=== PATIENT | male | born 1945 | race Caucasian/White ===

== ENCOUNTER 2023-10-21 20:28 | Inpatient (IN) | payer MEDICARE, SELFPAY ==
[2023-10-21] VITALS (10 sets, daily range): BP systolic 93–105; BP diastolic 54–59; BMI 21.9
[2023-10-21 17:14] LABS: % Basophils 0.4 % (0-2); % Eosinophils 2.9 % (0-6); % Immature Granulocytes 0.3 % (0-0.5); % Lymphocytes 19.8 % (20.5-51.1); % Monocytes 6.9 % (1.7-9.3); % Neutrophils 69.7 % (42.2-75.2); Absolute Eosinophils 0.3 10^3/uL (0-0.7); Absolute Lymphocytes 1.9 10^3/uL (1.2-3.4); Absolute Monocytes 0.7 10^3/uL (0.1-0.6); Absolute Neutrophils 6.8 10^3/uL (1.4-6.5); Hematocrit 26.3 % (39.0-52.0); Hemoglobin 8.7 g/dL (13.0-18.0); Mean Corp Hgb Conc. 33.1 g/dL (33.0-37.0); Mean Corpuscular Hgb 27.9 pg (27.0-31.0); Mean Corpuscular Volume 84.3 fL (80.0-94.0); Mean Platelet Volume 8.8 fL (7.4-10.4); Nucleated Red Blood Cells % 0 % (-); Platelet Count 355 10^3/uL (130-400); Red Blood Cell Count 3.12 10^6/uL (4.70-6.10); Red Cell Dist. Width 17.2 % (11.5-14.5); White Blood Cell Count 9.7 10^3/uL (4.8-10.8)
--- NOTE | 2023-10-21 17:30 | ED.GENMED ---
History of Present Illness
General
Chief Complaint: Change Level of Consciousness
Source: patient
Exam Limitations: none
Time Seen by Provider: 10/21/23 17:10
History of Present Illness
History of Present Illness:
77-year-old male never been here before presents via EMS from home after visiting nurse noticed he was different than his baseline. He was tired. They thought he was dehydrated. They sent him here for evaluation. Patient was recently at a
different hospital which they discharged him on ertapenem and daptomycin. He has a chronic suprapubic catheter. The antibiotics were to be continued for 10 days after discharge. Patient a poor historian but denies pain. He is unsure why he was
brought to the hospital. He does not know where he is.
Phy Exam
Physical Exam
Physical Exam:
General: Elderly male no acute respiratory distress
HEENT: Normocephalic mucosa moist neck is supple
Heart: Regular rate and rhythm no murmurs
Lungs: Clear no wheeze or rales
Abdomen: Suprapubic catheter noted mild tenderness in this area no guarding or rebound
Extremities: No cyanosis or edema
Skin: Warm no rash
Course
Orders/Labs/Results
Orders:
Orders
10/21/23 17:09
Complete Blood Count/With Diff Urgent
10/21/23 17:23
CR Chest Portable - 1 View Urgent
Comment:
Reason For Exam: fatigue
Reason Study Needs to be Portable: Patient Unstable
10/21/23 17:31
Lactic Acid Q4H
Comment: CANCEL 2nd LACTIC ACID IF 1st LACTIC ACID IS LESS THAN 2
Blood Culture Q30M
KIEL Source: Blood/Venous
Specimen Description:
Blood Culture Q30M
KIEL Source: Blood/Venous
Specimen Description:
10/21/23 17:41
Comprehensive Metabolic Panel Urgent
Urinalysis Reflex To Culture Urgent
Date Specimen was Collected: 10/21/23
Time Specimen was Collected: 17:24
Urine Microscopic Reflex Cult Urgent
Urine Culture Urgent
KIEL Source: U
Specimen Description:
Date Specimen was Collected: 10/21/23
Time Specimen was Collected: 17:24
10/21/23 19:12
0.9% Sodium Chloride 1000 ml [Nss] 1,000 ml IV BOLUS
10/21/23 19:14
CefTRIAXone [Rocephin] 1,000 mg IV NOW STA
10/21/23 21:30
Lactic Acid Q4H
Comment: CANCEL 2nd LACTIC ACID IF 1st LACTIC ACID IS LESS THAN 2
Abnormal Lab Results
10/21/23 10/21/23 10/21/23
17:09 17:31 17:41
RBC 3.12 L 10^6/uL
(4.70-6.10)
Hgb 8.7 L g/dL
(13.0-18.0)
Hct 26.3 L %
(39.0-52.0)
RDW 17.2 H %
(11.5-14.5)
Absolute Neuts (auto) 6.8 H 10^3/uL
(1.4-6.5)
Absolute Monos (auto) 0.7 H 10^3/uL
(0.1-0.6)
Lymphocytes % 19.8 L %
(20.5-51.1)
Sodium 133 L mmol/L
(135-145)
Potassium 3.4 L mmol/L
(3.5-5.1)
BUN 30 H mg/dl
(9-20)
Creatinine 0.5 L mg/dL
(0.7-1.3)
Glucose 164 H mg/dl
(70-99)
Lactic Acid 0.6 L mmol/L
(0.7-2.0)
Alkaline Phosphatase 193 H U/L
(38-126)
Total Protein 6.2 L g/dl
(6.3-8.2)
Albumin 2.5 L g/dl
(3.5-5.0)
Urine Ketones 1+ A
(Negative)
Ur Occult Blood Reflex 2+ A
(Negative)
Urine Nitrite (Reflex) Positive A
(Negative)
Leukocyte Esterase Rfl 2+ A
(Negative)
Urine WBC (Reflex) >100 A /HPF
(0-5)
Urine Bacteria (Reflex) Many A
(Negative)
Urine Albumin (Reflex) 1+ A
(Neg - Trace)
10/21/23 17:09
10/21/23 17:41
Vital Signs
Initial and Last Documented VS:
Initial Vital Signs
Temp Pulse Resp BP Pulse Ox
98.8 F 68 24 98/54 94
10/21/23 16:58 10/21/23 16:58 10/21/23 16:58 10/21/23 16:58 10/21/23 16:58
Last Documented Vital Signs
Temp Pulse Resp BP Pulse Ox
99.3 F 64 18 103/58 97
10/21/23 17:36 10/21/23 19:00 10/21/23 19:00 10/21/23 19:00 10/21/23 19:00
MDM/Problems Addressed
Differential Diagnosis Includes:
General weakness increased confusion from baseline. Question infectious process versus electrolyte abnormality versus dehydration
Check labs including blood cultures. Urine in catheter bag has significant sediment and looks cloudy
Urinalysis pending. Labs pending. Chest x-ray pending
*Critical Care Note
Total Time (30-74mins, 75-104mins- exclusive of procedures): Not Applicable
Update Note
Update Note:
Chest x-ray shows no acute finding. Concern for possible urinary tract infection on urinalysis. Daughter now on room and spoke with her at length regarding patient's issues. He has been more weak for the past 3 to 4 days getting worse. He
presents like this when he gets urinary tract infection. He has chronic indwelling suprapubic catheter. Will start hydration with IV fluids and Rocephin for UTI but will admit to hospital. Of note, patient's pulse ox was 85% and improved with 2 L
of oxygen.
ED Attending Note
-
Portions of this chart may have been created with voice recognition software.� Occasional wrong word or��sound alike� substitutions may have occurred due to the inherent limitations of voice recognition software.
Discharge Plan
Departure
Patient Disposition: Admit
Date of Disposition: 10/21/23
Time of Disposition: 19:16
Admit to: Telemetry
Presentation/result/management discussed w/ accepting MD/DO: Hospitalist
Discharge Problem:
Acute UTI
Prescriptions:
No Action
atorvastatin 40 mg Tablet
40 mg PO DAILY
amlodipine 2.5 mg Tablet
2.5 mg PO DAILY
omeprazole 40 mg Capsule,Delayed Release(Dr/Ec)
40 mg PO DAILY
carvedilol 3.125 mg Tablet
3.125 mg PO BID
coenzyme Q10 [Co Q-10] 50 mg Capsule
50 mg PO DAILY
isosorbide mononitrate 60 mg Tablet Extended Release 24 Hr
60 mg PO DAILY
alprazolam 0.5 mg Tablet
0.5 mg PO HS
Patient Comments:
10/21/2023: last filled 08/31/23, 180 tabs for 90 days from [id number]
pantoprazole 40 mg Tablet,Delayed Release (Dr/Ec)
40 mg PO DAILY
ferrous sulfate 325 mg (65 mg iron) Tablet
325 mg PO DAILY
aspirin 81 mg Tablet,Chewable
81 mg PO DAILY
gabapentin 100 mg Capsule
100 mg PO HS
ergocalciferol (vitamin D2) 1,250 mcg (50,000 unit) Capsule
1,250 mcg PO WEEKLY
finasteride 5 mg Tablet
5 mg PO DAILY
escitalopram oxalate 20 mg Tablet
20 mg PO DAILY
cyclobenzaprine 5 mg Tablet
5 mg PO BID PRN (Reason: muscle spasms)
Desitin 40 % Paste
1 applic TOPICAL PRN PRN (Reason: wound care)
Patient Comments:
10/21/2023: apply topically
Vashe 0.033 % Irrigation Solution
1 irrig IRRIGATION PRN PRN (Reason: wound care)
sennosides [senna] 8.6 mg tablet
8.6 mg PO BID
oxycodone 5 mg tablet
5 mg PO BID
Patient Comments:
10/21/2023: last filled 09/24/23, 60 tabs for 30 days from [id number]
Referrals:
UNKNOWN - PT DOES,NOT KNOW [Family Provider] -
Interventions
Interventions:
*Risk Screen - Suicide Last Done: 10/21/23 17:01
*General Assessment Last Done: 10/21/23 19:08
*Neglect/Abuse Screening Last Done: 10/21/23 17:01
*ED COVID-19 Vaccine History Last Done: 10/21/23 17:01
ED- Cardiac Assessment Last Done: 10/21/23 17:15
ED- Neurological Assessment Last Done: 10/21/23 17:15
ED- Pulmonary Assessment Last Done: 10/21/23 17:15
Discharge Date and Time
Print Language: DOMINICAN
[2023-10-21 17:50] LABS: Urine Albumin 1+ (Neg - Trace); Urine Bilirubin Negative (Negative); Urine Character Slightly Cloudy (Clear); Urine Color Yellow; Urine Glucose Negative (Negative); Urine Ketone 1+ (Negative); Urine Leukocyte 2+ (Negative); Urine Nitrite Positive (Negative); Urine Occult Blood 2+ (Negative); Urine Specific Gravity 1.015 (<1.030); Urine Urobilinogen Negative (Neg - 1+)
[2023-10-21 17:51] LABS: Lactic Acid 0.6 mmol/L (0.7-2.0)
[2023-10-21 18:07] LABS: ALT (SGPT) 47 U/L (0-50); AST (SGOT) 34 U/L (17-59); Albumin 2.5 g/dl (3.5-5.0); Alkaline Phosphatase 193 U/L (38-126); Blood Urea Nitrogen 30 mg/dl (9-20); Calcium 8.4 mg/dl (8.4-10.2); Carbon Dioxide 24 mmol/L (22-30); Chloride 104 mmol/L (98-107); Estimated Creatinine Clearance 118 ml/min; Glucose 164 mg/dl (70-99); Potassium 3.4 mmol/L (3.5-5.1); Sodium 133 mmol/L (135-145); Total Bilirubin 0.5 mg/dl (0.2-1.3); Total Protein 6.2 g/dl (6.3-8.2); eGFR > 60.00
[2023-10-21 18:16] LABS: Urine Amorphous Seen; Urine Bacteria Many (Negative); Urine Mucus Many; Urine Squamous Cell >30 /LPF (Few); Urine Triple Phosphate Crystal Seen
[2023-10-21 18:17] LABS: Urine Urothelial Cell >30 /LPF (FEW)
[2023-10-21 18:30] LABS: Urine White Cell >100 /HPF (0-5)
--- NOTE | 2023-10-21 18:40 | PHANOTE ---
Med Rec Note:
Home med list is compiled from Discharge papers from Mihaela from 09/20/[address] Mooney. Pt came in alone with papers.
[2023-10-21] MEDS: NSS 1000 IV ×2 (19:42→23:19)
[2023-10-21] MEDS: ROCEPHIN 1000 MG IV (19:42)
[2023-10-21] MEDS: STERILE WATER FOR INJECTION 10 ML IV (19:45)
--- NOTE | 2023-10-21 19:57 | HPS.HSE ---
Family Physician
-
Family Physician: NOT KNOW UNKNOWN - PT DOES
Chief Complaint
-
change in mental status
History of Present Illness
77-year-old male past medical history of TBI, chronic suprapubic catheter, recent sepsis secondary to MRSA/Proteus pyelonephritis secondary to obstructed right ureteral calculus status post stent and removal complicated by perinephric hematoma, BPH,
prior diabetes, diabetic neuropathy, prior CVA, CAD status post stents, recent hematemesis secondary to undiagnosed GI bleeding, anxiety/depression, GERD, left foot wound, presenting from senior living for change in mental status over the past 3 to 4
days. No fevers or chills. Patient's chronic suprapubic catheter has not been changed since September 27 and there is cloudy material in the catheter. No nausea or vomiting.
History is obtained from patient's daughter. Patient just had a complicated hospitalization at [facility] for sepsis secondary to MRSA/Proteus pyelonephritis secondary to obstructing right ureteral calculus. Patient was treated with
ertapenem and daptomycin to be continued for 10 days which he finished on September 27. Patient required stent with eventual removal. Patient also had a perinephric hematoma. Hospital course was complicated by hematemesis suspected secondary to upper
GI bleeding. Patient required blood transfusions due to hemoglobin as low as 7. EGD was not pursued given patient's comorbidities and clinical status. Plavix was eventually restarted afterwards given patient's history of stroke
Patient receives all his care at [facility]..
Patient did have some slight cough over the past few days. No shortness of breath or chest pain. Patient did not have a bowel movement today or yesterday.
Patient does not smoke or drink alcohol.
Medical History
Past Medical History
Past Medical History: Reports Other (TBI, chronic suprapubic catheter, recent sepsis secondary to MRSA/Proteus pyelonephritis secondary to obstructed right ureteral calculus status post stent and removal complicated by perinephric hematoma, BPH,
prior diabetes, diabetic neuropathy, prior CVA, CAD status post stents, recent hematemesis )
Past Surgical History: Reports Other (ureteral stent )
Social History
Tobacco: Non-smoker
Alcohol: None
Drug: None
Family History
Family History: Not pertinent
Allergies / Home Medications
Allergies reflects when Allergies were last updated in [employer].
Home Medications with original date entered in [employer]
Allergy/Medication List:
Allergies
Allergy/AdvReac Type Severity Reaction Status Date / Time
No Known Allergies Allergy Verified 10/21/23 19:16
Home Medications
alprazolam 0.5 mg tablet 0.5 mg PO HS 10/21/23
amlodipine 2.5 mg tablet 2.5 mg PO DAILY 10/21/23
aspirin 81 mg chewable tablet 81 mg PO DAILY 10/21/23
atorvastatin 40 mg tablet 40 mg PO DAILY 10/21/23
carvedilol 3.125 mg tablet 3.125 mg PO BID 10/21/23
coenzyme Q10 50 mg capsule (Co Q-10) 50 mg PO DAILY 10/21/23
cyclobenzaprine 5 mg tablet 5 mg PO BID PRN muscle spasms 10/21/23
ergocalciferol (vitamin D2) 1,250 mcg (50,000 unit) capsule 1,250 mcg PO WEEKLY 10/21/23
escitalopram oxalate 20 mg tablet 20 mg PO DAILY 10/21/23
ferrous sulfate 325 mg (65 mg iron) tablet 325 mg PO DAILY 10/21/23
finasteride 5 mg tablet 5 mg PO DAILY 10/21/23
gabapentin 100 mg capsule 100 mg PO HS 10/21/23
isosorbide mononitrate 60 mg tablet,extended release 24 hr 60 mg PO DAILY 10/21/23
omeprazole 40 mg capsule,delayed release 40 mg PO DAILY 10/21/23
oxycodone 5 mg tablet 5 mg PO BID 10/21/23
pantoprazole 40 mg tablet,delayed release 40 mg PO DAILY 10/21/23
sennosides 8.6 mg tablet (senna) 8.6 mg PO BID 10/21/23
sodium chloride-hypochlorous acid 0.033 % irrigation solution (Vashe) 1 irrig irrigation PRN PRN wound care 10/21/23
zinc oxide-cod liver oil 40 % topical paste (Desitin) 1 applic topical PRN PRN wound care 10/21/23
Review of Systems
-
History Source: Patient
A 12 point ROS was completed and negative except as noted: Yes
Constitutional: Reports No Symptoms
EENT: Reports No Symptoms
Respiratory: Reports See HPI
Cardiac: Reports No Symptoms
Abdomen/GI: Reports See HPI
: Reports See HPI
Musculoskeletal: Reports No Symptoms
Skin: Reports No Symptoms
Neurological: Reports No Symptoms
Endocrine: Reports No Symptoms
Hematologic/Lymphatic: Reports No Symptoms
Psych: Reports No Symptoms
Physical Exam
Vital Signs
Vital Signs
Temp Pulse Resp BP Pulse Ox
99.3 F 64 18 103/58 97
10/21/23 17:36 10/21/23 19:00 10/21/23 19:00 10/21/23 19:00 10/21/23 19:00
Physical Exam
General: Well Developed, Well Nourished and No Apparent Distress
HEENT: NormoCephalic, Moist mucous membranes and Atraumatic
Respiratory: Clear
Cardiac: S1/S2 and Regular Rhythm; No Murmur or Rub
GI: Soft, Non Tender, Non Distended and Normal Bowel Sounds; No Organomegaly
Rectal: Deferred by Provider
Musculoskeletal: No Clubbing, No Cyanosis and No Edema
Skin: No Rash
Neuro: Nonfocal/grossly intact
Laboratory Results
-
10/21/23 17:09
10/21/23 17:41
Laboratory Results
Lactic Acid Cancelled 10/21/23 21:30
Total Bilirubin 0.5 mg/dl (0.2-1.3) 10/21/23 17:41
AST 34 U/L (17-59) 10/21/23 17:41
ALT 47 U/L (0-50) 10/21/23 17:41
Alkaline Phosphatase 193 U/L (38-126) H 10/21/23 17:41
Data Reviewed
-
Lab Data: Labs Reviewed by me
Old Records: Reviewed
Impression/Plan
-
IMPRESSION:
PLAN:
# Metabolic encephalopathy secondary to suprapubic catheter associated UTI
-Urine, blood cultures
-IV fluids
-Ceftriaxone
-Check CT abdomen pelvis to evaluate for stone given complex history
-Urology consulted to exchange suprapubic catheter
# History of recent sepsis secondary MRSA/Proteus pyelonephritis secondary infected right ureteral calculus status post stent and removal complicated by perinephric hematoma
-Completed daptomycin/ertapenem on September 27
# Constipation
-start miralax
BPH status post chronic suprapubic catheter
-Continue finasteride
Recent upper GI bleeding
-EGD not pursued
Normocytic anemia secondary to UGIB
-Hemoglobin 8.7 close to baseline
-Continue ferrous sulfate
# Hypokalemia
-Replete potassium
Essential hypertension
-Continue amlodipine
Anxiety/depression
-Hold Xanax
-Continue Lexapro
Coronary artery disease status post CABG/stents
-Continue aspirin, statin, Coreg, isosorbide mononitrate
GERD
-Continue omeprazole
Prior diabetes
Diabetic neuropathy
-Hold gabapentin until encephalopathy improves
History of traumatic brain injury
Prior CVA
-Continue aspirin, Plavix
Left foot wound
-Topical wound care
Full code
DVT prophylaxis�SCDs
regular diet
[2023-10-21] MEDS: KCL 40 MEQ PO (20:08)
[2023-10-22] MEDS: COREG PO (00:44)
--- NOTE | 2023-10-22 03:30 | PTCARENOTE ---
Pt admitted from ED, AAOx2. Daughter/caregiver at bedside. No c/o pain. Pt afebrile. BP 98/54 - BUSINESS SUPPORT LIAISON aware and Coreg dose held - parameters added. R forearm IV C/D/I, started on IVF - infusing without issues. Lungs clear, diminished. Pt arrived
to unit on 2L O2. No oxygen use at home reported. no N/V or stools thi shift. Suprapubic catheter in place, draining dennise, cloudy urine with sediments. Skin assessed. Sacrum and B/L heels with wounds on admission. Q2 turns overnight. Awaiting
further plan.
[2023-10-22 05:54] LABS: % Basophils 0.4 % (0-2); % Eosinophils 5.3 % (0-6); % Immature Granulocytes 0.5 % (0-0.5); % Lymphocytes 22.7 % (20.5-51.1); % Monocytes 6.9 % (1.7-9.3); % Neutrophils 64.2 % (42.2-75.2); Absolute Eosinophils 0.6 10^3/uL (0-0.7); Absolute Immature Granulocytes 0.1 10^3/uL (0-0.05); Absolute Lymphocytes 2.4 10^3/uL (1.2-3.4); Absolute Monocytes 0.7 10^3/uL (0.1-0.6); Absolute Neutrophils 6.9 10^3/uL (1.4-6.5); Hematocrit 31.8 % (39.0-52.0); Hemoglobin 9.8 g/dL (13.0-18.0); Mean Corp Hgb Conc. 30.8 g/dL (33.0-37.0); Mean Corpuscular Hgb 27.5 pg (27.0-31.0); Mean Corpuscular Volume 89.3 fL (80.0-94.0); Mean Platelet Volume 9.1 fL (7.4-10.4); Nucleated Red Blood Cells % 0 % (-); Platelet Count 370 10^3/uL (130-400); Red Blood Cell Count 3.56 10^6/uL (4.70-6.10); Red Cell Dist. Width 17.2 % (11.5-14.5); White Blood Cell Count 10.7 10^3/uL (4.8-10.8)
[2023-10-22 06:31] LABS: ALT (SGPT) 45 U/L (0-50); AST (SGOT) 32 U/L (17-59); Albumin 2.8 g/dl (3.5-5.0); Alkaline Phosphatase 213 U/L (38-126); Blood Urea Nitrogen 26 mg/dl (9-20); Calcium 8.8 mg/dl (8.4-10.2); Carbon Dioxide 26 mmol/L (22-30); Chloride 108 mmol/L (98-107); Estimated Creatinine Clearance 118 ml/min; Glucose 104 mg/dl (70-99); Potassium 4.3 mmol/L (3.5-5.1); Sodium 141 mmol/L (135-145); Total Bilirubin 0.5 mg/dl (0.2-1.3); eGFR > 60.00
[2023-10-22 07:30] VITALS: BP 131/58
--- NOTE | 2023-10-22 07:51 | W.PN.UPDATE ---
Update Note
Progress Note Update
pt seen and examined
hx from chart reviewed- he can not provide
sp tube changed at bedisde- await CT
full consult to follow
[2023-10-22] MEDS: PROTONIX 40 MG PO (09:02)
[2023-10-22] MEDS: IMDUR (EXTENDED RELEASE) 60 MG PO (09:02)
[2023-10-22] MEDS: LEXAPRO 20 MG PO (09:02)
[2023-10-22] MEDS: LOW STRENGTH ASPIRIN 81 MG PO (09:03)
[2023-10-22] MEDS: COREG 3.125 MG PO ×2 (09:03→21:29)
[2023-10-22] MEDS: LIPITOR 40 MG PO (09:03)
[2023-10-22] MEDS: FEOSOL 325 MG PO (09:03)
[2023-10-22] MEDS: PROSCAR 5 MG PO (09:03)
[2023-10-22] MEDS: NORVASC 2.5 MG PO (09:03)
[2023-10-22] MEDS: MIRALAX 17 GRAMS PO (09:04)
[2023-10-22] MEDS: NSS 1000 IV ×2 (09:59→21:30)
--- NOTE | 2023-10-22 10:58 | W.PN.HOSP.TC ---
Today's Communication/Plan
-
CT abdomen pelvis pending
Assessment / Plan
Assessment / Plan
IMPRESSION:
77-year-old male past medical history of TBI, chronic suprapubic catheter, recent sepsis secondary to MRSA/Proteus pyelonephritis secondary to obstructed right ureteral calculus status post stent and removal complicated by perinephric hematoma,
never been here before presents via EMS from home after visiting nurse noticed he was different than his baseline. He was tired. They thought he was dehydrated. They sent him here for evaluation
PLAN:
Acute Metabolic encephalopathy secondary to suprapubic catheter associated UTI
-Patient was started on IV antibiotic in form of Rocephin
-Still pending urine, blood cultures
-Continue IV fluids
-Had CT abdomen pelvis done today, result pending
-Urology consulted.
History of recent sepsis secondary MRSA/Proteus pyelonephritis secondary infected right ureteral calculus status post stent and removal complicated by perinephric hematoma
Patient had prolonged hospitalization at [facility] and discharged on IV daptomycin/ertapenem which has been completed on September 27
BPH status post chronic suprapubic catheter
-Continue finasteride
Recent upper GI bleeding
Hemoglobin stable
Normocytic anemia secondary to UGIB /iron deficiency anemia
-Hemoglobin stable
-Continue ferrous sulfate
Mild Hypokalemia
replaced
Essential hypertension
-Continue amlodipine
Anxiety/depression
-Hold Xanax
-Continue Lexapro
Coronary artery disease status post CABG/stents
-Continue aspirin, statin, Coreg, isosorbide mononitrate
GERD
-Continue omeprazole
Constipation
miralax
Diabetic neuropathy
-Hold gabapentin until encephalopathy improves
Prior CVA
-Continue aspirin, Plavix
Left foot wound
-Topical wound care
CODE STATUS: Full code
DVT prophylaxis:SCDs
Diet: Regular diet
Anticipated Discharge: > 48 hours
Subjective/Interval History
-
Date of Service: October 22, 2023
Patient seen and examined at bedside, patient is awake but not fully oriented, denies any chest pain or shortness of breath.
Objective Data
-
Labs:
Laboratory Results
10/22/23
05:41
WBC 10.7
Hgb 9.8 L
Hct 31.8 L
Plt Count 370
Sodium 141 D
Potassium 4.3 D
Chloride 108 H
Carbon Dioxide 26
BUN 26 H
Creatinine 0.5 L
Glucose 104 H
Calcium 8.8
Total Bilirubin 0.5
AST 32
ALT 45
Alkaline Phosphatase 213 H
Vital Signs:
Vital Signs
Temp Pulse Resp BP Pulse Ox
99.4 F 84 22 131/58 97
10/22/23 07:30 10/22/23 09:03 10/22/23 07:30 10/22/23 09:03 10/22/23 07:30
I&O
10/21/23 10/22/23 10/23/23
06:59 06:59 06:59
Intake Total 60 / 60
Output Total 750 / 750
Balance -690 / -690
Physical Exam
-
General: Comfortable and Appears Chronically Ill
HEENT: Normocephalic, Atraumatic and Moist Mucous Membranes
Respiratory: Rales
Cardiac: Regular Rhythm and S1/S2; Negative Murmur, Rub or Gallop
GI: Soft, Nontender, Nondistended and Normal Bowel Sounds; Negative Organomegaly
Rectal: Deferred by Provider
Musculoskeletal: No Clubbing, No Cyanosis and No Edema
Skin: Negative Rash
Neuro: Nonfocal/Grossly Intact
Psych: Confused
--- NOTE | 2023-10-22 12:00 | CM ---
Addendum entered by Lucila Contreras 10/22/23 12:32:
Pt lives with daughter Yamila and her family in a 2 story home - has FF set-up
Original Note:
Pt admitted for metabolic encephalopathy/UTI. H/O TBI. Confused at baseline
Spoke with pts daughter Yamila [phone], to complete initial assessment
Confused at baseline, ambulates with rolling walker. Assist with ADL's/transfers
DME - hospital bed, wheel chair and rolling walker
HH - current with [facility]
Snf - has been to [facility] in past
PCP - Dr Corral, comes to home
Pharm - [facility]
Current with [facility] - will send referral in [facility] for JERR[facility]
Plan - anticipate home with HH vs SNF at d/c
--- NOTE | 2023-10-22 12:43 | PTCARENOTE ---
CALLED DAUGHTER SERGEY TAYLOR with update,
--- NOTE | 2023-10-22 13:06 | CON.MD ---
Consultation - Medical
-
see dictated note
NOTE- ALL CARE HAS BEEN THRU [facility]
pt with traumatic brain injury- [place]- ? his functional status at baseline
became early dependent in 2019- then due to traumatic hypospadius and repeat UTI's and cath encrustation- had SP TUBE PLACEMENT in fall of 2022- contine to block cath- now upsized to 24 turkmen- even with irrigation/renacidin and freq changes- was
getting repeat UTI's and cath obstruction
in july presented with urosepsis to [facility]- had ureteroscopy and stent (apparently no stone- just encrusted mucous)- developed sig right renal bleed requiring 3units of blood
in and out fo the hospital- most recently in august- had repeat ureteroscopy and stent removal- per dr coreas- imaging at that time did show some evid of air in renal and per-renal space- cx's + for mrsa and proteus- sent out on iv atnibx- has completed
this regimen
brought in to last night for not feeling well
family does not want him to go back to [facility]- and his treating urologist stated today she does not want to continue his care
af-vss-nl wbc- ua+- sp tube changed at bedside
CT shows very abnormal right kidney- small pockets of air in parenchyma and jc-renal area (? within hematoma)- appears to have hydro with calcified debris in prox ureter- but very difficult exam
I have reviewed the films with my partners- dr joy did reach out to dr croeas- her care plan is noted above
also spoke with med team and 2 extensive conversations with daughter
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
also will need to remain off plavix given bleeding hx and need for surgery/possible drainage/etc (did take yesterday)- this also carries substantial risk
may need to consider tertiary care referral at some juncture
in short term- plan as pt is relatively stable- is for OR stent placement tomorrow and repeat iv contrasted ct 72hrs later
daughter has consented- high risks have been reviewed.
--- NOTE | 2023-10-22 14:32 | WOUNDNOTE ---
[facility] RN note: Patient admitted with UTI/metabolic encephalopathy
See H&P for complete history-
PMH: Recent sepsis secondary to MRSA, BPH, GI bleed, hypokalemia, CAD, depression
Wound Location and type/assessment: Patient assessed with PCT, Sandip. Patient easily arousable but appears lethargic and oriented only to self. Patient lives at home and VN called EMS today for MS changed. Upon assessment, sacrum is blanchable red
with scattered open areas extending to buttocks. Fungal appearing skin also noted. Subrapubic catheter intact and providing moisture management.Friction appearing skin noted on posterior thighs. Patient admitted with fiber filled boots. He has a
stage 3 PI of left medical heel that is covered in thick, draining slough. Directly on bottom of left heel is a DTI, and just lateral to that is an unstageable PI covered with thick eschar.
Appetite: Unable to report. Patient slowly feeding self after visit.
Pressure redistribution devices in place: Versa Care Air, fiber-filled boots.
Plan: All wound care completed as ordered. Dakins had been ordered prior to visit for left heel wound.
Will confirm orders with hospitalist and update nurse.
Updated care plan and will follow as needed.
Note to case management of equipment requested for discharge: Air mattress
Recommend follow up at wound care center upon discharge.
[2023-10-22 14:39] VITALS: BMI 21.9
--- NOTE | 2023-10-22 15:27 | WOUNDNOTE ---
LEFT HEEL (LATERAL ASPECT)
--- NOTE | 2023-10-22 15:38 | CON.ID ---
Consultation
-
Date/Time Consultation Requested: 10/22/23 11:55
Date/Time Consultation Performed: 10/22/23 15:38
Requesting Provider: Dr Choudhary
Performing Provider: Dr Nunes
Reason for Consultation: UTI with history of MRSA/Proteus pyelonephritis
Chief Complaint / Past History
Chief Complaint
change in mental status
History of Present Illness
Mr Mac is a 77 year old male with history of TBI with chronic suprapubic cath, recent pyelonephritis due to obstructed R ureteral calculus and cultures with MRSA/Proteus who presented here for change in mental status over 3-4 days. No fevers or
chills. Mild cough. No shortness of breath. No diarrhea. Patient was treated with daptomycin/ertapenem for a 10 day course through september 27. Of note had a perinephric hematuria, did require stent placement and it was removed. Of note obstruction
was encrusted mucous not a stone. 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 Patient typically gets his care at [facility].
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
involving the right kidney. Patient has been extensively evaluated by urology who have commented that eventual nephrectomy may be required but patient is at high risk and currently relatively stable. He is currently planned for OR for stent
placement tomorrow and repeat CT with IV contrast in 72 hours. Patient is currently on ceftriaxone. ID is consulted for assistance with management.
Past History
Additional Past Medical History:
TBI, chronic suprapubic catheter, recent sepsis secondary to MRSA/Proteus pyelonephritis secondary to obstructed right ureteral calculus status post stent and removal complicated by perinephric hematoma, BPH, prior diabetes, diabetic neuropathy,
prior CVA, CAD status post stents, recent hematemesis
Additional Past Surgical History:
ureteral stent
Allergy History:
No Known Allergies Allergy (Verified 10/21/23 19:16)
Medications Reviewed: Yes
Social History
Tobacco: Non-Smoker
Alcohol: None
Drug: None
Family History
Family History: Not Pertinent
Review of Systems
Review of Systems
General: Negative Fever or Chills
All systems: All other systems were reviewed and were negative
Vital Signs
Temp Pulse Resp BP Pulse Ox
99.4 F 84 22 131/58 95
10/22/23 07:30 10/22/23 09:03 10/22/23 07:30 10/22/23 09:03 10/22/23 13:57
Physical Exam
Physical Exam
Constitutional: No Acute Distress
Cardiovascular: Regular Rate and S1/S2; Negative Murmur or Rub
Pulmonary: Clear and Symmetric; Negative Wheezes, Rales or Rhonchi
Gastrointestinal: Soft, Non Tender, Non Distended and Normal Bowel Sounds
Genito-Urinary: Suprapubic Tenderness; Negative CVA Tenderness
Skin: Warm and Dry; Negative Rash or Jaundice
Neurological: Awake and Alert; Negative Oriented (to time; he is oriented to place)
Lab / Diagnostic Study Results
10/22/23 05:41
10/22/23 05:41
Abs Immat Gran (auto) 0.1 10^3/uL (0-0.05) H 10/22/23 05:41
Absolute Neuts (auto) 6.9 10^3/uL (1.4-6.5) H 10/22/23 05:41
Absolute Lymphs (auto) 2.4 10^3/uL (1.2-3.4) 10/22/23 05:41
Absolute Monos (auto) 0.7 10^3/uL (0.1-0.6) H 10/22/23 05:41
Absolute Basos (auto) 0.0 10^3/uL (0-0.2) 10/22/23 05:41
Immature Gran % 0.5 % (0-0.5) 10/22/23 05:41
Neutrophils % 64.2 % (42.2-75.2) 10/22/23 05:41
Lymphocytes % 22.7 % (20.5-51.1) 10/22/23 05:41
Monocytes % 6.9 % (1.7-9.3) 10/22/23 05:41
Eosinophils % 5.3 % (0-6) 10/22/23 05:41
Basophils % 0.4 % (0-2) 10/22/23 05:41
Lactic Acid Cancelled 10/21/23 21:30
Ur Squamous Epith Cells >30 /LPF (Few) 10/21/23 17:41
Microbiology Results
Micro:
10/21/23 17:41 Urine Culture - Final
Urine
10/22/23 07:59 Urine Culture - Pending
Urine
10/21/23 17:31 Blood Culture - Pending
Blood/Venous
10/21/23 17:31 Blood Culture - Pending
Blood/Venous
Assessment / Plan
Xanthogranulomatous Pyelonephritis
- recent h/o pyelonephritis due to MRSA and Proteus
S/p Suprapubic catheter
- obtain discharge summary and recent cultures from [facility]
- reviewed records that are available on the paper chart - confirmed 10 day course of ertapenem/daptomycin
- urine culture polymicrobial 10/20, a repeat done today
- asked lab to ID the isolates from 10/20 as XGP is occasionally polymicrobial
- restarted daptomycin, for now, 10 mg/kg while awaiting MICs
- hold statin
- ck in the AM
- meropenem 1 gm IV q 8hrs
- agree that eventual nephrectomy is likely needed, luckily patient is currently stable. I am concerned that he would be at risk of relapsing infection, progression if necrotic tissue and fluid collections remain within the kidney. Right kidney
likely not viable Transfer to tertiary care center may be indicated
[2023-10-22 16:00] VITALS: BP 123/60
[2023-10-22] MEDS: HEPARIN 5000 UNITS SC ×2 (16:30→23:40)
[2023-10-22] MEDS: MERREM 1000 MG IV ×2 (16:31→23:41)
[2023-10-22] MEDS: STERILE WATER FOR INJECTION 20 ML IV ×2 (16:32→23:42)
--- NOTE | 2023-10-22 16:37 | WOUNDNOTE ---
LEFT HEEL WOUND
[2023-10-22] MEDS: CUBICIN 16 MG IV (17:00)
[2023-10-22 23:00] VITALS: BP 128/66
[2023-10-23] VITALS (9 sets, daily range): BP systolic 91–128; BP diastolic 52–66; BMI 21.7
[2023-10-23] MEDS: NSS 1000 IV (06:21)
[2023-10-23 06:48] LABS: Hematocrit 28.4 % (39.0-52.0); Hemoglobin 9.2 g/dL (13.0-18.0); Mean Corp Hgb Conc. 32.4 g/dL (33.0-37.0); Mean Corpuscular Hgb 27.4 pg (27.0-31.0); Mean Corpuscular Volume 84.5 fL (80.0-94.0); Mean Platelet Volume 9.1 fL (7.4-10.4); Platelet Count 397 10^3/uL (130-400); Red Blood Cell Count 3.36 10^6/uL (4.70-6.10); Red Cell Dist. Width 17.2 % (11.5-14.5); White Blood Cell Count 13.3 10^3/uL (4.8-10.8)
[2023-10-23 07:02] LABS: Blood Urea Nitrogen 16 mg/dl (9-20); Calcium 8.3 mg/dl (8.4-10.2); Carbon Dioxide 24 mmol/L (22-30); Chloride 105 mmol/L (98-107); Creatine Phosphokinase 43 U/L (55-170); Estimated Creatinine Clearance 117 ml/min; Glucose 117 mg/dl (70-99); Potassium 3.5 mmol/L (3.5-5.1); Sodium 136 mmol/L (135-145); eGFR > 60.00
[2023-10-23] MEDS: MERREM IV (08:32)
--- NOTE | 2023-10-23 09:07 | W.IMMPOSTOP ---
Surgical Immed Post Op Note
-
Primary Surgeon: Peffer
Assisting Surgeon: -
Pre-op Diagnosis: R ureteral obstruction
Post-op Diagnosis: same
Procedure Performed: cystoscopy, R RGP, R ureteral stent
Anesthesia Type: gen
Specimen / Cultures: none
Estimated Blood Loss: none
Complications: none
Operative Findings: kinked R ureter with dense obstructive debris
Ureteral stent placed with purulent drainage
[2023-10-23] MEDS: MIRALAX 17 GRAMS PO (09:56)
[2023-10-23] MEDS: COREG 3.125 MG PO ×2 (09:56→20:28)
[2023-10-23] MEDS: NORVASC 2.5 MG PO (09:56)
[2023-10-23] MEDS: PROTONIX 40 MG PO (09:56)
[2023-10-23] MEDS: LOW STRENGTH ASPIRIN 81 MG PO (09:56)
[2023-10-23] MEDS: FEOSOL 325 MG PO (09:56)
[2023-10-23] MEDS: LEXAPRO 20 MG PO (09:56)
[2023-10-23] MEDS: PROSCAR 5 MG PO (09:56)
[2023-10-23] MEDS: IMDUR (EXTENDED RELEASE) 60 MG PO (09:57)
[2023-10-23] MEDS: HEPARIN 5000 UNITS SC ×2 (09:57→15:26)
[2023-10-23] MEDS: STERILE WATER FOR INJECTION 20 ML IV ×2 (09:58→15:27)
--- NOTE | 2023-10-23 12:19 | W.PN.HOSP.TC ---
Today's Communication/Plan
-
s/p stent
continue Abx per ID and follow cultures
repeat CT in 72 hours
Assessment / Plan
Assessment / Plan
IMPRESSION:
77-year-old male past medical history of TBI, chronic suprapubic catheter, recent sepsis secondary to MRSA/Proteus pyelonephritis secondary to obstructed right ureteral calculus status post stent and removal complicated by perinephric hematoma,
never been here before presents via EMS from home after visiting nurse noticed he was different than his baseline. He was tired. They thought he was dehydrated. They sent him here for evaluation
Assessment:
Xanthogranulomatous Pyelonephritis
recent h/o pyelonephritis due to MRSA and Proteus, infected R ureteral stone s/p stent/removal ([facility])
- obtain records from [facility]
- Urology following
- s/p cysto, RGP, stent placement 10/23/23
- continue Meropenem and Dapto per ID; follow cultures
- May need to be considered for Nephrectomy
- plan is for repeat in 72 hours per Urology
TME associated with above process of UTI/Pyelonephritis
BPH s/p suprapubic catheter
- continue Finasteride
Recent hx of upper GI bleed
Normocytic anemia
- stable Hb
Mild hypokalemia
- replaced
Essential HTN
- amlodipine
Anxiety/Depression
- hold BZD
- continue Lexapro
CAD S/p CABG/Stents
- continue ASA/Statin/Coreg/Imdur
GERD - PPI
Constipation
- bowel regimen
Hx of DM neuropathy
- hold Gabapentin
Hx of CVA
- continue ASA/Statin
Left food wound
- continue topical care
DVT ppx: SCDs
Code: Full
Anticipated Discharge: > 48 hours
Subjective/Interval History
-
Date of Service: October 23, 2023
s/p cysto+stent placement this AM with copious pus noted
Objective Data
-
Labs:
Laboratory Results
10/23/23
06:14
WBC 13.3 H
Hgb 9.2 L
Hct 28.4 L
Plt Count 397
Sodium 136
Potassium 3.5
Chloride 105
Carbon Dioxide 24
BUN 16
Creatinine 0.5 L
Glucose 117 H
Calcium 8.3 L
Vital Signs:
Vital Signs
Temp Pulse Resp BP Pulse Ox
97.4 F 70 18 116/63 94
10/23/23 11:50 10/23/23 11:50 10/23/23 11:50 10/23/23 11:50 10/23/23 11:50
I&O
10/22/23 10/23/23 10/24/23
06:59 06:59 06:59
Intake Total 1640 / 1640 100 / 100
Output Total 1800 / 1800 200 / 200
Balance -160 / -160 -100 / -100
Physical Exam
-
General: No Apparent Distress
HEENT: Normocephalic and Atraumatic
Respiratory: Negative Wheezes
Cardiac: Regular Rhythm and S1/S2
GI: Soft
Genito-urinary: No Costovertebral Tender
Musculoskeletal: No Edema
Neuro: AO x 3
Hematologic / Lymphatic: No Lymphadenopathy
Psych: Calm
Data Reviewed
-
Total Time Spent with Patient (in minutes): 42
Labs: Labs Reviewed by me
--- NOTE | 2023-10-23 15:16 | W.PN.ID1 ---
Date of Service
Date of Service: October 23, 2023
Today's Communication
continue dapto/dwain at this time
Assessment / Plan
Xanthogranulomatous Pyelonephritis
- recent h/o pyelonephritis due to MRSA and Proteus
S/p Suprapubic catheter
- obtain discharge summary and recent cultures from [facility]
- reviewed records that are available on the paper chart - confirmed 10 day course of ertapenem/daptomycin
- urine culture polymicrobial 10/20, a repeat done today
- asked lab to ID the isolates from 10/20 as XGP is occasionally polymicrobial
- restarted daptomycin, for now, 10 mg/kg while awaiting MICs
- hold statin
- ck in the AM
- meropenem 1 gm IV q 8hrs
- agree that eventual nephrectomy is likely needed, luckily patient is currently stable. I am concerned that he would be at risk of relapsing infection, progression if necrotic tissue and fluid collections remain within the kidney. Right kidney
likely not viable Transfer to tertiary care center may be indicated
Chief Complaint
-: UTI (XGP)
Subjective / Review of Systems
afebrile
bp stable
mild leukocytosis
cr stable
urine culture with proteus and e coli similar to previous
s/p stent placement
Vital Signs / Physical Exam
Vital Signs
Vital Signs
Temp Pulse Resp BP Pulse Ox
97.4 F 70 18 116/63 94
10/23/23 11:50 10/23/23 11:50 10/23/23 11:50 10/23/23 11:50 10/23/23 11:50
Physical Exam
Constitutional: No Acute Distress
Cardiovascular: Regular Rate and S1/S2; Negative Murmur or Rub
Pulmonary: Clear and Symmetric; Negative Wheezes or Rales
Gastrointestinal: Soft, Non Tender, Non Distended and Normal Bowel Sounds
Genito-Urinary: Negative Suprapubic Tenderness
Skin: Warm and Dry; Negative Rash or Jaundice
Objective Data
Lab Data
Lab Results
10/23/23 06:14
10/23/23 06:14
Estimated Creat Clear 117 ml/min 10/23/23 06:14
Lactic Acid Cancelled 10/21/23 21:30
Total Bilirubin 0.5 mg/dl (0.2-1.3) 10/22/23 05:41
AST 32 U/L (17-59) 10/22/23 05:41
ALT 45 U/L (0-50) 10/22/23 05:41
Alkaline Phosphatase 213 U/L (38-126) H 10/22/23 05:41
Most recent labs reviewed.
Micro Results:
10/21/23 17:31 Blood Culture - Preliminary
Blood/Venous Coagulase neg. staphylococcus
Additional testing on request
Gram Stain - Preliminary
10/21/23 17:41 Urine Culture - Preliminary
Urine Escherichia coli
Proteus species
10/22/23 07:59 Urine Culture - Preliminary
Urine Proteus species
10/21/23 17:31 Blood Culture - Preliminary
Blood/Venous No Growth in 24 hours- Final report to follow
[2023-10-23] MEDS: MERREM 1000 MG IV (15:26)
[2023-10-23] MEDS: CUBICIN 16 MG IV (15:26)
[2023-10-24] MEDS: HEPARIN 5000 UNITS SC (01:16)
[2023-10-24] MEDS: STERILE WATER FOR INJECTION 20 ML IV ×3 (01:16→17:00)
[2023-10-24] MEDS: MERREM 1000 MG IV ×3 (01:16→17:00)
[2023-10-24 03:26] VITALS: BP 123/63
--- NOTE | 2023-10-24 03:39 | PTCARENOTE ---
@7621;Instructed RICH Castelan,via TT, pt's suprapubic draining some bloody red urine. Earlier in shift ,urine was like a yellow red color. Received orders for NSS 500ml IV @ 100 ml/hour and to hold SQ heparin.
[2023-10-24] MEDS: NSS 500 IV (04:20)
--- NOTE | 2023-10-24 04:25 | PTCARENOTE ---
@2300; Pt's B/L fiber filled boots were removed and reapplied after 2 hours
--- NOTE | 2023-10-24 04:28 | W.PN.UPDATE ---
Update Note
Progress Note Update
RN noted pt with increased hematuria post cysto with stent 10/23/23
No clots, Good urinary output. Will hold heparin sq for now. Small ivf bolus to facilitate clearance
[2023-10-24 05:50] VITALS: BMI 22.0
[2023-10-24 06:00] VITALS: BMI 22.0
[2023-10-24 07:00] VITALS: BP 110/61
[2023-10-24 07:37] LABS: Hematocrit 29.4 % (39.0-52.0); Hemoglobin 9.3 g/dL (13.0-18.0); Mean Corp Hgb Conc. 31.6 g/dL (33.0-37.0); Mean Corpuscular Hgb 27.4 pg (27.0-31.0); Mean Corpuscular Volume 86.7 fL (80.0-94.0); Mean Platelet Volume 9.2 fL (7.4-10.4); Platelet Count 384 10^3/uL (130-400); Red Blood Cell Count 3.39 10^6/uL (4.70-6.10); Red Cell Dist. Width 17.2 % (11.5-14.5); White Blood Cell Count 13.4 10^3/uL (4.8-10.8)
[2023-10-24 08:18] LABS: Blood Urea Nitrogen 18 mg/dl (9-20); Calcium 8.9 mg/dl (8.4-10.2); Carbon Dioxide 23 mmol/L (22-30); Chloride 105 mmol/L (98-107); Estimated Creatinine Clearance 118 ml/min; Glucose 133 mg/dl (70-99); Potassium 3.7 mmol/L (3.5-5.1); Sodium 135 mmol/L (135-145); eGFR > 60.00
[2023-10-24] MEDS: PROSCAR 5 MG PO (09:10)
[2023-10-24] MEDS: IMDUR (EXTENDED RELEASE) 60 MG PO (09:10)
[2023-10-24] MEDS: LEXAPRO 20 MG PO (09:10)
[2023-10-24] MEDS: LOW STRENGTH ASPIRIN 81 MG PO (09:10)
[2023-10-24] MEDS: PROTONIX 40 MG PO (09:10)
[2023-10-24] MEDS: FEOSOL 325 MG PO (09:13)
[2023-10-24] MEDS: COREG 3.125 MG PO ×2 (09:13→20:59)
[2023-10-24] MEDS: NORVASC 2.5 MG PO (09:14)
[2023-10-24] MEDS: MIRALAX 17 GRAMS PO (09:15)
[2023-10-24 11:00] VITALS: BP 113/58
--- NOTE | 2023-10-24 11:40 | W.PN.URO.CBU ---
Today's Communication / Plan
-
Continue abx
Hold plavix
CT on Wednesday
Assessment / Plan
-
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
Recurrent UTI and catheter obstruction
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
s/p suprapubic tube replacement
s/p R ureteral stent placement 10/22 with purulent drainage. Calcified debris and ureteral kinking noted on retrograde study
- Continue broad spectrum abx per ID - cultures pending
- Trend mild hematuria, flush suprapubic tube as needed
- Continue to hold Plavix. Okay to give sub Q heparin DVT ppx
- Repeat CTAP AM 10/25 to reassess renal abscess/collection 72 hours post stent placement
Diagnosis
-
Date of Service: October 24, 2023
-
Patient Diagnosis:
Recurrent R ureteral obstruction
XGP kidney
Urinary retention with chronic SPT
Post Op s/po cystoscopy, R ureteral stent placement 10/22
Subjective
-
No complaints this AM
Mild hematuria since stent placement
Objective
-
Vital Signs
Temp Pulse Resp BP Pulse Ox
97.7 F 78 17 113/58 97
10/24/23 11:00 10/24/23 11:00 10/24/23 11:00 10/24/23 11:00 10/24/23 11:00
Intake and Output
10/23/23 10/24/23 10/25/23
06:59 06:59 06:59
Intake Total 1640 / 1640 1260 / 1260
Output Total 1800 / 1800 1550 / 1550
Balance -160 / -160 -290 / -290
Intake:
Oral fluids 440 / 440 1160 / 1160
IV fluids (Total) 1200 / 1200 100 / 100
normosol 100 / 100
Output:
Urine, Mane 1600 / 1600
Suprapubic output 200 / 200 1550 / 1550
Laboratory Results
10/24/23 07:13
10/24/23 07:13
Physical Exam
-
General - well developed, well nourished, no acute distress
Chest - clear bilaterally
Abdomen - soft, non-tender
- SPT in place with purulent urine draining, mild hematuria
--- NOTE | 2023-10-24 13:57 | W.PN.HOSP.TC ---
Today's Communication/Plan
-
resume SC Heparin with Urology clearance, monitor Hb clinically. Will reduce frequency to Q12h from Q8h
continue IV Abx
repeat CT Wednesday
Assessment / Plan
Assessment / Plan
Assessment:
Xanthogranulomatous Pyelonephritis
recent h/o pyelonephritis due to MRSA and Proteus, infected R ureteral stone s/p stent/removal ([place])
- obtain records from [place]
- Urology following
- s/p cysto, RGP, stent placement 10/23/23
- continue Meropenem and Dapto per ID; follow cultures
- May need to be considered for Nephrectomy
- plan is for repeat in 72 hours on Wednesday
TME associated with above process of UTI/Pyelonephritis
- improving as treatment continues
Post-cystoscopy hematuria
- this is an expected issue post-procedure
- Hb stable
- d/w Urology ok for resumption of SC Heparin
BPH s/p suprapubic catheter
- continue Finasteride
Recent hx of upper GI bleed
Normocytic anemia
- stable Hb
Mild hypokalemia
- replaced
Essential HTN
- amlodipine
Anxiety/Depression
- hold BZD
- continue Lexapro
CAD S/p CABG/Stents
- continue ASA/Statin/Coreg/Imdur
GERD - PPI
Constipation
- bowel regimen
Hx of DM neuropathy
- hold Gabapentin
Hx of CVA
- continue ASA/Statin
Left food wound
- continue topical care
DVT ppx: SCDs
Code: Full
Anticipated Discharge: > 48 hours
Subjective/Interval History
-
Date of Service: October 24, 2023
light hematuria post-stent placement noted last evening
SC DVT ppx was held
Hb stable
He feels well currently
Objective Data
-
Labs:
Laboratory Results
10/24/23
07:13
WBC 13.4 H
Hgb 9.3 L
Hct 29.4 L
Plt Count 384
Sodium 135
Potassium 3.7
Chloride 105
Carbon Dioxide 23
BUN 18
Creatinine 0.4 L
Glucose 133 H
Calcium 8.9
Vital Signs:
Vital Signs
Temp Pulse Resp BP Pulse Ox
97.7 F 78 17 113/58 97
10/24/23 11:00 10/24/23 11:00 10/24/23 11:00 10/24/23 11:00 10/24/23 11:00
I&O
10/23/23 10/24/23 10/25/23
06:59 06:59 06:59
Intake Total 1640 / 1640 1260 / 1260
Output Total 1800 / 1800 1550 / 1550
Balance -160 / -160 -290 / -290
Physical Exam
-
General: No Apparent Distress
HEENT: Normocephalic and Atraumatic
Respiratory: Negative Wheezes
Cardiac: Regular Rhythm and S1/S2
GI: Soft and Nontender
Genito-urinary: No Costovertebral Tender and Bloody Urine
Musculoskeletal: No Edema
Neuro: AO x 3
Psych: Calm
Data Reviewed
-
Total Time Spent with Patient (in minutes): 45
Labs: Labs Reviewed by me
[2023-10-24 15:00] VITALS: BP 106/54
--- NOTE | 2023-10-24 15:23 | W.PN.ID1 ---
Date of Service
Date of Service: October 24, 2023
Today's Communication
continue current antibiotics
Assessment / Plan
Xanthogranulomatous Pyelonephritis
- recent h/o pyelonephritis due to MRSA and Proteus
S/p Suprapubic catheter
- await discharge summary and recent cultures from [facility]
- urine culture polymicrobial Proteus ESBL, E coli
- asked lab to ID the isolates from 10/20 as XGP is occasionally polymicrobial
- restarted daptomycin, for now, 10 mg/kg while awaiting MICs
- hold statin
- ck in the AM
- meropenem 1 gm IV q 8hrs
- agree that eventual nephrectomy is likely needed, luckily patient is currently stable. I am concerned that he would be at risk of relapsing infection, progression if necrotic tissue and fluid collections remain within the kidney. Right kidney
likely not viable Transfer to tertiary care center may be indicated
Chief Complaint
-: UTI (XGP)
Subjective / Review of Systems
afebrile
bp stable
without leukocytosis
cr stable
esbl proteus noted from the urine
Vital Signs / Physical Exam
Vital Signs
Vital Signs
Temp Pulse Resp BP Pulse Ox
97.7 F 78 17 113/58 97
10/24/23 11:00 10/24/23 11:00 10/24/23 11:00 10/24/23 11:00 10/24/23 11:00
Physical Exam
Constitutional: No Acute Distress
Cardiovascular: Regular Rate and S1/S2; Negative Murmur or Rub
Pulmonary: Clear and Symmetric; Negative Wheezes or Rales
Gastrointestinal: Soft, Non Tender, Non Distended and Normal Bowel Sounds
Genito-Urinary: Negative Suprapubic Tenderness
Skin: Warm and Dry; Negative Rash or Jaundice
Objective Data
Lab Data
Lab Results
10/24/23 07:13
10/24/23 07:13
Estimated Creat Clear 118 ml/min 10/24/23 07:13
Lactic Acid Cancelled 10/21/23 21:30
Total Bilirubin 0.5 mg/dl (0.2-1.3) 10/22/23 05:41
AST 32 U/L (17-59) 10/22/23 05:41
ALT 45 U/L (0-50) 10/22/23 05:41
Alkaline Phosphatase 213 U/L (38-126) H 10/22/23 05:41
Most recent labs reviewed.
Micro Results:
10/21/23 17:31 Blood Culture - Preliminary
Blood/Venous Coagulase neg. staphylococcus
Additional testing on request
Gram Stain - Preliminary
10/21/23 17:41 Urine Culture - Preliminary
Urine Escherichia coli
Proteus Mirabilis-ESBL
10/22/23 07:59 Urine Culture - Final
Urine Proteus Mirabilis-ESBL
10/21/23 17:31 Blood Culture - Preliminary
Blood/Venous No Growth in 48 hours- Final report to follow
[2023-10-24] MEDS: CUBICIN 16 MG IV (16:56)
[2023-10-24 23:49] VITALS: BP 108/69
[2023-10-25] MEDS: MERREM 1000 MG IV ×3 (00:20→15:58)
[2023-10-25] MEDS: STERILE WATER FOR INJECTION 20 ML IV ×3 (00:21→15:58)
[2023-10-25 06:15] VITALS: BMI 22.5
[2023-10-25 07:00] VITALS: BP 116/54
[2023-10-25 07:29] LABS: Hemoglobin 9.5 g/dL (13.0-18.0); Mean Corp Hgb Conc. 31.7 g/dL (33.0-37.0); Mean Corpuscular Hgb 27.1 pg (27.0-31.0); Mean Corpuscular Volume 85.7 fL (80.0-94.0); Platelet Count 398 10^3/uL (130-400); Red Cell Dist. Width 17.2 % (11.5-14.5); White Blood Cell Count 11.2 10^3/uL (4.8-10.8)
[2023-10-25 08:02] LABS: Blood Urea Nitrogen 17 mg/dl (9-20); Calcium 8.7 mg/dl (8.4-10.2); Carbon Dioxide 27 mmol/L (22-30); Chloride 104 mmol/L (98-107); Estimated Creatinine Clearance 121 ml/min; Glucose 113 mg/dl (70-99); Potassium 4.2 mmol/L (3.5-5.1); Sodium 136 mmol/L (135-145); eGFR > 60.00
--- NOTE | 2023-10-25 08:40 | W.PN.URO.CBU ---
Today's Communication / Plan
-
Continue antibiotics
Repeat CT tomorrow
Assessment / Plan
-
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
Recurrent UTI and catheter obstruction
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
s/p suprapubic tube replacement
s/p R ureteral stent placement 10/22 with purulent drainage. Calcified debris and ureteral kinking noted on retrograde study
- Continue abx per ID - ESBL proteus on cultures
- Mild hematuria resolving, flush suprapubic tube as needed
- Continue to hold Plavix. Okay to give sub Q heparin DVT ppx
- Repeat CTAP AM 10/25 to reassess renal abscess/collection 72 hours post stent placement
Diagnosis
-
Date of Service: October 25, 2023
-
Patient Diagnosis:
Post Op Day:
Patient Diagnosis:
Recurrent R ureteral obstruction
XGP kidney
Urinary retention with chronic SPT
Post Op s/po cystoscopy, R ureteral stent placement 10/22
Subjective
-
Feeling well this AM
No new events
Objective
-
Vital Signs
Temp Pulse Resp BP Pulse Ox
98.2 F 68 16 116/54 97
10/25/23 07:00 10/25/23 07:00 10/25/23 07:00 10/25/23 07:00 10/25/23 07:00
Intake and Output
10/24/23 10/25/23 10/26/23
06:59 06:59 06:59
Intake Total 1260 / 1260 680 / 680
Output Total 1550 / 1550 1250 / 1250
Balance -290 / -290 -570 / -570
Intake:
Oral fluids 1160 / 1160 480 / 480
IV fluids (Total) 100 / 100
normosol 100 / 100
Suprapubic intermittent 200 / 200
irrigations
Output:
Suprapubic output 1550 / 1550 1250 / 1250
Laboratory Results
10/25/23 06:34
10/25/23 06:34
Physical Exam
-
General - no acute distress
Chest - clear
Abdomen - soft, non-tender
- SPT in place draining clear yellow/pink
[2023-10-25] MEDS: MIRALAX 17 GRAMS PO (08:46)
[2023-10-25] MEDS: COREG 3.125 MG PO ×2 (08:46→20:35)
[2023-10-25] MEDS: IMDUR (EXTENDED RELEASE) 60 MG PO (08:47)
[2023-10-25] MEDS: LEXAPRO 20 MG PO (08:47)
[2023-10-25] MEDS: LOW STRENGTH ASPIRIN 81 MG PO (08:47)
[2023-10-25] MEDS: NORVASC 2.5 MG PO (08:47)
[2023-10-25] MEDS: PROSCAR 5 MG PO (08:47)
[2023-10-25] MEDS: PROTONIX 40 MG PO (08:47)
[2023-10-25] MEDS: FEOSOL 325 MG PO (08:47)
--- NOTE | 2023-10-25 09:33 | PN.CDI ---
CDI
- -
CDI:
Physician Documentation Request
Admit Date: 10/21/23 20:28
Dear Doctor Jaquan,
Please review the following and provide your response in the progress notes.
Clinical Indicators:
Pt admitted with UTI/Pyelonephritis, and metabolic encephalopathy,
10/21 Wound RN note: 'He has a stage 3 PI of left medical heel that is covered in thick, draining slough. Directly on bottom of left heel is a DTI, and just lateral to that is an unstageable PI covered with thick eschar.'
Physician documentation of the type and location of wounds is required for compliant documentation. Based on the above clinical findings and your assessment, please provide the following in your progress note:
- Left heel Stage 3 pressure injury POA
- Other
Use of terms such as suspected, likely, concern for, or probable (associated with a specific diagnosis that is being evaluated, monitored, or treated as if it exists) are acceptable and can be coded in the inpatient setting, when documented at the
time of discharge.
Thank you,
Karol Ramirez RN, BSN
CDI Specialist
Available via [facility] [employer]
Please use your independent medical judgment in providing your response.
*Source: National Pressure Ulcer Advisory Panel (NPUAP)
[2023-10-25 10:10] VITALS: BP 97/56; PULSE 74; O2SAT 93
[2023-10-25 10:15] VITALS: BP 97/56; PULSE 74
--- NOTE | 2023-10-25 10:37 | W.PN.HOSP.TC ---
Today's Communication/Plan
-
continue IV Abx per ID
repeat CT tomorrow per Urology
Assessment / Plan
Assessment / Plan
Assessment:
Xanthogranulomatous Pyelonephritis
recent h/o pyelonephritis due to MRSA and Proteus, infected R ureteral stone s/p stent/removal ([place])
- obtain records from [place]
- Urology following
- s/p cysto, RGP, stent placement 10/23/23
- continue Meropenem and Dapto per ID; cultures growing E. Coli and ESBL/Proteus
- May need to be considered for Nephrectomy
- plan is for repeat on Wednesday
TME associated with above process of UTI/Pyelonephritis
- improving as treatment continues
Post-cystoscopy hematuria
- this is an expected issue post-procedure
- Hb stable
- d/w Urology ok for resumption of SC Heparin
BPH s/p suprapubic catheter
- continue Finasteride
Recent hx of upper GI bleed
Normocytic anemia
- stable Hb
Mild hypokalemia
- replaced
Essential HTN
- amlodipine
Anxiety/Depression
- hold BZD
- continue Lexapro
CAD S/p CABG/Stents
- continue ASA/Statin/Coreg/Imdur
GERD - PPI
Constipation
- bowel regimen
Hx of DM neuropathy
- hold Gabapentin
Hx of CVA
- continue ASA/Statin
Left food wound
- continue topical care
DVT ppx: SC Heparin
Code: Full
Anticipated Discharge: > 48 hours
Subjective/Interval History
-
Date of Service: October 25, 2023
resting comfortably, no complaints at present
Objective Data
-
Labs:
Laboratory Results
10/25/23
06:34
WBC 11.2 H
Hgb 9.5 L
Hct 30.0 L
Plt Count 398
Sodium 136
Potassium 4.2
Chloride 104
Carbon Dioxide 27
BUN 17
Creatinine 0.4 L
Glucose 113 H
Calcium 8.7
Vital Signs:
Vital Signs
Temp Pulse Resp BP Pulse Ox
98.2 F 68 16 116/64 97
10/25/23 07:00 10/25/23 08:46 10/25/23 07:00 10/25/23 08:47 10/25/23 07:00
I&O
10/24/23 10/25/23 10/26/23
06:59 06:59 06:59
Intake Total 1260 / 1260 680 / 680
Output Total 1550 / 1550 1250 / 1250
Balance -290 / -290 -570 / -570
Physical Exam
-
General: No Apparent Distress
HEENT: Normocephalic and Atraumatic
Respiratory: Negative Wheezes
Cardiac: Regular Rhythm and S1/S2
GI: Soft
Genito-urinary: No Costovertebral Tender
Neuro: AO x 3
Psych: Calm
Data Reviewed
-
Total Time Spent with Patient (in minutes): 42
Labs: Labs Reviewed by me
--- NOTE | 2023-10-25 11:31 | CM ---
Case management following for d/c planning
PT recommending SNF
Discussed with pts daughter Yamila - discussed options using [email or web address]
Daughter requesting referrals be made to [facility], [facility], [facility], [facility], and [facility]
Referrals sent in [facility]
Waiting on acceptance
Plan - anticipate SNF - TBD, when medically stable
[2023-10-25 15:00] VITALS: BP 127/65
--- NOTE | 2023-10-25 15:24 | W.PN.ID1 ---
Date of Service
Date of Service: October 25, 2023
Today's Communication
rerequested further records
continue daptomycin and meropenem
Assessment / Plan
Xanthogranulomatous Pyelonephritis
- recent h/o pyelonephritis due to MRSA and Proteus
S/p Suprapubic catheter
- chart reviewed and no new records available - rerequested
- one set of blood cultures here with CONS - contaminant
- urine culture polymicrobial Proteus ESBL, E coli
- asked lab to ID the isolates from 10/20 as XGP is occasionally polymicrobial
- restarted daptomycin, for now, 10 mg/kg while awaiting MICs
- hold statin
- ck in the AM
- meropenem 1 gm IV q 8hrs
- agree that eventual nephrectomy is likely needed, luckily patient is currently stable. I am concerned that he would be at risk of relapsing infection, progression if necrotic tissue and fluid collections remain within the kidney. Right kidney
likely not viable Transfer to tertiary care center may be indicated
Chief Complaint
-: UTI (XGP)
Subjective / Review of Systems
afebrile
bp stable
minimal leukocytosis
cr stable
chart reviewed and no new records available - rerequested
Vital Signs / Physical Exam
Vital Signs
Vital Signs
Temp Pulse Resp BP Pulse Ox
98.2 F 68 16 116/64 97
10/25/23 07:00 10/25/23 08:46 10/25/23 07:00 10/25/23 08:47 10/25/23 07:00
Physical Exam
Constitutional: No Acute Distress
Cardiovascular: Regular Rate and S1/S2; Negative Murmur or Rub
Pulmonary: Clear and Symmetric; Negative Wheezes or Rales
Gastrointestinal: Soft, Non Tender, Non Distended and Normal Bowel Sounds
Skin: Warm and Dry; Negative Rash or Jaundice
Neurological: Awake
Objective Data
Lab Data
Lab Results
10/25/23 06:34
10/25/23 06:34
Estimated Creat Clear 121 ml/min 10/25/23 06:34
Lactic Acid Cancelled 10/21/23 21:30
Total Bilirubin 0.5 mg/dl (0.2-1.3) 10/22/23 05:41
AST 32 U/L (17-59) 10/22/23 05:41
ALT 45 U/L (0-50) 10/22/23 05:41
Alkaline Phosphatase 213 U/L (38-126) H 10/22/23 05:41
Most recent labs reviewed.
Micro Results:
10/21/23 17:41 Urine Culture - Preliminary
Urine Escherichia coli
Proteus Mirabilis-ESBL
10/21/23 17:31 Blood Culture - Preliminary
Blood/Venous No Growth in 72 hours- Final report to follow
10/21/23 17:31 Blood Culture - Preliminary
Blood/Venous Coagulase neg. staphylococcus
Additional testing on request
Gram Stain - Preliminary
10/22/23 07:59 Urine Culture - Final
Urine Proteus Mirabilis-ESBL
[2023-10-25] MEDS: CUBICIN 16 MG IV (15:59)
[2023-10-25 23:20] VITALS: BP 112/60
[2023-10-26] MEDS: MERREM 1000 MG IV ×3 (00:59→16:46)
[2023-10-26] MEDS: STERILE WATER FOR INJECTION 20 ML IV ×3 (00:59→16:47)
[2023-10-26 06:00] VITALS: BMI 22.5
[2023-10-26 06:07] LABS: % Basophils 0.4 % (0-2); % Eosinophils 3.2 % (0-6); % Immature Granulocytes 0.4 % (0-0.5); % Lymphocytes 32.2 % (20.5-51.1); % Monocytes 8.5 % (1.7-9.3); % Neutrophils 55.3 % (42.2-75.2); Absolute Eosinophils 0.3 10^3/uL (0-0.7); Absolute Lymphocytes 3.2 10^3/uL (1.2-3.4); Absolute Monocytes 0.8 10^3/uL (0.1-0.6); Absolute Neutrophils 5.4 10^3/uL (1.4-6.5); Hematocrit 30.1 % (39.0-52.0); Hemoglobin 9.3 g/dL (13.0-18.0); Mean Corp Hgb Conc. 30.9 g/dL (33.0-37.0); Mean Corpuscular Hgb 26.9 pg (27.0-31.0); Mean Platelet Volume 9.2 fL (7.4-10.4); Nucleated Red Blood Cells % 0 % (-); Platelet Count 364 10^3/uL (130-400); Red Blood Cell Count 3.46 10^6/uL (4.70-6.10); Red Cell Dist. Width 17.1 % (11.5-14.5); White Blood Cell Count 9.8 10^3/uL (4.8-10.8)
[2023-10-26 06:28] LABS: Blood Urea Nitrogen 15 mg/dl (9-20); Calcium 8.7 mg/dl (8.4-10.2); Carbon Dioxide 28 mmol/L (22-30); Chloride 103 mmol/L (98-107); Estimated Creatinine Clearance 121 ml/min; Glucose 116 mg/dl (70-99); Potassium 4.2 mmol/L (3.5-5.1); Sodium 137 mmol/L (135-145); eGFR > 60.00
--- NOTE | 2023-10-26 07:22 | W.PN.HOSP.TC ---
Today's Communication/Plan
-
for repeat CT today; will follow results and Urology recs
Assessment / Plan
Assessment / Plan
Assessment:
Xanthogranulomatous Pyelonephritis
recent h/o pyelonephritis due to MRSA and Proteus, infected R ureteral stone s/p stent/removal ([place])
- obtain records from [place]
- Urology following
- s/p cysto, RGP, stent placement 10/23/23
- continue Meropenem and Dapto per ID; cultures growing E. Coli and ESBL/Proteus
- repeat CT Today
- May need to consider nephrostomy to assist with drainage of R kidney
- May need to be considered for Right Nephrectomy, possibly on elective basis
TME associated with above process of UTI/Pyelonephritis
- improving as treatment continues
Post-cystoscopy hematuria
- this is an expected issue post-procedure
- Hb stable
- d/w Urology ok for resumption of SC Heparin
BPH s/p suprapubic catheter
- continue Finasteride
Recent hx of upper GI bleed
Normocytic anemia
- stable Hb
Mild hypokalemia
- replaced
Essential HTN
- amlodipine
Anxiety/Depression
- hold BZD
- continue Lexapro
CAD S/p CABG/Stents
- continue ASA/Statin/Coreg/Imdur
GERD - PPI
Constipation
- bowel regimen
Hx of DM neuropathy
- hold Gabapentin
Hx of CVA
- continue ASA/Statin
Left heel Stage 3 pressure injury POA
- continue topical care
DVT ppx: SC Heparin
Code: Full
Anticipated Discharge: > 48 hours
Subjective/Interval History
-
Date of Service: October 26, 2023
no new complaints presently
Objective Data
-
Labs:
Laboratory Results
10/26/23
05:37
WBC 9.8
Hgb 9.3 L
Hct 30.1 L
Plt Count 364
Sodium 137
Potassium 4.2
Chloride 103
Carbon Dioxide 28
BUN 15
Creatinine 0.5 L
Glucose 116 H
Calcium 8.7
Vital Signs:
Vital Signs
Temp Pulse Resp BP Pulse Ox
97.3 F 62 18 112/60 100
10/25/23 23:20 10/25/23 23:20 10/25/23 23:20 10/25/23 23:20 10/25/23 23:20
I&O
10/25/23 10/26/23 10/27/23
06:59 06:59 06:59
Intake Total 680 / 680 360 / 360
Output Total 1250 / 1250 1200 / 1200
Balance -570 / -570 -840 / -840
Physical Exam
-
General: Well Developed and Well Nourished
HEENT: Normocephalic and Atraumatic
Respiratory: Negative Wheezes
Cardiac: Regular Rhythm and S1/S2
Genito-urinary: No Costovertebral Tender and Mane
Neuro: AO x 3
Psych: Calm
Data Reviewed
-
Total Time Spent with Patient (in minutes): 42
Labs: Labs Reviewed by me
[2023-10-26 07:54] VITALS: BP 134/70
[2023-10-26] MEDS: PROTONIX 40 MG PO (09:30)
[2023-10-26] MEDS: COREG 3.125 MG PO ×2 (09:30→20:16)
[2023-10-26] MEDS: LEXAPRO 20 MG PO (09:30)
[2023-10-26] MEDS: FEOSOL 325 MG PO (09:31)
[2023-10-26] MEDS: PROSCAR 5 MG PO (09:31)
[2023-10-26] MEDS: NORVASC 2.5 MG PO (09:31)
[2023-10-26] MEDS: LOW STRENGTH ASPIRIN 81 MG PO (09:31)
[2023-10-26] MEDS: IMDUR (EXTENDED RELEASE) 60 MG PO (09:32)
[2023-10-26] MEDS: MIRALAX 17 GRAMS PO (09:36)
[2023-10-26 15:00] VITALS: BP 111/66
--- NOTE | 2023-10-26 15:26 | W.PN.UPDATE ---
Update Note
Progress Note Update
reviewed today's ct
right kidney with very little uptake of contrast- mild persistent hydro- gas in persistent subcapsular hematoma
plan for IR drain tomorrow and have reviewed with daughter possibility of nx next wednesday after stopping asa/drainage/and antibx
very high risk- but other treatment unlikely to be successful
daughter amenable to drainage procedure and will consider surgical option
did review with [facility] regarding gall bladder findings- they would be available for OR if needed
[2023-10-26 15:29] LABS: INR 1.18; PT 14.9 Sec (11.4-14.6)
--- NOTE | 2023-10-26 15:57 | W.PN.ID1 ---
Date of Service
Date of Service: October 26, 2023
Today's Communication
- continue daptomycin
- hold statin
- meropenem 1 gm IV q 8hrs
- agree that eventual nephrectomy is likely needed or patient will be at risk of relapsing infection
Assessment / Plan
Xanthogranulomatous Pyelonephritis
- recent h/o pyelonephritis due to MRSA and Proteus
S/p Suprapubic catheter
- urine culture polymicrobial Proteus ESBL, E coli
- agree with IR guided aspiration of renal abscess
- appreciate order for aerobic culture, I added anaerobic
- continue daptomycin through resection
- hold statin
- meropenem 1 gm IV q 8hrs continue through resection
- agree that eventual nephrectomy is likely needed or patient will be at risk of relapsing infection
Chief Complaint
-: UTI (XGP)
Subjective / Review of Systems
afebrile
bp stable
without leukocytosis
cr stable
CT a/p today: suspicion for 8.5 cm renal abscess,
better appetite
Vital Signs / Physical Exam
Vital Signs
Vital Signs
Temp Pulse Resp BP Pulse Ox
97.9 F 63 17 111/66 98
10/26/23 15:00 10/26/23 15:00 10/26/23 15:00 10/26/23 15:00 10/26/23 15:00
Physical Exam
Constitutional: No Acute Distress and Chronically Ill
Cardiovascular: Regular Rate and S1/S2; Negative Murmur or Rub
Pulmonary: Clear and Symmetric; Negative Wheezes or Rales
Gastrointestinal: Soft, Non Tender, Non Distended and Normal Bowel Sounds
Skin: Warm and Dry; Negative Rash or Jaundice
Objective Data
Lab Data
Lab Results
10/26/23 05:37
10/26/23 05:37
PT 14.9 Sec (11.4-14.6) H 10/26/23 15:11
INR 1.18 10/26/23 15:11
Estimated Creat Clear 121 ml/min 10/26/23 05:37
Lactic Acid Cancelled 10/21/23 21:30
Total Bilirubin 0.5 mg/dl (0.2-1.3) 10/22/23 05:41
AST 32 U/L (17-59) 10/22/23 05:41
ALT 45 U/L (0-50) 10/22/23 05:41
Alkaline Phosphatase 213 U/L (38-126) H 10/22/23 05:41
Most recent labs reviewed.
Micro Results:
10/21/23 17:41 Urine Culture - Preliminary
Urine Escherichia coli
Proteus Mirabilis-ESBL
10/21/23 17:31 Blood Culture - Preliminary
Blood/Venous No Growth in 4 days- Final report to follow
10/21/23 17:31 Blood Culture - Preliminary
Blood/Venous Coagulase neg. staphylococcus
Additional testing on request
Gram Stain - Preliminary
10/22/23 07:59 Urine Culture - Final
Urine Proteus Mirabilis-ESBL
Care Review
Plan reviewed with: Physician (Dr Fish villalpando)
[2023-10-26] MEDS: CUBICIN 16 MG IV (16:46)
--- NOTE | 2023-10-26 16:49 | W.PN.UPDATE ---
Update Note
Progress Note Update
- Pt ate this afternoon. Please keep NPO tomorrow morning.
- Will plan for CT guided aspiration of R subcapsular renal fluid collection tomorrow.
[2023-10-26 23:35] VITALS: BP 122/67
[2023-10-27] VITALS (8 sets, daily range): BP systolic 64–128; BP diastolic 58–76; PULSE 68; O2SAT 99
[2023-10-27] MEDS: MERREM 1000 MG IV ×4 (00:23→23:48)
[2023-10-27] MEDS: STERILE WATER FOR INJECTION 20 ML IV ×4 (00:24→23:47)
[2023-10-27 06:17] LABS: % Basophils 0.4 % (0-2); % Eosinophils 2.6 % (0-6); % Immature Granulocytes 0.6 % (0-0.5); % Monocytes 7.5 % (1.7-9.3); % Neutrophils 62.9 % (42.2-75.2); Absolute Basophils 0.1 10^3/uL (0-0.2); Absolute Eosinophils 0.3 10^3/uL (0-0.7); Absolute Immature Granulocytes 0.1 10^3/uL (0-0.05); Absolute Lymphocytes 3.1 10^3/uL (1.2-3.4); Absolute Monocytes 0.9 10^3/uL (0.1-0.6); Absolute Neutrophils 7.5 10^3/uL (1.4-6.5); Hematocrit 29.2 % (39.0-52.0); Hemoglobin 9.3 g/dL (13.0-18.0); Mean Corp Hgb Conc. 31.8 g/dL (33.0-37.0); Mean Corpuscular Hgb 26.9 pg (27.0-31.0); Mean Corpuscular Volume 84.4 fL (80.0-94.0); Nucleated Red Blood Cells % 0 % (-); Platelet Count 383 10^3/uL (130-400); Red Blood Cell Count 3.46 10^6/uL (4.70-6.10); Red Cell Dist. Width 17.3 % (11.5-14.5); White Blood Cell Count 11.9 10^3/uL (4.8-10.8)
[2023-10-27 06:49] LABS: ALT (SGPT) 23 U/L (0-50); AST (SGOT) 23 U/L (17-59); Albumin 2.6 g/dl (3.5-5.0); Alkaline Phosphatase 138 U/L (38-126); Blood Urea Nitrogen 15 mg/dl (9-20); Calcium 8.8 mg/dl (8.4-10.2); Carbon Dioxide 29 mmol/L (22-30); Chloride 100 mmol/L (98-107); Direct Bilirubin 0.3 mg/dl (0.0-0.4); Estimated Creatinine Clearance 121 ml/min; Glucose 118 mg/dl (70-99); Potassium 4.3 mmol/L (3.5-5.1); Sodium 137 mmol/L (135-145); Total Bilirubin 0.4 mg/dl (0.2-1.3); Total Protein 6.3 g/dl (6.3-8.2); eGFR > 60.00
--- NOTE | 2023-10-27 07:56 | W.PN.URO.CBU ---
Today's Communication / Plan
-
IR drain today
continue antibx per ID
tentative plan for open nephrectomy next week
hold all blood thinners
Assessment / Plan
-
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
Recurrent UTI and catheter obstruction
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
s/p suprapubic tube replacement
s/p R ureteral stent placement 10/22 with purulent drainage. Calcified debris and ureteral kinking noted on retrograde study
have reviewed with med team and pt/daughter
appears to have chronically obstructed right kidney with little function/infx c/w with xgp- also persistent air in what appears to be his known subcapsular hematoma
really no change of infx clearing at this point
plan to have IR drain subcapsular collection/continue antibx
hold asa and plavix
tentative plan for open right nephrectomy- possible removal of gallbladder on wednesday- this carries a high morbidity and mortality in this patient- but no other options given the care he has already received at [facility]
all of this explained in detail to pt and daughter
Diagnosis
-
Date of Service: October 27, 2023
-
Recurrent R ureteral obstruction
XGP kidney
Urinary retention with chronic SPT
Post Op s/po cystoscopy, R ureteral stent placement 10/22
Subjective
-
pt more awake today
no fevers- mildly elevated wbc
cx's noted
Ct yesterday reviewed
urine yellow with some sediment
Objective
-
Vital Signs
Temp Pulse Resp BP Pulse Ox
98.1 F 68 16 128/58 95
10/27/23 07:40 10/27/23 07:40 10/27/23 07:40 10/27/23 07:40 10/27/23 07:40
Intake and Output
10/26/23 10/27/23 10/28/23
06:59 06:59 06:59
Intake Total 360 / 360 120 / 120
Output Total 1200 / 1200 2049
Balance -840 / -840 -1930 / -1929
Intake:
Oral fluids 360 / 360 120 / 120
Output:
Urine, Voided 550 / 550
Suprapubic output 1200 / 1200 1500 / 1500
Laboratory Results
10/27/23 05:42
10/27/23 05:42
Review of Systems
-
Constitutional: Fatigue
Respiratory: No Symptoms
Cardiac: No Symptoms
Abdomen/GI: No Symptoms
Physical Exam
-
General - no acute distress
Abdomen - soft, non-tender, sp tube in place
Genitalia - no mass or errythema
[2023-10-27] MEDS: PROSCAR 5 MG PO (10:35)
[2023-10-27] MEDS: NORVASC 2.5 MG PO (10:35)
[2023-10-27] MEDS: IMDUR (EXTENDED RELEASE) 60 MG PO (10:35)
[2023-10-27] MEDS: COREG 3.125 MG PO ×2 (10:35→21:17)
[2023-10-27] MEDS: PROTONIX 40 MG PO (10:35)
[2023-10-27] MEDS: FEOSOL 325 MG PO (10:35)
[2023-10-27] MEDS: LEXAPRO 20 MG PO (10:35)
[2023-10-27] MEDS: MIRALAX PO (10:45)
--- NOTE | 2023-10-27 11:19 | W.PN.HOSP.TC ---
Today's Communication/Plan
-
Monitor vital signs see plan
IR drain placed for renal abscess
Follow cultures
Continue antibiotics
Assessment / Plan
Assessment / Plan
Assessment:
Xanthogranulomatous Pyelonephritis
recent h/o pyelonephritis due to MRSA and Proteus, infected R ureteral stone s/p stent/removal ([place])
- obtain records from [place]
- Urology following
- s/p cysto, RGP, stent placement 10/23/23
- continue Meropenem and Dapto per ID; cultures growing E. Coli and ESBL/Proteus
- repeat CT 10/25 with 8.5 cm gas containing low-density subcapsular collection on the right concerning for renal abscess. Moderate persistent right-sided hydronephrosis despite presence of the stent
Status post IR drain subcapsular collection. Continue with antibiotics per infectious disease
Tentative plan for open right nephrectomy with possible removal of gallbladder
TME associated with above process of UTI/Pyelonephritis
- improving as treatment continues
Post-cystoscopy hematuria
- this is an expected issue post-procedure
- Hb stable
- d/w Urology ok for resumption of SC Heparin
BPH s/p suprapubic catheter
- continue Finasteride
Recent hx of upper GI bleed
Normocytic anemia
- stable Hb
Mild hypokalemia
- replaced
Essential HTN
- amlodipine
Anxiety/Depression
- hold BZD
- continue Lexapro
CAD S/p CABG/Stents
- continue Statin/Coreg/Imdur
hold ASA per urology
GERD - PPI
Constipation
- bowel regimen
Hx of DM neuropathy
- hold Gabapentin
Hx of CVA
- continue ASA/Statin
Left heel Stage 3 pressure injury POA
- continue topical care
DVT ppx: SC Heparin
Code: Full
PT/OT rec SNF
General: Well Developed and Well Nourished
HEENT: Normocephalic and Atraumatic
Respiratory: Negative Wheezes
Cardiac: Regular Rhythm and S1/S2
Genito-urinary: No Costovertebral Tender and Mane
Neuro: AO x 3
Psych: Calm
I spent a total of 52 minutes with the patient or on the floor. More than 50% of this time involved counseling and coordination of care.
Anticipated Discharge: > 48 hours
Subjective/Interval History
-
Date of Service: October 27, 2023
denies nausea
Objective Data
-
Labs:
Laboratory Results
10/27/23
05:42
WBC 11.9 H
Hgb 9.3 L
Hct 29.2 L
Plt Count 383
Sodium 137
Potassium 4.3
Chloride 100
Carbon Dioxide 29
BUN 15
Creatinine 0.5 L
Glucose 118 H
Calcium 8.8
Total Bilirubin 0.4
AST 23
ALT 23
Alkaline Phosphatase 138 H
Vital Signs:
Vital Signs
Temp Pulse Resp BP Pulse Ox
98.3 F 70 16 125/65 95
10/27/23 08:17 10/27/23 10:01 10/27/23 10:01 10/27/23 10:01 10/27/23 09:57
I&O
10/26/23 10/27/23 10/28/23
06:59 06:59 06:59
Intake Total 360 / 360 120 / 120
Output Total 1200 / 1200 2049
Balance -840 / -840 -1930 / -1930
[2023-10-27] MEDS: CUBICIN 16 MG IV (16:04)
--- NOTE | 2023-10-27 16:06 | CM ---
Case management following for d/c planning
Chart reviewed
IR drain placed for renal abscess
Follow cultures
Continue antibiotics
PT recommending SNF - choices obtained
CM will follow for d/c needs
Plan - anticipate SNF when medically ready
--- NOTE | 2023-10-27 16:13 | W.PN.ID1 ---
Date of Service
Date of Service: October 27, 2023
Today's Communication
- start fluconazole 400 mg qday
- lexapro dose decreased to 10 mg Qday (1/2 starting dose) given interaction with fluconazole
- recheck qtc in the am
Assessment / Plan
Xanthogranulomatous Pyelonephritis
- recent h/o pyelonephritis due to MRSA and Proteus
S/p Suprapubic catheter
- 10/26 renal fluid culture gram stain many yeast and many GPCS; had 50 ccs of grossly purulent fluid drained
- urine culture polymicrobial Proteus ESBL, E coli
- stat EKG to check QTc - acceptable at 470
- start fluconazole 400 mg qday
- lexapro dose decreased to 10 mg Qday (1/2 starting dose) given interaction with fluconazole
- recheck qtc in the am
- continue daptomycin through resection
- hold statin
- meropenem 1 gm IV q 8hrs continue through resection
- agree that eventual nephrectomy is likely needed or patient will be at risk of relapsing necrotizing infection
Chief Complaint
-: UTI (XGP)
Subjective / Review of Systems
afebrile
bp stable
mild leukocytosis today
gpcs and [facility]
on lexapro
Vital Signs / Physical Exam
Vital Signs
Vital Signs
Temp Pulse Resp BP Pulse Ox
98 F 63 16 119/65 98
10/27/23 15:42 10/27/23 15:42 10/27/23 15:42 10/27/23 15:42 10/27/23 15:42
Physical Exam
Constitutional: No Acute Distress
Cardiovascular: Regular Rate and S1/S2; Negative Murmur or Rub
Pulmonary: Clear and Symmetric; Negative Wheezes or Rales
Gastrointestinal: Soft, Non Tender, Non Distended and Normal Bowel Sounds
Skin: Warm and Dry; Negative Rash or Jaundice
Objective Data
Lab Data
Lab Results
10/27/23 05:42
10/27/23 05:42
PT 14.9 Sec (11.4-14.6) H 10/26/23 15:11
INR 1.18 10/26/23 15:11
Estimated Creat Clear 121 ml/min 10/27/23 05:42
Lactic Acid Cancelled 10/21/23 21:30
Total Bilirubin 0.4 mg/dl (0.2-1.3) 10/27/23 05:42
AST 23 U/L (17-59) 10/27/23 05:42
ALT 23 U/L (0-50) 10/27/23 05:42
Alkaline Phosphatase 138 U/L (38-126) H 10/27/23 05:42
Most recent labs reviewed.
Micro Results:
10/26/23 09:23 Anaerobic Culture - Preliminary
Kidney Fluid
10/26/23 09:23 Body Fluid Culture - Pending
Kidney Fluid Gram Stain - Preliminary
10/21/23 17:41 Urine Culture - Final
Urine Escherichia coli
Proteus Mirabilis-ESBL
10/21/23 17:31 Blood Culture - Final
Blood/Venous No Growth - Final Report
10/21/23 17:31 Blood Culture - Preliminary
Blood/Venous Coagulase neg. staphylococcus
Additional testing on request
Gram Stain - Preliminary
10/22/23 07:59 Urine Culture - Final
Urine Proteus Mirabilis-ESBL
[2023-10-27] MEDS: DIFLUCAN 400 MG PO (17:18)
[2023-10-28 06:00] VITALS: BMI 22.4
[2023-10-28 06:52] LABS: % Basophils 0.4 % (0-2); % Eosinophils 3.3 % (0-6); % Immature Granulocytes 0.6 % (0-0.5); % Lymphocytes 30.8 % (20.5-51.1); % Monocytes 8.1 % (1.7-9.3); % Neutrophils 56.8 % (42.2-75.2); Absolute Eosinophils 0.3 10^3/uL (0-0.7); Absolute Immature Granulocytes 0.1 10^3/uL (0-0.05); Absolute Lymphocytes 3.1 10^3/uL (1.2-3.4); Absolute Monocytes 0.8 10^3/uL (0.1-0.6); Absolute Neutrophils 5.7 10^3/uL (1.4-6.5); Hematocrit 28.2 % (39.0-52.0); Hemoglobin 9.1 g/dL (13.0-18.0); Mean Corp Hgb Conc. 32.3 g/dL (33.0-37.0); Mean Corpuscular Hgb 27.2 pg (27.0-31.0); Mean Corpuscular Volume 84.4 fL (80.0-94.0); Mean Platelet Volume 9.1 fL (7.4-10.4); Nucleated Red Blood Cells % 0 % (-); Platelet Count 338 10^3/uL (130-400); Red Blood Cell Count 3.34 10^6/uL (4.70-6.10); Red Cell Dist. Width 17.7 % (11.5-14.5)
[2023-10-28 07:00] VITALS: BP 124/68
--- NOTE | 2023-10-28 07:10 | W.PN.URO.CBU ---
Today's Communication / Plan
-
continue sp tube/IR drain and antibx
hold blood thinners- ok for subq heparin
tentative plan for nephrectomy on wednesday
Assessment / Plan
-
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
Recurrent UTI and catheter obstruction
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
s/p suprapubic tube replacement
s/p R ureteral stent placement 10/22 with purulent drainage. Calcified debris and ureteral kinking noted on retrograde study
s/p IR drain placement 10/26
pt stable
ok to resume subq heparin at this point but hold plavix and asa in anticipation of surgery
continuing antibx per ID
will confirm plan with daughter/family regarding right nephrectomy on wednesday
Diagnosis
-
Date of Service: October 28, 2023
-
Recurrent R ureteral obstruction
XGP kidney
Urinary retention with chronic SPT
Post Op s/po cystoscopy, R ureteral stent placement 10/22
IR drain placement 10/26
Subjective
-
pt without complaint
IR drain placement yesterday with moderate amount of pus- now minimal output
pt afebrile/wbc wnl
urine clear via sp tube
Objective
-
Vital Signs
Temp Pulse Resp BP Pulse Ox
98.5 F 62 16 122/63 99
10/27/23 22:58 10/27/23 22:58 10/27/23 22:58 10/27/23 22:58 10/27/23 22:58
Intake and Output
10/27/23 10/28/23 10/29/23
06:59 06:59 06:59
Intake Total 120 / 120 970 / 970
Output Total 2050 / 2050 1025 / 1025
Balance -1930 / -1930 -55 / -55
Intake:
Oral fluids 120 / 120 960 / 960
Amount instilled into Drain (
Total)
Right Back Placed in IR
Output:
Drain Output (Total)
Right Back Placed in IR
Urine, Mane 400 / 400
Urine, Voided 550 / 550 600 / 600
Suprapubic output 1500 / 1500
Laboratory Results
10/28/23 06:18
Physical Exam
-
General - no acute distress
Abdomen - soft, non-tender, sp tube and flank drain in place
[2023-10-28 07:18] LABS: Blood Urea Nitrogen 16 mg/dl (9-20); Calcium 8.5 mg/dl (8.4-10.2); Carbon Dioxide 29 mmol/L (22-30); Chloride 102 mmol/L (98-107); Estimated Creatinine Clearance 120 ml/min; Glucose 127 mg/dl (70-99); Potassium 3.8 mmol/L (3.5-5.1); Sodium 134 mmol/L (135-145); eGFR > 60.00
[2023-10-28] MEDS: PROTONIX 40 MG PO (08:26)
[2023-10-28] MEDS: FEOSOL 325 MG PO (08:26)
[2023-10-28] MEDS: PROSCAR 5 MG PO (08:26)
[2023-10-28] MEDS: STERILE WATER FOR INJECTION 20 ML IV ×3 (08:26→23:52)
[2023-10-28] MEDS: MERREM 1000 MG IV ×3 (08:26→23:51)
[2023-10-28] MEDS: DIFLUCAN 400 MG PO (08:26)
[2023-10-28] MEDS: LEXAPRO 10 MG PO (08:26)
[2023-10-28] MEDS: NORVASC 2.5 MG PO (08:26)
[2023-10-28] MEDS: IMDUR (EXTENDED RELEASE) 60 MG PO (08:26)
[2023-10-28] MEDS: MIRALAX PO (08:27)
[2023-10-28] MEDS: COREG 3.125 MG PO ×2 (08:50→20:03)
[2023-10-28] MEDS: DRISDOL (VITAMIN D2) 50000 UNITS PO (09:13)
--- NOTE | 2023-10-28 10:27 | PN.CDI ---
CDI
- -
CDI:
Physician Documentation Request
Admit Date: 10/21/23 20:28
Dear Doctor Brennan,
Please review the following and provide your response in the progress notes.
The purpose of this query is not to question medical judgement, but to ensure the accuracy of the conditions reported for your patient.
Diagnosis:
The atelectasis is documented in the record on 10/25 CT abd/pelvis
There is either a lack of clinical support for this condition in the current medical record, or there is a lack of recognized standard criteria to support the condition.
Clinical indicators:
Pt admitted with encephalopathy and UTI
10/25 CT Abd/Pelvis: There is moderate right pleural effusion with underlying compressive atelectasis
10/26 Incentive spirometry q1hr while awake ordered
The request is for one of the following
Atelectasis remains a known or suspected condition for this patient
Atelectasis has been ruled out.
Other (please specify)
Use of terms such as suspected, likely, concern for, or probable (associated with a specific diagnosis that is being evaluated, monitored, or treated as if it exists) are acceptable and can be coded in the inpatient setting, when documented at the
time of discharge.
Thank you,
Karol Ramirez RN, BSN
CDI Specialist
Available via [place] text
Please use your independent medical judgment in providing your response.
--- NOTE | 2023-10-28 11:00 | W.PN.HOSP.TC ---
Today's Communication/Plan
-
Monitor vital signs see plan
Continue to follow cultures
Continue with antibiotics, antifungal
Plan for nephrectomy next week per urology
Assessment / Plan
Assessment / Plan
Assessment:
Xanthogranulomatous Pyelonephritis
recent h/o pyelonephritis due to MRSA and Proteus, infected R ureteral stone s/p stent/removal ([place])
- obtain records from [place]
- Urology following
- s/p cysto, RGP, stent placement 10/23/23
- continue Meropenem and Dapto per ID; cultures growing E. Coli and ESBL/Proteus
- repeat CT 10/25 with 8.5 cm gas containing low-density subcapsular collection on the right concerning for renal abscess. Moderate persistent right-sided hydronephrosis despite presence of the stent
Status post IR drain subcapsular collection. follow cx from drain; started fluconazole; continue with antibiotics per infectious disease
Tentative plan for open right nephrectomy with possible removal of gallbladder
TME associated with above process of UTI/Pyelonephritis
- improving as treatment continues
Post-cystoscopy hematuria
- this is an expected issue post-procedure
- Hb stable
- d/w Urology ok for resumption of SC Heparin
BPH s/p suprapubic catheter
- continue Finasteride
Recent hx of upper GI bleed
Normocytic anemia
- stable Hb
Anemia, suspect anemia chronic disease
Monitor
Atelectasis
cw IS
monitor
Mild hypokalemia
- replaced
Essential HTN
- amlodipine
Anxiety/Depression
- hold BZD
- continue Lexapro
CAD S/p CABG/Stents
- continue Statin/Coreg/Imdur
hold ASA per urology
GERD - PPI
Constipation
- bowel regimen
Hx of DM neuropathy
- hold Gabapentin
Hx of CVA
- continue ASA/Statin
Left heel Stage 3 pressure injury POA
- continue topical care
DVT ppx: SC Heparin
Code: Full
PT/OT rec SNF
General: Well Developed and Well Nourished
HEENT: Normocephalic and Atraumatic
Respiratory: Negative Wheezes
Cardiac: Regular Rhythm and S1/S2
Genito-urinary: No Costovertebral Tender and Mane
Neuro: AO x 3
Psych: Calm
I spent a total of 51 minutes with the patient or on the floor. More than 50% of this time involved counseling and coordination of care.
Anticipated Discharge: > 48 hours
Subjective/Interval History
-
Date of Service: October 28, 2023
denies pain
Objective Data
-
Labs:
Laboratory Results
10/28/23
06:18
WBC 10.0
Hgb 9.1 L
Hct 28.2 L
Plt Count 338
Sodium 134 L
Potassium 3.8
Chloride 102
Carbon Dioxide 29
BUN 16
Creatinine 0.5 L
Glucose 127 H
Calcium 8.5
Vital Signs:
Vital Signs
Temp Pulse Resp BP Pulse Ox
98.0 F 61 16 124/68 96
10/28/23 07:00 10/28/23 07:00 10/28/23 07:00 10/28/23 07:00 10/28/23 07:00
I&O
10/27/23 10/28/23 10/29/23
06:59 06:59 06:59
Intake Total 120 / 120 970 / 970
Output Total 2049 1025 / 1025
Balance -1930 / -1930 -55 / -55
--- NOTE | 2023-10-28 14:00 | W.PN.ID1 ---
Date of Service
Date of Service: October 28, 2023
Today's Communication
continue fluconazole, dapto, meropenem through surgical resection and for 24 hours post operatively
Assessment / Plan
Xanthogranulomatous Pyelonephritis
- recent h/o pyelonephritis due to MRSA and Proteus
S/p Suprapubic catheter
- 10/26 renal fluid culture gram stain many yeast and many GPCS; had 50 ccs of grossly purulent fluid drained
- urine culture polymicrobial Proteus ESBL, E coli
- drain output continues
- continue fluconazole 400 mg qday - continue through resection
- lexapro dose decreased to 10 mg Qday (1/2 starting dose) given interaction with fluconazole - continue on this dose while on fluconazole
- qtc remains acceptable
- continue daptomycin through resection
- hold statin
- meropenem 1 gm IV q 8hrs continue through resection
- agree that eventual nephrectomy is likely needed or patient will be at risk of relapsing necrotizing infection
Chief Complaint
-: UTI (Xanthogranulomatous pyelonephritis (XGP))
Subjective / Review of Systems
afebrile
bp stable
without leukocytosis
cr stable
qtc actually improved
drain output 25 ccs so far today
Vital Signs / Physical Exam
Vital Signs
Vital Signs
Temp Pulse Resp BP Pulse Ox
98.0 F 61 16 124/68 96
10/28/23 07:00 10/28/23 07:00 10/28/23 07:00 10/28/23 07:00 10/28/23 07:00
Physical Exam
Constitutional: No Acute Distress
Cardiovascular: Regular Rate and S1/S2; Negative Murmur or Rub
Pulmonary: Clear and Symmetric; Negative Wheezes or Rales
Gastrointestinal: Soft, Non Tender, Non Distended and Normal Bowel Sounds
Genito-Urinary: Negative Suprapubic Tenderness
Skin: Warm and Dry; Negative Rash or Jaundice
Lines: Other (drain with purulent output)
Objective Data
Lab Data
Lab Results
10/28/23 06:18
10/28/23 06:18
PT 14.9 Sec (11.4-14.6) H 10/26/23 15:11
INR 1.18 10/26/23 15:11
Estimated Creat Clear 120 ml/min 10/28/23 06:18
Lactic Acid Cancelled 10/21/23 21:30
Total Bilirubin 0.4 mg/dl (0.2-1.3) 10/27/23 05:42
AST 23 U/L (17-59) 10/27/23 05:42
ALT 23 U/L (0-50) 10/27/23 05:42
Alkaline Phosphatase 138 U/L (38-126) H 10/27/23 05:42
Most recent labs reviewed.
Micro Results:
10/21/23 17:31 Blood Culture - Final
Blood/Venous Coagulase neg. staphylococcus
Additional testing on request
Gram Stain - Final
10/26/23 09:23 Body Fluid Culture - Preliminary
Kidney Fluid Gram Stain - Preliminary
10/26/23 09:23 Anaerobic Culture - Preliminary
Kidney Fluid
10/21/23 17:41 Urine Culture - Final
Urine Escherichia coli
Proteus Mirabilis-ESBL
10/21/23 17:31 Blood Culture - Final
Blood/Venous No Growth - Final Report
10/22/23 07:59 Urine Culture - Final
Urine Proteus Mirabilis-ESBL
[2023-10-28 15:00] VITALS: BP 123/63
[2023-10-28] MEDS: CUBICIN 16 MG IV (16:19)
[2023-10-28 23:11] VITALS: BP 116/59
[2023-10-29 05:53] LABS: % Basophils 0.6 % (0-2); % Eosinophils 5.3 % (0-6); % Immature Granulocytes 0.4 % (0-0.5); % Lymphocytes 35.4 % (20.5-51.1); % Monocytes 8.3 % (1.7-9.3); Absolute Basophils 0.1 10^3/uL (0-0.2); Absolute Eosinophils 0.5 10^3/uL (0-0.7); Absolute Lymphocytes 3.3 10^3/uL (1.2-3.4); Absolute Monocytes 0.8 10^3/uL (0.1-0.6); Absolute Neutrophils 4.7 10^3/uL (1.4-6.5); Hemoglobin 9.5 g/dL (13.0-18.0); Mean Corp Hgb Conc. 31.7 g/dL (33.0-37.0); Mean Corpuscular Hgb 27.2 pg (27.0-31.0); Mean Platelet Volume 9.3 fL (7.4-10.4); Nucleated Red Blood Cells % 0 % (-); Platelet Count 335 10^3/uL (130-400); Red Blood Cell Count 3.49 10^6/uL (4.70-6.10); Red Cell Dist. Width 17.8 % (11.5-14.5); White Blood Cell Count 9.4 10^3/uL (4.8-10.8)
[2023-10-29 06:12] VITALS: BMI 22.4
[2023-10-29 06:12] LABS: Blood Urea Nitrogen 15 mg/dl (9-20); Calcium 8.8 mg/dl (8.4-10.2); Carbon Dioxide 29 mmol/L (22-30); Chloride 102 mmol/L (98-107); Estimated Creatinine Clearance 120 ml/min; Glucose 135 mg/dl (70-99); Potassium 3.9 mmol/L (3.5-5.1); Sodium 136 mmol/L (135-145); eGFR > 60.00
--- NOTE | 2023-10-29 06:14 | W.PN.URO.CBU ---
Today's Communication / Plan
-
nephrectomy on wednesday
Assessment / Plan
-
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
Recurrent UTI and catheter obstruction
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
s/p suprapubic tube replacement
s/p R ureteral stent placement 10/22 with purulent drainage. Calcified debris and ureteral kinking noted on retrograde study
s/p IR drain placement 10/26
pt stable
ok to resume subq heparin at this point but hold plavix and asa in anticipation of surgery
continuing antibx per ID
will confirm plan with daughter/family regarding right nephrectomy on wednesday
Diagnosis
-
Date of Service: October 29, 2023
-
Recurrent R ureteral obstruction
XGP kidney
Urinary retention with chronic SPT
Post Op s/po cystoscopy, R ureteral stent placement 10/22
IR drain placement 10/26
Subjective
-
pt stable
minimal drain output
urine clear
final drain cx's pending
afebrile/wbc normal
Objective
-
Vital Signs
Temp Pulse Resp BP Pulse Ox
98.0 F 63 16 116/59 97
10/28/23 23:11 10/28/23 23:11 10/28/23 23:11 10/28/23 23:11 10/28/23 23:11
Intake and Output
10/27/23 10/28/23 10/29/23
06:59 06:59 06:59
Intake Total 120 / 120 970 / 970 1150 / 1150
Output Total 2049 1025 / 1025 2485 / 2485
Balance -1930 / -1930 -55 / -55 -1335 / -1335
Intake:
Oral fluids 120 / 120 960 / 960 1140 / 1140
Amount instilled into Drain (
Total)
Right Back Placed in IR
Output:
Drain Output (Total)
Right Back Placed in IR
Urine, Mane 400 / 400 475 / 475
Urine, Voided 550 / 550 600 / 600
Suprapubic output 1500 / 1500 2000 / 1999
Laboratory Results
10/29/23 05:35
10/29/23 05:35
Review of Systems
-
Constitutional: Fatigue
Respiratory: No Symptoms
Cardiac: No Symptoms
Abdomen/GI: No Symptoms
Physical Exam
-
General - no acute distress
Abdomen - soft, non-tender, sp tube and drain in place
[2023-10-29 08:26] VITALS: BP 134/70
[2023-10-29] MEDS: MERREM 1000 MG IV ×3 (08:28→23:56)
[2023-10-29] MEDS: STERILE WATER FOR INJECTION 20 ML IV ×3 (08:28→23:56)
[2023-10-29] MEDS: IMDUR (EXTENDED RELEASE) 60 MG PO (08:29)
[2023-10-29] MEDS: LEXAPRO 10 MG PO (08:29)
[2023-10-29] MEDS: COREG 3.125 MG PO ×2 (08:29→20:54)
[2023-10-29] MEDS: FEOSOL 325 MG PO (08:29)
[2023-10-29] MEDS: NORVASC 2.5 MG PO (08:29)
[2023-10-29] MEDS: DIFLUCAN 400 MG PO (08:29)
[2023-10-29] MEDS: PROTONIX 40 MG PO (08:30)
[2023-10-29] MEDS: PROSCAR 5 MG PO (08:30)
[2023-10-29] MEDS: MIRALAX PO (08:30)
--- NOTE | 2023-10-29 10:38 | W.PN.HOSP.TC ---
Today's Communication/Plan
-
Monitor vital signs see plan
Follow cultures
Continue with antibiotics, antifungal
Plan for possible nephrectomy next week per urology
Assessment / Plan
Assessment / Plan
Assessment:
Xanthogranulomatous Pyelonephritis
recent h/o pyelonephritis due to MRSA and Proteus, infected R ureteral stone s/p stent/removal ([place])
- obtain records from [place]
- Urology following
- s/p cysto, RGP, stent placement 10/23/23
- continue Meropenem and Dapto per ID; cultures growing E. Coli and ESBL/Proteus
- repeat CT 10/25 with 8.5 cm gas containing low-density subcapsular collection on the right concerning for renal abscess. Moderate persistent right-sided hydronephrosis despite presence of the stent
Status post IR drain subcapsular collection. follow cx from drain; started fluconazole; continue with antibiotics per infectious disease
Tentative plan for open right nephrectomy with possible removal of gallbladder
TME associated with above process of UTI/Pyelonephritis
- improving as treatment continues
Post-cystoscopy hematuria
- this is an expected issue post-procedure
- Hb stable
- d/w Urology ok for resumption of SC Heparin
BPH s/p suprapubic catheter
- continue Finasteride
Recent hx of upper GI bleed
Normocytic anemia
- stable Hb
Anemia, suspect anemia chronic disease
Monitor
Atelectasis
cw IS
monitor
Mild hypokalemia
- replaced
Essential HTN
- amlodipine
Anxiety/Depression
- hold BZD
- continue Lexapro
CAD S/p CABG/Stents
- continue Statin/Coreg/Imdur
hold ASA per urology
GERD - PPI
Constipation
- bowel regimen
Hx of DM neuropathy
- hold Gabapentin
Hx of CVA
- continue ASA/Statin
Left heel Stage 3 pressure injury POA
- continue topical care
DVT ppx: SC Heparin
Code: Full
PT/OT rec SNF
General: Well Developed and Well Nourished
HEENT: Normocephalic and Atraumatic
Respiratory: Negative Wheezes
Cardiac: Regular Rhythm and S1/S2
Genito-urinary: No Costovertebral Tender and Mane,IR drain
Neuro: AO x 3
Psych: Calm
Anticipated Discharge: > 48 hours
Subjective/Interval History
-
Date of Service: October 29, 2023
Denies nausea
Objective Data
-
Labs:
Laboratory Results
10/29/23
05:35
WBC 9.4
Hgb 9.5 L
Hct 30.0 L
Plt Count 335
Sodium 136
Potassium 3.9
Chloride 102
Carbon Dioxide 29
BUN 15
Creatinine 0.5 L
Glucose 135 H
Calcium 8.8
Vital Signs:
Vital Signs
Temp Pulse Resp BP Pulse Ox
98.1 F 67 16 134/70 100
10/29/23 08:26 10/29/23 08:26 10/29/23 08:26 10/29/23 08:26 10/29/23 08:26
I&O
10/28/23 10/29/23 10/30/23
06:59 06:59 06:59
Intake Total 970 / 970 1150 / 1150
Output Total 1025 / 1025 2485 / 2485
Balance -55 / -55 -1335 / -1335
[2023-10-29 11:55] VITALS: BP 115/63; PULSE 60; O2SAT 97
[2023-10-29 12:34] VITALS: BP 115/63; PULSE 60; O2SAT 97
[2023-10-29 15:00] VITALS: BP 123/66
[2023-10-29] MEDS: CUBICIN 16 MG IV (15:05)
--- NOTE | 2023-10-29 15:55 | W.PN.ID1 ---
Date of Service
Date of Service: October 29, 2023
Today's Communication
continue fluconazole, meropenem, daptomycin
Assessment / Plan
Xanthogranulomatous Pyelonephritis
- recent h/o pyelonephritis due to MRSA and Proteus
S/p Suprapubic catheter
- 10/26 renal fluid culture gram stain many yeast and many GPCS; had 50 ccs of grossly purulent fluid drained
- urine culture polymicrobial Proteus ESBL, E coli
- drain output continues
- continue fluconazole 400 mg qday - continue through resection
- lexapro dose decreased to 10 mg Qday (1/2 starting dose) given interaction with fluconazole - continue on this dose while on fluconazole
- qtc remains acceptable
- continue daptomycin through resection
- hold statin
- meropenem 1 gm IV q 8hrs continue through resection
- agree that eventual nephrectomy is likely needed or patient will be at risk of relapsing necrotizing infection
Chief Complaint
-: UTI (Xanthogranulomatous pyelonephritis (XGP))
Subjective / Review of Systems
afebrile
bp stable
without leukocytosis
cr stable
body fluid no growth to date
Vital Signs / Physical Exam
Vital Signs
Vital Signs
Temp Pulse Resp BP Pulse Ox
98.1 F 67 16 134/70 100
10/29/23 08:26 10/29/23 08:26 10/29/23 08:26 10/29/23 08:26 10/29/23 08:26
Physical Exam
Constitutional: No Acute Distress
Cardiovascular: Regular Rate and S1/S2; Negative Murmur or Rub
Pulmonary: Clear and Symmetric; Negative Wheezes or Rales
Gastrointestinal: Soft, Non Tender, Non Distended and Normal Bowel Sounds
Skin: Warm and Dry; Negative Rash or Jaundice
Objective Data
Lab Data
Lab Results
10/29/23 05:35
10/29/23 05:35
PT 14.9 Sec (11.4-14.6) H 10/26/23 15:11
INR 1.18 10/26/23 15:11
Estimated Creat Clear 120 ml/min 10/29/23 05:35
Lactic Acid Cancelled 10/21/23 21:30
Total Bilirubin 0.4 mg/dl (0.2-1.3) 10/27/23 05:42
AST 23 U/L (17-59) 10/27/23 05:42
ALT 23 U/L (0-50) 10/27/23 05:42
Alkaline Phosphatase 138 U/L (38-126) H 10/27/23 05:42
Most recent labs reviewed.
Micro Results:
10/26/23 09:23 Body Fluid Culture - Preliminary
Kidney Fluid Gram Stain - Preliminary
10/21/23 17:31 Blood Culture - Final
Blood/Venous Coagulase neg. staphylococcus
Additional testing on request
Gram Stain - Final
10/26/23 09:23 Anaerobic Culture - Preliminary
Kidney Fluid
10/21/23 17:41 Urine Culture - Final
Urine Escherichia coli
Proteus Mirabilis-ESBL
10/21/23 17:31 Blood Culture - Final
Blood/Venous No Growth - Final Report
10/22/23 07:59 Urine Culture - Final
Urine Proteus Mirabilis-ESBL
[2023-10-29] MEDS: MELATONIN 5 MG PO (21:39)
[2023-10-29 22:58] VITALS: BP 102/52
[2023-10-30 06:59] LABS: % Basophils 0.8 % (0-2); % Eosinophils 6.4 % (0-6); % Immature Granulocytes 0.6 % (0-0.5); % Lymphocytes 37.9 % (20.5-51.1); % Monocytes 8.1 % (1.7-9.3); % Neutrophils 46.2 % (42.2-75.2); Absolute Basophils 0.1 10^3/uL (0-0.2); Absolute Eosinophils 0.5 10^3/uL (0-0.7); Absolute Immature Granulocytes 0.1 10^3/uL (0-0.05); Absolute Monocytes 0.7 10^3/uL (0.1-0.6); Absolute Neutrophils 3.7 10^3/uL (1.4-6.5); Hematocrit 30.1 % (39.0-52.0); Hemoglobin 9.6 g/dL (13.0-18.0); Mean Corp Hgb Conc. 31.9 g/dL (33.0-37.0); Mean Corpuscular Volume 84.8 fL (80.0-94.0); Mean Platelet Volume 9.2 fL (7.4-10.4); Nucleated Red Blood Cells % 0 % (-); Platelet Count 350 10^3/uL (130-400); Red Blood Cell Count 3.55 10^6/uL (4.70-6.10)
[2023-10-30 07:00] VITALS: BP 127/67
[2023-10-30 07:19] LABS: Blood Urea Nitrogen 19 mg/dl (9-20); Calcium 8.5 mg/dl (8.4-10.2); Carbon Dioxide 33 mmol/L (22-30); Chloride 99 mmol/L (98-107); Estimated Creatinine Clearance 120 ml/min; Glucose 127 mg/dl (70-99); Potassium 4.1 mmol/L (3.5-5.1); Sodium 136 mmol/L (135-145); eGFR > 60.00
[2023-10-30] MEDS: STERILE WATER FOR INJECTION 20 ML IV ×3 (08:01→23:36)
[2023-10-30] MEDS: LEXAPRO 10 MG PO (08:01)
[2023-10-30] MEDS: PROTONIX 40 MG PO (08:01)
[2023-10-30] MEDS: IMDUR (EXTENDED RELEASE) 60 MG PO (08:01)
[2023-10-30] MEDS: NORVASC 2.5 MG PO (08:01)
[2023-10-30] MEDS: DIFLUCAN 400 MG PO (08:02)
[2023-10-30] MEDS: FEOSOL 325 MG PO (08:02)
[2023-10-30] MEDS: MERREM 1000 MG IV ×3 (08:03→23:35)
[2023-10-30] MEDS: PROSCAR 5 MG PO (08:03)
[2023-10-30] MEDS: MIRALAX PO (08:03)
[2023-10-30] MEDS: COREG 3.125 MG PO ×2 (08:03→21:28)
--- NOTE | 2023-10-30 10:13 | W.PN.HOSP.TC ---
Today's Communication/Plan
-
.
Assessment / Plan
Assessment / Plan
Physical exam:
General: ill looking ( no acute distress)
HEENT: Normocephalic and Atraumatic
Respiratory: Negative Wheezes. Limited.
Cardiac: Regular Rhythm and S1/S2
GI: soft,abdomen
Genito-urinary: No Costovertebral Tender and Mane,IR drain
Neuro: awake, confused, forgetful?
Psych: Calm
Assessment:
#Xanthogranulomatous Pyelonephritis
recent h/o pyelonephritis due to MRSA and Proteus, infected R ureteral stone s/p stent/removal ([place])
- obtain records from [place]
- Urology following
- s/p cysto, RGP, stent placement 10/23/23
- continue Meropenem and Dapto per ID; cultures growing E. Coli and ESBL/Proteus
- repeat CT 10/25 with 8.5 cm gas containing low-density subcapsular collection on the right concerning for renal abscess. Moderate persistent right-sided hydronephrosis despite presence of the stent
Status post IR drain subcapsular collection. follow cx from drain; started fluconazole; continue with antibiotics per infectious disease
Tentative plan for open right nephrectomy with possible removal of gallbladder
TME associated with above process of UTI/Pyelonephritis
- improving as treatment continues
Post-cystoscopy hematuria
- this is an expected issue post-procedure
- Hb stable
- d/w Urology ok for resumption of SC Heparin
BPH s/p suprapubic catheter
- continue Finasteride
Recent hx of upper GI bleed
Normocytic anemia
- stable Hb
Anemia, suspect anemia chronic disease
Monitor
Atelectasis
cw IS
monitor
Mild hypokalemia
- replaced
Essential HTN
- amlodipine
Anxiety/Depression
- hold BZD
- continue Lexapro
CAD S/p CABG/Stents
- continue Statin/Coreg/Imdur
hold ASA per urology
GERD - PPI
Constipation
- bowel regimen
Hx of DM neuropathy
- hold Gabapentin
Hx of CVA
Awake but couldn't answer questions in details.
Suspect possible senile or vascular cognitive impairment
- continue ASA/Statin
Left heel Stage 3 pressure injury POA
- continue topical care
DVT ppx: SC Heparin
Code: Full
PT/OT rec SNF
Total time spent to see the patient on the floor, examine the patient, review data and lab results, discuss treatment plan with patient, nursing staff around 55 minutes
Anticipated Discharge: > 48 hours
Subjective/Interval History
-
Date of Service: October 30, 2023
No complaints
No fevers
No hypotension
Objective Data
-
Labs:
Laboratory Results
10/30/23
06:18
WBC 8.0
Hgb 9.6 L
Hct 30.1 L
Plt Count 350
Sodium 136
Potassium 4.1
Chloride 99
Carbon Dioxide 33 H
BUN 19
Creatinine 0.5 L
Glucose 127 H
Calcium 8.5
Vital Signs:
Vital Signs
Temp Pulse Resp BP Pulse Ox
98.9 F 60 16 127/67 99
10/30/23 07:00 10/30/23 07:00 10/30/23 07:00 10/30/23 07:00 10/30/23 07:00
I&O
10/29/23 10/30/23 10/31/23
06:59 06:59 06:59
Intake Total 1150 / 1150 390 / 390
Output Total 2485 / 2485 1630 / 1630
Balance -1335 / -1335 -1240 / -1240
--- NOTE | 2023-10-30 11:06 | W.PN.URO.CBU ---
Today's Communication / Plan
-
op room wednesday
Assessment / Plan
-
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
Recurrent UTI and catheter obstruction
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
s/p suprapubic tube replacement
s/p R ureteral stent placement 10/22 with purulent drainage. Calcified debris and ureteral kinking noted on retrograde study
s/p IR drain placement 10/26
pt stable
ok to resume subq heparin at this point but hold plavix and asa in anticipation of surgery
continuing antibx per ID
will confirm plan with daughter/family regarding right nephrectomy on wednesday
Diagnosis
-
Date of Service: October 30, 2023
-
Patient Diagnosis:
Post Op Day:
Recurrent R ureteral obstruction
XGP kidney
Urinary retention with chronic SPT
Post Op s/po cystoscopy, R ureteral stent placement 10/22
IR drain placement 10/26
Subjective
-
no pain
Objective
-
Vital Signs
Temp Pulse Resp BP Pulse Ox
98.9 F 60 16 127/67 99
10/30/23 07:00 10/30/23 07:00 10/30/23 07:00 10/30/23 07:00 10/30/23 07:00
Intake and Output
10/29/23 10/30/23 10/31/23
06:59 06:59 06:59
Intake Total 1150 / 1150 390 / 390
Output Total 2485 / 2485 1630 / 1630
Balance -1335 / -1335 -1240 / -1240
Intake:
Oral fluids 1140 / 1140 380 / 380
Amount instilled into Drain (
Total)
Right Back Placed in IR
Output:
Drain Output (Total)
Right Back Placed in IR
Urine, Mane 475 / 475 1000 / 1000
Suprapubic output 2000 / 2000 600 / 600
Laboratory Results
10/30/23 06:18
10/30/23 06:18
Review of Systems
-
: No Symptoms
Physical Exam
-
General - well developed, well nourished, no acute distress
Chest - clear bilaterally
Abdomen - soft, non-tender, positive bowel sounds, no CVAT, no incisional pain or distention
Genitalia - normal
Rectal - normal
Skin - warm & dry with no rash
Neuro - AOx3, no motor deficits
Extremities - no clubbing, no cyanosis, no edema
Incision - clean, dry
Dressing - clean, dry, intact
Care Review
Data Reviewed
Discussed with: Hospitalist and Nursing
--- NOTE | 2023-10-30 11:17 | W.PN.ID1 ---
Date of Service
Date of Service: October 30, 2023
Today's Communication
Continue fluconazole, daptomycin, and meropenem.
Assessment / Plan
Xanthogranulomatous Pyelonephritis
- recent h/o pyelonephritis due to MRSA and Proteus (at [place])
S/p Suprapubic catheter
- 10/26 renal fluid culture gram stain many yeast and many GPCS; had 50 ccs of grossly purulent fluid drained; cx: Klebsiella, E. coli, Proteus, enterococcus
- urine culture polymicrobial Proteus ESBL, E coli
- drain output continues
- continue fluconazole 400 mg qday - continue through nephrectomy
- lexapro dose decreased to 10 mg Qday (1/2 starting dose) given interaction with fluconazole - continue on this dose while on fluconazole
- qtc remains acceptable
- continue daptomycin through resection
- hold statin
- meropenem 1 gm IV q 8hrs continue through resection
- agree that eventual nephrectomy is likely needed or patient will be at risk of relapsing necrotizing infection
Chief Complaint
-: UTI (Xanthogranulomatous pyelonephritis (XGP))
Subjective / Review of Systems
Tolerating abx.
Vital Signs / Physical Exam
Vital Signs
Vital Signs
Temp Pulse Resp BP Pulse Ox
98.9 F 60 16 127/67 99
10/30/23 07:00 10/30/23 07:00 10/30/23 07:00 10/30/23 07:00 10/30/23 07:00
Physical Exam
Constitutional: No Acute Distress
Cardiovascular: Regular Rate and S1/S2
Gastrointestinal: Soft, Non Tender and Non Distended
Genito-Urinary: Other (Right flank SANTA drain: pus)
Extremities: Negative Edema
Objective Data
Lab Data
Lab Results
10/30/23 06:18
10/30/23 06:18
PT 14.9 Sec (11.4-14.6) H 10/26/23 15:11
INR 1.18 10/26/23 15:11
Estimated Creat Clear 120 ml/min 10/30/23 06:18
Lactic Acid Cancelled 10/21/23 21:30
Total Bilirubin 0.4 mg/dl (0.2-1.3) 10/27/23 05:42
AST 23 U/L (17-59) 10/27/23 05:42
ALT 23 U/L (0-50) 10/27/23 05:42
Alkaline Phosphatase 138 U/L (38-126) H 10/27/23 05:42
Most recent labs reviewed.
Micro Results:
10/26/23 09:23 Anaerobic Culture - Preliminary
Kidney Fluid
10/26/23 09:23 Body Fluid Culture - Preliminary
Kidney Fluid Klebsiella pneumoniae
Escherichia coli
Proteus mirabilis
Enterococcus species
Gram Stain - Preliminary
10/21/23 17:31 Blood Culture - Final
Blood/Venous Coagulase neg. staphylococcus
Additional testing on request
Gram Stain - Final
10/21/23 17:41 Urine Culture - Final
Urine Escherichia coli
Proteus Mirabilis-ESBL
10/21/23 17:31 Blood Culture - Final
Blood/Venous No Growth - Final Report
10/22/23 07:59 Urine Culture - Final
Urine Proteus Mirabilis-ESBL
[2023-10-30 15:00] VITALS: BP 134/83
[2023-10-30] MEDS: CUBICIN 16 MG IV (15:58)
[2023-10-30 16:50] VITALS: BP 115/63; PULSE 60; O2SAT 97
[2023-10-30] MEDS: MELATONIN 5 MG PO (21:28)
[2023-10-30 23:00] VITALS: BP 115/60
[2023-10-31 07:00] VITALS: BP 126/66
--- NOTE | 2023-10-31 08:09 | W.PN.URO.CBU ---
Today's Communication / Plan
-
for op room [facility] r/out c diff
Assessment / Plan
-
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
Recurrent UTI and catheter obstruction
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
s/p suprapubic tube replacement
s/p R ureteral stent placement 10/22 with purulent drainage. Calcified debris and ureteral kinking noted on retrograde study
s/p IR drain placement 10/26
pt stable
ok to resume subq heparin at this point but hold plavix and asa in anticipation of surgery
continuing antibx per ID
will confirm plan with daughter/family regarding right nephrectomy on wednesday
Diagnosis
-
Date of Service: October 31, 2023
-
Patient Diagnosis:
Post Op Day:
Patient Diagnosis:
Post Op Day:
Recurrent R ureteral obstruction
XGP kidney
Urinary retention with chronic SPT
Post Op s/po cystoscopy, R ureteral stent placement 10/22
IR drain placement 10/26
Subjective
-
some diarrhea
Objective
-
Vital Signs
Temp Pulse Resp BP Pulse Ox
97.8 F 62 12 115/60 100
10/30/23 23:00 10/30/23 23:00 10/30/23 23:00 10/30/23 23:00 10/30/23 23:00
Intake and Output
10/30/23 10/31/23 11/01/23
06:59 06:59 06:59
Intake Total 390 / 390 1600 / 1600
Output Total 1630 / 1630 615 / 615
Balance -1240 / -1240 985 / 985
Intake:
Oral fluids 380 / 380 1590 / 1590
Amount instilled into Drain (
Total)
Right Back Placed in IR
Output:
Drain Output (Total)
Right Back Placed in IR
Urine, Mane 1000 / 1000
Suprapubic output 600 / 600 575 / 575
Other:
Number of unmeasured liquid
stools
Rectum 2
Laboratory Results
10/30/23 06:18
10/30/23 06:18
Review of Systems
-
Abdomen/GI: Diarrhea
Physical Exam
-
General - well developed, well nourished, no acute distress
Chest - clear bilaterally
Abdomen - soft, non-tender, positive bowel sounds, no CVAT, no incisional pain or distention
Genitalia - normal
Rectal - normal
Skin - warm & dry with no rash
Neuro - AOx3, no motor deficits
Extremities - no clubbing, no cyanosis, no edema
Incision - clean, dry
Dressing - clean, dry, intact
Care Review
Data Reviewed
Discussed with: Hospitalist
[2023-10-31] MEDS: MERREM 1000 MG IV ×3 (08:13→23:46)
[2023-10-31] MEDS: STERILE WATER FOR INJECTION 20 ML IV ×3 (08:13→23:46)
[2023-10-31] MEDS: DIFLUCAN 400 MG PO (08:16)
[2023-10-31] MEDS: LEXAPRO 10 MG PO (08:16)
[2023-10-31] MEDS: FEOSOL 325 MG PO (08:16)
[2023-10-31] MEDS: MIRALAX PO (08:16)
[2023-10-31] MEDS: NORVASC 2.5 MG PO (08:16)
[2023-10-31] MEDS: PROTONIX 40 MG PO (08:16)
[2023-10-31] MEDS: COREG 3.125 MG PO ×2 (08:16→20:51)
[2023-10-31] MEDS: IMDUR (EXTENDED RELEASE) 60 MG PO (08:16)
[2023-10-31] MEDS: PROSCAR 5 MG PO (08:17)
--- NOTE | 2023-10-31 10:26 | W.PN.ID1 ---
Date of Service
Date of Service: October 31, 2023
Today's Communication
Continue daptomycin, meropenem, and fluconazole.
Assessment / Plan
Xanthogranulomatous Pyelonephritis
- recent h/o pyelonephritis due to MRSA and Proteus (at [place])
S/p Suprapubic catheter replacement
- 10/26 renal fluid culture gram stain many yeast and many GPCS; had 50 ccs of grossly purulent fluid drained; cx: Klebsiella, E. coli, ESBL-Proteus, VRE
- urine culture polymicrobial Proteus ESBL, E coli
- drain output continues
- continue fluconazole 400 mg qday - continue through nephrectomy
- lexapro dose decreased to 10 mg Qday (1/2 starting dose) given interaction with fluconazole - continue on this dose while on fluconazole
- qtc remains acceptable
- continue daptomycin through nephrectomy
- hold statin
-check ck in am
- meropenem 1 gm IV q 8hrs continue through nephrectomy
Chief Complaint
-: UTI (Xanthogranulomatous pyelonephritis (XGP))
Subjective / Review of Systems
Feels OK.
Vital Signs / Physical Exam
Vital Signs
Vital Signs
Temp Pulse Resp BP Pulse Ox
98.6 F 63 15 126/66 99
10/31/23 07:00 10/31/23 07:00 10/31/23 07:00 10/31/23 07:00 10/31/23 07:00
Physical Exam
Constitutional: No Acute Distress
Genito-Urinary: Other (right flank SANTA drain with purulent output)
Objective Data
Lab Data
Lab Results
10/30/23 06:18
10/30/23 06:18
PT 14.9 Sec (11.4-14.6) H 10/26/23 15:11
INR 1.18 10/26/23 15:11
Estimated Creat Clear 120 ml/min 10/30/23 06:18
Lactic Acid Cancelled 10/21/23 21:30
Total Bilirubin 0.4 mg/dl (0.2-1.3) 10/27/23 05:42
AST 23 U/L (17-59) 10/27/23 05:42
ALT 23 U/L (0-50) 10/27/23 05:42
Alkaline Phosphatase 138 U/L (38-126) H 10/27/23 05:42
Most recent labs reviewed.
Micro Results:
10/26/23 09:23 Body Fluid Culture - Preliminary
Kidney Fluid Proteus Mirabilis-ESBL
Klebsiella pneumoniae
Escherichia coli
Enterococcus faecium - VRE
Gram Stain - Preliminary
10/26/23 09:23 Anaerobic Culture - Preliminary
Kidney Fluid
10/21/23 17:31 Blood Culture - Final
Blood/Venous Coagulase neg. staphylococcus
Additional testing on request
Gram Stain - Final
10/21/23 17:41 Urine Culture - Final
Urine Escherichia coli
Proteus Mirabilis-ESBL
10/21/23 17:31 Blood Culture - Final
Blood/Venous No Growth - Final Report
10/22/23 07:59 Urine Culture - Final
Urine Proteus Mirabilis-ESBL
--- NOTE | 2023-10-31 11:10 | W.PN.HOSP.TC ---
Today's Communication/Plan
-
.
Assessment / Plan
Assessment / Plan
Physical exam:
General: ill looking ( no acute distress)
HEENT: Normocephalic and Atraumatic
Respiratory: Negative Wheezes. Limited.
Cardiac: Regular Rhythm and S1/S2
GI: soft,abdomen
Genito-urinary: No Costovertebral Tender and Mane,IR drain
Neuro: awake, confused, forgetful?
Psych: Calm
Assessment:
# Loose stools
He was treated for constipation in last few days.
Hold MiraLAX
Send for C diff because of antibiotic use.
No abdominal pain or tenderness.
#Xanthogranulomatous Pyelonephritis
recent h/o pyelonephritis due to MRSA and Proteus, infected R ureteral stone s/p stent/removal ([place])
- s/p cysto, RGP, stent placement 10/23/23
- continue Meropenem and Dapto per ID; cultures growing E. Coli and ESBL/Proteus
- repeat CT 10/25 with 8.5 cm gas containing low-density subcapsular collection on the right concerning for renal abscess. Moderate persistent right-sided hydronephrosis despite presence of the stent
Status post IR drain subcapsular collection. follow cx from drain; started fluconazole; continue with antibiotics per infectious disease
Tentative plan for open right nephrectomy with possible removal of gallbladder
TME associated with above process of UTI/Pyelonephritis
- improved. Seems back to baseline. No agitation, pleasant and cooperative.
Post-cystoscopy hematuria
- this is an expected issue post-procedure
- Hb stable
- d/w Urology ok for resumption of SC Heparin
BPH s/p suprapubic catheter
- continue Finasteride
History of Acute blood loss anemia with recent hx of upper GI bleed
Normocytic anemia
- stable Hb
Anemia, Also suspect anemia chronic disease
Monitored
Atelectasis
cw IS
monitored
Mild hypokalemia
- replaced
Essential HTN
- amlodipine, Coreg, Imdur.
Anxiety/Depression
- hold BZD
- continue Lexapro
CAD S/p CABG/Stents
- continue Statin/Coreg/Imdur
holding ASA per urology
GERD - PPI
Hx of DM neuropathy
- hold Gabapentin
Hx of CVA
Awake but couldn't answer questions in details.
Suspect possible senile or vascular cognitive impairment
- continue ASA/Statin
Left heel Stage 3 pressure injury POA
- continue topical care
DVT ppx: SC Heparin
Code: Full
PT/OT rec SNF
Total time spent to see the patient on the floor, examine the patient, review data and lab results, discuss treatment plan with patient, nursing staff around 57 minutes
Anticipated Discharge: > 48 hours
Subjective/Interval History
-
Date of Service: October 31, 2023
Nurse: loose stools over night
Patient: no abd pain, no nausea
Objective Data
-
Vital Signs:
Vital Signs
Temp Pulse Resp BP Pulse Ox
98.6 F 63 15 126/66 99
10/31/23 07:00 10/31/23 07:00 10/31/23 07:00 10/31/23 07:00 10/31/23 07:00
I&O
10/30/23 10/31/23 11/01/23
06:59 06:59 06:59
Intake Total 390 / 390 1600 / 1600
Output Total 1630 / 1630 615 / 615
Balance -1240 / -1240 985 / 985
[2023-10-31 15:00] VITALS: BP 123/66
[2023-10-31] MEDS: CUBICIN 16 MG IV (16:21)
[2023-10-31] MEDS: MELATONIN 5 MG PO (20:51)
[2023-10-31 23:30] VITALS: BP 122/67
[2023-10-31] MEDS: FLUSH (NSS) 2 FLUSH IV (23:47)
[2023-11-01 06:15] LABS: Hematocrit 31.1 % (39.0-52.0); Hemoglobin 9.9 g/dL (13.0-18.0); Mean Corp Hgb Conc. 31.8 g/dL (33.0-37.0); Mean Corpuscular Hgb 27.7 pg (27.0-31.0); Mean Corpuscular Volume 87.1 fL (80.0-94.0); Mean Platelet Volume 9.5 fL (7.4-10.4); Platelet Count 284 10^3/uL (130-400); Red Blood Cell Count 3.57 10^6/uL (4.70-6.10); Red Cell Dist. Width 18.2 % (11.5-14.5)
[2023-11-01 06:38] LABS: Blood Urea Nitrogen 21 mg/dl (9-20); Calcium 8.8 mg/dl (8.4-10.2); Carbon Dioxide 32 mmol/L (22-30); Chloride 96 mmol/L (98-107); Creatine Phosphokinase 25 U/L (55-170); Estimated Creatinine Clearance 120 ml/min; Glucose 153 mg/dl (70-99); Potassium 3.9 mmol/L (3.5-5.1); Sodium 133 mmol/L (135-145); eGFR > 60.00
[2023-11-01] MEDS: DIFLUCAN 400 MG PO (07:30)
[2023-11-01] MEDS: FEOSOL 325 MG PO (07:30)
[2023-11-01] MEDS: PROTONIX 40 MG PO (07:30)
[2023-11-01] MEDS: IMDUR (EXTENDED RELEASE) 60 MG PO (07:30)
[2023-11-01] MEDS: LEXAPRO 10 MG PO (07:30)
[2023-11-01] MEDS: NORVASC 2.5 MG PO (07:30)
[2023-11-01] MEDS: PROSCAR 5 MG PO (07:30)
[2023-11-01] MEDS: STERILE WATER FOR INJECTION 20 ML IV ×3 (07:31→23:54)
[2023-11-01] MEDS: COREG 3.125 MG PO ×2 (07:31→22:51)
[2023-11-01] MEDS: MERREM 1000 MG IV ×3 (07:31→23:55)
[2023-11-01 07:59] VITALS: BP 146/71
--- NOTE | 2023-11-01 11:53 | W.PN.URO.CBU ---
Today's Communication / Plan
-
nephrectomy tomorrow
Assessment / Plan
-
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
Recurrent UTI and catheter obstruction
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
s/p suprapubic tube replacement
s/p R ureteral stent placement 10/22 with purulent drainage. Calcified debris and ureteral kinking noted on retrograde study
s/p IR drain placement 10/26
pt stable
have spoken to pt and daughter at length including today
given clinical course/CT appearance and drain cx's- really only option is to proceed with nx
have reviewed HIGH risk nature of procedure including mortality, the need for post op ICU care and likely blood transfusion and possible gsu eval/gall bladder removal
npo after midnight/all blood thinners including sub q heparin on hold
for OR tomorrow tomorrow
Diagnosis
-
Date of Service: November 01, 2023
-
Recurrent R ureteral obstruction
XGP kidney
Urinary retention with chronic SPT
Post Op s/po cystoscopy, R ureteral stent placement 10/22
IR drain placement 10/26
Subjective
-
pt stable
alert and awake
urine clear from sp tube
drain cx- multiple organisms
Objective
-
Vital Signs
Temp Pulse Resp BP Pulse Ox
96.0 F L 68 15 146/71 98
11/01/23 07:59 11/01/23 07:59 11/01/23 07:59 11/01/23 07:59 11/01/23 07:59
Intake and Output
10/31/23 11/01/23 11/02/23
06:59 06:59 06:59
Intake Total 1600 / 1600 1030 / 1030
Output Total 615 / 615 930 / 930
Balance 985 / 985 100 / 100
Intake:
Oral fluids 1590 / 1590 1020 / 1020
Amount instilled into Drain (
Total)
Right Back Placed in IR
Output:
Drain Output (Total)
Right Back Placed in IR
Urine, Voided 400 / 400
Suprapubic output 575 / 575 500 / 500
Other:
Number of unmeasured liquid
stools
Rectum 2
Laboratory Results
11/01/23 05:47
11/01/23 05:47
Physical Exam
-
General - no acute distress
Abdomen - soft, non-tender
Genitalia - normal
[2023-11-01] MEDS: VISBIOME 2 CAP PO (12:02)
--- NOTE | 2023-11-01 12:42 | W.PN.HOSP.TC ---
Today's Communication/Plan
-
continue Abx per ID
Nephrectomy tomorrow
Assessment / Plan
Assessment / Plan
Assessment:
Diarrhea
- C. Diff Ag+, toxin -
- defer to ID for any treatment
- hold bowel regimen; add probiotics
Xanthogranulomatous Pyelonephritis
recent h/o pyelonephritis due to MRSA and Proteus, infected R ureteral stone s/p stent/removal ([place])
- s/p cysto, RGP, stent placement 10/23/23
- continue Meropenem and Dapto per ID; cultures growing E. Coli and ESBL/Proteus
- repeat CT 10/25 with 8.5 cm gas containing low-density subcapsular collection on the right concerning for renal abscess. Moderate persistent right-sided hydronephrosis despite presence of the stent
- Status post IR drain subcapsular collection. follow cx from drain; started fluconazole; continue with antibiotics per infectious disease
- Tentative plan for open right nephrectomy with possible removal of gallbladder 11/02/23
TME associated with above process of UTI/Pyelonephritis
- improved. Seems back to baseline. No agitation, pleasant and cooperative.
Post-cystoscopy hematuria
- this is an expected issue post-procedure
- Hb stable
- d/w Urology ok for resumption of SC Heparin
BPH s/p suprapubic catheter
- continue Finasteride
History of Acute blood loss anemia with recent hx of upper GI bleed
Normocytic anemia (anemia chronic disease)
- stable Hb
Atelectasis
- continue IS
Mild hypokalemia
- replaced
Essential HTN
- amlodipine, Coreg, Imdur.
Anxiety/Depression
- hold BZD
- continue Lexapro
CAD S/p CABG/Stents
- continue Statin/Coreg/Imdur
- holding ASA per urology
GERD - PPI
Hx of DM neuropathy
- hold Gabapentin
Hx of CVA
Awake but couldn't answer questions in details.
Suspect possible senile or vascular cognitive impairment
- continue ASA/Statin
Left heel Stage 3 pressure injury POA
- continue topical care
DVT ppx: SC Heparin
Code: Full
Anticipated Discharge: > 48 hours
Subjective/Interval History
-
Date of Service: November 01, 2023
no new complaints
Objective Data
-
Labs:
Laboratory Results
11/01/23
05:47
WBC 10.0
Hgb 9.9 L
Hct 31.1 L
Plt Count 284
Sodium 133 L
Potassium 3.9
Chloride 96 L
Carbon Dioxide 32 H
BUN 21 H
Creatinine 0.5 L
Glucose 153 H
Calcium 8.8
Vital Signs:
Vital Signs
Temp Pulse Resp BP Pulse Ox
96.0 F L 68 15 146/71 98
11/01/23 07:59 11/01/23 07:59 11/01/23 07:59 11/01/23 07:59 11/01/23 07:59
I&O
10/31/23 11/01/23 11/02/23
06:59 06:59 06:59
Intake Total 1600 / 1600 1030 / 1030
Output Total 615 / 615 930 / 930
Balance 985 / 985 100 / 100
Physical Exam
-
General: No Apparent Distress
HEENT: Normocephalic and Atraumatic
Respiratory: Negative Wheezes
Cardiac: Regular Rhythm and S1/S2
GI: Soft and Nontender
Musculoskeletal: No Edema
Neuro: AO x 3
Hematologic / Lymphatic: No Lymphadenopathy
Psych: Calm
Data Reviewed
-
Total Time Spent with Patient (in minutes): 44
Labs: Labs Reviewed by me
--- NOTE | 2023-11-01 13:32 | W.PN.ID1 ---
Date of Service
Date of Service: November 01, 2023
Today's Communication
Continue fluconazole/dapto/meropenem.
Assessment / Plan
Xanthogranulomatous Pyelonephritis
- recent h/o pyelonephritis due to MRSA and Proteus (at [place])
S/p Suprapubic catheter replacement
- 10/26 renal fluid perc drain cx: Klebsiella, E. coli, ESBL-Proteus, VRE, Sandra krusei
- urine culture polymicrobial Proteus ESBL, E coli
- drain output continues
- continue fluconazole 400 mg qday through nephrectomy
- lexapro dose decreased to 10 mg Qday (1/2 starting dose) given interaction with fluconazole - continue on this dose while on fluconazole
- qtc remains acceptable
- continue daptomycin through nephrectomy
- hold statin
-ck normal
- meropenem 1 gm IV q 8hrs continue through nephrectomy
C. diff colonization
-Stool C. diff Ag+, toxin-
- Last BM 8 hrs ago, loose
- Start probiotic- lactobacillus
Chief Complaint
-: UTI (Xanthogranulomatous pyelonephritis (XGP))
Subjective / Review of Systems
Doesn't think he has diarrhea.
Vital Signs / Physical Exam
Vital Signs
Vital Signs
Temp Pulse Resp BP Pulse Ox
96.0 F L 68 15 146/71 98
11/01/23 07:59 11/01/23 07:59 11/01/23 07:59 11/01/23 07:59 11/01/23 07:59
Physical Exam
Constitutional: No Acute Distress
Gastrointestinal: Soft, Non Tender and Non Distended
Genito-Urinary: Other (right SANTA drain + pus)
Objective Data
Lab Data
Lab Results
11/01/23 05:47
11/01/23 05:47
PT 14.9 Sec (11.4-14.6) H 10/26/23 15:11
INR 1.18 10/26/23 15:11
Estimated Creat Clear 120 ml/min 11/01/23 05:47
Lactic Acid Cancelled 10/21/23 21:30
Total Bilirubin 0.4 mg/dl (0.2-1.3) 10/27/23 05:42
AST 23 U/L (17-59) 10/27/23 05:42
ALT 23 U/L (0-50) 10/27/23 05:42
Alkaline Phosphatase 138 U/L (38-126) H 10/27/23 05:42
Most recent labs reviewed.
Micro Results:
10/26/23 09:23 Anaerobic Culture - Final
Kidney Fluid NO ANAEROBES ISOLATED
10/26/23 09:23 Body Fluid Culture - Final
Kidney Fluid Proteus Mirabilis-ESBL
Klebsiella pneumoniae
Escherichia coli
Enterococcus faecium - VRE
Sandra krusei
Gram Stain - Final
10/31/23 18:04 C. difficile GDH Antigen & Toxins - Final
Feces/Stool C. difficile antigen positive, toxin negative.
Clostridium difficile present, but toxin not detected.
Patient may be a carrier, colonized with nontoxinogenic
strain or the level of toxin in sample is below detection
limits. This information should be used in conjunction with
the patient's clinical history.
10/21/23 17:31 Blood Culture - Final
Blood/Venous Coagulase neg. staphylococcus
Additional testing on request
Gram Stain - Final
10/21/23 17:41 Urine Culture - Final
Urine Escherichia coli
Proteus Mirabilis-ESBL
10/21/23 17:31 Blood Culture - Final
Blood/Venous No Growth - Final Report
10/22/23 07:59 Urine Culture - Final
Urine Proteus Mirabilis-ESBL
--- NOTE | 2023-11-01 14:14 | CM ---
Case management following for d/c planning
Chart reviewed
Pt for Nephrectomy tomorrow
Cont on antibiotics
For snf at d/c - options obtained and referral sent via [facility]
CM will follow for d/c needs
Plan - snf when medically ready for d/c
[2023-11-01 14:55] VITALS: BP 113/61; PULSE 58; O2SAT 98
[2023-11-01 15:58] VITALS: BP 113/61
[2023-11-01] MEDS: CUBICIN 16 MG IV (16:49)
[2023-11-01] MEDS: NSS 1000 IV (22:38)
[2023-11-01] MEDS: MELATONIN 5 MG PO (22:51)
--- NOTE | 2023-11-01 23:00 | PTCARENOTE ---
In anticipation of OR tomorrow, pt washed, CHG wipes provided, gown and linens changed.
[2023-11-01 23:48] VITALS: BP 130/66
[2023-11-02] VITALS (28 sets, daily range): BP systolic 110–158; BP diastolic 57–77
[2023-11-02 07:16] LABS: % Basophils 0.5 % (0-2); % Eosinophils 3.4 % (0-6); % Immature Granulocytes 0.5 % (0-0.5); % Lymphocytes 34.3 % (20.5-51.1); % Monocytes 7.6 % (1.7-9.3); % Neutrophils 53.7 % (42.2-75.2); Absolute Eosinophils 0.3 10^3/uL (0-0.7); Absolute Lymphocytes 2.8 10^3/uL (1.2-3.4); Absolute Monocytes 0.6 10^3/uL (0.1-0.6); Absolute Neutrophils 4.4 10^3/uL (1.4-6.5); Hematocrit 30.9 % (39.0-52.0); Hemoglobin 9.5 g/dL (13.0-18.0); Mean Corp Hgb Conc. 30.7 g/dL (33.0-37.0); Mean Corpuscular Hgb 26.9 pg (27.0-31.0); Mean Corpuscular Volume 87.5 fL (80.0-94.0); Mean Platelet Volume 9.7 fL (7.4-10.4); Nucleated Red Blood Cells % 0 % (-); Platelet Count 280 10^3/uL (130-400); Red Blood Cell Count 3.53 10^6/uL (4.70-6.10); Red Cell Dist. Width 18.6 % (11.5-14.5); White Blood Cell Count 8.3 10^3/uL (4.8-10.8)
[2023-11-02] MEDS: COREG PO (07:48)
[2023-11-02] MEDS: FEOSOL PO (07:48)
[2023-11-02] MEDS: LEXAPRO PO (07:49)
[2023-11-02] MEDS: MERREM 1000 MG IV ×3 (07:49→23:53)
[2023-11-02] MEDS: IMDUR (EXTENDED RELEASE) PO (07:49)
[2023-11-02] MEDS: STERILE WATER FOR INJECTION 20 ML IV ×3 (07:49→23:53)
[2023-11-02] MEDS: NORVASC PO (07:49)
[2023-11-02] MEDS: PROSCAR PO (07:50)
[2023-11-02] MEDS: DIFLUCAN PO (07:50)
[2023-11-02] MEDS: VISBIOME PO (07:50)
[2023-11-02] MEDS: PROTONIX PO (07:50)
[2023-11-02 08:10] LABS: Blood Urea Nitrogen 21 mg/dl (9-20); Calcium 8.5 mg/dl (8.4-10.2); Carbon Dioxide 30 mmol/L (22-30); Chloride 98 mmol/L (98-107); Estimated Creatinine Clearance 119 ml/min; Glucose 135 mg/dl (70-99); Potassium 3.4 mmol/L (3.5-5.1); Sodium 133 mmol/L (135-145); eGFR > 60.00
--- NOTE | 2023-11-02 08:24 | W.PN.HOSP.TC ---
Today's Communication/Plan
-
continue antimicrobials
Nephrectomy today
Assessment / Plan
Assessment / Plan
Assessment:
Diarrhea
- C. Diff Ag+, toxin -
- hold bowel regimen; add probiotics
- ID aware, no treatment of C. Diff indicated currently
Xanthogranulomatous Pyelonephritis
recent h/o pyelonephritis due to MRSA and Proteus, infected R ureteral stone s/p stent/removal ([place])
- s/p cysto, RGP, stent placement 10/23/23
- continue Meropenem and Dapto per ID; cultures growing E. Coli and ESBL/Proteus
- repeat CT 10/25 with 8.5 cm gas containing low-density subcapsular collection on the right concerning for renal abscess. Moderate persistent right-sided hydronephrosis despite presence of the stent
- Status post IR drain subcapsular collection. follow cx from drain; continue fluconazole; continue with antibiotics per infectious disease
- OR today for open right nephrectomy with possible removal of gallbladder 11/02/23
TME associated with above process of UTI/Pyelonephritis
- improved. Seems back to baseline. No agitation, pleasant and cooperative.
Post-cystoscopy hematuria
- this is an expected issue post-procedure
- Hb stable
- d/w Urology when ok to resume blood thinners
BPH s/p suprapubic catheter
- continue Finasteride
History of Acute blood loss anemia with recent hx of upper GI bleed
Normocytic anemia (anemia chronic disease)
- stable Hb
Atelectasis
- continue IS
Mild hypokalemia
- replaced
Essential HTN
- amlodipine, Coreg, Imdur.
Anxiety/Depression
- hold BZD
- continue Lexapro
CAD S/p CABG/Stents
- continue Statin/Coreg/Imdur
- holding ASA per urology
GERD - PPI
Hx of DM neuropathy
- hold Gabapentin
Hx of CVA
Awake but couldn't answer questions in details.
Suspect possible senile or vascular cognitive impairment
- continue ASA/Statin
Left heel Stage 3 pressure injury POA
- continue topical care
DVT ppx: SCDs until cleared by Urology for resumption of thinners
Code: Full
Anticipated Discharge: > 48 hours
Subjective/Interval History
-
Date of Service: November 02, 2023
no overnight events
for OR this AM
Objective Data
-
Labs:
Laboratory Results
11/02/23
06:27
WBC 8.3
Hgb 9.5 L
Hct 30.9 L
Plt Count 280
Sodium 133 L
Potassium 3.4 L
Chloride 98
Carbon Dioxide 30
BUN 21 H
Creatinine 0.5 L
Glucose 135 H
Calcium 8.5
Vital Signs:
Vital Signs
Temp Pulse Resp BP Pulse Ox
97.9 F 62 16 128/63 100
11/02/23 07:54 11/02/23 07:54 11/02/23 07:54 11/02/23 07:54 11/02/23 07:54
I&O
11/01/23 11/02/23 11/03/23
06:59 06:59 06:59
Intake Total 1030 / 1030 640 / 640
Output Total 930 / 930 1300 / 1300
Balance 100 / 100 -660 / -660
Physical Exam
-
General: No Apparent Distress
HEENT: Normocephalic and Atraumatic
Respiratory: Negative Wheezes
Cardiac: Regular Rhythm and S1/S2
GI: Soft
Neuro: AO x 3
Psych: Calm
Data Reviewed
-
Total Time Spent with Patient (in minutes): 45
Labs: Labs Reviewed by me
--- NOTE | 2023-11-02 10:41 | W.PN.ID1 ---
Date of Service
Date of Service: November 02, 2023
Today's Communication
Continue abx's.
Nephrectomy today.
Assessment / Plan
Xanthogranulomatous Pyelonephritis
- recent h/o pyelonephritis due to MRSA and Proteus (at [place])
S/p Suprapubic catheter replacement
- 10/26 renal fluid perc drain cx: Klebsiella, E. coli, ESBL-Proteus, VRE, Sandra krusei
- urine culture polymicrobial Proteus ESBL, E coli
- drain output continues
- continue fluconazole 400 mg qday through nephrectomy
- lexapro dose decreased to 10 mg Qday (1/2 starting dose) given interaction with fluconazole - continue on this dose while on fluconazole
- qtc remains acceptable
- continue daptomycin through nephrectomy
- hold statin
-ck normal
- meropenem 1 gm IV q 8hrs continue through nephrectomy
C. diff colonization
-Stool C. diff Ag+, toxin-
- No diarrhea
- Continue probiotic- lactobacillus
Chief Complaint
-: UTI (Xanthogranulomatous pyelonephritis (XGP))
Subjective / Review of Systems
No diarrhea
Vital Signs / Physical Exam
Vital Signs
Vital Signs
Temp Pulse Resp BP Pulse Ox
97.9 F 62 16 128/63 100
11/02/23 07:54 11/02/23 07:54 11/02/23 07:54 11/02/23 07:54 11/02/23 07:54
Physical Exam
Constitutional: No Acute Distress
Gastrointestinal: Soft, Non Tender and Non Distended
Genito-Urinary: Other (right SANTA drain + pus)
Objective Data
Lab Data
Lab Results
11/02/23 06:27
11/02/23 06:27
PT 14.9 Sec (11.4-14.6) H 10/26/23 15:11
INR 1.18 10/26/23 15:11
Estimated Creat Clear 119 ml/min 11/02/23 06:27
Lactic Acid Cancelled 10/21/23 21:30
Total Bilirubin 0.4 mg/dl (0.2-1.3) 10/27/23 05:42
AST 23 U/L (17-59) 10/27/23 05:42
ALT 23 U/L (0-50) 10/27/23 05:42
Alkaline Phosphatase 138 U/L (38-126) H 10/27/23 05:42
Most recent labs reviewed.
Micro Results:
10/26/23 09:23 Anaerobic Culture - Final
Kidney Fluid NO ANAEROBES ISOLATED
10/26/23 09:23 Body Fluid Culture - Final
Kidney Fluid Proteus Mirabilis-ESBL
Klebsiella pneumoniae
Escherichia coli
Enterococcus faecium - VRE
Sandra krusei
Gram Stain - Final
10/31/23 18:04 C. difficile GDH Antigen & Toxins - Final
Feces/Stool C. difficile antigen positive, toxin negative.
Clostridium difficile present, but toxin not detected.
Patient may be a carrier, colonized with nontoxinogenic
strain or the level of toxin in sample is below detection
limits. This information should be used in conjunction with
the patient's clinical history.
10/21/23 17:31 Blood Culture - Final
Blood/Venous Coagulase neg. staphylococcus
Additional testing on request
Gram Stain - Final
10/21/23 17:41 Urine Culture - Final
Urine Escherichia coli
Proteus Mirabilis-ESBL
10/21/23 17:31 Blood Culture - Final
Blood/Venous No Growth - Final Report
10/22/23 07:59 Urine Culture - Final
Urine Proteus Mirabilis-ESBL
--- NOTE | 2023-11-02 12:19 | CM ---
Case management following for d/c planning
Pt for OR today for R nephrectomy
For snf - choices obtained
CM will follow for d/c needs post-op
Plan - SNF when medically ready
[2023-11-02 12:29] LABS: B.E. - POC 3.7 mmol/L; Glucose - POC 230 mg/dl (65-99); HCO3 - POC 29 mmol/L (21-29); Hematocrit - POC 36 % PCV (42-52); Hemodilution- POC Yes; Hemoglobin Calculated - POC 12.1; Ionized Calcium - POC 1.02 mmol/L (1.12-1.27); Lactate - POC 0.63 mmol/L (0.36-0.75); O2 Saturation %Calculated-POC 99.8 5 (92-96); PCO2 - POC 48 mmHg (35-45); PO2 - POC 239 mmHg (80-100); Potassium - POC 3.6 mmol/L (3.6-5.0); Sodium - POC 136 mmol/L (135-145)
--- NOTE | 2023-11-02 13:01 | W.IMMPOSTOP ---
Surgical Immed Post Op Note
-
Primary Surgeon:
cary
Assisting Surgeon:
ruenes/peffer
Pre-op Diagnosis:
right xgp kidney
Post-op Diagnosis:
same
Procedure Performed:
right nephrectomy
Anesthesia Type:
gen
Specimen / Cultures:
right kidney
Estimated Blood Loss:
700cc- received 3 units of prbc's and 2 units of FFP
Complications:
none
Operative Findings:
pt stable throughout procedure
to pacu- then ICU
[2023-11-02 13:36] LABS: Glucose - Point of Care 209 mg/dl (70-99)
[2023-11-02 13:48] LABS: Hemoglobin 10.1 g/dL (13.0-18.0); Mean Corp Hgb Conc. 33.7 g/dL (33.0-37.0); Mean Corpuscular Hgb 27.8 pg (27.0-31.0); Mean Corpuscular Volume 82.6 fL (80.0-94.0); Mean Platelet Volume 9.6 fL (7.4-10.4); Platelet Count 231 10^3/uL (130-400); Red Blood Cell Count 3.63 10^6/uL (4.70-6.10); Red Cell Dist. Width 18.1 % (11.5-14.5); White Blood Cell Count 15.1 10^3/uL (4.8-10.8)
[2023-11-02 13:58] LABS: APTT 34.3 Sec (23.4-35.0); INR 1.26; PT 15.6 Sec (11.4-14.6)
[2023-11-02 14:00] LABS: Blood Urea Nitrogen 19 mg/dl (9-20); Calcium 7.9 mg/dl (8.4-10.2); Carbon Dioxide 30 mmol/L (22-30); Chloride 98 mmol/L (98-107); Estimated Creatinine Clearance 119 ml/min; Glucose 186 mg/dl (70-99); Potassium 3.2 mmol/L (3.5-5.1); Sodium 134 mmol/L (135-145); eGFR > 60.00
--- NOTE | 2023-11-02 14:07 | CON.INTV ---
Consultation
Consultation Request
Date/Time Consultation Requested: 11/01
Date/Time Consultation Performed: 11/01
Reason for Consultation: Critical care
Medical History
-
History of Present Illness:
History obtained from hospital records. Patient is a 78-year-old male with complex medical history, presenting 10/21/2023 with worsening mental status. Patient was apparently recently hospitalized for chronic infection, discharged on ertapenem and
daptomycin. Patient has a chronic suprapubic catheter. Upon arrival to [facility], patient was confused. Afebrile, pulse 68, breathing at 24, blood pressure 98/54, 94%. Patient had workup which suggested bladder infection. Hospital stay
was reviewed. Patient had suprapubic catheter change at bedside. 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 Patient underwent right ureteral obstruction treatment including right ureteral stent with cystoscopy 10/23/2023.
Patient was also seen by infectious disease, initially maintained on daptomycin/meropenem. Repeat CT imaging showed persistent pyelonephritis. Patient underwent IR guided drainage catheter placement of right perinephric abscess with 50 cc of
grossly purulent fluid removed on 10/27/2023. Antiplatelet agents were held, patient underwent right nephrectomy 11/01 without complications. Patient had 700 cc of blood loss, received 3 units packed red cells, 2 units of FFP. Patient now
transferred to ICU for further management 11/02/2023
Patient evaluated in the PACU. He is comfortable. He denies chest pain, shortness of breath, nausea
.
PMH: Hypertension, history of upper GI bleed/hematemesis, normocytic anemia, coronary disease with bypass surgery/stents, GERD, history of diabetes complicated by neuropathy, history of stroke, left foot wound, BPH status post suprapubic catheter,
history of hematuria, recurrent UTIs with sepsis, Proteus/MRSA/ESBL/VRE
Past Medical History
Past Medical History: None (See above)
Past Surgical History: None (See above)
Social History
Tobacco: Non-smoker
Alcohol: None
Drug: None
Family History
Family History: Reviewed & Not Pertinent
Allergies / Home Medications
Allergies
Allergy/AdvReac Type Severity Reaction Status Date / Time
No Known Allergies Allergy Verified 10/21/23 19:16
Home Medications
�Medication �Instructions �Recorded �Confirmed �Last Taken �Type
alprazolam 0.5 mg tablet 0.5 mg PO HS Mental Health/Anxiety 10/21/23 10/21/23 Unknown History
amlodipine 2.5 mg tablet 2.5 mg PO DAILY Blood Pressure 10/21/23 10/21/23 Unknown History
aspirin 81 mg chewable tablet 81 mg PO DAILY Blood Clot 10/21/23 10/21/23 Unknown History
Prevention/Tx
atorvastatin 40 mg tablet 40 mg PO DAILY High Cholesterol 10/21/23 10/21/23 Unknown History
carvedilol 3.125 mg tablet 3.125 mg PO BID Heart 10/21/23 10/21/23 Unknown History
Disease/Condition
coenzyme Q10 50 mg capsule (Co 50 mg PO DAILY Supplement 10/21/23 10/21/23 Unknown History
Q-10)
cyclobenzaprine 5 mg tablet 5 mg PO BID PRN muscle spasms 10/21/23 10/21/23 Unknown History
ergocalciferol (vitamin D2) 1,250 1,250 mcg PO WEEKLY Supplement 10/21/23 10/21/23 Unknown History
mcg (50,000 unit) capsule
escitalopram oxalate 20 mg tablet 20 mg PO DAILY Depression 10/21/23 10/21/23 Unknown History
ferrous sulfate 325 mg (65 mg 325 mg PO DAILY Supplement 10/21/23 10/21/23 Unknown History
iron) tablet
finasteride 5 mg tablet 5 mg PO DAILY Urinary Issue 10/21/23 10/21/23 Unknown History
gabapentin 100 mg capsule 100 mg PO HS Neurological Condition 10/21/23 10/21/23 Unknown History
isosorbide mononitrate 60 mg 60 mg PO DAILY Heart 10/21/23 10/21/23 Unknown History
tablet,extended release 24 hr Disease/Condition
pantoprazole 40 mg tablet,delayed 40 mg PO BID Gastrointestinal Issue 10/21/23 10/26/23 Unknown History
release
sodium chloride-hypochlorous acid 1 irrig irrigation PRN PRN wound 10/21/23 10/21/23 Unknown History
0.033 % irrigation solution (Vashe) care
zinc oxide-cod liver oil 40 % 1 applic topical PRN PRN wound care 10/21/23 10/21/23 Unknown History
topical paste (Desitin)
Review of Systems
Vitals / Labs / Diagnostic Testing
Vital Signs
Temp Pulse Resp BP Pulse Ox
97.8 F 53 22 141/62 98
11/02/23 13:20 11/02/23 13:45 11/02/23 13:45 11/02/23 13:45 11/02/23 13:50
Lab Data
11/02/23 13:36
11/02/23 13:36
Laboratory Results
11/02/23
13:36
PT 15.6 H
INR 1.26
APTT 34.3
Microbiology
10/26/23 09:23 Kidney Fluid Anaerobic Culture - Final
NO ANAEROBES ISOLATED
10/26/23 09:23 Kidney Fluid Body Fluid Culture - Final
Proteus Mirabilis-ESBL
Klebsiella pneumoniae
Escherichia coli
Enterococcus faecium - VRE
Sandra krusei
10/26/23 09:23 Kidney Fluid Gram Stain - Final
10/31/23 18:04 Feces/Stool C. difficile GDH Antigen & Toxins - Final
C. difficile antigen positive, toxin negative.
Clostridium difficile present, but toxin not detected.
Patient may be a carrier, colonized with nontoxinogenic
strain or the level of toxin in sample is below detection
limits. This information should be used in conjunction with
the patient's clinical history.
Diagnostic Testing:
Physical Exam
-
HEENT: Normocephalic, Anicteric and Other (Dry mucosa)
Cardiovascular: S1/S2, Regular Rhythm, Murmur (n), Rub (n) and Peripheral Edema (n)
Respiratory: Wheeze (n), Rales (n), Rhonchi (n), Non-Labored Respirations and Other (Decreased)
GI: Soft, Non Distended, Other (Right flank SANTA drain/dressing in place) and Other (Suprapubic catheter)
Neurology: Awake, Alert and No Motor Deficits (Moves all extremities)
Skin: Good Color (Mild pallor) and Other (Upper extremity A-line)
General: Comfortable
Assessment
-
78-year-old male with complex medical history admitted 10/21/2023 for UTI. 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 Patient is presently
status post right nephrectomy 11/01. Received 3 units of blood, 2 units of FFP. Patient extubated in the PACU. Transferred to ICU for further management 11/02/2023
S/p Right nephrectomy 11/02/2023
700 cc blood loss, 3 units of blood, 2 units FFP
Extubated postoperatively
Hyponatremia/hypokalemia
Hyperglycemia
Diarrhea, C. difficile antigen positive, toxin negative
Treatment
Xanthogranulomatous pyelonephritis
Recurrent pyelonephritis
Right ureteral stone/stent removal [place]
Right ureteral stent placement 10/23/2023
E. coli, ESBL/Proteus
s/p IR drain 10/27/2023
Chronic suprapubic catheter
BPH
Conditions present prior to admission
Coronary disease, CABG/stent
History of normocytic anemia
Upper GI bleed, Hemoccult to emesis in the past
Hypertension
GERD
History of stroke
Plan/recommendations
At this time, patient remains critically ill but stable. Extubated in the PACU. Patient without pain.
Blood loss noted intraoperatively, status post blood products
Hemodynamically stable at this time
SANTA drain in place, minimal bloody drainage
Abdominal exam benign
Moving forward
Continue with management, supportive care
IV fluids
Remains on daptomycin/meropenem/fluconazole
ID following
Extensive hospital course reviewed
Await postoperative chest x-ray and EKG, once arrives to ICU
Pain control, incentive spirometry
DVT prophylaxis: Sequential teds. When cleared, resume pharmacological DVT prophylaxis if able from neurological standpoint
GI prophylaxis: Pantoprazole. History of upper GI bleed noted/hematemesis
Head of bed elevated, aspiration precautions
Reviewed with PACU nursing, primary service
Will follow
TCCT 33 min
[2023-11-02] MEDS: NSS 1000 IV ×2 (14:17→23:53)
[2023-11-02] MEDS: KCL 270 MEQ IV (14:57)
[2023-11-02] MEDS: DILAUDID 0.5 MG IV (15:33)
[2023-11-02 16:21] LABS: Magnesium 1.9 mg/dl (1.6-2.3)
--- NOTE | 2023-11-02 17:06 | PTCARENOTE ---
received pt from PACU 14:30 pt drowsy but answers questions to yes and no questions , pt SB to NSR on monitor L radial navneet , BP 144/55 , on room air with sat of 97% , R abdomen dressing D&I with SANTA drain bloody drainage, post op potassium 3.2 , pt
receiving 40 meq of IV potassium as ordered, pt daughter at bedside and updated on plan of care and condition , pt seen by Dr Partida and Dr Whitten
[2023-11-02] MEDS: CUBICIN 16 MG IV (17:17)
[2023-11-02] MEDS: COREG 3.125 MG PO (19:53)
--- NOTE | 2023-11-02 20:00 | PTCARENOTE ---
on assessment pt drowsy but AAOx3, no complaints of pain at this time, NSR on the monitor, RA lungs diminished, SCDs on, hypoactive BS, suprapubic catheter draining clear yellow urine, R ABD dressing C/D/I, R SANTA with bloody drainage, wounds noted
see flow sheet. call sanchez in reach.
[2023-11-03] VITALS (9 sets, daily range): BP systolic 93–134; BP diastolic 57–79
--- NOTE | 2023-11-03 00:08 | PTCARENOTE ---
no changes from prior assessment, scott drained 260ml from [id number]. denies pain and SOB, call sanchez in reach.
--- NOTE | 2023-11-03 04:00 | PTCARENOTE ---
no changes from prior assessment, repositioned q2h, 115ml output of SANTA from [id number], call sanchez in reach.
[2023-11-03 04:56] LABS: Blood Urea Nitrogen 18 mg/dl (9-20); Calcium 8.4 mg/dl (8.4-10.2); Carbon Dioxide 26 mmol/L (22-30); Chloride 100 mmol/L (98-107); Estimated Creatinine Clearance 119 ml/min; Glucose 140 mg/dl (70-99); Potassium 3.9 mmol/L (3.5-5.1); Sodium 134 mmol/L (135-145); eGFR > 60.00
[2023-11-03 05:31] LABS: % Basophils 0.2 % (0-2); % Immature Granulocytes 0.7 % (0-0.5); % Lymphocytes 9.3 % (20.5-51.1); % Monocytes 3.9 % (1.7-9.3); % Neutrophils 85.9 % (42.2-75.2); Absolute Immature Granulocytes 0.2 10^3/uL (0-0.05); Absolute Lymphocytes 2.2 10^3/uL (1.2-3.4); Absolute Monocytes 0.9 10^3/uL (0.1-0.6); Absolute Neutrophils 20.2 10^3/uL (1.4-6.5); Hematocrit 31.8 % (39.0-52.0); Hemoglobin 10.7 g/dL (13.0-18.0); Mean Corp Hgb Conc. 33.6 g/dL (33.0-37.0); Mean Corpuscular Hgb 27.9 pg (27.0-31.0); Mean Corpuscular Volume 82.8 fL (80.0-94.0); Mean Platelet Volume 9.7 fL (7.4-10.4); Nucleated Red Blood Cells % 0 % (-); Platelet Count 269 10^3/uL (130-400); Red Blood Cell Count 3.84 10^6/uL (4.70-6.10); Red Cell Dist. Width 18.6 % (11.5-14.5); White Blood Cell Count 23.5 10^3/uL (4.8-10.8)
--- NOTE | 2023-11-03 07:13 | W.PN.INTV ---
Today's Communication / Plan
Recommendations
Discontinue A-line
maintain n.p.o.
Continue antibiotics
Follow hemoglobin
For transfer out of ICU. We will sign off. Please call with questions
Assessment
-
78-year-old male with complex medical history admitted 10/21/2023 for UTI. 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 Patient is presently
status post right nephrectomy 11/01. Received 3 units of blood, 2 units of FFP. Patient extubated in the PACU. Transferred to ICU for further management 11/02/2023
S/p Right nephrectomy 11/02/2023
700 cc blood loss, 3 units of blood, 2 units FFP
Extubated postoperatively
Hyponatremia/hypokalemia
Hyperglycemia
Diarrhea, C. difficile antigen positive, toxin negative
Treatment
Xanthogranulomatous pyelonephritis
Recurrent pyelonephritis
Right ureteral stone/stent removal [place]
Right ureteral stent placement 10/23/2023
E. coli, ESBL/Proteus
s/p IR drain 10/27/2023
Chronic suprapubic catheter
BPH
Conditions present prior to admission
Coronary disease, CABG/stent
History of normocytic anemia
Upper GI bleed, Hemoccult to emesis in the past
Hypertension
GERD
History of stroke
Plan/recommendations
At this time, patient appears to be stable, without complaints
Hemodynamically stable
SANTA drainage 525, urine output greater than 900 cc
Chest x-ray left lower lobe atelectasis
Hemoglobin stable at 10.7
Blood loss noted intraoperatively, status post blood products
Exam is benign
Moving forward
Continue with management, supportive care
IV fluids
Maintain n.p.o. per neurology
Remains on daptomycin/meropenem/fluconazole
ID following
Extensive hospital course reviewed
Chest x-ray with left lower lobe atelectasis. Incentive spirometry. EKG within normal limits, no acute findings
Pain control
Discontinue A-line
DVT prophylaxis: Sequential teds. When cleared, resume pharmacological DVT prophylaxis if able from neurological standpoint
GI prophylaxis: Pantoprazole. History of upper GI bleed noted/hematemesis
Head of bed elevated, aspiration precautions
Reviewed with critical care, primary service, urology
Okay for transfer out of ICU. We will sign off. Please call with questions
Subjective Dataa
Subjective Data
Date of Service:
Date of Service: November 03, 2023
Subjective:
Patient is feeling well, denies significant shortness of breath, nausea, abdominal pain.
Objective Data
Data Reviewed
Vital Signs / I&O / Oxygen:
Vital Signs
Temp Pulse Resp BP Pulse Ox
97.9 F 61 21 134/65 97
11/03/23 06:04 11/03/23 06:00 11/03/23 06:00 11/03/23 04:00 11/03/23 06:00
Intake and Output
11/02/23 11/03/23 11/04/23
06:59 06:59 06:59
Intake Total 640 / 640 1355.0 / 1355.0
Output Total 1300 / 1300 1935 / 1935
Balance -660 / -660 -580.0 / -580.0
SaO2 97
Nasal Cannula flow liters per 97
minute
Physical Exam
General: Comfortable and Other (Upper extremity A-line)
HEENT: Normocephalic and Anicteric
Cardiovascular: S1-S2, Regular Rhythm, Murmur (n) and Rub (n)
Respiratory: Wheeze (n), Crackles (n), Rhonchi (n) and Non-Labored Respirations
GI: Soft, Non Distended, Non Tender, Other (Suprapubic catheter) and Other (Right abdominal dressing in place. SANTA drain)
Neurology: Awake, Alert and No Motor Deficits (Ambulating without difficulty)
Skin: Good Color and Cyanosis (n)
Labs/Micro/Reports
Lab Data
11/03/23 03:55
11/03/23 03:55
Laboratory Results
11/02/23
13:36
PT 15.6 H
INR 1.26
APTT 34.3
Microbiology
10/26/23 09:23 Kidney Fluid Anaerobic Culture - Final
NO ANAEROBES ISOLATED
10/26/23 09:23 Kidney Fluid Body Fluid Culture - Final
Proteus Mirabilis-ESBL
Klebsiella pneumoniae
Escherichia coli
Enterococcus faecium - VRE
Sandra krusei
10/26/23 09:23 Kidney Fluid Gram Stain - Final
10/31/23 18:04 Feces/Stool C. difficile GDH Antigen & Toxins - Final
C. difficile antigen positive, toxin negative.
Clostridium difficile present, but toxin not detected.
Patient may be a carrier, colonized with nontoxinogenic
strain or the level of toxin in sample is below detection
limits. This information should be used in conjunction with
the patient's clinical history.
--- NOTE | 2023-11-03 07:25 | W.PN.URO.CBU ---
Today's Communication / Plan
-
post op care
Assessment / Plan
-
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
Recurrent UTI and catheter obstruction
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
s/p suprapubic tube replacement
s/p R ureteral stent placement 10/22 with purulent drainage. Calcified debris and ureteral kinking noted on retrograde study
s/p IR drain placement 10/26
s/p RIGHT NEPHRECTOMY 11/01
pt stable
hgb stable
scott output moderate- expected at this time- will observe
continue antibx per ID
continue npo today given sig distension of colon noted intra-op
track hgb/wbc and cr level
Diagnosis
-
Date of Service: November 03, 2023
-
Recurrent R ureteral obstruction
XGP kidney
Urinary retention with chronic SPT
Post Op s/p cystoscopy, R ureteral stent placement 10/22
IR drain placement 10/26
s/p right nephrectomy 11/01
Subjective
-
pt looks good
complains of minimal gas pain
urine clear
moderate scott output- serosang
hgb stable-wbc up- as expected post op- but no sig fevers
cr stable
Objective
-
Vital Signs
Temp Pulse Resp BP Pulse Ox
97.8 F 61 21 134/65 97
11/03/23 07:00 11/03/23 06:00 11/03/23 06:00 11/03/23 04:00 11/03/23 06:00
Intake and Output
11/02/23 11/03/23 11/04/23
06:59 06:59 06:59
Intake Total 640 / 640 1355.0 / 1355.0
Output Total 1300 / 1300 1935 / 193
Balance -660 / -660 -580.0 / -580.0
Intake:
IV fluids (Total) 640 / 640 1355.0 / 1355.0
40 Kcl in 250 NSS 135.0 / 135.0
Nss 1,000 ml @ 80 mls/hr IV . 1120 / 1120
[id number] [facility] Rx#:[id number]
normosol 100 / 100
Output:
Drain Output (Total) 585 / 585
Right Back Placed in IR 110 / 110
Right Lower Abdomen Blas- 475 / 475
Bass
Urine, Mane 700 / 700 200 / 200
Suprapubic output 600 / 600 1150 / 1150
Laboratory Results
11/03/23 03:55
11/03/23 03:55
Review of Systems
-
Constitutional: Fatigue
Respiratory: No Symptoms
Cardiac: No Symptoms
Abdomen/GI: Abdominal Pain
Physical Exam
-
General - no acute distress
Abdomen - soft, mildly tender to palpation- sp tube in place- scott drain in place
Genitalia - normal
Dressing - clean, dry, intact
[2023-11-03] MEDS: LEXAPRO 10 MG PO (08:38)
[2023-11-03] MEDS: PROSCAR 5 MG PO (08:39)
[2023-11-03] MEDS: NORVASC 2.5 MG PO (08:39)
[2023-11-03] MEDS: COREG 3.125 MG PO ×2 (08:39→20:35)
[2023-11-03] MEDS: IMDUR (EXTENDED RELEASE) 60 MG PO (08:39)
[2023-11-03] MEDS: FEOSOL 325 MG PO (08:39)
[2023-11-03] MEDS: VISBIOME 2 CAP PO (08:39)
[2023-11-03] MEDS: PROTONIX 40 MG PO (08:39)
[2023-11-03] MEDS: DIFLUCAN 400 MG PO (08:39)
[2023-11-03] MEDS: STERILE WATER FOR INJECTION 20 ML IV ×2 (08:40→15:29)
[2023-11-03] MEDS: MERREM 1000 MG IV ×2 (08:40→15:23)
--- NOTE | 2023-11-03 09:40 | W.PN.HOSP.TC ---
Today's Communication/Plan
-
post-op ICU care with downgrade to 2 [address] planned
Continue NPO but ok for sip/chips
palmira David; d/w ICU team
PT/OT
anti-microbials per ID
Assessment / Plan
Assessment / Plan
Assessment:
Diarrhea
- C. Diff Ag+, toxin -
- hold bowel regimen; add probiotics
- ID aware, no treatment of C. Diff indicated currently
Xanthogranulomatous Pyelonephritis
recent h/o pyelonephritis due to MRSA and Proteus, infected R ureteral stone s/p stent/removal ([place])
- s/p cysto, RGP, stent placement 10/23/23
- repeat CT 10/25 with 8.5 cm gas containing low-density subcapsular collection on the right concerning for renal abscess. Moderate persistent right-sided hydronephrosis despite presence of the stent
- s/p IR guide drain placement 10/26 into subcapsular collection
- s/p Right nephrectomy 11/01
- continue Meropenem/daptomycin/Fluconazole per ID; cultures growing E. Coli, ESBL/Proteus, Klebsiella, VRE and arlene Krusei.
Colonic distention and small bowel manipulation during surgery
- NPO for now per Urology
- ok for sips/chips
TME associated with above process of UTI/Pyelonephritis
- improved. Seems back to baseline. No agitation, pleasant and cooperative.
Post-cystoscopy hematuria
- resolved; monitor per Urology
BPH s/p suprapubic catheter
- continue Finasteride
History of Acute blood loss anemia with recent hx of upper GI bleed
Normocytic anemia (anemia chronic disease)
- stable Hb
Atelectasis
- continue IS
Mild hypokalemia
- replacement as needed
Essential HTN
- amlodipine, Coreg, Imdur.
Anxiety/Depression
- hold BZD
- continue Lexapro
CAD S/p CABG/Stents
- continue Statin/Coreg/Imdur
- holding ASA per urology
GERD - PPI
Hx of DM neuropathy
- hold Gabapentin
Hx of CVA
Awake but couldn't answer questions in details.
Suspect possible senile or vascular cognitive impairment
- continue ASA/Statin
Left heel Stage 3 pressure injury POA
- continue topical care
DVT ppx: SCDs until cleared by Urology for resumption of thinners
Code: Full
Total Critical Care Time 43 minutes. I was immediately available to the patient and staff. I personally examined, reviewed labs, diagnostic images/reports, interpretations, treatment plans, discussed patient care with other providers and family
or caregivers (if patient is unable to make decisions), entered orders as appropriate and documented the medical record.
Anticipated Discharge: > 48 hours
Subjective/Interval History
-
Date of Service: November 03, 2023
no new complaints presently
Objective Data
-
Labs:
Laboratory Results
11/03/23
03:55
WBC 23.5 H
Hgb 10.7 L
Hct 31.8 L
Plt Count 269
Sodium 134 L
Potassium 3.9
Chloride 100
Carbon Dioxide 26
BUN 18
Creatinine 0.4 L
Glucose 140 H
Calcium 8.4
Vital Signs:
Vital Signs
Temp Pulse Resp BP Pulse Ox
97.8 F 80 21 133/62 97
11/03/23 07:00 11/03/23 08:39 11/03/23 06:00 11/03/23 08:39 11/03/23 06:00
I&O
11/02/23 11/03/23 11/04/23
06:59 06:59 06:59
Intake Total 640 / 640 1355.0 / 1355.0
Output Total 1300 / 1300 1934 / 1934
Balance -660 / -660 -580.0 / -580.0
Physical Exam
-
General: No Apparent Distress
HEENT: Normocephalic and Atraumatic
Respiratory: Negative Wheezes
Cardiac: Regular Rhythm and S1/S2
GI: Soft
Genito-urinary: No Costovertebral Tender and Other (R SANTA drain)
Neuro: AO x 3
Psych: Calm
Data Reviewed
-
Critical Care Time (in minutes): 43
Labs: Labs Reviewed by me
--- NOTE | 2023-11-03 10:02 | PTCARENOTE ---
0700 patient received in bed. AAO x3 Forgetful ; Left A Line Zero per current hospital's protocol; VSS; RT Flank J-P draining dark red output large amount; RT Flank incision covered with post up dressing no drainage observed. Suprapubic catheter
care adm per hospital's policies, draining clear yellow urine. Suprapubic catheter insertion site no redness noted. NSS 80/hr via left AC. ABD adm per current order pt denies pain. reposition Q2 hrs prep with pillow, B/L legs elevated on pillows
SCD for DVT prevention.
[2023-11-03] MEDS: DILAUDID 0.5 MG IV (10:53)
[2023-11-03] MEDS: NSS 1000 IV (11:00)
--- NOTE | 2023-11-03 11:13 | PTCARENOTE ---
left radial A/line removed . pressure applied until bleeding was stopped, pressure dressing applied
--- NOTE | 2023-11-03 12:37 | W.PN.ID1 ---
Date of Service
Date of Service: November 03, 2023
Today's Communication
continue current antibiotics
antibiotics/antifungals will be continued for at least another 5 days given inflammation noted within the abdomen in the OR
Assessment / Plan
Xanthogranulomatous Pyelonephritis
- recent h/o pyelonephritis due to MRSA and Proteus (at [place])
S/p Suprapubic catheter replacement
- 10/26 renal fluid perc drain cx: Klebsiella, E. coli, ESBL-Proteus, VRE, Sandra krusei
- urine culture polymicrobial Proteus ESBL, E coli
- reviewed 11/01 OR note - inflammed tissue adherent to the kidney
- continue fluconazole 400 mg qday
- lexapro dose decreased to 10 mg Qday (05/04 starting dose) given interaction with fluconazole - continue on this dose while on fluconazole
- qtc remains acceptable
- continue daptomycin
- hold statin
-ck normal
- meropenem 1 gm IV q 8hrs continue
- antibiotics/antifungals will be continued for at least another 5 days given inflammation noted within the abdomen in the OR
C. diff colonization
-Stool C. diff Ag+, toxin-
- No diarrhea
- Continue probiotic- lactobacillus
Chief Complaint
-: UTI (Xanthogranulomatous pyelonephritis (XGP))
Subjective / Review of Systems
afebrile
bp stable
Progression of post op leukocytosis noted
L shift noted
cr 0.4
s/p RIGHT NEPHRECTOMY 11/01 - adherent, inflammatory tissue resected from the kidney
patient currently NPO for colonic distension noted intra-op
stools described as loose
liver and gallbladder inspected in the OR and without evidence of infection
Vital Signs / Physical Exam
Vital Signs
Vital Signs
Temp Pulse Resp BP Pulse Ox
97.8 F 68 18 133/62 97
11/03/23 07:00 11/03/23 10:15 11/03/23 10:15 11/03/23 08:39 11/03/23 10:15
Physical Exam
Constitutional: No Acute Distress and Chronically Ill
Cardiovascular: Regular Rate and S1/S2; Negative Murmur or Rub
Pulmonary: Clear and Symmetric; Negative Wheezes or Rales
Gastrointestinal: Soft, Non Tender, Non Distended and Normal Bowel Sounds
Skin: Warm and Dry; Negative Rash or Jaundice
Wound: Other (surgical site no erythema, warmth, tenderness or drainage)
Lines: Other (drain bloody, opaque secretions)
Objective Data
Lab Data
Lab Results
11/03/23 03:55
11/03/23 03:55
PT 15.6 Sec (11.4-14.6) H 11/02/23 13:36
INR 1.26 11/02/23 13:36
APTT 34.3 Sec (23.4-35.0) 11/02/23 13:36
Estimated Creat Clear 119 ml/min 11/03/23 03:55
Lactic Acid Cancelled 10/21/23 21:30
Total Bilirubin 0.4 mg/dl (0.2-1.3) 10/27/23 05:42
AST 23 U/L (17-59) 10/27/23 05:42
ALT 23 U/L (0-50) 10/27/23 05:42
Alkaline Phosphatase 138 U/L (38-126) H 10/27/23 05:42
Most recent labs reviewed.
Micro Results:
10/26/23 09:23 Anaerobic Culture - Final
Kidney Fluid NO ANAEROBES ISOLATED
10/26/23 09:23 Body Fluid Culture - Final
Kidney Fluid Proteus Mirabilis-ESBL
Klebsiella pneumoniae
Escherichia coli
Enterococcus faecium - VRE
Sandra krusei
Gram Stain - Final
10/31/23 18:04 C. difficile GDH Antigen & Toxins - Final
Feces/Stool C. difficile antigen positive, toxin negative.
Clostridium difficile present, but toxin not detected.
Patient may be a carrier, colonized with nontoxinogenic
strain or the level of toxin in sample is below detection
limits. This information should be used in conjunction with
the patient's clinical history.
10/21/23 17:31 Blood Culture - Final
Blood/Venous Coagulase neg. staphylococcus
Additional testing on request
Gram Stain - Final
10/21/23 17:41 Urine Culture - Final
Urine Escherichia coli
Proteus Mirabilis-ESBL
10/21/23 17:31 Blood Culture - Final
Blood/Venous No Growth - Final Report
10/22/23 07:59 Urine Culture - Final
Urine Proteus Mirabilis-ESBL
--- NOTE | 2023-11-03 14:37 | CM ---
CM following re: discharge planning.
Discussed in Rounds, reviewed pt's chart, met with pt.
Pt's is aware that [facility], [facility] and [facility] offered a bed for a short term rehab when medically stable . CM left a message to pt's daughter Yamila to discuss options.
D/C plan: preferred SNF for a short term rehab.
CM will follow with discharge plan updates as hospitalization progresses
--- NOTE | 2023-11-03 14:51 | PTCARENOTE ---
Transfer:
Transfer to room 2134 via bed . Report given. At time of transfer pt AAO x3 Forgetful; Denies pain. J-P RT flank draining dark red large amount. Suprapubic catheter draining clear yellow urine. NSS infusing via left AC . Daughter Yamila made aware
regarding transfer
[2023-11-03] MEDS: CUBICIN 16 MG IV (17:00)
[2023-11-04] VITALS (42 sets, daily range): BP systolic 72–144; BP diastolic 41–71; BMI 22.7
[2023-11-04] MEDS: STERILE WATER FOR INJECTION 20 ML IV ×4 (00:27→23:43)
[2023-11-04] MEDS: MERREM 1000 MG IV ×4 (00:27→23:42)
[2023-11-04 07:45] LABS: % Basophils 0.2 % (0-2); % Immature Granulocytes 0.6 % (0-0.5); % Lymphocytes 14.9 % (20.5-51.1); % Monocytes 8.2 % (1.7-9.3); % Neutrophils 76.1 % (42.2-75.2); Absolute Immature Granulocytes 0.1 10^3/uL (0-0.05); Absolute Lymphocytes 1.7 10^3/uL (1.2-3.4); Absolute Neutrophils 8.8 10^3/uL (1.4-6.5); Hematocrit 29.7 % (39.0-52.0); Hemoglobin 9.6 g/dL (13.0-18.0); Mean Corp Hgb Conc. 32.3 g/dL (33.0-37.0); Mean Corpuscular Hgb 27.3 pg (27.0-31.0); Mean Corpuscular Volume 84.4 fL (80.0-94.0); Mean Platelet Volume 9.8 fL (7.4-10.4); Nucleated Red Blood Cells % 0 % (-); Platelet Count 229 10^3/uL (130-400); Red Blood Cell Count 3.52 10^6/uL (4.70-6.10); White Blood Cell Count 11.6 10^3/uL (4.8-10.8)
[2023-11-04 08:07] LABS: Blood Urea Nitrogen 19 mg/dl (9-20); Calcium 8.2 mg/dl (8.4-10.2); Carbon Dioxide 29 mmol/L (22-30); Chloride 99 mmol/L (98-107); Estimated Creatinine Clearance 119 ml/min; Glucose 116 mg/dl (70-99); Potassium 3.4 mmol/L (3.5-5.1); Sodium 135 mmol/L (135-145); eGFR > 60.00
--- NOTE | 2023-11-04 08:52 | W.PN.URO.CBU ---
Today's Communication / Plan
-
CT to r/o bowel injury
Assessment / Plan
-
77M with neurogenic bladder and suprapubic tube / TBI
Recurrent UTI and catheter obstruction
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
s/p suprapubic tube replacement
s/p R ureteral stent placement 10/22 with purulent drainage. Calcified debris and ureteral kinking noted on retrograde study
s/p IR drain placement 10/26
s/p RIGHT NEPHRECTOMY 11/01
pt stable
hgb stable
scott output- now increasing output and appears bilious
reviewed with [facility]su
suspect small bowel/duodenal injury
for stat ct with oral contrast- then review findings and options
called daughter to update- left message
reviewed plan with med team
Diagnosis
-
Date of Service: November 04, 2023
-
Patient Diagnosis:
Post Op Day:
Recurrent R ureteral obstruction
XGP kidney
Urinary retention with chronic SPT
Post Op s/p cystoscopy, R ureteral stent placement 10/22
IR drain placement 10/26
s/p right nephrectomy 11/01
Subjective
-
pt has been stable
urine clear
no fevers
says he is passing gas
UNFORTUNATELY SCOTT DRAIN IS NOW PUTTING OUT A LARGE AMOUNT OF BILIOUS FLUID SUSP FOR LEAK
Objective
-
Vital Signs
Temp Pulse Resp BP Pulse Ox
97.7 F 79 16 123/61 95
11/04/23 07:55 11/04/23 07:55 11/04/23 07:55 11/04/23 07:55 11/04/23 07:55
Intake and Output
11/03/23 11/04/23 11/05/23
06:59 06:59 06:59
Intake Total 1355.0 / 1435.0 1360 / 1360
Output Total 1935 / 1935 1315 / 1315
Balance -580.0 / -500.0 45 / 45
Intake:
IV fluids (Total) 1355.0 / 1435.0 1360 / 1360
40 Kcl in 250 NSS 135.0 / 135.0
Nss 1,000 ml @ 80 mls/hr IV . 1120 / 1200 400 / 400
[id number] [facility] Rx#:[id number]
normosol 100 / 100
Output:
Liquid stool amount 30 / 30
Rectum 30 / 30
Drain Output (Total) 585 / 585 685 / 685
Right Back Placed in IR 110 / 110
Right Lower Abdomen Blas- 475 / 475 685 / 685
Bass
Urine, Mane 200 / 200
Urine, Voided 300 / 300
Suprapubic output 1150 / 1150 300 / 300
Laboratory Results
11/04/23 07:05
11/04/23 07:05
Review of Systems
-
Constitutional: Fatigue
Respiratory: No Symptoms
Cardiac: No Symptoms
Abdomen/GI: Abdominal Pain (minimal)
Physical Exam
-
General - no acute distress
Abdomen - soft, some tenderness n RUQ, dressing taken down- wound is c/d/i-- scott in position with output of greenish brown fluid
Genitalia - normal
[2023-11-04] MEDS: NSS 1000 IV ×3 (08:57→23:42)
[2023-11-04] MEDS: DIFLUCAN 400 MG PO (09:00)
[2023-11-04] MEDS: PROSCAR 5 MG PO (09:00)
[2023-11-04] MEDS: IMDUR (EXTENDED RELEASE) 60 MG PO (09:01)
[2023-11-04] MEDS: LEXAPRO 10 MG PO (09:01)
[2023-11-04] MEDS: PROTONIX 40 MG PO (09:01)
[2023-11-04] MEDS: COREG 3.125 MG PO (09:01)
[2023-11-04] MEDS: FEOSOL 325 MG PO (09:01)
[2023-11-04] MEDS: NORVASC 2.5 MG PO (09:01)
[2023-11-04] MEDS: VISBIOME 2 CAP PO (09:01)
[2023-11-04] MEDS: DRISDOL (VITAMIN D2) 50000 UNITS PO (09:02)
[2023-11-04] MEDS: OMNIPAQUE 50 ML PO (09:35)
--- NOTE | 2023-11-04 10:00 | PTCARENOTE ---
Addendum entered by Nayeli Love RN 11/04/23 12:39:
CT results finding show small leak. Urology and General surgery to take pt to OR. pt to be transferred to ICU post procedure. IV merrem and abx to be tubed to OR.
Original Note:
stool coming out of SANTA drain, and specialties made aware. PO contrast started and CT made aware. this nurse spoke with daughter about the plan. pt receiving IVF through L forearm site at 80ml/hr and Wound care completed
[2023-11-04] MEDS: DILAUDID 0.5 MG IV ×2 (10:19→17:50)
--- NOTE | 2023-11-04 11:58 | W.PN.UPDATE ---
Update Note
Progress Note Update
pt had CT- shows bowel leak- suspect duodenal injury
reviewed with [facility]/anesthesia and med team
spoke with pt and daughter
reviewed findings- risks, benefits, alternatives and disabilities
to OR for abd exploration- repiar- possible feeding tube
to ICU post op
--- NOTE | 2023-11-04 12:17 | CON.GS ---
Consultation
-
Requesting Provider: Fish
Performing Provider: Blake
Reason for Consultation: Postop bilious SANTA drainage
Medical History
-
Chief Complaint: Abdominal pain
History of Present Illness:
Patient is a 78-year-old male who is currently postoperative day 2 status post right nephrectomy for a chronically infected right kidney with resultant recurrent ureteral obstruction.
General surgery consultation requested after urology noted change in character of SANTA drainage on rounds this a.m. Patient seen and evaluated with Dr. Whitten. Patient states he has right-sided postoperative abdominal pain. No nausea. No vomiting.
No generalized abdominal pain. He does feel tired and weak. Passing flatus no bowel movement yet.
Past Medical History
Past Medical History: Other (Hypertension, history of upper GI bleed, CAD, GERD, diabetes with neuropathy, history of CVA, chronic left foot wound, BPH, hematuria, recurrent UTIs)
Past Surgical History: Other (Suprapubic catheter, CABG/coronary stents, recently status post right nephrectomy)
Social History
Tobacco: Non-Smoker
Alcohol: None
Family History
Family History: Reviewed & Not Pertinent
Allergies / Home Medications
Allergy/AdvReac Type Severity Reaction Status Date / Time
No Known Allergies Allergy Verified 10/21/23 19:16
�Medication �Instructions �Recorded �Confirmed �Type
alprazolam 0.5 mg tablet 0.5 mg PO HS Mental Health/Anxiety 10/21/23 10/21/23 History
amlodipine 2.5 mg tablet 2.5 mg PO DAILY Blood Pressure 10/21/23 10/21/23 History
aspirin 81 mg chewable tablet 81 mg PO DAILY Blood Clot 10/21/23 10/21/23 History
Prevention/Tx
atorvastatin 40 mg tablet 40 mg PO DAILY High Cholesterol 10/21/23 10/21/23 History
carvedilol 3.125 mg tablet 3.125 mg PO BID Heart 10/21/23 10/21/23 History
Disease/Condition
coenzyme Q10 50 mg capsule (Co 50 mg PO DAILY Supplement 10/21/23 10/21/23 History
Q-10)
cyclobenzaprine 5 mg tablet 5 mg PO BID PRN muscle spasms 10/21/23 10/21/23 History
ergocalciferol (vitamin D2) 1,250 1,250 mcg PO WEEKLY Supplement 10/21/23 10/21/23 History
mcg (50,000 unit) capsule
escitalopram oxalate 20 mg tablet 20 mg PO DAILY Depression 10/21/23 10/21/23 History
ferrous sulfate 325 mg (65 mg 325 mg PO DAILY Supplement 10/21/23 10/21/23 History
iron) tablet
finasteride 5 mg tablet 5 mg PO DAILY Urinary Issue 10/21/23 10/21/23 History
gabapentin 100 mg capsule 100 mg PO HS Neurological Condition 10/21/23 10/21/23 History
isosorbide mononitrate 60 mg 60 mg PO DAILY Heart 10/21/23 10/21/23 History
tablet,extended release 24 hr Disease/Condition
pantoprazole 40 mg tablet,delayed 40 mg PO BID Gastrointestinal Issue 10/21/23 10/26/23 History
release
sodium chloride-hypochlorous acid 1 irrig irrigation PRN PRN wound 10/21/23 10/21/23 History
0.033 % irrigation solution (Vashe) care
zinc oxide-cod liver oil 40 % 1 applic topical PRN PRN wound care 10/21/23 10/21/23 History
topical paste (Desitin)
Review of Systems
-
Unable to obtain full review of systems at this time due to: Acuity
History Source: Patient
All other systems: Negative unless noted
A 10 point review of systems was completed, and was negative except as per HPI.
Physical Exam
Vital Signs
Temp Pulse Resp BP Pulse Ox
97.7 F 79 16 123/61 95
11/04/23 07:55 11/04/23 07:55 11/04/23 07:55 11/04/23 09:01 11/04/23 08:51
Body Mass Index (BMI) 22.4
Lab Results
11/04/23 07:05
11/04/23 07:05
WBC 11.6 10^3/uL (4.8-10.8) H 11/04/23 07:05
Hgb 9.6 g/dL (13.0-18.0) L 11/04/23 07:05
Hct 29.7 % (39.0-52.0) L 11/04/23 07:05
Plt Count 229 10^3/uL (130-400) 11/04/23 07:05
Abs Immat Gran (auto) 0.1 10^3/uL (0-0.05) H 11/04/23 07:05
Neutrophils % 76.1 % (42.2-75.2) H 11/04/23 07:05
Physical Exam
General: Other (Elderly male, no acute distress, lying in hospital bed and conversive for history taking)
HEENT: Normocephalic, Anicteric and Moist Mucous Membranes
Respiratory: Non Labored Respirations
Cardiac: Regular Rhythm
GI: Soft, Tender (Tenderness palpation localized to the right hemiabdomen with some involuntary guarding and rigidity on palpation. Left hemiabdomen without rebound rigidity or guarding and only mild tenderness.), Distended (Mild) and Other (SANTA
drain with bilious contents)
Skin: Warm
Neuro: AO x 3
Psych: Calm
Data Reviewed
-
CT Scan: Image Personally Visualized and interpreted, Discussed with Physician and Discussed with Patient
Assessment / Plan
-
Assessment/Plan: 78-year-old male postoperative day 2 status post right nephrectomy with suspected duodenal injury based on location of recent surgical procedure and SANTA outputs as well as CT imaging confirming extravasation of oral contrast into the
right renal fossa/perinephric space.
Discussed with Dr. Whitten. We reviewed CT imaging results together with patient. Reviewed indications for urgent operative intervention for management of perforated viscus. Patient in agreement to proceed with surgery.
Nonoperative management would be highly unlikely to be able to control this suspected/presumed duodenal injury.
Exploratory laparotomy, repair of perforated viscus, possible feeding tubes was reviewed in detail the patient by both myself and Dr. Whitten including potential operative findings and their management, risk of surgery and anticipated need of
postoperative intensive care unit monitoring/care.
Any of the patient's concerns or questions were fully addressed and written informed consent was obtained.
Dr. Whitten has spoken to the patient's daughter via phone call and updated her on her father's current medical condition and plan for surgery.
--- NOTE | 2023-11-04 12:30 | W.PN.HOSP.TC ---
Today's Communication/Plan
-
continue Abx
urgent OR trip for repair of suspected bowel leak
transfer to ICU post-op
Assessment / Plan
Assessment / Plan
Assessment:
Diarrhea
- C. Diff Ag+, toxin -
- hold bowel regimen; add probiotics
- ID aware, no treatment of C. Diff indicated currently
Xanthogranulomatous Pyelonephritis
recent h/o pyelonephritis due to MRSA and Proteus, infected R ureteral stone s/p stent/removal ([place])
- s/p cysto, RGP, stent placement 10/23/23
- repeat CT 10/25 with 8.5 cm gas containing low-density subcapsular collection on the right concerning for renal abscess. Moderate persistent right-sided hydronephrosis despite presence of the stent
- s/p IR guide drain placement 10/26 into subcapsular collection
- s/p Right nephrectomy 11/01
- continue Meropenem/daptomycin/Fluconazole per ID; cultures growing E. Coli, ESBL/Proteus, Klebsiella, VRE and arlene Krusei.
Colonic distention and small bowel manipulation during surgery
- CT 11/03: showed Findings consistent with small bowel injury, likely a leak involving the third segment of the duodenum
- NPO for urgent bowel repair. discussed with GS/Urology and family
- continue IV Abx as above
TME associated with above process of UTI/Pyelonephritis
- improved. Seems back to baseline. No agitation, pleasant and cooperative.
Post-cystoscopy hematuria
- resolved; monitor per Urology
BPH s/p suprapubic catheter
- continue Finasteride
History of Acute blood loss anemia with recent hx of upper GI bleed
Normocytic anemia (anemia chronic disease)
- stable Hb
Atelectasis
- continue IS
Mild hypokalemia
- replacement as needed
Essential HTN
- amlodipine, Coreg, Imdur.
Anxiety/Depression
- hold BZD
- continue Lexapro
CAD S/p CABG/Stents
- continue Statin/Coreg/Imdur
- holding ASA per urology
GERD - PPI
Hx of DM neuropathy
- hold Gabapentin
Hx of CVA
Awake but couldn't answer questions in details.
Suspect possible senile or vascular cognitive impairment
- continue ASA/Statin
Left heel Stage 3 pressure injury POA
- continue topical care
DVT ppx: SCDs until cleared by Urology for resumption of thinners
Code: Full
Total Critical Care Time 35 minutes. I was immediately available to the patient and staff. I personally examined, reviewed labs, diagnostic images/reports, interpretations, treatment plans, discussed patient care with other providers and family
or caregivers (if patient is unable to make decisions), entered orders as appropriate and documented the medical record.
Anticipated Discharge: > 48 hours
Subjective/Interval History
-
Date of Service: November 04, 2023
seen post-CT which confirmed likely duodenal leak
patient reports abdominal pain
SANTA with high volume brown/bilious type fluid
Objective Data
-
Labs:
Laboratory Results
11/04/23
07:05
WBC 11.6 H
Hgb 9.6 L
Hct 29.7 L
Plt Count 229
Sodium 135
Potassium 3.4 L
Chloride 99
Carbon Dioxide 29
BUN 19
Creatinine 0.5 L
Glucose 116 H
Calcium 8.2 L
Vital Signs:
Vital Signs
Temp Pulse Resp BP Pulse Ox
97.7 F 79 16 123/61 95
11/04/23 07:55 11/04/23 07:55 11/04/23 07:55 11/04/23 09:01 11/04/23 08:51
I&O
07/07/2411/04/23 11/05/23
06:59 06:59 06:59
Intake Total 1355.0 / 1435.0 1360 / 1360
Output Total 1934 / 1934 1315 / 1315 440 / 440
Balance -580.0 / -500.0 45 / 45 -440 / -440
Physical Exam
-
General: Appears in Distress and Pain
HEENT: Normocephalic and Atraumatic
Respiratory: Negative Wheezes
Cardiac: Regular Rhythm and S1/S2
GI: Tender
Neuro: AO x 3
Psych: Calm
Data Reviewed
-
Critical Care Time (in minutes): 35
Labs: Labs Reviewed by me
--- NOTE | 2023-11-04 14:13 | PTOTSP ---
Reviewed chart and noted pt went back to OR today 11/03 for repair of small bowel injury from recent right nephrectomy. Will need new orders for PT and OT post-op when stable to resume activity.
--- NOTE | 2023-11-04 14:31 | W.IMMPOSTOP ---
Addendum entered and electronically signed by Sudhir Lozano MD 11/04/23 14:55:
#[id number]
Original Note:
Surgical Immed Post Op Note
-
Primary Surgeon: Blake
Assisting Surgeon: Fish
Pre-op Diagnosis: Suspected duodenal perforation
Post-op Diagnosis: Duodenal perforation
Procedure Performed: Exploratory laparotomy, primary repair of duodenal perforation
Anesthesia Type: GETA +0.25% Marcaine
Specimen / Cultures: None/none
Estimated Blood Loss: 20 mL
Complications: None immediate
Operative Findings: Anterior lateral perforation at junction of duodenal bulb with first segment of duodenum. About 2 to 3 mm size of perforation. No additional abnormalities noted. Duodenum kocherized. 2 layered sutured repair of perforation
site with interrupted full-thickness 3-0 silk primary closure followed by oversewing of closure with Lembert 3-0 silk. Duodenum widely patent. Drain left in place. Small bowel run in the entirety and otherwise unremarkable. Colon with heavy
stool burden and significantly distended but otherwise normal.
Plan: Patient to be transferred to ICU for postoperative care and monitoring, anesthesia keeping patient intubated for now
N.p.o., NG tube decompression -okay to gently flush to maintain patency. NG tube to low intermittent wall suction
Follow SANTA outputs
Pending clinical course would anticipate upper GI contrast study approximately 72 hours postop.
Continue antibiotics
--- NOTE | 2023-11-04 14:37 | W.IMMPOSTOP ---
Surgical Immed Post Op Note
-
Primary Surgeon:
suzy
Assisting Surgeon:
cary
Pre-op Diagnosis:
small bowel perforation
Post-op Diagnosis:
small bowel perforation
Procedure Performed:
ex lap/repair of small laceration
Anesthesia Type:
gen
Specimen / Cultures:
none
Estimated Blood Loss:
20cc
Complications:
none
Operative Findings:
duodenal laceration- repaired
to ICU intubated with ng and scott drain
--- NOTE | 2023-11-04 14:41 | W.PN.INTV ---
Today's Communication / Plan
Recommendations
Check chest x-ray, EKG
Wean to CPAP, possibly extubate later today
Currently on Precedex
Verify whether antifungal therapy needed. ID following
Mechanical DVT prophylaxis for now
Follow-up blood work
Assessment
-
78-year-old male with complex medical history admitted 10/21/2023 for UTI. 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 Patient is presently
status post right nephrectomy 11/01. Received 3 units of blood, 2 units of FFP. Patient extubated in the PACU. Transferred to ICU for further management 11/02/2023
S/p Right nephrectomy 11/02/2023
700 cc blood loss, 3 units of blood, 2 units FFP
Extubated postoperatively
Duodenal leak noted 11/03, return to OR
Small bowel perforation, exploratory lap./Repair small laceration
NG tube, SANTA drain in place
Hyponatremia/hypokalemia
Hyperglycemia
Diarrhea, C. difficile antigen positive, toxin negative
Treatment
Xanthogranulomatous pyelonephritis
Recurrent pyelonephritis
Right ureteral stone/stent removal [place]
Right ureteral stent placement 10/23/2023
E. coli, ESBL/Proteus
s/p IR drain 10/27/2023
Chronic suprapubic catheter
BPH
Conditions present prior to admission
Coronary disease, CABG/stent
History of normocytic anemia
Upper GI bleed, Hemoccult to emesis in the past
Hypertension
GERD
History of stroke
Plan/recommendations
At this time, patient is critically ill but appears to be stable
Systolic blood pressure 150s
Remains on volume-cycled ventilation, adequate airway pressures
Patient is still waking up from anesthesia
SANTA drain in place, suprapubic catheter, abdominal dressing, prior right upper quadrant nathaly intact
Postoperative blood work pending
Moving forward
Continue with volume-cycled ventilation
Wean to CPAP when awake. Currently on Precedex
Hopefully can extubate later today
Continue with management, supportive care
IV fluids
Maintain n.p.o. per surgery
NG tube in place
Remains on daptomycin/meropenem. Fluconazole fallen off MAR? ID following
Extensive hospital course reviewed
Obtain chest x-ray
Obtain EKG
Once extubated Incentive spirometry
Pain control once extubated
DVT prophylaxis: Sequential teds. When cleared, resume pharmacological DVT prophylaxis if able from surgical standpoint. Per urology, okay to start DVT prophylaxis after 24 hours
GI prophylaxis: Pantoprazole. History of upper GI bleed noted/hematemesis
Head of bed elevated, aspiration precautions
Reviewed with critical care, primary service, urology
Reviewed with respiratory care
TCCT 31 min
Subjective Dataa
Subjective Data
Date of Service:
Date of Service: November 04, 2023
Subjective:
Patient is presently intubated and sedated. Events noted over the last few days. Increased SANTA output noted, CT imaging suggested duodenal leak. Patient is status post repair
Objective Data
Data Reviewed
Vital Signs / I&O / Oxygen:
Vital Signs
Temp Pulse Resp BP Pulse Ox
97.7 F 79 16 123/61 95
11/04/23 07:55 11/04/23 07:55 11/04/23 07:55 11/04/23 09:01 11/04/23 08:51
Intake and Output
11/03/23 11/04/23 11/05/23
06:59 06:59 06:59
Intake Total 1355.0 / 1435.0 1360 / 1360
Output Total 1935 / 1935 1315 / 1315 440 / 440
Balance -580.0 / -500.0 45 / 45 -440 / -440
SaO2 95
Nasal Cannula flow liters per 97
minute
Physical Exam
General: Comfortable (Intubated)
HEENT: Normocephalic and Anicteric
Cardiovascular: S1-S2, Regular Rhythm, Murmur (n) and Rub (n)
Respiratory: Wheeze (n), Crackles (n), Rhonchi (n), Non-Labored Respirations and ET Tube
GI: Soft, Non Distended, Non Tender, Other (Suprapubic catheter) and Other (Right abdominal SANTA drain, mid abdominal dressing in place, nathaly right flank/abdomen intact)
Neurology: Unresponsive (Still waking up from anesthesia)
Skin: Cyanosis (n), Jaundice (n) and Rash (n)
Labs/Micro/Reports
Lab Data
11/04/23 07:05
11/04/23 07:05
Microbiology
10/26/23 09:23 Kidney Fluid Anaerobic Culture - Final
NO ANAEROBES ISOLATED
--- NOTE | 2023-11-04 15:10 | PTCARENOTE ---
vital signs filed on arrival to ICU direct back, unable to verify.
[2023-11-04 15:13] LABS: Hematocrit 37.5 % (39.0-52.0); Mean Corp Hgb Conc. 31.7 g/dL (33.0-37.0); Mean Corpuscular Hgb 27.7 pg (27.0-31.0); Mean Corpuscular Volume 87.2 fL (80.0-94.0); Mean Platelet Volume 9.8 fL (7.4-10.4); Platelet Count 225 10^3/uL (130-400); Red Cell Dist. Width 18.9 % (11.5-14.5)
[2023-11-04 15:14] LABS: Hemoglobin 11.9 g/dL (13.0-18.0)
[2023-11-04 15:24] LABS: ALT (SGPT) 45 U/L (0-50); AST (SGOT) 37 U/L (17-59); Albumin 2.5 g/dl (3.5-5.0); Alkaline Phosphatase 150 U/L (38-126); Blood Urea Nitrogen 18 mg/dl (9-20); Calcium 7.9 mg/dl (8.4-10.2); Carbon Dioxide 25 mmol/L (22-30); Chloride 98 mmol/L (98-107); Estimated Creatinine Clearance 120 ml/min; Glucose 143 mg/dl (70-99); Magnesium 1.9 mg/dl (1.6-2.3); Potassium 3.4 mmol/L (3.5-5.1); Sodium 134 mmol/L (135-145); Total Protein 5.8 g/dl (6.3-8.2); eGFR > 60.00
[2023-11-04] MEDS: CUBICIN 16 MG IV (15:27)
[2023-11-04 15:30] LABS: INR 1.31; PT 16.3 Sec (11.4-14.6)
[2023-11-04 15:31] LABS: APTT 39.7 Sec (23.4-35.0)
[2023-11-04] MEDS: PROTONIX IV 40 MG IV ×2 (15:47→21:18)
--- NOTE | 2023-11-04 16:13 | PTCARENOTE ---
awake following commands denies pain, seen by Dr. Ohara.
[2023-11-04] MEDS: KCL 270 MEQ IV (16:19)
[2023-11-04] MEDS: LR 1000 IV ×2 (16:41→20:45)
--- NOTE | 2023-11-04 16:48 | PTCARENOTE ---
BP readings now lower, see filed VS, Dr Ohara notified, orders for LR bolus obtained, pt very comfortable on wean, volumes 380-400 and rate mid teens. continues to deny pain.
[2023-11-04 17:17] LABS: B.E. 3.7 mmol/L; HCO3 28.5 mmol/L (21-28); O2 Saturation % 99.7 % (94-98); PCO2 43 mmHg (35-48); PO2 128 mmHg (83-108); pH 7.43 (7.35-7.45)
--- NOTE | 2023-11-04 17:44 | PTCARENOTE ---
on cp/ps wean last hour, ABG by resp, Dr. Ohara notified/updated. extubated smoothly 1729 tolerated well, on 4l nc. occas staring but when spoken to will focus and answer questions. unable to quantify pain at present, CPOT scale low, 1-2. call
sanchez in reach. oriented. explained situation and outcome of the day, resting when observed.
--- NOTE | 2023-11-04 18:14 | PTCARENOTE ---
see CPOT, c/o pain, requested pain med, see MAR. Fluids continue along wtih K rider, and LR bolus. following commands, hypotensive, repositioned, message to [employer] coverage. Precedex titrated to off, disconnected. I/O collected, skin warm, dry,
pink.
--- NOTE | 2023-11-04 20:00 | PTCARENOTE ---
Received pt resting in bed, oriented to self and place. Drowsy. Pale. Gen. weakness. Pain improved after recent dilaudid dose. SB/SR on tele, HR 50s-60s. +murmur. Hypotensive- titrating levophed up for goal MAP>65. See worklist. SCDs intact. Weak
DPs. Afebrile. On 4L NC- spo2 100% will wean as tolerated. Lungs diminished. Shallow breaths, weak dry cough. Hypoactive bowel sounds. Midline incision dsg CDI. R upperabd incision w/ nathaly and TODDLER GUIDE. R abd SANTA drain with sanguinous drainage- see
I&O. NG tube to LIWS with brown/yellow output. Flushed w/ 30ml tap. Suprapubic draining dennise urine. Foot wounds dsg c/d/i. L AC and L W PIVs patent. NSS @ 120ml/hr. Mouth care provided. Turning q2. Monitoring
--- NOTE | 2023-11-04 21:00 | PTCARENOTE ---
Remains hypotensive, titrating up levophed now at 8mcg. Urine output 15-25ml/hr. [employer] aware. 1L LR bolus ordered and infusing.
[2023-11-04] MEDS: NSS (PRESERVATIVE FREE) 10 ML IV (21:18)
[2023-11-04 22:01] LABS: Hematocrit 29.8 % (39.0-52.0); Hemoglobin 9.8 g/dL (13.0-18.0)
[2023-11-04 22:19] LABS: Blood Urea Nitrogen 17 mg/dl (9-20); Calcium 7.6 mg/dl (8.4-10.2); Carbon Dioxide 29 mmol/L (22-30); Chloride 100 mmol/L (98-107); Estimated Creatinine Clearance 120 ml/min; Glucose 142 mg/dl (70-99); Potassium 4.1 mmol/L (3.5-5.1); Sodium 133 mmol/L (135-145); eGFR > 60.00
[2023-11-04] MEDS: DILAUDID 0.25 MG IV (22:50)
--- NOTE | 2023-11-04 23:05 | PTCARENOTE ---
L W PIV leaking sm amount- removed. VAT team placed R midline. BP improved with LR bolus. Weaning levophed as tolerated. Medicated to abdominal pain.
[2023-11-05] VITALS (42 sets, daily range): BP systolic 104–134; BP diastolic 41–68; PULSE 72–91; O2SAT 94–96; BMI 23.0
[2023-11-05 04:24] LABS: % Basophils 0.1 % (0-2); % Immature Granulocytes 0.8 % (0-0.5); % Lymphocytes 7.9 % (20.5-51.1); % Monocytes 3.5 % (1.7-9.3); % Neutrophils 87.7 % (42.2-75.2); Absolute Immature Granulocytes 0.1 10^3/uL (0-0.05); Absolute Lymphocytes 1.2 10^3/uL (1.2-3.4); Absolute Monocytes 0.5 10^3/uL (0.1-0.6); Absolute Neutrophils 12.8 10^3/uL (1.4-6.5); Hematocrit 25.3 % (39.0-52.0); Hemoglobin 8.3 g/dL (13.0-18.0); Mean Corp Hgb Conc. 32.8 g/dL (33.0-37.0); Mean Corpuscular Hgb 27.8 pg (27.0-31.0); Mean Corpuscular Volume 84.6 fL (80.0-94.0); Nucleated Red Blood Cells % 0 % (-); Platelet Count 191 10^3/uL (130-400); Red Blood Cell Count 2.99 10^6/uL (4.70-6.10); Red Cell Dist. Width 18.7 % (11.5-14.5); White Blood Cell Count 14.6 10^3/uL (4.8-10.8)
[2023-11-05 04:35] LABS: APTT 45.2 Sec (23.4-35.0); INR 1.44; PT 17.6 Sec (11.4-14.6)
[2023-11-05 04:45] LABS: Blood Urea Nitrogen 16 mg/dl (9-20); Calcium 7.5 mg/dl (8.4-10.2); Carbon Dioxide 27 mmol/L (22-30); Chloride 102 mmol/L (98-107); Estimated Creatinine Clearance 120 ml/min; Glucose 143 mg/dl (70-99); Magnesium 1.8 mg/dl (1.6-2.3); Phosphorus 2.7 mg/dl (2.5-4.5); Potassium 3.5 mmol/L (3.5-5.1); Sodium 134 mmol/L (135-145); eGFR > 60.00
[2023-11-05] MEDS: KCL 160 MEQ IV (05:44)
--- NOTE | 2023-11-05 05:51 | PTCARENOTE ---
Sacral wound and R SANTA drain dressings changed. Pt. had small, brown, soft BM. Bowel sounds remain hypoactive. See I&O for drain output overnight. SNATA with serosang output and NG with brown/green output. AM labs sent. Bathed with CHG, mouth care
provided.
--- NOTE | 2023-11-05 06:21 | W.PN.URO.CBU ---
Today's Communication / Plan
-
continue icu monitoring
continue scott and ng
Assessment / Plan
-
77M with neurogenic bladder and suprapubic tube / TBI
Recurrent UTI and catheter obstruction
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
s/p suprapubic tube replacement
s/p R ureteral stent placement 10/22 with purulent drainage. Calcified debris and ureteral kinking noted on retrograde study
s/p IR drain placement 10/26
s/p RIGHT NEPHRECTOMY 11/01
s/p repair of small bowel injury 11/03
pt stable continue to monitor drain output and hgb/wbc
antibx per ID
gsu following- plan for continued npo and ng with small bowel study on wednesday
in hgb remains stable over next 24hrs- can discuss resumption of subq heparin and asa- would continue to hold plavix until all surgical issues clarified
Diagnosis
-
Date of Service: November 05, 2023
-
Recurrent R ureteral obstruction
XGP kidney
Urinary retention with chronic SPT
Post Op s/p cystoscopy, R ureteral stent placement 10/22
IR drain placement 10/26
s/p right nephrectomy 11/01
small bowel laceration- repair 11/03
Subjective
-
pt extubated- awake and alert
minimal drain output
vss
urine clear
wbc up slightly- not unexpected
hct down- but no evid of bleeding
Objective
-
Vital Signs
Temp Pulse Resp BP Pulse Ox
97.4 F 65 14 113/57 94
11/05/23 04:08 11/05/23 05:45 11/05/23 05:45 11/05/23 05:30 11/05/23 05:45
Intake and Output
11/03/23 11/04/23 11/05/23
06:59 06:59 06:59
Intake Total 1355.0 / 1435.0 1360 / 1360 4301.0 / 4301.0
Output Total 1935 / 1935 1315 / 1315 1495 / 1495
Balance -580.0 / -500.0 45 / 45 2806.0 / 2806.0
Intake:
IV fluids (Total) 1355.0 / 1435.0 1360 / 1360 2107.0 / 2107.0
40 Kcl in 250 NSS 135.0 / 135.0
Levophed 127.0 / 127.0
Nss 1,000 ml @ 120 mls/hr IV . 1680 / 1680
[id number] [facility]ERMAN Rx#:[id number]
Nss 1,000 ml @ 80 mls/hr IV . 1120 / 1200 400 / 400
[id number] JERMAN Rx#:[id number]
normosol 100 / 100 300 / 300
IV piggybacks 2133 / 2133
Amount instilled into GI Tube ( 60 / 60
Total)
[place] Sump 60 / 60
Output:
Liquid stool amount 30 / 30
Rectum 30 / 30
Drain Output (Total) 585 / 585 685 / 685 945 / 945
Right Back Placed in IR 110 / 110
Right Lower Abdomen Blas- 475 / 475 685 / 685 945 / 945
Bass
Gastrointestinal tube output ( 50 / 50
Total)
[place] Sump 50 / 50
Urine, Mane 200 / 200
Urine, Voided 300 / 300
Suprapubic output 1150 / 1150 300 / 300 500 / 500
Laboratory Results
11/05/23 03:59
11/05/23 03:59
Review of Systems
-
Constitutional: Fatigue
Respiratory: No Symptoms
Cardiac: No Symptoms
Abdomen/GI: Abdominal Pain
Physical Exam
-
General - no acute distress- ng and scott in place
Abdomen - soft- midline tender- right flank incision c/d/i- midline dressing c/d/i
Genitalia - normal
[2023-11-05] MEDS: MAGNESIUM SULFATE 102 GRAMS IV (06:37)
--- NOTE | 2023-11-05 06:59 | W.PN.ANS.POP ---
Anesthesia Post Operative
- Anesthesia Post Op Note
Vital Signs Stable-See Nursing Note: Yes
Airway Patent: Yes
Adequate Pain Control: Yes
Change in Mental Status: No
Current Postoperative Nausea & Vomiting: No
Anesthesia Complications: No
General Anesthetic Recall: No
Unplanned Admission: No
Post Op Hydration Adequate: Yes
--- NOTE | 2023-11-05 07:18 | W.PN.INTV ---
Today's Communication / Plan
Recommendations
Follow hemoglobin, transfuse at discretion of surgery
Follow SANTA output
Mechanical DVT prophylaxis
Consider initiation of aspirin and/or Lovenox in the next 24 hours if hemoglobin remains stable
IV fluids
Replete electrolytes
Pain control
Assessment
-
78-year-old male with complex medical history admitted 10/21/2023 for UTI. 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 Patient is presently
status post right nephrectomy 11/01. Received 3 units of blood, 2 units of FFP. Patient extubated in the PACU. Transferred to ICU for further management 11/02/2023
S/p Right nephrectomy 11/02/2023
700 cc blood loss, 3 units of blood, 2 units FFP
Extubated postoperatively
Duodenal leak noted 11/03, return to OR
Small bowel perforation, exploratory lap./Repair small laceration
NG tube, SANTA drain in place
Extubated 11/04/2023
Hyponatremia/hypokalemia
Hyperglycemia
Diarrhea, C. difficile antigen positive, toxin negative
Treatment
Xanthogranulomatous pyelonephritis
Recurrent pyelonephritis
Right ureteral stone/stent removal [place]
Right ureteral stent placement 10/23/2023
E. coli, ESBL/Proteus
s/p IR drain 10/27/2023
Chronic suprapubic catheter
BPH
Anemia, postoperative
Conditions present prior to admission
Coronary disease, CABG/stent
History of normocytic anemia
Upper GI bleed, Hemoccult to emesis in the past
Hypertension
GERD
History of stroke
Plan/recommendations
At this time, patient is critically ill but appears to be stable
weaned off norepinephrine
Suspect hypotension was secondary to Dilaudid
Presently on room air
SANTA drain in place, suprapubic catheter, abdominal dressing, prior right upper quadrant nathaly intact
Hemoglobin 8.3 noted. Patient did respond to fluid boluses. Suspect dilutional component
SANTA drainage noted, 1100 cc
Moving forward
Continue with supportive care
NG tube remains in place
IV fluids
Maintain n.p.o. per surgery
Follow SANTA output
Follow hemoglobin
Maintain active type and screen
Remains on daptomycin/meropenem. Fluconazole fallen off MAR? ID following
Extensive hospital course reviewed
Chest x-ray unremarkable, EKG unremarkable
Incentive spirometry as able
Pain control
Will consider Lasix down the road, significant fluid resuscitation over the last 24 hours
No echocardiogram available for review in the recent year
DVT prophylaxis: Sequential teds. When cleared, resume pharmacological DVT prophylaxis if able from surgical standpoint. Per urology, okay to start DVT prophylaxis after 24 hours. Will confirm Lovenox and aspirin reinitiation, especially given
drop in hemoglobin
GI prophylaxis: Pantoprazole. History of upper GI bleed noted/hematemesis
Head of bed elevated, aspiration precautions
Reviewed with critical care, pharmacy, respiratory care
Keep in ICU
TCCT 31 min
Subjective Dataa
Subjective Data
Date of Service:
Date of Service: November 05, 2023
Subjective:
Patient remains critically ill, was extubated yesterday p.m. but developed hypotension. Extubation. Responded to fluid boluses. Appeared to correlate with Dilaudid administration. Remains on room air. Patient denies chest pain, shortness of
breath. Does complain of abdominal pain. Urine output noted, suprapubic catheter
Objective Data
Data Reviewed
Vital Signs / I&O / Oxygen:
Vital Signs
Temp Pulse Resp BP Pulse Ox
97.5 F 65 14 113/57 94
11/05/23 07:11 11/05/23 05:45 11/05/23 05:45 11/05/23 05:30 11/05/23 05:45
Intake and Output
11/04/23 11/05/23 11/06/23
06:59 06:59 06:59
Intake Total 1360 / 1360 4301.0 / 4301.0
Output Total 1315 / 1315 1495 / 1495
Balance 45 / 45 2806.0 / 2806.0
SaO2 [A/C] 100
SaO2 94
Nasal Cannula flow liters per 2
minute
Physical Exam
General: Comfortable (Intubated)
HEENT: Normocephalic and Anicteric
Cardiovascular: S1-S2, Regular Rhythm, Murmur (n) and Rub (n)
Respiratory: Wheeze (n), Crackles (n) and Rhonchi (n)
GI: Soft, Non Distended, Tender (Positive tenderness), Other (Suprapubic catheter) and Other (Right abdominal SANTA drain, mid abdominal dressing in place, nathaly right flank/abdomen intact)
Neurology: Awake, Alert, Oriented and No Motor Deficits (Generally weak)
Skin: Cyanosis (n), Jaundice (n) and Rash (n)
Labs/Micro/Reports
Lab Data
11/05/23 03:59
11/05/23 03:59
Laboratory Results
11/04/23 11/04/23 11/05/23
15:00 17:10 03:59
PT 16.3 H 17.6 H
INR 1.31 1.44
APTT 39.7 H 45.2 H
pH 7.43
pCO2 43
pO2 128 H
HCO3 28.5 H
O2 Delivery Level
--- NOTE | 2023-11-05 08:00 | PTCARENOTE ---
handoff at bedside pt comfortable. NG tube draining, maintained NPO with oral care provided. No distress.
[2023-11-05] MEDS: PROTONIX IV 40 MG IV ×2 (08:12→19:58)
[2023-11-05] MEDS: NSS (PRESERVATIVE FREE) 10 ML IV ×2 (08:13→19:58)
[2023-11-05] MEDS: STERILE WATER FOR INJECTION 20 ML IV ×2 (08:13→17:08)
[2023-11-05] MEDS: MERREM 1000 MG IV ×2 (08:13→17:08)
[2023-11-05] MEDS: DILAUDID 0.25 MG IV ×3 (08:14→18:21)
[2023-11-05] MEDS: NSS 1000 IV ×2 (08:15→16:42)
--- NOTE | 2023-11-05 08:54 | W.PN.ID1 ---
Date of Service
Date of Service: November 05, 2023
Today's Communication
fluconazole is indicated - restarted via IV
continue meropenem and daptomycin
Assessment / Plan
Xanthogranulomatous Pyelonephritis
- recent h/o pyelonephritis due to MRSA and Proteus (at [place])
s/p IR drain placement 10/26
s/p RIGHT NEPHRECTOMY 11/01
s/p repair of small bowel injury 11/03
- 10/26 renal fluid perc drain cx: Klebsiella, E. coli, ESBL-Proteus, VRE, Sandra krusei
- urine culture polymicrobial Proteus ESBL, E coli
- [facility] urine culture ESBL Proteus, MRSA
- restart fluconazole 400 mg qday via IV can transition to oral when patient able to consistently take oral meds
- lexapro dose previously decreased to 10 mg Qday (1/ starting dose) given interaction with fluconazole - continue on this dose while on fluconazole
- qtc remains acceptable
- continue daptomycin
- hold statin
- ck normal 10/31, repeat on wednesday
- meropenem 1 gm IV q 8hrs continue
- antibiotics/antifungals will be continued for at least another 5 days given inflammation noted within the abdomen in the OR
C. diff colonization
- probiotic held while NPO
Chief Complaint
-: Other (Xanthogranulomatous pyelonephritis (XGP))
Subjective / Review of Systems
afebrile
bp stable - pressors weaned off overnight
leukocytosis relapsed today, increasing L shift
slowly declining hgb
cr 0.5
CXR: no cody infiltrates small bilateral pleural effusions
11/03 CT a/p with iv and oral contrast:
Status post right nephrectomy. Findings consistent with small bowel injury, likely a leak involving the third segment of the duodenum.
Returned to the OR 11/03 for ex lap/repair of small laceration, no complications, no specimens, scott drain in place
Vital Signs / Physical Exam
Vital Signs
Vital Signs
Temp Pulse Resp BP Pulse Ox
97.5 F 65 14 113/57 94
11/05/23 07:11 11/05/23 05:45 11/05/23 05:45 11/05/23 05:30 11/05/23 05:45
Physical Exam
Constitutional: No Acute Distress and Chronically Ill
Cardiovascular: Regular Rate and S1/S2; Negative Murmur or Rub
Pulmonary: Clear and Symmetric; Negative Wheezes or Rales
Gastrointestinal: Soft, Non Tender, Non Distended and Normal Bowel Sounds
Skin: Warm and Dry; Negative Rash or Jaundice
Wound: Other (surgical sites clean, dry, no dehiscence or drainage)
Objective Data
Lab Data
Lab Results
11/05/23 03:59
11/05/23 03:59
PT 17.6 Sec (11.4-14.6) H 11/05/23 03:59
INR 1.44 11/05/23 03:59
APTT 45.2 Sec (23.4-35.0) H 11/05/23 03:59
Estimated Creat Clear 120 ml/min 11/05/23 03:59
Lactic Acid Cancelled 10/21/23 21:30
Total Bilirubin 1.0 mg/dl (0.2-1.3) 11/04/23 15:00
AST 37 U/L (17-59) 11/04/23 15:00
ALT 45 U/L (0-50) 11/04/23 15:00
Alkaline Phosphatase 150 U/L (38-126) H 11/04/23 15:00
Most recent labs reviewed.
Micro Results:
10/26/23 09:23 Anaerobic Culture - Final
Kidney Fluid NO ANAEROBES ISOLATED
10/26/23 09:23 Body Fluid Culture - Final
Kidney Fluid Proteus Mirabilis-ESBL
Klebsiella pneumoniae
Escherichia coli
Enterococcus faecium - VRE
Sandra krusei
Gram Stain - Final
10/31/23 18:04 C. difficile GDH Antigen & Toxins - Final
Feces/Stool C. difficile antigen positive, toxin negative.
Clostridium difficile present, but toxin not detected.
Patient may be a carrier, colonized with nontoxinogenic
strain or the level of toxin in sample is below detection
limits. This information should be used in conjunction with
the patient's clinical history.
10/21/23 17:31 Blood Culture - Final
Blood/Venous Coagulase neg. staphylococcus
Additional testing on request
Gram Stain - Final
10/21/23 17:41 Urine Culture - Final
Urine Escherichia coli
Proteus Mirabilis-ESBL
10/21/23 17:31 Blood Culture - Final
Blood/Venous No Growth - Final Report
10/22/23 07:59 Urine Culture - Final
Urine Proteus Mirabilis-ESBL
--- NOTE | 2023-11-05 10:50 | W.PN.GS2 ---
Addendum entered and electronically signed by Perry Bland MD 11/05/23 11:31:
I saw and examined the patient.
The Veneer Patcher's note was reviewed and I agree with the note.
Comment: Clinically improving, off pressors overnight. Dilauded caused hypotension, dose reduced, ofirmev added. Flat affect. Denies pain. Exam approp, incisions cdi with nathaly, drain ss. Plan to cont NGT, tentatively for UGI Tuesday 11/07.
Original Note:
Today's Communication / Plan
-
NPO/NGT
Assessment / Plan
-
78 yo male with h/o CAD, TBI and chronic SPT who is POD #3 open right nephrectomy for recurrent emphysematous pyelonephritis with subsequent return to OR for repair of duodenal injury now POD #1 ex lap and primary repair of duodenal perforation
AFVSS, weaned off pressors early this am
+leukocytosis
acute blood loss anemia secondary to hemodilution and some expected operative losses, no signs of active bleeding
SANTA outputs slowing, light SSF noted
Await bowel function
--Continue NGT for decompression to LIWS with gentle flushes to maintain patency
--Tentative UGI contrast study on Wednesday pending patient progress
--Continue NPO/IVF
--Continue to follow SANTA outputs
--Continue IV PPI BID
--Analgesics prn with Ofirmev, Dilaudid. Hold on NSAIDs given duodenal injury
--IV abx as per ID
--Will follow labs
--Local incisional care
--VTE ppx as per primary team, SCDs while in Bed. Ok for chemical ppx from surgical standpoint
Subjective Data
-
Date of Service: November 05, 2023
Patient seen and examined at bedside with Dr. Bland. Reports pain is well managed with current regimen, but with some breakthrough. Denies n/v.
Objective Data
-
Intake and Output
11/04/23 11/05/23 11/06/23
06:59 06:59 06:59
Intake Total 1360 / 1360 4301.0 / 4421.0 622 / 622
Output Total 1315 / 1315 1495 / 1530 125 / 125
Balance 45 / 45 2806.0 / 2891.0 497 / 497
Intake:
IV fluids (Total) 1360 / 1360 2107.0 / 2227.0 360 / 360
Levophed 127.0 / 127.0
Nss 1,000 ml @ 120 mls/hr IV . 1680 / 1800 360 / 360
[id number] JERMAN Rx#:[id number]
Nss 1,000 ml @ 80 mls/hr IV . 400 / 400
[id number] [facility] Rx#:[id number]
normosol 300 / 300
IV piggybacks 4 / 2134 262 / 262
Amount instilled into GI Tube ( 60 / 60
Total)
Bosque Sump 60 / 60
Output:
Liquid stool amount 30 / 30
Rectum 30 / 30
Drain Output (Total) 685 / 685 945 / 945
Right Lower Abdomen Blas- 685 / 685 945 / 945
Bass
Gastrointestinal tube output ( 50 / 50
Total)
Bosque Sump 50 / 50
Urine, Voided 300 / 300
Suprapubic output 300 / 300 500 / 535 125 / 125
Vital Signs
Temp Pulse Resp BP Pulse Ox
97.5 F 65 14 113/57 94
11/05/23 07:11 11/05/23 05:45 11/05/23 05:45 11/05/23 05:30 11/05/23 05:45
Lab Results
11/05/23 03:59
Calcium 7.5 mg/dl (8.4-10.2) L 11/05/23 03:59
Phosphorus 2.7 mg/dl (2.5-4.5) 11/05/23 03:59
Magnesium 1.8 mg/dl (1.6-2.3) 11/05/23 03:59
Total Bilirubin 1.0 mg/dl (0.2-1.3) 11/04/23 15:00
Direct Bilirubin 0.3 mg/dl (0.0-0.4) 10/27/23 05:42
AST 37 U/L (17-59) 11/04/23 15:00
ALT 45 U/L (0-50) 11/04/23 15:00
Alkaline Phosphatase 150 U/L (38-126) H 11/04/23 15:00
Total Protein 5.8 g/dl (6.3-8.2) L 11/04/23 15:00
Albumin 2.5 g/dl (3.5-5.0) L 11/04/23 15:00
Physical Exam
-
NAD, flat affect
ABD soft, expected tenderness, ND, GARMENT FITTER. NGT with minimal bilious ouptuts
Transverse and midline incisions with intact staple lines without erythema, SANTA with light SSF
SPT with clear, yellow urine
[2023-11-05] MEDS: DIFLUCAN 400 MG 200 IV (11:12)
--- NOTE | 2023-11-05 12:00 | PTCARENOTE ---
turned and repositioned. multiple BM clear mucousy. IV tylenol added per order. no other change.
[2023-11-05] MEDS: OFIRMEV 100 IV (12:26)
--- NOTE | 2023-11-05 15:06 | WOUNDNOTE ---
LEFT LATERAL HEEL
--- NOTE | 2023-11-05 15:06 | WOUNDNOTE ---
LEFT LATERAL HEEL
--- NOTE | 2023-11-05 15:07 | WOUNDNOTE ---
LEFT MEDIAL HEEL
--- NOTE | 2023-11-05 15:11 | CM ---
CM reviewed medical records. Patient remains acutely ill.
--- NOTE | 2023-11-05 15:19 | WOUNDNOTE ---
[facility] RN NOTE: Patient visited to follow up on left heel and sacral wounds. Since last assessment patient s/p R nephrectomy for recurrent pyelonephritis, repair of duodenal perforation, and use of pressors. He continues to be NPO. Patient easily
arousable and states comfort. Assessment completed with assistance of RN, Ruddy. Left heel stage 3 PI wound now appears dry with eschar. Areas of eschar of unstageable PI of left ankle and heel remain intact. Right heel stable with stage 1 PI.
Use of fiber filled boots maintained. Sacrum stable with fungal appearing skin, stage 2 PI and areas of MASD due to mucus stools. Area was cleaned and zinc ointment applied. Staff can continue to use zinc ointment if patient is frequently
incontinent. Patient was positioned on left side lying position. Patient has several comorbidities including NPO status, use of pressors and poor mobility. Wounds may worsen and new wounds may develop even with optimal care.
--- NOTE | 2023-11-05 15:43 | WOUNDNOTE ---
SACRUM [id number]
[2023-11-05] MEDS: CUBICIN 16 MG IV (17:04)
--- NOTE | 2023-11-05 18:00 | PTCARENOTE ---
family in room and updated. no changes. Lab drawn by midline, belly remained soft.
[2023-11-05 18:20] LABS: Hemoglobin 8.9 g/dL (13.0-18.0)
--- NOTE | 2023-11-05 18:44 | W.PN.HOSP.TC ---
Today's Communication/Plan
-
follow BP, currently normotensive
Assessment / Plan
Assessment / Plan
Assessment:
Diarrhea
- C. Diff Ag+, toxin -
- hold bowel regimen; add probiotics
- ID aware, no treatment of C. Diff indicated currently
Xanthogranulomatous Pyelonephritis
recent h/o pyelonephritis due to MRSA and Proteus, infected R ureteral stone s/p stent/removal ([place])
- s/p cysto, RGP, stent placement 10/23/23
- repeat CT 10/25 with 8.5 cm gas containing low-density subcapsular collection on the right concerning for renal abscess. Moderate persistent right-sided hydronephrosis despite presence of the stent
- s/p IR guide drain placement 10/26 into subcapsular collection
- s/p Right nephrectomy 11/01
- continue Meropenem/daptomycin/Fluconazole per ID; cultures growing E. Coli, ESBL/Proteus, Klebsiella, VRE and arlene Krusei.
Colonic distention and small bowel manipulation during surgery
- CT 11/03: showed Findings consistent with small bowel injury, likely a leak involving the third segment of the duodenum
- Underwent urgent bowel repair. 11/03 duodenal perforation
- continue IV Abx as above
TME associated with above process of UTI/Pyelonephritis
- improved. Seems back to baseline. No agitation, pleasant and cooperative.
Post-cystoscopy hematuria
- resolved; monitor per Urology
BPH s/p suprapubic catheter
- continue Finasteride
History of Acute blood loss anemia with recent hx of upper GI bleed
Normocytic anemia (anemia chronic disease)
- stable Hb
Atelectasis
- continue IS
Mild hypokalemia
- replacement as needed
Essential HTN BP 127/52
- oral medication on hold: amlodipine, Coreg, Imdur.
Anxiety/Depression
- hold BZD
- continue Lexapro
CAD S/p CABG/Stents
- continue Statin/Coreg/Imdur
- holding ASA per urology
GERD - PPI
Hx of DM neuropathy
- hold Gabapentin
Hx of CVA
Awake but couldn't answer questions in details.
Suspect possible senile or vascular cognitive impairment
- continue ASA/Statin
Left heel Stage 3 pressure injury POA
- continue topical care
DVT ppx: SCDs until cleared by Urology for resumption of thinners
Code: Full
Total Critical Care Time 45 minutes. I was immediately available to the patient and staff. I personally examined, reviewed labs, diagnostic images/reports, interpretations, treatment plans, discussed patient care with other providers and family
or caregivers (if patient is unable to make decisions), entered orders as appropriate and documented the medical record.
Anticipated Discharge: > 48 hours
Subjective/Interval History
-
Date of Service: November 05, 2023
Awake, alert
Objective Data
-
Labs:
Laboratory Results
11/05/23
18:12
Hgb 8.9 L
Vital Signs:
Vital Signs
Temp Pulse Resp BP Pulse Ox
97.7 F 63 18 127/52 96
11/05/23 15:18 11/05/23 17:15 11/05/23 17:15 11/05/23 17:00 11/05/23 17:20
I&O
11/04/23 11/05/23 11/06/23
06:59 06:59 06:59
Intake Total 1360 / 1360 4301.0 / 4421.0 2001
Output Total 1315 / 1315 1495 / 1530 505 / 505
Balance 45 / 45 2806.0 / 2891.0 1497 / 1497
Review of Systems
-
History Source: Patient and Coordinated Provider
Constitutional: Denies Fever
EENT: Reports No Symptoms Reported
Respiratory: Reports No Symptoms
Cardiac: Reports No Symptoms
Abdomen/GI: Reports Abdominal Pain (post op)
Physical Exam
-
General: Well Developed, Well Nourished and Appears Chronically Ill
HEENT: Normocephalic, Atraumatic and Moist Mucous Membranes
Respiratory: Clear to Auscultation (with splinting); Negative Wheezes
Cardiac: Regular Rhythm and S1/S2
GI: Soft and Tender; Negative Normal Bowel Sounds (absent)
Musculoskeletal: No Clubbing, No Cyanosis and No Edema
--- NOTE | 2023-11-05 20:29 | PTCARENOTE ---
Assumed care of pt at 1900. Pt is A/O x2-3, periods of forgetfulness. SR 60s on monitor with PVCs, SpO2 94-96% on RA. NGT to right nare to LIS. SANTA drain to RLQ with serosanguinous drainage noted. Physical assessment completed, see nursing shift
assessment flowsheet for full details. Pt incontinent of small amount of soft, seedy stool at start of shift, incontinence care done, barrier cream applied. Repositioned for comfort. Pt watching TV at this time, call sanchez within reach.
[2023-11-06] VITALS (24 sets, daily range): BP systolic 126–155; BP diastolic 51–67; BMI 23.3
--- NOTE | 2023-11-06 00:08 | PTCARENOTE ---
Physical assessment unchanged. SR 60s-70s on monitor. SpO2 94% on RA.
[2023-11-06] MEDS: STERILE WATER FOR INJECTION 20 ML IV ×3 (00:51→15:23)
[2023-11-06] MEDS: DILAUDID 0.25 MG IV ×3 (00:51→21:48)
[2023-11-06] MEDS: MERREM 1000 MG IV ×3 (00:51→15:23)
[2023-11-06] MEDS: NSS 1000 IV ×2 (00:51→11:45)
[2023-11-06 04:53] LABS: Hemoglobin 8.5 g/dL (13.0-18.0); Mean Corp Hgb Conc. 31.5 g/dL (33.0-37.0); Mean Corpuscular Hgb 27.8 pg (27.0-31.0); Mean Corpuscular Volume 88.2 fL (80.0-94.0); Platelet Count 197 10^3/uL (130-400); Red Blood Cell Count 3.06 10^6/uL (4.70-6.10); Red Cell Dist. Width 18.7 % (11.5-14.5); White Blood Cell Count 11.2 10^3/uL (4.8-10.8)
[2023-11-06] MEDS: NSS IV (05:08)
--- NOTE | 2023-11-06 05:10 | PTCARENOTE ---
Assessment unchanged. SR 60s with PVCs on monitor, SpO2 95% on RA. SANTA drain and NGT patent/draining. CHG cloth bath done, full bed changed done as well. Pt has not slept much this shift, has mostly been watching TV and will occasionally close his
eyes but is easily awakened. Medicated for pain x1 this shift with IV Dilaudid (0.25mg) with positive results.
[2023-11-06 05:16] LABS: Blood Urea Nitrogen 14 mg/dl (9-20); Calcium 7.7 mg/dl (8.4-10.2); Carbon Dioxide 26 mmol/L (22-30); Chloride 105 mmol/L (98-107); Estimated Creatinine Clearance 123 ml/min; Glucose 100 mg/dl (70-99); Magnesium 1.9 mg/dl (1.6-2.3); Potassium 3.3 mmol/L (3.5-5.1); Sodium 135 mmol/L (135-145); eGFR > 60.00
[2023-11-06] MEDS: KCL 270 MEQ IV (05:40)
--- NOTE | 2023-11-06 05:40 | W.PN.INTV ---
Today's Communication / Plan
Recommendations
Restart Lovenox DVT prophylaxis when cleared by surgery
Continue mechanical prophylaxis
Follow hemoglobin
Replete potassium
Pain control
SANTA output improved
Assessment
-
78-year-old male with complex medical history admitted 10/21/2023 for UTI. 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 Patient is presently
status post right nephrectomy 11/01. Received 3 units of blood, 2 units of FFP. Patient extubated in the PACU. Transferred to ICU for further management 11/02/2023
S/p Right nephrectomy 11/02/2023
700 cc blood loss, 3 units of blood, 2 units FFP
Extubated postoperatively
Duodenal leak noted 11/03, return to OR
Small bowel perforation, exploratory lap./Repair small laceration
NG tube, SANTA drain in place
Extubated 11/04/2023
Hyponatremia/hypokalemia
Hyperglycemia
Diarrhea, C. difficile antigen positive, toxin negative
Treatment
Xanthogranulomatous pyelonephritis
Recurrent pyelonephritis
Right ureteral stone/stent removal [place]
Right ureteral stent placement 10/23/2023
E. coli, ESBL/Proteus
s/p IR drain 10/27/2023
Chronic suprapubic catheter
BPH
Anemia, postoperative
Conditions present prior to admission
Coronary disease, CABG/stent
History of normocytic anemia
Upper GI bleed, Hemoccult to emesis in the past
Hypertension
GERD
History of stroke
Plan/recommendations
At this time, patient appears comfortable
weaned off norepinephrine
Suspect hypotension was secondary to Dilaudid
Presently on room air
SANTA drain in place, suprapubic catheter, abdominal dressing, prior right upper quadrant nathaly intact
Hemoglobin 8.5 noted. Stable
SNATA drainage noted, has decreased to 195 cc
NG output 100 cc
Suprapubic output adequate
Moving forward
Continue with supportive care
NG tube remains in place
IV fluids
Maintain n.p.o. per surgery
Follow SANTA output
Follow hemoglobin
Maintain active type and screen
Hemoglobin stable at this time
Remains on daptomycin/meropenem/fluconazole.
Extensive hospital course reviewed
ID following
Chest x-ray unremarkable, EKG unremarkable
Incentive spirometry as able
Pain control
Will consider Lasix down the road, significant fluid resuscitation over the last 24 hours
No echocardiogram available for review in the recent year
DVT prophylaxis: Sequential teds. When cleared, resume pharmacological DVT prophylaxis if able from surgical standpoint. Per urology, okay to start DVT prophylaxis after 24 hours. Will confirm Lovenox and aspirin reinitiation, especially given
drop in hemoglobin
GI prophylaxis: Pantoprazole. History of upper GI bleed noted/hematemesis
Head of bed elevated, aspiration precautions
Reviewed with critical care, pharmacy, respiratory care
Subjective Dataa
Subjective Data
Date of Service:
Date of Service: November 06, 2023
Subjective:
Patient is without complaints. Continues with abdominal pain, currently rates it 8/10 but appears comfortable. Denies shortness of breath, chest pain, nausea
Objective Data
Data Reviewed
Vital Signs / I&O / Oxygen:
Vital Signs
Temp Pulse Resp BP Pulse Ox
97.0 F 63 13 131/57 93
11/06/23 03:20 11/06/23 04:00 11/06/23 04:00 11/06/23 04:00 11/06/23 04:00
Intake and Output
11/04/23 11/05/23 11/06/23
06:59 06:59 06:59
Intake Total 1360 / 1360 4301.0 / 4421.0 3382 / 3382
Output Total 1315 / 1315 1495 / 1530 1045 / 1045
Balance 45 / 45 2806.0 / 2891.0 2337 / 2337
SaO2 [A/C] 100
SaO2 93
Nasal Cannula flow liters per 2
minute
Physical Exam
General: Comfortable (Intubated)
HEENT: Normocephalic and Anicteric
Cardiovascular: S1-S2, Regular Rhythm, Murmur (n) and Rub (n)
Respiratory: Wheeze (n), Crackles (n) and Rhonchi (n)
GI: Soft, Non Distended, Tender (Positive tenderness), Other (Suprapubic catheter) and Other (Right abdominal SANTA drain, mid abdominal dressing in place, nathaly right flank/abdomen intact)
Neurology: Awake, Alert, Oriented and No Motor Deficits (Generally weak)
Skin: Cyanosis (n), Jaundice (n) and Rash (n)
Labs/Micro/Reports
Lab Data
11/06/23 04:40
11/06/23 04:40
[2023-11-06] MEDS: NSS (PRESERVATIVE FREE) 10 ML IV ×2 (07:35→20:05)
[2023-11-06] MEDS: PROTONIX IV 40 MG IV ×2 (07:36→20:05)
--- NOTE | 2023-11-06 07:56 | W.PN.URO.CBU ---
Today's Communication / Plan
-
continue scott/npo and ng
small bowel study on wednesday
restart subheparin tomorrow if hgb remains stable today
continue sp tube
Assessment / Plan
-
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
Recurrent UTI and catheter obstruction
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
s/p suprapubic tube replacement
s/p R ureteral stent placement 10/22 with purulent drainage. Calcified debris and ureteral kinking noted on retrograde study
s/p IR drain placement 10/26
s/p RIGHT NEPHRECTOMY 11/01
s/p repair of small bowel injury 11/03
pt stable continue to monitor drain output and hgb/wbc
antibx per ID
gsu following- plan for continued npo and ng with small bowel study on wednesday
would restart subhep tomorrow- then when taking po's prob ok to resume asa and plavix
Diagnosis
-
Date of Service: November 06, 2023
-
Recurrent R ureteral obstruction
XGP kidney
Urinary retention with chronic SPT
Post Op s/p cystoscopy, R ureteral stent placement 10/22
IR drain placement 10/26
s/p right nephrectomy 11/01
small bowel laceration- repair 11/03
Subjective
-
pt stable
hgb stable
no fevers/wbc downtrending
drain minimal- serous-
Objective
-
Vital Signs
Temp Pulse Resp BP Pulse Ox
97.0 F 64 16 130/54 93
11/06/23 03:20 11/06/23 06:00 11/06/23 06:00 11/06/23 06:00 11/06/23 06:00
Intake and Output
11/05/23 11/06/23 11/07/23
06:59 06:59 06:59
Intake Total 4301.0 / 4421.0 3772 / 3772
Output Total 1495 / 1530 1265 / 1265
Balance 2806.0 / 2891.0 2507 / 2507
Intake:
IV fluids (Total) 2107.0 / 2227.0 2880 / 2880
Levophed 127.0 / 127.0
Nss 1,000 ml @ 120 mls/hr IV . 1680 / 1800 2880 / 2880
Q8H20M [facility] Rx#:[id number]
normosol 300 / 300
IV piggybacks 2134 / 2134 832 / 832
Amount instilled into GI Tube ( 60 / 60 60 / 60
Total)
[place] Sump 60 / 60 60 / 60
Output:
Drain Output (Total) 945 / 945 240 / 240
Right Lower Abdomen Blas- 945 / 945 240 / 240
Bass
Gastrointestinal tube output ( 50 / 50 100 / 100
Total)
[place] Sump 50 / 50 100 / 100
Suprapubic output 500 / 535 925 / 925
Laboratory Results
11/06/23 04:40
11/06/23 04:40
Review of Systems
-
Constitutional: Fatigue
Respiratory: No Symptoms
Cardiac: No Symptoms
Abdomen/GI: Abdominal Pain (incisional pain)
Physical Exam
-
General - no acute distress
Abdomen - soft, incisional tenderness, sp tube and scott in place
Genitalia - normal
Incision - clean, dry- both flank and abd
--- NOTE | 2023-11-06 08:01 | W.PN.ID1 ---
Date of Service
Date of Service: November 06, 2023
Today's Communication
- antibiotics/antifungals to continue
Assessment / Plan
Xanthogranulomatous Pyelonephritis
- recent h/o pyelonephritis due to MRSA and Proteus (at [place])
s/p IR drain placement 10/26
s/p RIGHT NEPHRECTOMY 11/01
s/p repair of small bowel injury 11/03
- 10/26 renal fluid perc drain cx: Klebsiella, E. coli, ESBL-Proteus, VRE, Sandra krusei
- urine culture polymicrobial Proteus ESBL, E coli
- [facility] urine culture ESBL Proteus, MRSA
- continue fluconazole 400 mg qday via IV can transition to oral when patient able to consistently take oral meds
- lexapro dose previously decreased to 10 mg Qday (1/2 starting dose) given interaction with fluconazole - continue on this dose while on fluconazole
- continue daptomycin
- hold statin
- ck normal 10/31, repeat on wednesday
- meropenem 1 gm IV q 8hrs continue
- antibiotics/antifungals to continue
C. diff colonization
- probiotic held while NPO
Chief Complaint
-: Other (Xanthogranulomatous pyelonephritis (XGP))
Subjective / Review of Systems
afebrile
bp stable off of pressors
improving leukocytosis
cr stable
No complaints
Vital Signs / Physical Exam
Vital Signs
Vital Signs
Temp Pulse Resp BP Pulse Ox
97.0 F 64 16 130/54 93
11/06/23 03:20 11/06/23 06:00 11/06/23 06:00 11/06/23 06:00 11/06/23 06:00
Physical Exam
Constitutional: No Acute Distress
Cardiovascular: Regular Rate and S1/S2; Negative Murmur or Rub
Pulmonary: Clear and Symmetric; Negative Wheezes or Rales
Gastrointestinal: Soft, Non Tender, Non Distended and Normal Bowel Sounds
Skin: Warm and Dry; Negative Rash or Jaundice
Objective Data
Lab Data
Lab Results
11/06/23 04:40
11/06/23 04:40
PT 17.6 Sec (11.4-14.6) H 11/05/23 03:59
INR 1.44 11/05/23 03:59
APTT 45.2 Sec (23.4-35.0) H 11/05/23 03:59
Estimated Creat Clear 123 ml/min 11/06/23 04:40
Lactic Acid Cancelled 10/21/23 21:30
Total Bilirubin 1.0 mg/dl (0.2-1.3) 11/04/23 15:00
AST 37 U/L (17-59) 11/04/23 15:00
ALT 45 U/L (0-50) 11/04/23 15:00
Alkaline Phosphatase 150 U/L (38-126) H 11/04/23 15:00
Most recent labs reviewed.
Micro Results:
10/26/23 09:23 Anaerobic Culture - Final
Kidney Fluid NO ANAEROBES ISOLATED
10/26/23 09:23 Body Fluid Culture - Final
Kidney Fluid Proteus Mirabilis-ESBL
Klebsiella pneumoniae
Escherichia coli
Enterococcus faecium - VRE
Sandra krusei
Gram Stain - Final
10/31/23 18:04 C. difficile GDH Antigen & Toxins - Final
Feces/Stool C. difficile antigen positive, toxin negative.
Clostridium difficile present, but toxin not detected.
Patient may be a carrier, colonized with nontoxinogenic
strain or the level of toxin in sample is below detection
limits. This information should be used in conjunction with
the patient's clinical history.
10/21/23 17:31 Blood Culture - Final
Blood/Venous Coagulase neg. staphylococcus
Additional testing on request
Gram Stain - Final
10/21/23 17:41 Urine Culture - Final
Urine Escherichia coli
Proteus Mirabilis-ESBL
10/21/23 17:31 Blood Culture - Final
Blood/Venous No Growth - Final Report
10/22/23 07:59 Urine Culture - Final
Urine Proteus Mirabilis-ESBL
[2023-11-06] MEDS: DIFLUCAN 400 MG 200 IV (09:34)
--- NOTE | 2023-11-06 10:12 | PTCARENOTE ---
Rec'd pt at 0700. Pt AAOx2, forgetful. Pt agitated/argumentative at times with care. Follows commands, CARBONE with gen weakness. Monitor SR/1st degree. Lungs dim, pox 97% RA. +hypo BS, incont for small amt pasty brown BM. NGT to sx. Right flank and
midline incisions [employer] with nathaly intact. Right SANTA site with moderate amt drainage, dressing changed. Serosang drainage in bulb. Suprapubic draining yellow urine. Wound care to left heel/ankle done as per orders. Heels boots in place.
--- NOTE | 2023-11-06 13:05 | W.PN.GS2 ---
Addendum entered and electronically signed by Sudhir Lozano MD 11/06/23 18:53:
Patient seen and examined earlier today with nurse practitioner. This is a delayed entry.
Offers no complaints. Smiling watching television. States postoperative incisional pain controlled. No nausea.
AFVSS
ABD: Soft, nondistended, midline laparotomy incision without erythema or drainage. Right flank incision without erythema or drainage
SANTA with light serosanguineous fluid, nonbilious nonpurulent
NG tube with light gastric/bilious contents
Assessment/plan: Continue NG tube decompression and following SANTA outputs
PPI twice daily given duodenal perforation
Plan for upper GI contrast imaging study on Wednesday and if okay then remove NG tube and start p.o. liquids
Addendum entered and electronically signed by RICH De Jesus 11/06/23 16:53:
correction to below: POD #4 open right nephrectomy and POD #2 ex lap for duodenal repair
Original Note:
Today's Communication / Plan
-
C/W NGT
Tentative UGI study on Wednesday if progressing well
Assessment / Plan
-
78 yo male with h/o CAD, TBI and chronic SPT who is POD #3 open right nephrectomy for recurrent emphysematous pyelonephritis with subsequent return to OR for repair of duodenal injury now POD #1 ex lap and primary repair of duodenal perforation
AFVSS
WBC trending back down. h/h stable
SANTA outputs continue to slow, light SSF noted
--Continue NGT for decompression to LIWS with gentle flushes to maintain patency
--Tentative UGI contrast study on Wednesday pending patient progress. If no extravasation with contrast, plan to remove NGT and start liquids PO
--Continue NPO/IVF
--Continue to follow SANTA outputs
--Continue IV PPI BID
--Analgesics prn with Ofirmev, Dilaudid. Hold on NSAIDs given duodenal injury
--IV abx as per ID
--Will follow labs
--Local incisional care
--VTE ppx as per primary team, SCDs while in Bed. Ok for chemical ppx from surgical standpoint
Subjective Data
-
Date of Service: November 06, 2023
Patient seen and examined at bedside with Dr. Lozano. Asking when he can eat. Denies n/v. Denies pain. Question's addressed
Objective Data
-
Intake and Output
11/05/23 11/06/23 11/07/23
06:59 06:59 06:59
Intake Total 4301.0 / 4421.0 3772 / 3959.5 975.0 / 975.0
Output Total 1495 / 1530 1265 / 1265 785 / 785
Balance 2806.0 / 2891.0 2507 / 2694.5 190.0 / 190.0
Intake:
IV fluids (Total) 2107.0 / 2227.0 2880 / 3000 840 / 840
Levophed 127.0 / 127.0
Nss 1,000 ml @ 120 mls/hr IV . 1680 / 1800 2880 / 3000 840 / 840
Q8H20M [facility] Rx#:[id number]
normosol 300 / 300
IV piggybacks 2134 / 2134 832 / 899.5 135.0 / 135.0
Amount instilled into GI Tube ( 60 / 60 60 / 60
Total)
[place] Sump 60 / 60 60 / 60
Output:
Drain Output (Total) 945 / 945 240 / 240 60 / 60
Right Lower Abdomen Blas- 945 / 945 240 / 240 60 / 60
Bass
Gastrointestinal tube output ( 50 / 50 100 / 100
Total)
[place] Sump 50 / 50 100 / 100
Suprapubic output 500 / 535 925 / 925 725 / 725
Vital Signs
Temp Pulse Resp BP Pulse Ox
97.7 F 68 13 136/62 97
11/06/23 12:15 11/06/23 10:00 11/06/23 10:00 11/06/23 10:00 11/06/23 10:00
Lab Results
11/06/23 04:40
11/06/23 04:40
Calcium 7.7 mg/dl (8.4-10.2) L 11/06/23 04:40
Phosphorus 2.7 mg/dl (2.5-4.5) 11/05/23 03:59
Magnesium 1.9 mg/dl (1.6-2.3) 11/06/23 04:40
Total Bilirubin 1.0 mg/dl (0.2-1.3) 11/04/23 15:00
Direct Bilirubin 0.3 mg/dl (0.0-0.4) 10/27/23 05:42
AST 37 U/L (17-59) 11/04/23 15:00
ALT 45 U/L (0-50) 11/04/23 15:00
Alkaline Phosphatase 150 U/L (38-126) H 11/04/23 15:00
Total Protein 5.8 g/dl (6.3-8.2) L 11/04/23 15:00
Albumin 2.5 g/dl (3.5-5.0) L 11/04/23 15:00
Physical Exam
-
NAD
ABD soft, expected tenderness, ND, [employer] REFINISH[employer]. NGT with minimal gastric/bilious ouptuts
Transverse and midline incisions with intact staple lines without erythema, SANTA with light SSF
SPT with clear, yellow urine
[2023-11-06] MEDS: CUBICIN 16 MG IV (15:23)
--- NOTE | 2023-11-06 17:09 | PTCARENOTE ---
No changes in assessment. Son at bedside, updated.
--- NOTE | 2023-11-06 17:19 | W.PN.HOSP.TC ---
Today's Communication/Plan
-
start Heparin 5k q12h
Assessment / Plan
Assessment / Plan
Assessment:
Diarrhea
- C. Diff Ag+, toxin -
- hold bowel regimen; add probiotics
- ID aware, no treatment of C. Diff indicated currently
Xanthogranulomatous Pyelonephritis
recent h/o pyelonephritis due to MRSA and Proteus, infected R ureteral stone s/p stent/removal ([place])
- s/p cysto, RGP, stent placement 10/23/23
- repeat CT 10/25 with 8.5 cm gas containing low-density subcapsular collection on the right concerning for renal abscess. Moderate persistent right-sided hydronephrosis despite presence of the stent
- s/p IR guide drain placement 10/26 into subcapsular collection
- s/p Right nephrectomy 11/01
- continue Meropenem/daptomycin/Fluconazole per ID; cultures growing E. Coli, ESBL/Proteus, Klebsiella, VRE and arlene Krusei.
Colonic distention and small bowel manipulation during surgery
- CT 11/03: showed Findings consistent with small bowel injury, likely a leak involving the third segment of the duodenum
- Underwent urgent bowel repair. 11/03 duodenal perforation
- continue IV Abx as above
TME associated with above process of UTI/Pyelonephritis
- improved. Seems back to baseline. No agitation, pleasant and cooperative.
Post-cystoscopy hematuria
- resolved; monitor per Urology
BPH s/p suprapubic catheter
- continue Finasteride
History of Acute blood loss anemia with recent hx of upper GI bleed
Normocytic anemia (anemia chronic disease)
- stable Hb
Atelectasis
- continue IS
Mild hypokalemia
- replacement as needed
Essential HTN BP 127/52
- oral medication on hold: amlodipine, Coreg, Imdur.
Anxiety/Depression
- hold BZD
- continue Lexapro
CAD S/p CABG/Stents
- continue Statin/Coreg/Imdur
- holding ASA per urology
GERD - PPI
Hx of DM neuropathy
- hold Gabapentin
Hx of CVA
Awake but couldn't answer questions in details.
Suspect possible senile or vascular cognitive impairment
- continue ASA/Statin
Left heel Stage 3 pressure injury POA
- continue topical care
DVT ppx: SCDs until cleared by Urology for resumption of thinners
Code: Full
Surgery has cleared pt to start VTE ppx, will order
Total Critical Care Time 45 minutes. I was immediately available to the patient and staff. I personally examined, reviewed labs, diagnostic images/reports, interpretations, treatment plans, discussed patient care with other providers and family
or caregivers (if patient is unable to make decisions), entered orders as appropriate and documented the medical record.
Anticipated Discharge: > 48 hours
Subjective/Interval History
-
Date of Service: November 06, 2023
Answering basic questions
Objective Data
-
Vital Signs:
Vital Signs
Temp Pulse Resp BP Pulse Ox
97.7 F 65 13 145/58 98
11/06/23 15:37 11/06/23 17:00 11/06/23 17:00 11/06/23 17:00 11/06/23 17:00
I&O
11/05/23 11/06/23 11/07/23
06:59 06:59 06:59
Intake Total 4301.0 / 4421.0 3772 / 3959.5 1515.0 / 1515.0
Output Total 1495 / 1530 1265 / 1265 1585 / 1585
Balance 2806.0 / 2891.0 2507 / 2694.5 -70.0 / -70.0
Review of Systems
-
History Source: Patient and Coordinated Provider
Constitutional: Denies Fever
EENT: Reports No Symptoms Reported
Respiratory: Reports No Symptoms
Cardiac: Reports No Symptoms
Abdomen/GI: Reports Abdominal Pain (post op)
Physical Exam
-
General: Well Developed, Well Nourished and Appears Chronically Ill
HEENT: Normocephalic, Atraumatic and Moist Mucous Membranes
Respiratory: Clear to Auscultation (with splinting); Negative Wheezes
Cardiac: Regular Rhythm and S1/S2
GI: Soft and Tender; Negative Normal Bowel Sounds (absent)
Musculoskeletal: No Clubbing, No Cyanosis and No Edema
[2023-11-06] MEDS: NSS with KCL 20 MEQ 1000 IV (17:48)
--- NOTE | 2023-11-06 20:00 | PTCARENOTE ---
Pt requesting pain medicine for midline/right sided abdominal pain. Dilaudid given as ordered with relief. Conversive, smiling, cooperative, confused at times to hospital events. Afebrile. VSS. Room air, clear. NGT LIWS, flushed as ordered. Minimal
output. Abdomen soft, tender. SANTA draining minimal serosang fluid. NPO status maintained. Suprapubic catheter draining clear yellow urine. Skin as documented. Will monitor.
[2023-11-06] MEDS: DILAUDID 0.5 MG IV (20:05)
[2023-11-06] MEDS: HEPARIN 5000 UNITS SC (20:07)
[2023-11-07] VITALS (19 sets, daily range): BP systolic 126–161; BP diastolic 55–97
--- NOTE | 2023-11-07 01:00 | PTCARENOTE ---
No change in previous assessment. Pt resting comfortable. Will cont to monitor.
[2023-11-07] MEDS: NSS with KCL 20 MEQ 1000 IV ×2 (03:12→10:36)
[2023-11-07 05:57] LABS: % Basophils 0.2 % (0-2); % Eosinophils 4.8 % (0-6); % Immature Granulocytes 0.6 % (0-0.5); % Lymphocytes 20.9 % (20.5-51.1); % Monocytes 6.3 % (1.7-9.3); % Neutrophils 67.2 % (42.2-75.2); Absolute Eosinophils 0.4 10^3/uL (0-0.7); Absolute Immature Granulocytes 0.1 10^3/uL (0-0.05); Absolute Lymphocytes 1.8 10^3/uL (1.2-3.4); Absolute Monocytes 0.6 10^3/uL (0.1-0.6); Absolute Neutrophils 5.9 10^3/uL (1.4-6.5); Hematocrit 29.1 % (39.0-52.0); Hemoglobin 9.4 g/dL (13.0-18.0); Mean Corp Hgb Conc. 32.3 g/dL (33.0-37.0); Mean Corpuscular Hgb 27.8 pg (27.0-31.0); Mean Corpuscular Volume 86.1 fL (80.0-94.0); Mean Platelet Volume 9.8 fL (7.4-10.4); Nucleated Red Blood Cells % 0 % (-); Platelet Count 215 10^3/uL (130-400); Red Blood Cell Count 3.38 10^6/uL (4.70-6.10); Red Cell Dist. Width 18.7 % (11.5-14.5); White Blood Cell Count 8.7 10^3/uL (4.8-10.8)
[2023-11-07 06:27] LABS: Blood Urea Nitrogen 9 mg/dl (9-20); Calcium 7.5 mg/dl (8.4-10.2); Carbon Dioxide 27 mmol/L (22-30); Chloride 103 mmol/L (98-107); Estimated Creatinine Clearance 123 ml/min; Glucose 75 mg/dl (70-99); Potassium 3.4 mmol/L (3.5-5.1); Sodium 136 mmol/L (135-145); eGFR > 60.00
[2023-11-07 06:50] LABS: Glucose - Point of Care 67 mg/dl (70-99)
--- NOTE | 2023-11-07 07:06 | PTCARENOTE ---
Blood glucose 67. Dr Ohara made aware. 50ml IV dextrose given as ordered. Will monitor.
--- NOTE | 2023-11-07 07:07 | W.PN.INTV ---
Addendum entered and electronically signed by Jesika Ohara MD 11/07/23 17:33:
Patient transferred out of ICU. We will sign off. Please call with questions
Original Note:
Today's Communication / Plan
Recommendations
Change fluids to D5 normal
Follow blood sugars
Pain control
Add DVT prophylaxis. Okay with surgery
Small bowel study in the morning
Assessment
-
78-year-old male with complex medical history admitted 10/21/2023 for UTI. 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 Patient is presently
status post right nephrectomy 11/01. Received 3 units of blood, 2 units of FFP. Patient extubated in the PACU. Transferred to ICU for further management 11/02/2023
S/p Right nephrectomy 11/02/2023
700 cc blood loss, 3 units of blood, 2 units FFP
Extubated postoperatively
Duodenal leak noted 11/03, return to OR
Small bowel perforation, exploratory lap./Repair small laceration
NG tube, SANTA drain in place
Extubated 11/04/2023
Hyponatremia/hypokalemia
Hyperglycemia
Diarrhea, C. difficile antigen positive, toxin negative
Treatment
Xanthogranulomatous pyelonephritis
Recurrent pyelonephritis
Right ureteral stone/stent removal [place]
Right ureteral stent placement 10/23/2023
E. coli, ESBL/Proteus
s/p IR drain 10/27/2023
Chronic suprapubic catheter
BPH
Anemia, postoperative
Conditions present prior to admission
Coronary disease, CABG/stent
History of normocytic anemia
Upper GI bleed, Hemoccult to emesis in the past
Hypertension
GERD
History of stroke
Plan/recommendations
At this time, patient appears comfortable
weaned off norepinephrine
Suspect hypotension was secondary to Dilaudid
Presently on room air
SANTA drain in place, suprapubic catheter, abdominal dressing, prior right upper quadrant nathaly intact
Hemoglobin 9.4 noted. Stable
SANTA drainage noted, has decreased
NG output minimal
Suprapubic output adequate
Blood sugar this morning noted in the 60s, responded to D50
Moving forward
Continue with supportive care
NG tube remains in place
IV fluids. Will add D5 to IV fluids. Follow blood sugars
Maintain n.p.o. per surgery
Follow SANTA output
Plan for small bowel study on 11/07
Follow hemoglobin
Maintain active type and screen
Hemoglobin stable at this time
Remains on daptomycin/meropenem/fluconazole.
Extensive hospital course reviewed
ID following
Chest x-ray unremarkable, EKG unremarkable
Incentive spirometry as able
Pain control
Will consider Lasix down the road, significant fluid resuscitation over the last 24 hours
No echocardiogram available for review in the recent year
DVT prophylaxis: Sequential teds. Lovenox to be resumed today, okayed by surgery. Eventual resumption of Plavix/aspirin when p.o. intake improves
GI prophylaxis: Pantoprazole. History of upper GI bleed noted/hematemesis
Head of bed elevated, aspiration precautions
Reviewed with critical care, pharmacy, respiratory care
Subjective Dataa
Subjective Data
Date of Service:
Date of Service: November 07, 2023
Subjective:
Overall, patient appears to be comfortable. Denies shortness of breath, chest pain, nausea. Abdominal pain is improved. Patient had lethargy this morning, hypoglycemia noted, responded to D50
Objective Data
Data Reviewed
Vital Signs / I&O / Oxygen:
Vital Signs
Temp Pulse Resp BP Pulse Ox
97.6 F 57 14 144/64 96
11/07/23 03:22 11/07/23 06:00 11/07/23 06:00 11/07/23 06:00 11/07/23 04:00
Intake and Output
11/06/23 11/07/23 11/08/23
06:59 06:59 06:59
Intake Total 3772 / 3959.5 3095.0 / 3095.0
Output Total 1265 / 1265 3845 / 3845
Balance 2507 / 2694.5 -750.0 / -750.0
SaO2 [A/C] 100
SaO2 96
Nasal Cannula flow liters per 2
minute
Physical Exam
General: Comfortable (Intubated)
HEENT: Normocephalic and Anicteric
Cardiovascular: S1-S2, Regular Rhythm, Murmur (n) and Rub (n)
Respiratory: Wheeze (n), Crackles (n) and Rhonchi (n)
GI: Soft, Non Distended, Tender (Positive tenderness, mild, no rebound), Other (Suprapubic catheter) and Other (Right abdominal SANTA drain, mid abdominal dressing in place, nathaly right flank/abdomen intact)
Neurology: Awake, Alert, Oriented and No Motor Deficits (Generally weak)
Skin: Cyanosis (n), Jaundice (n) and Rash (n)
Labs/Micro/Reports
Lab Data
11/07/23 05:38
11/07/23 05:38
[2023-11-07] MEDS: DEXTROSE 50% SYRINGE 25 GRAMS IV (07:20)
[2023-11-07] MEDS: NSS (PRESERVATIVE FREE) 10 ML IV ×2 (07:35→21:20)
[2023-11-07] MEDS: STERILE WATER FOR INJECTION 20 ML IV ×4 (07:35→23:52)
[2023-11-07] MEDS: MERREM 1000 MG IV ×4 (07:35→23:52)
[2023-11-07] MEDS: PROTONIX IV 40 MG IV ×2 (07:35→21:20)
[2023-11-07] MEDS: HEPARIN 5000 UNITS SC (07:35)
[2023-11-07 07:45] LABS: Glucose - Point of Care 88 mg/dl (70-99)
--- NOTE | 2023-11-07 08:30 | W.PN.URO.CBU ---
Today's Communication / Plan
-
sb study tomorrow
Assessment / Plan
-
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
Recurrent UTI and catheter obstruction
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
s/p suprapubic tube replacement
s/p R ureteral stent placement 10/22 with purulent drainage. Calcified debris and ureteral kinking noted on retrograde study
s/p IR drain placement 10/26
s/p RIGHT NEPHRECTOMY 11/01
s/p repair of small bowel injury 11/03
pt stable continue to monitor drain output and hgb/wbc
antibx per ID
gsu following- plan for continued npo and ng with small bowel study on wednesday
can restart subhep today- then when taking po's prob ok to resume asa and plavix
Diagnosis
-
Date of Service: November 07, 2023
-
Recurrent R ureteral obstruction
XGP kidney
Urinary retention with chronic SPT
Post Op s/p cystoscopy, R ureteral stent placement 10/22
IR drain placement 10/26
s/p right nephrectomy 11/01
small bowel laceration- repair 11/03
Subjective
-
pt looks good
expected pain
joking about wanting a pizza
wbc normal/hgb stable- up
scott serosang- slowing
Objective
-
Vital Signs
Temp Pulse Resp BP Pulse Ox
97.5 F 57 14 144/64 96
11/07/23 08:04 11/07/23 06:00 11/07/23 06:00 11/07/23 06:00 11/07/23 04:00
Intake and Output
11/06/23 11/07/23 11/08/23
06:59 06:59 06:59
Intake Total 3772 / 3959.5 3095.0 / 3095.0
Output Total 1265 / 1265 3845 / 3845
Balance 2507 / 2694.5 -750.0 / -750.0
Intake:
IV fluids (Total) 2880 / 3000 2880 / 2880
NSS with KCL 20 MEQ 20 meq In 1 1560 / 1560
,000 ml @ 120 mls/hr IV .Q8H20M
[facility] Rx#:[id number]
Nss 1,000 ml @ 120 mls/hr IV . 2880 / 3000 1320 / 1320
Q8H20M [facility] Rx#:[id number]
IV piggybacks 832 / 899.5 135.0 / 135.0
Amount instilled into GI Tube ( 60 / 60 80 / 80
Total)
[place] Sump 60 / 60 80 / 80
Output:
Drain Output (Total) 240 / 240 120 / 120
Right Lower Abdomen Blas- 240 / 240 120 / 120
Bass
Gastrointestinal tube output ( 100 / 100 100 / 100
Total)
[place] Sump 100 / 100 100 / 100
Suprapubic output 925 / 925 3175 / 3175
Urostomy output 450 / 450
Laboratory Results
11/07/23 05:38
11/07/23 05:38
Physical Exam
-
General - no acute distress
Abdomen - soft, non-tender, sp tube and scott in place
Genitalia - normal
Incision - clean, dry- both abd and flank
--- NOTE | 2023-11-07 08:58 | PTCARENOTE ---
Rec'd pt at 0700. Pt AAOx2, forgetful to time and situation. Pt stated he had a better night, denies having any pain this am. Monitor SBR/SR, 1st degree AVB. Lungs dim, pox 95% RA. +hypo BS. NGT to LIWS, brown/green drainage. Midline and right flank
incisions MAVERICK/nathaly intact. Right SANTA drain site with drainage, dressing changed. Bulb with serosang drainage. Suprapubic draining cloudy yellow urine. Wound care done to left heel/ankle as per orders. Foam boots in place. Pt repositioned, incont
for small soft brown BM.
--- NOTE | 2023-11-07 09:03 | W.PN.ID1 ---
Date of Service
Date of Service: November 07, 2023
Today's Communication
follow up SB study wednesday
Assessment / Plan
Xanthogranulomatous Pyelonephritis
- recent h/o pyelonephritis due to MRSA and Proteus (at [place])
s/p IR drain placement 10/26
s/p RIGHT NEPHRECTOMY 11/01
s/p repair of small bowel injury 11/03
- 10/26 renal fluid perc drain cx: Klebsiella, E. coli, ESBL-Proteus, VRE, Sandra krusei
- urine culture polymicrobial Proteus ESBL, E coli
- [facility] urine culture ESBL Proteus, MRSA
- will follow up SB study tomorrow
- continue fluconazole 400 mg qday via IV can transition to oral when patient able to consistently take oral meds
- lexapro dose previously decreased to 10 mg Qday (1/2 starting dose) given interaction with fluconazole - continue on this dose while on fluconazole
- continue daptomycin
- hold statin
- ck normal 10/31, repeat on wednesday
- meropenem 1 gm IV q 8hrs continue
- antibiotics/antifungals to continue
C. diff colonization
- probiotic held while NPO
Chief Complaint
-: Other (Xanthogranulomatous pyelonephritis (XGP))
Subjective / Review of Systems
afebrile
bp stable
leukocytosis resolved today
hgb improved
cr 0.5
for sb study tomorrow
ongoing output in the NGT
Vital Signs / Physical Exam
Vital Signs
Vital Signs
Temp Pulse Resp BP Pulse Ox
97.5 F 57 14 144/64 96
11/07/23 08:04 11/07/23 06:00 11/07/23 06:00 11/07/23 06:00 11/07/23 04:00
Physical Exam
Constitutional: No Acute Distress
Cardiovascular: Regular Rate and S1/S2; Negative Murmur or Rub
Pulmonary: Clear and Symmetric; Negative Wheezes or Rales
Gastrointestinal: Soft, Non Tender, Non Distended and Normal Bowel Sounds
Skin: Warm and Dry; Negative Rash or Jaundice
Lines: Other (yellow fluid in the NGT)
Objective Data
Lab Data
Lab Results
11/07/23 05:38
11/07/23 05:38
PT 17.6 Sec (11.4-14.6) H 11/05/23 03:59
INR 1.44 11/05/23 03:59
APTT 45.2 Sec (23.4-35.0) H 11/05/23 03:59
Estimated Creat Clear 123 ml/min 11/07/23 05:38
Lactic Acid Cancelled 10/21/23 21:30
Total Bilirubin 1.0 mg/dl (0.2-1.3) 11/04/23 15:00
AST 37 U/L (17-59) 11/04/23 15:00
ALT 45 U/L (0-50) 11/04/23 15:00
Alkaline Phosphatase 150 U/L (38-126) H 11/04/23 15:00
Most recent labs reviewed.
Micro Results:
10/26/23 09:23 Anaerobic Culture - Final
Kidney Fluid NO ANAEROBES ISOLATED
10/26/23 09:23 Body Fluid Culture - Final
Kidney Fluid Proteus Mirabilis-ESBL
Klebsiella pneumoniae
Escherichia coli
Enterococcus faecium - VRE
Sandra krusei
Gram Stain - Final
10/31/23 18:04 C. difficile GDH Antigen & Toxins - Final
Feces/Stool C. difficile antigen positive, toxin negative.
Clostridium difficile present, but toxin not detected.
Patient may be a carrier, colonized with nontoxinogenic
strain or the level of toxin in sample is below detection
limits. This information should be used in conjunction with
the patient's clinical history.
10/21/23 17:31 Blood Culture - Final
Blood/Venous Coagulase neg. staphylococcus
Additional testing on request
Gram Stain - Final
10/21/23 17:41 Urine Culture - Final
Urine Escherichia coli
Proteus Mirabilis-ESBL
10/21/23 17:31 Blood Culture - Final
Blood/Venous No Growth - Final Report
10/22/23 07:59 Urine Culture - Final
Urine Proteus Mirabilis-ESBL
[2023-11-07 09:43] LABS: Glucose - Point of Care 105 mg/dl (70-99)
[2023-11-07] MEDS: DIFLUCAN 400 MG 200 IV (10:47)
--- NOTE | 2023-11-07 11:26 | W.PN.GS2 ---
Today's Communication / Plan
-
`
Assessment / Plan
-
Assessment: 78 yo male with h/o CAD, TBI and chronic SPT who is POD #5 open right nephrectomy for recurrent emphysematous pyelonephritis with subsequent return to OR for repair of duodenal injury now POD #2 ex lap and primary repair of duodenal
perforation
AFVSS
WBC normalized
SANTA nonbilious
Plan: NG tube removed; okay for clear liquid diet -but would hold on p.o. meds with initial p.o. challenge
--Continue to follow SANTA outputs
--Continue IV PPI BID
--Analgesics prn with Ofirmev, Dilaudid. No NSAIDs given duodenal injury
--IV abx as per ID
--VTE ppx as per primary team, SCDs while in Bed. Ok for chemical ppx from surgical standpoint
Subjective Data
-
Date of Service: November 07, 2023
Patient seen and examined.
Postoperative incisional/abdominal pain well-controlled
No nausea
Passing flatus regularly
Objective Data
-
Intake and Output
11/05/24 07//24 07/24
06:59 06:59 06:59
Intake Total 3772 / 3959.5 3095.0 / 3215.0 630 / 630
Output Total 1265 / 1265 3845 / 3845 860 / 860
Balance 2507 / 2694.5 -750.0 / -630.0 -230 / -230
Intake:
IV fluids (Total) 2880 / 3000 2880 / 3000 600 / 600
NSS with KCL 20 MEQ 20 meq In 1 1560 / 1680 600 / 600
,000 ml @ 120 mls/hr IV .Q8H20M
JERMAN Rx#:[id number]
Nss 1,000 ml @ 120 mls/hr IV . 2880 / 3000 1320 / 1320
Q8H20M JERMAN Rx#:[id number]
IV piggybacks 832 / 899.5 135.0 / 135.0
Amount instilled into GI Tube ( 60 / 60 80 / 80 30 / 30
Total)
[place] Sump 60 / 60 80 / 80 30 / 30
Output:
Drain Output (Total) 240 / 240 120 / 120 60 / 60
Right Lower Abdomen Blas- 240 / 240 120 / 120 60 / 60
Bass
Gastrointestinal tube output ( 100 / 100 100 / 100
Total)
[place] Sump 100 / 100 100 / 100
Suprapubic output 925 / 925 3175 / 3175
Urostomy output 450 / 450 800 / 800
Vital Signs
Temp Pulse Resp BP Pulse Ox
97.5 F 58 14 154/78 93
11/07/23 08:04 11/07/23 11:00 11/07/23 11:00 11/07/23 11:00 11/07/23 11:00
Lab Results
11/07/23 05:38
11/07/23 05:38
Calcium 7.5 mg/dl (8.4-10.2) L 11/07/23 05:38
Phosphorus 2.7 mg/dl (2.5-4.5) 11/05/23 03:59
Magnesium 1.9 mg/dl (1.6-2.3) 11/06/23 04:40
Total Bilirubin 1.0 mg/dl (0.2-1.3) 11/04/23 15:00
Direct Bilirubin 0.3 mg/dl (0.0-0.4) 10/27/23 05:42
AST 37 U/L (17-59) 11/04/23 15:00
ALT 45 U/L (0-50) 11/04/23 15:00
Alkaline Phosphatase 150 U/L (38-126) H 11/04/23 15:00
Total Protein 5.8 g/dl (6.3-8.2) L 11/04/23 15:00
Albumin 2.5 g/dl (3.5-5.0) L 11/04/23 15:00
Physical Exam
-
NAD, AAOx3
ABD: Nondistended, mild incisional tenderness, no rebound rigidity or guarding.
SANTA light serosanguineous fluid, nonbilious
NG tube like gastric contents in tubing, canister essentially empty
[2023-11-07 11:45] LABS: Glucose - Point of Care 91 mg/dl (70-99)
[2023-11-07] MEDS: D5/0.9% with KCL 40 MEQ 1000 IV (11:54)
--- NOTE | 2023-11-07 12:10 | PTCARENOTE ---
NGT dc'd by Dr. Lozano. Pt started on clear liquid diet. No changes in assessment.
[2023-11-07] MEDS: CUBICIN 16 MG IV (15:18)
--- NOTE | 2023-11-07 16:01 | W.PN.HOSP.TC ---
Today's Communication/Plan
-
transfer to tele
Assessment / Plan
Assessment / Plan
Xanthogranulomatous Pyelonephritis
recent h/o pyelonephritis due to MRSA and Proteus, infected R ureteral stone s/p stent/removal ([place])
- s/p cysto, RGP, stent placement 10/23/23
- repeat CT 10/25 with 8.5 cm gas containing low-density subcapsular collection on the right concerning for renal abscess. Moderate persistent right-sided hydronephrosis despite presence of the stent
- s/p IR guide drain placement 10/26 into subcapsular collection
- s/p Right nephrectomy 11/01
- continue Meropenem/daptomycin/Fluconazole per ID; cultures growing E. Coli, ESBL/Proteus, Klebsiella, VRE and arlene Krusei.
Colonic distention and small bowel manipulation during surgery
- CT 11/03: showed Findings consistent with small bowel injury, likely a leak involving the third segment of the duodenum
- Underwent urgent bowel repair. 11/03 duodenal perforation
- continue IV Abx as above
TME associated with above process of UTI/Pyelonephritis
- improved. Seems back to baseline. No agitation, pleasant and cooperative.
Post-cystoscopy hematuria
- resolved; monitor per Urology
BPH s/p suprapubic catheter
- continue Finasteride once taking oral
Pt has resumed Clear Liquids as per Gen Surg
Diarrhea
- C. Diff Ag+, toxin -
- hold bowel regimen; add probiotics
- ID aware, no treatment of C. Diff indicated currently
History of Acute blood loss anemia with recent hx of upper GI bleed
Normocytic anemia (anemia chronic disease)
- stable Hb
Atelectasis
- continue IS
Mild hypokalemia
- replacement as needed
Essential HTN BP 127/52
- oral medication on hold: amlodipine, Coreg, Imdur.
Anxiety/Depression
- hold BZD
- continue Lexapro
CAD S/p CABG/Stents
- continue Statin/Coreg/Imdur once taking po
- holding ASA per urology
GERD - PPI
Hx of DM neuropathy
- hold Gabapentin
Hx of CVA
Awake but couldn't answer questions in details.
Suspect possible senile or vascular cognitive impairment
- resume ASA/Statin once taking po
Left heel Stage 3 pressure injury POA
- continue topical care
DVT ppx: SCDs until cleared by Urology for resumption of thinners
Code: Full
Surgery has cleared pt to start VTE ppx, will order
will transfer to tele OOICU
Anticipated Discharge: > 48 hours
Subjective/Interval History
-
Date of Service: November 07, 2023
Passing some flatus, no stool
Objective Data
-
Labs:
Laboratory Results
11/07/23
05:38
WBC 8.7
Hgb 9.4 L
Hct 29.1 L
Plt Count 215
Sodium 136
Potassium 3.4 L
Chloride 103
Carbon Dioxide 27
BUN 9
Creatinine 0.5 L
Glucose 75
Calcium 7.5 L
Vital Signs:
Vital Signs
Temp Pulse Resp BP Pulse Ox
97.0 F 64 20 161/80 96
11/07/23 11:49 11/07/23 15:00 11/07/23 15:00 11/07/23 15:00 11/07/23 12:00
I&O
11/06/23 11/07/23 11/08/23
06:59 06:59 06:59
Intake Total 3772 / 3959.5 3095.0 / 3215.0 1350 / 1350
Output Total 1265 / 1265 3845 / 3845 2560 / 2560
Balance 2507 / 2694.5 -750.0 / -630.0 -1210 / -1210
Review of Systems
-
History Source: Patient and Coordinated Provider
Constitutional: Denies Fever
EENT: Reports No Symptoms Reported
Respiratory: Reports No Symptoms
Cardiac: Reports No Symptoms
Abdomen/GI: Reports Abdominal Pain (post op)
Physical Exam
-
General: Well Developed, Well Nourished and Appears Chronically Ill
HEENT: Normocephalic, Atraumatic and Moist Mucous Membranes
Respiratory: Clear to Auscultation (with splinting); Negative Wheezes
Cardiac: Regular Rhythm and S1/S2
GI: Soft and Tender; Negative Normal Bowel Sounds (decreased, but noted to be present)
Musculoskeletal: No Clubbing, No Cyanosis and No Edema
[2023-11-07] MEDS: LOVENOX 40 MG SC (17:13)
--- NOTE | 2023-11-07 18:49 | TRANSFER ---
Pt transferred to [address] [place] [address] room 2130 via bed, belongings with pt.
[2023-11-07 21:42] LABS: Glucose - Point of Care 217 mg/dl (70-99)
[2023-11-08 02:55] LABS: Glucose - Point of Care 198 mg/dl (70-99)
[2023-11-08 02:59] VITALS: BP 135/76
[2023-11-08] MEDS: D5/0.9% with KCL 40 MEQ 1000 IV (04:40)
[2023-11-08 05:25] VITALS: BMI 22.3
[2023-11-08 05:29] LABS: % Basophils 0.2 % (0-2); % Eosinophils 3.3 % (0-6); % Immature Granulocytes 0.8 % (0-0.5); % Lymphocytes 21.7 % (20.5-51.1); % Monocytes 7.1 % (1.7-9.3); % Neutrophils 66.9 % (42.2-75.2); Absolute Eosinophils 0.3 10^3/uL (0-0.7); Absolute Immature Granulocytes 0.1 10^3/uL (0-0.05); Absolute Lymphocytes 1.8 10^3/uL (1.2-3.4); Absolute Monocytes 0.6 10^3/uL (0.1-0.6); Absolute Neutrophils 5.6 10^3/uL (1.4-6.5); Hematocrit 30.1 % (39.0-52.0); Mean Corp Hgb Conc. 33.2 g/dL (33.0-37.0); Mean Corpuscular Hgb 27.7 pg (27.0-31.0); Mean Corpuscular Volume 83.4 fL (80.0-94.0); Mean Platelet Volume 9.5 fL (7.4-10.4); Nucleated Red Blood Cells % 0 % (-); Platelet Count 219 10^3/uL (130-400); Red Blood Cell Count 3.61 10^6/uL (4.70-6.10); Red Cell Dist. Width 18.3 % (11.5-14.5); White Blood Cell Count 8.4 10^3/uL (4.8-10.8)
[2023-11-08 05:54] LABS: ALT (SGPT) 19 U/L (0-50); AST (SGOT) 17 U/L (17-59); Albumin 2.3 g/dl (3.5-5.0); Alkaline Phosphatase 104 U/L (38-126); Blood Urea Nitrogen 7 mg/dl (9-20); Calcium 7.3 mg/dl (8.4-10.2); Carbon Dioxide 30 mmol/L (22-30); Chloride 97 mmol/L (98-107); Creatine Phosphokinase 32 U/L (55-170); Estimated Creatinine Clearance 118 ml/min; Glucose 188 mg/dl (70-99); Potassium 3.2 mmol/L (3.5-5.1); Sodium 131 mmol/L (135-145); Total Bilirubin 0.8 mg/dl (0.2-1.3); Total Protein 5.4 g/dl (6.3-8.2); eGFR > 60.00
--- NOTE | 2023-11-08 06:39 | W.PN.URO.CBU ---
Today's Communication / Plan
-
continue scott
sb study per [facility]
Assessment / Plan
-
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
Recurrent UTI and catheter obstruction
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
s/p suprapubic tube replacement
s/p R ureteral stent placement 10/22 with purulent drainage. Calcified debris and ureteral kinking noted on retrograde study
s/p IR drain placement 10/26
s/p RIGHT NEPHRECTOMY 11/01
s/p repair of small bowel injury 11/03
pt stable continue to monitor drain output and hgb/wbc
antibx per ID
[facility] following- plan for sb study today
if sb study ok- and [facility] in agreement- ok to restart oral anticoag from urology standpoint
Diagnosis
-
Date of Service: November 08, 2023
-
Recurrent R ureteral obstruction
XGP kidney
Urinary retention with chronic SPT
Post Op s/p cystoscopy, R ureteral stent placement 10/22
IR drain placement 10/26
s/p right nephrectomy 11/01
small bowel laceration- repair 11/03
Subjective
-
pt looks ok
ng was removed yesterday- has had clear liquids- + flatus and one stool
scott output still about 40-60cc per shift/ not bilious
hgb and wbc stable- lovenox started yesteray
Objective
-
Vital Signs
Temp Pulse Resp BP Pulse Ox
98.3 F 95 18 135/76 95
11/08/23 02:59 11/08/23 02:59 11/08/23 02:59 11/08/23 02:59 11/08/23 02:59
Intake and Output
07/10/2411/07/23 11/08/23
06:59 06:59 06:59
Intake Total 3772 / 3959.5 3095.0 / 3215.0 3810 / 3810
Output Total 1265 / 1265 3845 / 3845 5480 / 5480
Balance 2507 / 2694.5 -750.0 / -630.0 -1670 / -1670
Intake:
Oral fluids 2039 / 2039
IV fluids (Total) 2880 / 3000 2880 / 3000 1740 / 1740
D5/0.9% with KCL 40 MEQ 40 meq 420 / 420
In 1,000 ml @ 60 mls/hr IV .
[id number] [facility]ERMAN Rx#:[id number]
NSS with KCL 20 MEQ 20 meq In 1 1560 / 1680 600 / 600
,000 ml @ 120 mls/hr IV .Q8H20M
[facility]ERMAN Rx#:[id number]
Nss 1,000 ml @ 120 mls/hr IV . 2880 / 3000 1320 / 1320
Q8H20M [facility]ERMAN Rx#:[id number]
IV piggybacks 832 / 899.5 135.0 / 135.0
Amount instilled into GI Tube ( 60 / 60 80 / 80 30 / 30
Total)
[place] Sump 60 / 60 80 / 80 30 / 30
Output:
Drain Output (Total) 240 / 240 120 / 120 180 / 180
Right Lower Abdomen Blas- 240 / 240 120 / 120 180 / 180
Bass
Gastrointestinal tube output ( 100 / 100 100 / 100
Total)
[place] Sump 100 / 100 100 / 100
Suprapubic output 925 / 925 3175 / 3175 5300 / 5300
Urostomy output 450 / 450
Laboratory Results
11/08/23 05:08
11/08/23 05:08
Review of Systems
-
Constitutional: Fatigue
Respiratory: No Symptoms
Cardiac: No Symptoms
Abdomen/GI: Abdominal Pain (stable)
Physical Exam
-
General - no acute distress
Abdomen - soft, some incisional tenderness- sp tube and scott in place
Genitalia - normal
Incision - clean, dry- bot flank and abd
[2023-11-08 07:30] LABS: Glucose - Point of Care 180 mg/dl (70-99)
[2023-11-08 07:53] VITALS: BP 141/73
--- NOTE | 2023-11-08 09:08 | W.PN.GS2 ---
Addendum entered and electronically signed by Prosper Jackman MD 11/08/23 13:15:
I saw and examined the patient independently.
The Internet Programmer's note was reviewed and I agree with the note, assessment and plan except where noted below.
Comment: Postoperative day 4 ex lap, repair of duodenal perforation.
Full liquid diet with supplements. Anticipate staying on this diet for roughly 1 week, can advance to a regular diet thereafter.
Continue SANTA to bulb suction
Original Note:
Today's Communication / Plan
-
Full liquid diet
Assessment / Plan
-
Assessment: 78 yo male with h/o CAD, TBI and chronic SPT who is POD #6 open right nephrectomy for recurrent emphysematous pyelonephritis with subsequent return to OR for repair of duodenal injury now POD #4 ex lap and primary repair of duodenal
perforation
AFVSS
H/H stable, no leukocytosis
electrolyte abnormalities noted
SANTA nonbilious, expected SS outputs
Plan: --Advance to FLD with supplements. Will remain on this diet for minimum of 1 week
--OK for PO meds
--Continue to follow SANTA outputs
--Continue IV PPI BID
--Analgesics prn with Tylenol, oxycodone, Dilaudid. No NSAIDs given duodenal injury
--IV abx as per ID
--IVF/electrolyte correction as per primary team
--VTE ppx as per primary team, SCDs while in Bed. Ok for chemical ppx from surgical standpoint
Subjective Data
-
Date of Service: November 08, 2023
Patient seen and examined at bedside with Dr. Jackman. Denies pain. Tolerating diet. No n/v. Would like to have more to eat. Passing flatus, reports no BM as of yet. Asking when he can go home.
Objective Data
-
Intake and Output
07/07/24 07/08/24 07/09/24
06:59 06:59 06:59
Intake Total 3095.0 / 3215.0 3810 / 3810
Output Total 3845 / 3845 5480 / 5480
Balance -750.0 / -630.0 -1670 / -1670
Intake:
Oral fluids 2039 / 2039
IV fluids (Total) 2880 / 3000 1740 / 1740
D5/0.9% with KCL 40 MEQ 40 meq 420 / 420
In 1,000 ml @ 60 mls/hr IV .
[id number] [facility] Rx#:[id number]
NSS with KCL 20 MEQ 20 meq In 1 1560 / 1680 600 / 600
,000 ml @ 120 mls/hr IV .Q8H20M
[facility] Rx#:[id number]
Nss 1,000 ml @ 120 mls/hr IV . 1320 / 1320
Q8H20M [facility] Rx#:[id number]
IV piggybacks 135.0 / 135.0
Amount instilled into GI Tube ( 80 / 80 30 / 30
Total)
[place] Sump 80 / 80 30 / 30
Output:
Drain Output (Total) 120 / 120 180 / 180
Right Lower Abdomen Blas- 120 / 120 180 / 180
Bass
Gastrointestinal tube output ( 100 / 100
Total)
[place] Sump 100 / 100
Suprapubic output 3175 / 3175 5300 / 5300
Urostomy output 450 / 450
Vital Signs
Temp Pulse Resp BP Pulse Ox
97.6 F 69 18 141/73 98
11/08/23 07:53 11/08/23 07:53 11/08/23 07:53 11/08/23 07:53 11/08/23 07:53
Lab Results
11/08/23 05:08
11/08/23 05:08
Calcium 7.3 mg/dl (8.4-10.2) L 11/08/23 05:08
Phosphorus 2.7 mg/dl (2.5-4.5) 11/05/23 03:59
Magnesium 1.9 mg/dl (1.6-2.3) 11/06/23 04:40
Total Bilirubin 0.8 mg/dl (0.2-1.3) 11/08/23 05:08
Direct Bilirubin 0.3 mg/dl (0.0-0.4) 10/27/23 05:42
AST 17 U/L (17-59) 11/08/23 05:08
ALT 19 U/L (0-50) 11/08/23 05:08
Alkaline Phosphatase 104 U/L (38-126) 11/08/23 05:08
Total Protein 5.4 g/dl (6.3-8.2) L 11/08/23 05:08
Albumin 2.3 g/dl (3.5-5.0) L 11/08/23 05:08
Physical Exam
-
NAD, AAOx3
ABD: Nondistended, mild incisional tenderness, no rebound rigidity or guarding.
SANTA light serosanguineous fluid, nonbilious
right chevron and midline incisions with intact nathaly, well approximated, no erythema
[2023-11-08] MEDS: STERILE WATER FOR INJECTION 20 ML IV ×3 (09:45→23:20)
[2023-11-08] MEDS: MERREM 1000 MG IV ×3 (09:45→23:20)
[2023-11-08] MEDS: PROTONIX IV 40 MG IV ×2 (09:46→21:00)
[2023-11-08] MEDS: NSS (PRESERVATIVE FREE) 10 ML IV ×2 (09:46→21:00)
[2023-11-08] MEDS: DIFLUCAN 400 MG 200 IV (10:23)
[2023-11-08 10:37] LABS: Glucose - Point of Care 158 mg/dl (70-99)
--- NOTE | 2023-11-08 10:48 | W.PN.HOSP.TC ---
Today's Communication/Plan
-
.
Assessment / Plan
Assessment / Plan
Xanthogranulomatous Pyelonephritis
recent h/o pyelonephritis due to MRSA and Proteus, infected R ureteral stone s/p stent/removal ([place])
- s/p cysto, RGP, stent placement 10/23/23
- repeat CT 10/25 with 8.5 cm gas containing low-density subcapsular collection on the right concerning for renal abscess. Moderate persistent right-sided hydronephrosis despite presence of the stent
- s/p IR guide drain placement 10/26 into subcapsular collection
- s/p Right nephrectomy 11/01
- continue Meropenem/daptomycin/Fluconazole per ID; cultures growing E. Coli, ESBL/Proteus, Klebsiella, VRE and arlene Krusei.
# Acute duodenal perforation due to colonic distention and small bowel manipulation during surgery
- CT 11/03: showed Findings consistent with small bowel injury, likely a leak involving the third segment of the duodenum
- Underwent urgent bowel repair. 11/03 duodenal perforation
- continue IV Abx as above
- No significant abdominal pain, passing flatulence
- Tolerating full liquids
# Hypokalemia, replaced.
# TME associated with above process of UTI/Pyelonephritis
- improved. Seems back to baseline. No agitation, pleasant and cooperative.
#Post-cystoscopy hematuria
- resolved; monitor per Urology
#BPH s/p suprapubic catheter
- continue Finasteride once taking oral
Diarrhea
- C. Diff Ag+, toxin -
- hold bowel regimen; add probiotics
- ID aware, no treatment of C. Diff indicated currently
#History of Acute blood loss anemia with recent hx of upper GI bleed
Normocytic anemia (anemia chronic disease)
- stable Hb
# Pulmonary Atelectasis
- continue IS. Pt does not use it
Essential HTN
Slightly uncontrolled now
- oral medication were on hold:
Resume Coreg, Imdur.
Anxiety/Depression
- held BZD
- continue Lexapro
CAD S/p CABG/Stents
- continue Statin/Coreg/Imdur once taking po
- holding ASA , will reach out to surgery about timing to start. Possibly extended time after perforation? c/w PPI
GERD - PPI
Hx of DM neuropathy
- hold Gabapentin
Hx of CVA
More alert and pleasant.
Suspect underlying senile or vascular cognitive impairment
- resume ASA/Statin once ok by surgery
Left heel Stage 3 pressure injury POA
- continue topical care
DVT ppx: SCDs until cleared by Urology for resumption of thinners
Code: Full
Total time spent to see the patient, examine the patient, review data and lab results, and discuss the treatment plan with patient, sap business intelligence consultant, nurse around 55 minutes
Anticipated Discharge: > 48 hours
Subjective/Interval History
-
Date of Service: November 08, 2023
No complaints
Mild abd pain, passing flatulence
He feels hungry
Objective Data
-
Labs:
Laboratory Results
11/08/23
05:08
WBC 8.4
Hgb 10.0 L
Hct 30.1 L
Plt Count 219
Sodium 131 L
Potassium 3.2 L
Chloride 97 L
Carbon Dioxide 30
BUN 7 L
Creatinine 0.3 L
Glucose 188 H
Calcium 7.3 L
Total Bilirubin 0.8
AST 17
ALT 19
Alkaline Phosphatase 104
Vital Signs:
Vital Signs
Temp Pulse Resp BP Pulse Ox
97.6 F 69 18 141/73 98
11/08/23 07:53 11/08/23 07:53 11/08/23 07:53 11/08/23 07:53 11/08/23 07:53
I&O
11/07/23 11/08/23 11/09/23
06:59 06:59 06:59
Intake Total 3095.0 / 3215.0 3810 / 3810
Output Total 3845 / 3845 5480 / 5480
Balance -750.0 / -630.0 -1670 / -1670
--- NOTE | 2023-11-08 11:01 | W.PN.ID1 ---
Date of Service
Date of Service: November 08, 2023
Today's Communication
will follow up SB study
- antibiotics/antifungals to continue
Assessment / Plan
Xanthogranulomatous Pyelonephritis
- recent h/o pyelonephritis due to MRSA and Proteus (at [place])
s/p IR drain placement 10/26
s/p RIGHT NEPHRECTOMY 11/01
s/p repair of small bowel injury 11/03
- 10/26 renal fluid perc drain cx: Klebsiella, E. coli, ESBL-Proteus, VRE, Sandra krusei
- urine culture polymicrobial Proteus ESBL, E coli
- [facility] urine culture ESBL Proteus, MRSA
- will follow up SB study
- continue fluconazole 400 mg qday via IV can transition to oral when patient able to consistently take oral meds
- lexapro dose previously decreased to 10 mg Qday (1/2 starting dose) given interaction with fluconazole - continue on this dose while on fluconazole
- continue daptomycin
- hold statin
- ck remains normal 11/07
- meropenem 1 gm IV q 8hrs continue
- antibiotics/antifungals to continue
C. diff colonization
- probiotic held while NPO
Chief Complaint
-: Other (Xanthogranulomatous pyelonephritis (XGP))
Subjective / Review of Systems
afebrile
bp stable
leukocytosis resolved, no L shift
cr stable
no abdominal pain
has a good appetite
Vital Signs / Physical Exam
Vital Signs
Vital Signs
Temp Pulse Resp BP Pulse Ox
97.6 F 69 18 141/73 98
11/08/23 07:53 11/08/23 07:53 11/08/23 07:53 11/08/23 07:53 11/08/23 07:53
Physical Exam
Constitutional: No Acute Distress
Cardiovascular: Regular Rate and S1/S2; Negative Murmur or Rub
Pulmonary: Clear and Symmetric; Negative Wheezes or Rales
Gastrointestinal: Soft, Non Tender, Non Distended and Normal Bowel Sounds
Skin: Warm and Dry; Negative Rash or Jaundice
Wound: Other (surgical site no erythema, warmth, tenderness or drainage)
Objective Data
Lab Data
Lab Results
11/08/23 05:08
11/08/23 05:08
PT 17.6 Sec (11.4-14.6) H 11/05/23 03:59
INR 1.44 11/05/23 03:59
APTT 45.2 Sec (23.4-35.0) H 11/05/23 03:59
Estimated Creat Clear 118 ml/min 11/08/23 05:08
Lactic Acid Cancelled 10/21/23 21:30
Total Bilirubin 0.8 mg/dl (0.2-1.3) 11/08/23 05:08
AST 17 U/L (17-59) 11/08/23 05:08
ALT 19 U/L (0-50) 11/08/23 05:08
Alkaline Phosphatase 104 U/L (38-126) 11/08/23 05:08
Most recent labs reviewed.
Micro Results:
10/26/23 09:23 Anaerobic Culture - Final
Kidney Fluid NO ANAEROBES ISOLATED
10/26/23 09:23 Body Fluid Culture - Final
Kidney Fluid Proteus Mirabilis-ESBL
Klebsiella pneumoniae
Escherichia coli
Enterococcus faecium - VRE
Sandra krusei
Gram Stain - Final
10/31/23 18:04 C. difficile GDH Antigen & Toxins - Final
Feces/Stool C. difficile antigen positive, toxin negative.
Clostridium difficile present, but toxin not detected.
Patient may be a carrier, colonized with nontoxinogenic
strain or the level of toxin in sample is below detection
limits. This information should be used in conjunction with
the patient's clinical history.
10/21/23 17:31 Blood Culture - Final
Blood/Venous Coagulase neg. staphylococcus
Additional testing on request
Gram Stain - Final
10/21/23 17:41 Urine Culture - Final
Urine Escherichia coli
Proteus Mirabilis-ESBL
10/21/23 17:31 Blood Culture - Final
Blood/Venous No Growth - Final Report
10/22/23 07:59 Urine Culture - Final
Urine Proteus Mirabilis-ESBL
[2023-11-08 11:11] VITALS: BP 139/76
--- NOTE | 2023-11-08 11:31 | PTCARENOTE ---
Patient currently receiving D5/0/9% NaCl with 40 meq KCL through R midline, blood sugar checked this AM for 180 and at lunch for 158. Accucheck order from earlier in admission previously cancelled, patient not ordered insulin, has hx diabetes per
H&P. This RN communicated the above with , stated okay to DC IVF, no order for accuchecks or insulin at this time, K rider ordered per for K of 3.2 this AM.
[2023-11-08] MEDS: KCL 270 MEQ IV (12:37)
[2023-11-08] MEDS: NORVASC 2.5 MG PO (12:37)
[2023-11-08 15:06] VITALS: BP 147/69
[2023-11-08] MEDS: CUBICIN 16 MG IV (15:27)
--- NOTE | 2023-11-08 16:30 | CM ---
Full liquid diet w supplements,anticipate for additional 1 week then advance. SANTA to bulb suction. Discharge Plan of Care: SNF for STR. Referrals previously forwarded.
[2023-11-08] MEDS: LOVENOX 40 MG SC (17:10)
[2023-11-08 19:21] VITALS: BP 133/74
[2023-11-08] MEDS: COREG 3.125 MG PO (21:00)
[2023-11-08 23:46] VITALS: BP 132/63
[2023-11-09 03:40] VITALS: BP 131/69
--- NOTE | 2023-11-09 05:40 | PTCARENOTE ---
During walking rounds, this RN noticed brown emesis on patient's chin and neck. Patient's HOB elevated. Patient states he did not choke on vomit. Mouth assessed and there was no vomit to suction. Patient states he was nauseous, but felt relief after
incident. Patient abdomen soft, nontender. A sample was collected. [facility] notified along with General Surgery. Patient ordered NPO.
[2023-11-09 06:00] VITALS: BMI 22.2
--- NOTE | 2023-11-09 07:48 | W.PN.GS2 ---
Today's Communication / Plan
-
`
Assessment / Plan
-
Assessment: 78 yo male with h/o CAD, TBI and chronic SPT who is POD #7 open right nephrectomy for recurrent emphysematous pyelonephritis with subsequent return to OR for repair of duodenal injury now POD #5 ex lap and primary repair of duodenal
perforation
AFVSS
SANTA nonbilious, expected SS outputs
Plan: -- check UGI contrast study d/t vomiting this AM to ensure adequate gastric emptying
--NPO pending study - started on d/5 1/2NSS with 20kcl while NPO
--Continue to follow SANTA outputs
--Continue IV PPI BID
--Analgesics prn with Tylenol, oxycodone, Dilaudid. No NSAIDs given duodenal injury but ASA okay
--IV abx as per ID
--VTE ppx as per primary team, SCDs while in Bed. Ok for chemical ppx from surgical standpoint
Subjective Data
-
Date of Service: November 09, 2023
pt seen and examined
episode of vomiting earlier this AM - pt states small volume but has some nausea
+flatus, no BMs
no new abdominal pain
Objective Data
-
Intake and Output
11/08/23 11/09/23 11/10/23
06:59 06:59 06:59
Intake Total 3810 / 3810 540 / 540
Output Total 5480 / 5480 4605 / 4605
Balance -1670 / -1670 -4065 / -4065
Intake:
Oral fluids 2039 / 0 540 / 540
IV fluids (Total) 1740 / 1740
D5/0.9% with KCL 40 MEQ 40 meq 420 / 420
In 1,000 ml @ 60 mls/hr IV .
[id number] [facility] Rx#:[id number]
NSS with KCL 20 MEQ 20 meq In 1 600 / 600
,000 ml @ 120 mls/hr IV .Q8H20M
[facility] Rx#:[id number]
Amount instilled into GI Tube (
Total)
[place] Sump
Output:
Emesis 200 / 200
Drain Output (Total) 180 / 180
Right Lower Abdomen Blas- 180 / 180
Bass
Urine, Mane 1600 / 1600
Suprapubic output 5300 / 5300 2600 / 2600
Other:
Number of immeasurable emeses? 2
Vital Signs
Temp Pulse Resp BP Pulse Ox
98.1 F 79 18 131/69 95
11/09/23 03:40 11/09/23 03:40 11/09/23 03:40 11/09/23 03:40 11/09/23 03:40
Lab Results
11/08/23 05:08
11/08/23 05:08
Calcium 7.3 mg/dl (8.4-10.2) L 11/08/23 05:08
Phosphorus 2.7 mg/dl (2.5-4.5) 11/05/23 03:59
Magnesium 1.9 mg/dl (1.6-2.3) 11/06/23 04:40
Total Bilirubin 0.8 mg/dl (0.2-1.3) 11/08/23 05:08
Direct Bilirubin 0.3 mg/dl (0.0-0.4) 10/27/23 05:42
AST 17 U/L (17-59) 11/08/23 05:08
ALT 19 U/L (0-50) 11/08/23 05:08
Alkaline Phosphatase 104 U/L (38-126) 11/08/23 05:08
Total Protein 5.4 g/dl (6.3-8.2) L 11/08/23 05:08
Albumin 2.3 g/dl (3.5-5.0) L 11/08/23 05:08
Physical Exam
-
NAD AAOx3
ABD: soft, ND, NTTP
incisions clean, no erythema, no open wounds
SANTA with light nonbilious SSF
[2023-11-09 07:58] VITALS: BP 121/68
[2023-11-09] MEDS: COREG PO (09:35)
[2023-11-09] MEDS: NORVASC PO (09:36)
[2023-11-09] MEDS: MERREM 1000 MG IV ×2 (10:24→15:44)
[2023-11-09] MEDS: NSS (PRESERVATIVE FREE) 10 ML IV ×2 (10:24→20:21)
[2023-11-09] MEDS: 0.45% NACL with KCL 20 MEQ 1000 IV (10:24)
[2023-11-09] MEDS: STERILE WATER FOR INJECTION 20 ML IV ×2 (10:24→15:44)
[2023-11-09] MEDS: PROTONIX IV 40 MG IV ×2 (10:24→20:21)
[2023-11-09] MEDS: DIFLUCAN 400 MG 200 IV (10:25)
[2023-11-09 11:36] VITALS: BP 128/73
--- NOTE | 2023-11-09 11:51 | W.PN.ID1 ---
Date of Service
Date of Service: November 09, 2023
Today's Communication
- today is day 5 of antibiotic therapy since last return to the OR - antibiotics/antifungals to continue today, reassess CBC with diff tomorrow. Follow up SB study.
Assessment / Plan
Xanthogranulomatous Pyelonephritis
- recent h/o pyelonephritis due to MRSA and Proteus (at [place])
s/p IR drain placement 10/26
s/p RIGHT NEPHRECTOMY 11/01
s/p repair of small bowel injury 11/03
- 10/26 renal fluid perc drain cx: Klebsiella, E. coli, ESBL-Proteus, VRE, Sandra krusei
- urine culture polymicrobial Proteus ESBL, E coli
- [facility] urine culture ESBL Proteus, MRSA
- will follow up SB study
- continue fluconazole 400 mg qday via IV can transition to oral when patient able to consistently take oral meds
- lexapro dose previously decreased to 10 mg Qday (1/2 starting dose) given interaction with fluconazole - continue on this dose while on fluconazole
- continue daptomycin
- hold statin
- ck remains normal 11/07
- meropenem 1 gm IV q 8hrs continue
- today is day 5 of antibiotic therapy since last return to the OR - antibiotics/antifungals to continue today, reassess CBC with diff tomorrow. Follow up SB study.
- antibiotics/antifungals to continue
C. diff colonization
- probiotic held while NPO
Chief Complaint
-: Other (Xanthogranulomatous pyelonephritis (XGP))
Subjective / Review of Systems
afebrile
bp stable
not labs today and not needed from my perspective
upper gi series read pending
Vital Signs / Physical Exam
Vital Signs
Vital Signs
Temp Pulse Resp BP Pulse Ox
97.7 F 69 18 128/73 98
11/09/23 11:36 11/09/23 11:36 11/09/23 11:36 11/09/23 11:36 11/09/23 11:36
Physical Exam
Constitutional: No Acute Distress
Cardiovascular: Regular Rate and S1/S2; Negative Murmur or Rub
Pulmonary: Clear and Symmetric; Negative Wheezes or Rales
Gastrointestinal: Soft, Non Tender, Non Distended and Normal Bowel Sounds
Skin: Warm and Dry; Negative Rash or Jaundice
Objective Data
Lab Data
Lab Results
11/08/23 05:08
11/08/23 05:08
PT 17.6 Sec (11.4-14.6) H 11/05/23 03:59
INR 1.44 11/05/23 03:59
APTT 45.2 Sec (23.4-35.0) H 11/05/23 03:59
Estimated Creat Clear 118 ml/min 11/08/23 05:08
Lactic Acid Cancelled 10/21/23 21:30
Total Bilirubin 0.8 mg/dl (0.2-1.3) 11/08/23 05:08
AST 17 U/L (17-59) 11/08/23 05:08
ALT 19 U/L (0-50) 11/08/23 05:08
Alkaline Phosphatase 104 U/L (38-126) 11/08/23 05:08
Most recent labs reviewed.
Micro Results:
10/26/23 09:23 Anaerobic Culture - Final
Kidney Fluid NO ANAEROBES ISOLATED
10/26/23 09:23 Body Fluid Culture - Final
Kidney Fluid Proteus Mirabilis-ESBL
Klebsiella pneumoniae
Escherichia coli
Enterococcus faecium - VRE
Sandra krusei
Gram Stain - Final
10/31/23 18:04 C. difficile GDH Antigen & Toxins - Final
Feces/Stool C. difficile antigen positive, toxin negative.
Clostridium difficile present, but toxin not detected.
Patient may be a carrier, colonized with nontoxinogenic
strain or the level of toxin in sample is below detection
limits. This information should be used in conjunction with
the patient's clinical history.
10/21/23 17:31 Blood Culture - Final
Blood/Venous Coagulase neg. staphylococcus
Additional testing on request
Gram Stain - Final
10/21/23 17:41 Urine Culture - Final
Urine Escherichia coli
Proteus Mirabilis-ESBL
10/21/23 17:31 Blood Culture - Final
Blood/Venous No Growth - Final Report
10/22/23 07:59 Urine Culture - Final
Urine Proteus Mirabilis-ESBL
--- NOTE | 2023-11-09 12:10 | W.PN.HOSP.TC ---
Addendum entered and electronically signed by Amie Vides MD 11/10/23 15:08:
Physical exam:
General: ill looking ( no acute distress)
HEENT: Normocephalic and Atraumatic
Respiratory: Negative Wheezes. Limited.
Cardiac: Regular Rhythm and S1/S2
GI: soft,abdomen
Genito-urinary: No Costovertebral Tender and Mane,IR drain
Neuro: awake, confused, forgetful?
Psych: Calm
Addendum entered and electronically signed by Amie Vides MD 11/09/23 13:40:
Addendum
d/w surgery, ok with aspirin
End
Original Note:
Today's Communication/Plan
-
f/w clear liquid after upper GI study
c/w IVF with potassium replacement
repeat blood work in AM
Assessment / Plan
Assessment / Plan
Xanthogranulomatous Pyelonephritis
recent h/o pyelonephritis due to MRSA and Proteus, infected R ureteral stone s/p stent/removal ([place])
- s/p cysto, RGP, stent placement 10/23/23
- repeat CT 10/25 with 8.5 cm gas containing low-density subcapsular collection on the right concerning for renal abscess. Moderate persistent right-sided hydronephrosis despite presence of the stent
- s/p IR guide drain placement 10/26 into subcapsular collection
- s/p Right nephrectomy 11/01
- continue Meropenem/daptomycin/Fluconazole per ID; cultures growing E. Coli, ESBL/Proteus, Klebsiella, VRE and arlene Krusei.
# Vomiting early this morning
Upper GI study no leak, contrast passed through but slow
ok for clear liquid diet
c/w IVF
# Acute duodenal perforation due to colonic distention and small bowel manipulation during surgery
- CT 11/03: showed Findings consistent with small bowel injury, likely a leak involving the third segment of the duodenum
- Underwent urgent bowel repair. 11/03 duodenal perforation
- continue IV Abx as above
- No significant abdominal pain, passing flatulence
# Hypokalemia, replaced.
# TME associated with above process of UTI/Pyelonephritis
- improved. Seems back to baseline. No agitation, pleasant and cooperative.
#Post-cystoscopy hematuria
- resolved; monitor per Urology
#BPH s/p suprapubic catheter
- continue Finasteride once taking oral
Diarrhea
- C. Diff Ag+, toxin -
- hold bowel regimen; add probiotics
- ID aware, no treatment of C. Diff indicated currently
#History of Acute blood loss anemia with recent hx of upper GI bleed
Normocytic anemia (anemia chronic disease)
- stable Hb
# Pulmonary Atelectasis
- continue IS. Pt does not use it
Essential HTN
Slightly uncontrolled now
- oral medication were on hold:
Resume Coreg, Imdur.
Anxiety/Depression
- held BZD
- continue Lexapro
CAD S/p CABG/Stents
- continue Statin/Coreg/Imdur once taking po
- holding ASA , will reach out to surgery about timing to start. Possibly extended time after perforation? c/w PPI
GERD - PPI
Hx of DM neuropathy
- hold Gabapentin
Hx of CVA
More alert and pleasant.
Suspect underlying senile or vascular cognitive impairment
- resume ASA/Statin once ok by surgery
Left heel Stage 3 pressure injury POA
- continue topical care
DVT ppx: SCDs until cleared by Urology for resumption of thinners
Code: Full
Total time spent to see the patient, examine the patient, review data and lab results, and discuss the treatment plan with patient, [employer] consultant, nurse around 55 minutes
Anticipated Discharge: > 48 hours
Subjective/Interval History
-
Date of Service: November 09, 2023
No chest pain
No sob
Had vomiting episode early this morning
Objective Data
-
Vital Signs:
Vital Signs
Temp Pulse Resp BP Pulse Ox
97.7 F 69 18 128/73 98
11/09/23 11:36 11/09/23 11:36 11/09/23 11:36 11/09/23 11:36 11/09/23 11:36
I&O
11/08/23 11/09/23 11/10/23
06:59 06:59 06:59
Intake Total 3810 / 3810 540 / 540
Output Total 5480 / 5480 4605 / 4605
Balance -1670 / -1670 -4065 / -4065
--- NOTE | 2023-11-09 13:13 | W.PN.SURGUPD ---
Surgical Update
Surgical Update
UGI study overall looks well. no extravasation, no narrowing of lumen site which was the 1st portion of duo. some delayed emptying from duo distal to repair which may just be reflective of a bit of ileus and not mechanical process.
okay to resume clear liquid diet - small portions, supplements
follow up abd xray in PM to confirm continued progression of oral contrast given for UGI swallow
[2023-11-09] MEDS: LOW STRENGTH ASPIRIN 81 MG PO (13:53)
[2023-11-09] MEDS: CUBICIN 16 MG IV (15:43)
[2023-11-09 15:54] VITALS: BP 141/77
--- NOTE | 2023-11-09 16:23 | CM ---
Discharge Plan of Care: SNF. Referrals previously forwarded.
[2023-11-09] MEDS: DILAUDID 0.5 MG IV (17:46)
[2023-11-09] MEDS: LOVENOX 40 MG SC (17:46)
[2023-11-09 19:21] VITALS: BP 127/69
[2023-11-09] MEDS: COREG 3.125 MG PO (20:20)
[2023-11-09] MEDS: ROXICODONE 5 MG PO (20:38)
[2023-11-09 23:14] VITALS: BP 106/57
[2023-11-10] VITALS (7 sets, daily range): BP systolic 104–121; BP diastolic 58–65; PULSE 66; O2SAT 100; BMI 21.6
[2023-11-10] MEDS: MERREM 1000 MG IV ×2 (00:07→08:17)
[2023-11-10] MEDS: STERILE WATER FOR INJECTION 20 ML IV ×2 (00:07→08:17)
[2023-11-10] MEDS: 0.45% NACL with KCL 20 MEQ 1000 IV (03:41)
[2023-11-10 05:22] LABS: % Basophils 0.6 % (0-2); % Eosinophils 8.8 % (0-6); % Immature Granulocytes 0.9 % (0-0.5); % Lymphocytes 33.9 % (20.5-51.1); % Monocytes 7.1 % (1.7-9.3); % Neutrophils 48.7 % (42.2-75.2); Absolute Eosinophils 0.6 10^3/uL (0-0.7); Absolute Immature Granulocytes 0.1 10^3/uL (0-0.05); Absolute Lymphocytes 2.2 10^3/uL (1.2-3.4); Absolute Monocytes 0.5 10^3/uL (0.1-0.6); Absolute Neutrophils 3.1 10^3/uL (1.4-6.5); Hematocrit 29.4 % (39.0-52.0); Hemoglobin 9.6 g/dL (13.0-18.0); Mean Corp Hgb Conc. 32.7 g/dL (33.0-37.0); Mean Corpuscular Hgb 27.9 pg (27.0-31.0); Mean Corpuscular Volume 85.5 fL (80.0-94.0); Mean Platelet Volume 9.9 fL (7.4-10.4); Nucleated Red Blood Cells % 0 % (-); Platelet Count 191 10^3/uL (130-400); Red Blood Cell Count 3.44 10^6/uL (4.70-6.10); Red Cell Dist. Width 18.5 % (11.5-14.5); White Blood Cell Count 6.3 10^3/uL (4.8-10.8)
[2023-11-10 05:46] LABS: Blood Urea Nitrogen 9 mg/dl (9-20); Calcium 8.2 mg/dl (8.4-10.2); Carbon Dioxide 30 mmol/L (22-30); Chloride 98 mmol/L (98-107); Estimated Creatinine Clearance 118 ml/min; Glucose 107 mg/dl (70-99); Magnesium 1.6 mg/dl (1.6-2.3); Potassium 4.7 mmol/L (3.5-5.1); Sodium 131 mmol/L (135-145); eGFR > 60.00
--- NOTE | 2023-11-10 07:02 | W.PN.GS2 ---
Today's Communication / Plan
-
`
Assessment / Plan
-
Assessment: 78 yo male with h/o CAD, TBI and chronic SPT who is POD #8 open right nephrectomy for recurrent emphysematous pyelonephritis with subsequent return to OR for repair of duodenal injury now POD #6 ex lap and primary repair of duodenal
perforation
AFVSS
SANTA nonbilious, mostly serous output
UGI: no leak, mild delay/slow emptying distal to repair not at site/may be more reflective of slow gastric motility
followup abd xray - contrast throughout large and small bowel, no distention, some residual gastric contrast
Plan: --resume full liquid diet with supplements; small portions 4-6 x daily, keep HOB after/for meals
--anticipate need for full liquid/soft food/low residue/low fat diet for now to assist with gastric emptying post op
-- dulcolax suppository
-- follow up abdominal xray to eval for continued progression of contrast and overall motility
-- from general surgery perspective okay to remove SANTA - but defer to urology as is also within post nephrectomy bed
-- Continue IV PPI BID - convert to PO if tolerates resumption of full liquid diet
--Analgesics prn with Tylenol, oxycodone, Dilaudid. No NSAIDs given duodenal injury but ASA okay
--abx as per ID
--VTE ppx
Subjective Data
-
Date of Service: November 10, 2023
pt seen and examined
no further nausea/vomiting
denies pain
+fl/no BMs
Objective Data
-
Intake and Output
11/09/23 11/10/23 07
06:59 06:59 06:59
Intake Total 540 / 540 1640 / 1640
Output Total 4605 / 4605 2245 / 2245
Balance -4065 / -4065 -605 / -605
Intake:
Oral fluids 540 / 540 480 / 480
IV fluids (Total) 960 / 960
IV piggybacks 200 / 200
Output:
Emesis 200 / 200
Drain Output (Total)
Right Lower Abdomen Blas-
Bass
Urine, Mane 1600 / 1600 1150 / 1150
Suprapubic output 2600 / 2600 1000 / 1000
Other:
Number of immeasurable emeses? 2
Vital Signs
Temp Pulse Resp BP Pulse Ox
97.2 F 64 18 104/62 97
11/10/23 03:26 11/10/23 03:26 11/10/23 03:26 11/10/23 03:26 11/10/23 03:26
Lab Results
11/10/23 04:34
11/10/23 04:33
Calcium 8.2 mg/dl (8.4-10.2) L 11/10/23 04:33
Phosphorus 2.7 mg/dl (2.5-4.5) 11/05/23 03:59
Magnesium 1.6 mg/dl (1.6-2.3) 11/10/23 04:33
Total Bilirubin 0.8 mg/dl (0.2-1.3) 11/08/23 05:08
Direct Bilirubin 0.3 mg/dl (0.0-0.4) 10/27/23 05:42
AST 17 U/L (17-59) 11/08/23 05:08
ALT 19 U/L (0-50) 11/08/23 05:08
Alkaline Phosphatase 104 U/L (38-126) 11/08/23 05:08
Total Protein 5.4 g/dl (6.3-8.2) L 11/08/23 05:08
Albumin 2.3 g/dl (3.5-5.0) L 11/08/23 05:08
Physical Exam
-
NAD AAOx3
ABD: soft, nondistended, NTTP
incisions with nathaly, no erythema, no open wounds, no drainage
SANTA with light SSF
--- NOTE | 2023-11-10 07:43 | W.PN.URO.CBU ---
Today's Communication / Plan
-
PT and advance diet
Assessment / Plan
-
77M with neurogenic bladder and suprapubic tube 2/ TBI
Recurrent UTI and catheter obstruction
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
s/p suprapubic tube replacement
s/p R ureteral stent placement 10/22 with purulent drainage. Calcified debris and ureteral kinking noted on retrograde study
s/p IR drain placement 10/26
s/p RIGHT NEPHRECTOMY 11/01
s/p repair of small bowel injury 11/03
pt stable continue to monitor drain output and hgb/wbc
antibx per ID
spoke with [facility]- happy with sb study- diet advancing
plan to remove scott and exchange sp tube tomorrow
path pending
PT and discharge planning beginning
pt now on asa and lovenox- plavix restart ok from gu standpoint
Diagnosis
-
Date of Service: November 10, 2023
-
Recurrent R ureteral obstruction
XGP kidney
Urinary retention with chronic SPT
Post Op s/p cystoscopy, R ureteral stent placement 10/22
IR drain placement 10/26
s/p right nephrectomy 11/01
small bowel laceration- repair 11/03
Subjective
-
pt stable
no fevers/no wbc
hgb stable
minimal scott output
gi series- no leak- contrast moving through
Objective
-
Vital Signs
Temp Pulse Resp BP Pulse Ox
97.2 F 64 18 104/62 97
11/10/23 03:26 11/10/23 03:26 11/10/23 03:26 11/10/23 03:26 11/10/23 03:26
Intake and Output
11/09/23 11/10/2324
06:59 06:59 06:59
Intake Total 540 / 540 1640 / 1640
Output Total 4605 / 4605 2245 / 2245
Balance -4065 / -4065 -605 / -605
Intake:
Oral fluids 540 / 540 480 / 480
IV fluids (Total) 960 / 960
IV piggybacks 200 / 200
Output:
Emesis 200 / 200
Drain Output (Total) 95 / 95
Right Lower Abdomen Blas- / 95
Bass
Urine, Mane 1600 / 1600 1150 / 1150
Suprapubic output 2600 / 2600 1000 / 1000
Other:
Number of immeasurable emeses? 2
Laboratory Results
11/10/23 04:34
11/10/23 04:33
Review of Systems
-
Constitutional: Fatigue
Respiratory: No Symptoms
Cardiac: No Symptoms
Abdomen/GI: Abdominal Pain
Physical Exam
-
General - no acute distress
Abdomen - soft, non-tender, sp tube in place
Genitalia - normal
Incision - clean, dry- both
[2023-11-10] MEDS: NSS (PRESERVATIVE FREE) 10 ML IV ×2 (08:16→19:55)
[2023-11-10] MEDS: LOW STRENGTH ASPIRIN 81 MG PO (08:16)
[2023-11-10] MEDS: COREG 3.125 MG PO ×2 (08:17→19:56)
[2023-11-10] MEDS: PROTONIX IV 40 MG IV ×2 (08:17→19:57)
[2023-11-10] MEDS: NORVASC 2.5 MG PO (08:17)
--- NOTE | 2023-11-10 09:16 | PTCARENOTE ---
pt refusing to go for Abd CT this am. pt received IV merrem and IV protonix through R midline this AM after taking morning medications. pt advanced to full liquid diet per MD. pt pleasant for this nurse but states he is just tired of being here. +
[2023-11-10] MEDS: DIFLUCAN 400 MG 200 IV (11:04)
--- NOTE | 2023-11-10 12:04 | W.PN.ID1 ---
Date of Service
Date of Service: November 10, 2023
Today's Communication
- no evidence of leak on AXR this AM
- stop antibiotics and antifungals has completed adequate course
- no longer on lexapro, could be restarted if needed now that fluconazole has been stopped, defer to IM service
- follow clinically
Assessment / Plan
Xanthogranulomatous Pyelonephritis
- recent h/o pyelonephritis due to MRSA and Proteus (at [place])
s/p IR drain placement 10/26
s/p RIGHT NEPHRECTOMY 11/01
s/p repair of small bowel injury 11/03
- no evidence of leak on AXR this AM
- stop antibiotics and antifungals has completed adequate course
- no longer on lexapro, could be restarted if needed now that fluconazole has been stopped, defer to IM service
- follow clinically
Chief Complaint
-: Other (Xanthogranulomatous pyelonephritis (XGP))
Subjective / Review of Systems
afebrile
bp stable
without leukocytosis
cr stable
upper GI no leak, repeat AXR today - no leak
Vital Signs / Physical Exam
Vital Signs
Vital Signs
Temp Pulse Resp BP Pulse Ox
97.4 F 62 16 121/58 98
11/10/23 07:56 11/10/23 07:56 11/10/23 07:56 11/10/23 08:17 11/10/23 07:56
Physical Exam
Constitutional: No Acute Distress
Cardiovascular: Regular Rate and S1/S2; Negative Murmur or Rub
Pulmonary: Clear and Symmetric; Negative Wheezes or Rales
Gastrointestinal: Soft, Non Tender, Non Distended and Normal Bowel Sounds
Skin: Warm and Dry; Negative Rash or Jaundice
Objective Data
Lab Data
Lab Results
11/10/23 04:34
11/10/23 04:33
PT 17.6 Sec (11.4-14.6) H 11/05/23 03:59
INR 1.44 11/05/23 03:59
APTT 45.2 Sec (23.4-35.0) H 11/05/23 03:59
Estimated Creat Clear 118 ml/min 11/10/23 04:33
Lactic Acid Cancelled 10/21/23 21:30
Total Bilirubin 0.8 mg/dl (0.2-1.3) 11/08/23 05:08
AST 17 U/L (17-59) 11/08/23 05:08
ALT 19 U/L (0-50) 11/08/23 05:08
Alkaline Phosphatase 104 U/L (38-126) 11/08/23 05:08
Most recent labs reviewed.
Micro Results:
10/26/23 09:23 Anaerobic Culture - Final
Kidney Fluid NO ANAEROBES ISOLATED
10/26/23 09:23 Body Fluid Culture - Final
Kidney Fluid Proteus Mirabilis-ESBL
Klebsiella pneumoniae
Escherichia coli
Enterococcus faecium - VRE
Sandra krusei
Gram Stain - Final
10/31/23 18:04 C. difficile GDH Antigen & Toxins - Final
Feces/Stool C. difficile antigen positive, toxin negative.
Clostridium difficile present, but toxin not detected.
Patient may be a carrier, colonized with nontoxinogenic
strain or the level of toxin in sample is below detection
limits. This information should be used in conjunction with
the patient's clinical history.
10/21/23 17:31 Blood Culture - Final
Blood/Venous Coagulase neg. staphylococcus
Additional testing on request
Gram Stain - Final
10/21/23 17:41 Urine Culture - Final
Urine Escherichia coli
Proteus Mirabilis-ESBL
10/21/23 17:31 Blood Culture - Final
Blood/Venous No Growth - Final Report
10/22/23 07:59 Urine Culture - Final
Urine Proteus Mirabilis-ESBL
--- NOTE | 2023-11-10 12:36 | W.PN.HOSP.TC ---
Today's Communication/Plan
-
dc planning
resume Lexapro
likely scott removal and exchange sp tube 11/10
Assessment / Plan
Assessment / Plan
Physical exam:
General: ill looking ( no acute distress)
HEENT: Normocephalic and Atraumatic
Respiratory: Negative Wheezes. Limited.
Cardiac: Regular Rhythm and S1/S2
GI: soft,abdomen
Genito-urinary: No Costovertebral Tender and Mane,IR drain
Neuro: awake, confused, forgetful?
Psych: Calm
Xanthogranulomatous Pyelonephritis
recent h/o pyelonephritis due to MRSA and Proteus, infected R ureteral stone s/p stent/removal ([place])
- s/p cysto, RGP, stent placement 10/23/23
- repeat CT 10/25 with 8.5 cm gas containing low-density subcapsular collection on the right concerning for renal abscess. Moderate persistent right-sided hydronephrosis despite presence of the stent
- s/p IR guide drain placement 10/26 into subcapsular collection
- s/p Right nephrectomy 11/01
- continue Meropenem/daptomycin/Fluconazole per ID; cultures growing E. Coli, ESBL/Proteus, Klebsiella, VRE and arlene Krusei.
# Vomiting 11/08 due to functional ileus, poor functional status, recurrent hospitalization, and deconditioning are also major factors.
No vomiting
Upper GI contrast study showed no radiographic evidence for contrast extravasation. No evidence for bowel obstruction.
Advancing diet slowly
# Acute duodenal perforation due to colonic distention and small bowel manipulation during surgery
- CT 11/03: showed Findings consistent with small bowel injury, likely a leak involving the third segment of the duodenum
- Underwent urgent bowel repair. 11/03 duodenal perforation
- Finished course of ABx. - No significant abdominal pain.
c/w diet , advance slowly
# Hypokalemia, replaced.
# TME associated with above process of UTI/Pyelonephritis
- improved. Seems back to baseline. No agitation, pleasant and cooperative.
#Post-cystoscopy hematuria
- resolved; monitor per Urology
#BPH s/p suprapubic catheter
- continue Finasteride once taking oral
Diarrhea
- C. Diff Ag+, toxin -
- hold bowel regimen; add probiotics
- ID aware, no treatment of C. Diff indicated currently
#History of Acute blood loss anemia with recent hx of upper GI bleed
Normocytic anemia (anemia chronic disease)
- stable Hb
# Pulmonary Atelectasis
- continue IS. Pt does not use it
Essential HTN
Slightly uncontrolled now
- oral medication were on hold:
Resume Coreg, Imdur.
Anxiety/Depression
- held BZD
- continue Lexapro
CAD S/p CABG/Stents
- continue Statin/Coreg/Imdur once taking po
- Resumed ASA .
GERD - PPI
Hx of DM neuropathy
- hold Gabapentin but resume Lexapro
Hx of CVA
More alert and pleasant.
Suspect underlying senile or vascular cognitive impairment
Left heel Stage 3 pressure injury POA
- continue topical care
DVT ppx: SCDs until cleared by Urology for resumption of thinners
Code: Full
Total time spent to see the patient, examine the patient, review data and lab results, and discuss the treatment plan with patient, [employer] consultant, nurse around 55 minutes
Anticipated Discharge: 24 - 48 hours
Subjective/Interval History
-
Date of Service: November 10, 2023
No abd pain
No nausea
Objective Data
-
Labs:
Laboratory Results
11/10/23 11/10/23
04:33 04:34
WBC 6.3
Hgb 9.6 L
Hct 29.4 L
Plt Count 191
Sodium 131 L
Potassium 4.7 D
Chloride 98
Carbon Dioxide 30
BUN 9
Creatinine 0.5 L
Glucose 107 H
Calcium 8.2 L
Vital Signs:
Vital Signs
Temp Pulse Resp BP Pulse Ox
97.8 F 65 16 120/65 99
11/10/23 11:15 11/10/23 11:15 11/10/23 11:15 11/10/23 11:15 11/10/23 11:15
I&O
11/09/23 11/10/23 11/11/23
06:59 06:59 06:59
Intake Total 540 / 540 1640 / 1640
Output Total 4605 / 4605 2245 / 2245
Balance -4065 / -4065 -605 / -605
--- NOTE | 2023-11-10 14:36 | CM ---
IV/AB d/cd, diet advanced, drain in place. Discharge Plan of Care: SNF for STR. Referrals forwarded and [facility] accepted pending bed availability on day of discharge.
[2023-11-10] MEDS: DILAUDID 0.5 MG IV (17:31)
[2023-11-10] MEDS: LOVENOX 40 MG SC (17:32)
[2023-11-11 03:43] VITALS: BP 120/64
[2023-11-11 05:23] VITALS: BMI 21.5
[2023-11-11 07:20] VITALS: BP 123/59
--- NOTE | 2023-11-11 08:23 | W.PN.URO.CBU ---
Today's Communication / Plan
-
scott removed
sp tube changed
diet per [facility]
pt and discharge planning in progress
Assessment / Plan
-
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
Recurrent UTI and catheter obstruction
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
s/p suprapubic tube replacement
s/p R ureteral stent placement 10/22 with purulent drainage. Calcified debris and ureteral kinking noted on retrograde study
s/p IR drain placement 10/26
s/p RIGHT NEPHRECTOMY 11/01
s/p repair of small bowel injury 11/03
scott removed- sp tube changed to silastic cath in hopes that this will minimize encrustation and blockage
incisions d/i- plan for staple removal next week
continue bowel regimen per ID
awaiting final path on kidney
Diagnosis
-
Date of Service: November 11, 2023
-
Recurrent R ureteral obstruction
XGP kidney
Urinary retention with chronic SPT
Post Op s/p cystoscopy, R ureteral stent placement 10/22
IR drain placement 10/26
s/p right nephrectomy 11/01
small bowel laceration- repair 11/03
Subjective
-
pt more tired today- says more incisional pain
af- vss
urine clear
minimal scott output
is moving bowels
Objective
-
Vital Signs
Temp Pulse Resp BP Pulse Ox
97.5 F 64 16 123/59 98
11/11/23 07:20 11/11/23 07:20 11/11/23 07:20 11/11/23 07:20 11/11/23 07:20
Intake and Output
07/10/24 07/11/24 07/12/24
06:59 06:59 06:59
Intake Total 1640 / 1640 1720 / 1720
Output Total 2245 / 2245 1090 / 1090
Balance -605 / -605 630 / 630
Intake:
Oral fluids 480 / 480 1200 / 1200
IV fluids (Total) 960 / 960 320 / 320
IV piggybacks 200 / 200 200 / 200
Output:
Drain Output (Total) 40 / 40
Right Lower Abdomen Blas- 40 / 40
Bass
Urine, Mane 1150 / 1150 800 / 800
Suprapubic output 1000 / 1000 250 / 250
Laboratory Results
11/10/23 04:34
11/10/23 04:33
Review of Systems
-
Constitutional: Fatigue
Respiratory: No Symptoms
Cardiac: No Symptoms
Abdomen/GI: Other (incisional pain)
Physical Exam
-
General - no acute distress
Abdomen - soft, non-tender
Genitalia - normal
Incision - clean, dry- both flank and abd
[2023-11-11] MEDS: NSS (PRESERVATIVE FREE) IV ×2 (08:41→19:34)
[2023-11-11] MEDS: LEXAPRO 20 MG PO (08:43)
[2023-11-11] MEDS: LOW STRENGTH ASPIRIN 81 MG PO (08:43)
[2023-11-11] MEDS: COREG 3.125 MG PO ×2 (08:43→19:35)
[2023-11-11] MEDS: NORVASC 2.5 MG PO (08:43)
[2023-11-11] MEDS: PROTONIX 40 MG PO ×2 (08:43→19:34)
--- NOTE | 2023-11-11 09:07 | W.PN.HOSP.TC ---
Today's Communication/Plan
-
dc planning
Assessment / Plan
Assessment / Plan
Physical exam:
General: ill looking ( no acute distress)
HEENT: Normocephalic and Atraumatic
Respiratory: Negative Wheezes. Limited.
Cardiac: Regular Rhythm and S1/S2
GI: soft,abdomen
Genito-urinary: No Costovertebral Tender and Mane,IR drain
Neuro: awake, confused, forgetful?
Psych: Calm
Xanthogranulomatous Pyelonephritis
recent h/o pyelonephritis due to MRSA and Proteus, infected R ureteral stone s/p stent/removal ([facility])
- s/p cysto, RGP, stent placement 10/23/23
- repeat CT 10/25 with 8.5 cm gas containing low-density subcapsular collection on the right concerning for renal abscess. Moderate persistent right-sided hydronephrosis despite presence of the stent
- s/p IR guide drain placement 10/26 into subcapsular collection
- s/p Right nephrectomy 11/01
- continue Meropenem/daptomycin/Fluconazole per ID; cultures growing E. Coli, ESBL/Proteus, Klebsiella, VRE and arlene Krusei.
# Vomiting 11/08 due to functional ileus, poor functional status, recurrent hospitalization, and deconditioning are also major factors.
No vomiting
Upper GI contrast study showed no radiographic evidence for contrast extravasation. No evidence for bowel obstruction.
Advancing diet slowly
# Acute duodenal perforation due to colonic distention and small bowel manipulation during surgery
- CT 11/03: showed Findings consistent with small bowel injury, likely a leak involving the third segment of the duodenum
- Underwent urgent bowel repair. 11/03 duodenal perforation
- Finished course of ABx. - No significant abdominal pain.
c/w diet , advance slowly
# Hypokalemia, replaced.
# TME associated with above process of UTI/Pyelonephritis
- improved. Seems back to baseline. No agitation, pleasant and cooperative.
#Post-cystoscopy hematuria
- resolved; monitor per Urology
#BPH s/p suprapubic catheter
- continue Finasteride once taking oral
Diarrhea
- C. Diff Ag+, toxin -
- hold bowel regimen; add probiotics
- ID aware, no treatment of C. Diff indicated currently
#History of Acute blood loss anemia with recent hx of upper GI bleed
Normocytic anemia (anemia chronic disease)
- stable Hb
# Pulmonary Atelectasis
- continue IS. Pt does not use it
Essential HTN
Slightly uncontrolled now
- oral medication were on hold:
Resume Coreg, Imdur.
Anxiety/Depression
- held BZD
- continue Lexapro
CAD S/p CABG/Stents
- continue Statin/Coreg/Imdur once taking po
- Resumed ASA .
GERD - PPI
Hx of DM neuropathy
- hold Gabapentin but resume Lexapro
Hx of CVA
More alert and pleasant.
Suspect underlying senile or vascular cognitive impairment
Left heel Stage 3 pressure injury POA
- continue topical care
DVT ppx: SCDs until cleared by Urology for resumption of thinners
Code: Full
Total time spent to see the patient, examine the patient, review data and lab results, and discuss the treatment plan with patient, jd edwards consultant, nurse around 55 minutes
Anticipated Discharge: Within 24 hours
Subjective/Interval History
-
Date of Service: November 11, 2023
No vomiting over night
Had good BM
Objective Data
-
Vital Signs:
Vital Signs
Temp Pulse Resp BP Pulse Ox
97.5 F 64 16 123/59 98
11/11/23 07:20 11/11/23 07:20 11/11/23 07:20 11/11/23 08:43 11/11/23 07:20
I&O
11/10/23 11/11/23 11/12/23
06:59 06:59 06:59
Intake Total 1640 / 1640 1720 / 1720
Output Total 2245 / 2245 1090 / 1090
Balance -605 / -605 630 / 630
--- NOTE | 2023-11-11 09:21 | W.PN.GS2 ---
Today's Communication / Plan
-
`
Assessment / Plan
-
Assessment: 78 yo male with h/o CAD, TBI and chronic SPT who is POD #9 open right nephrectomy for recurrent emphysematous pyelonephritis with subsequent return to OR for repair of duodenal injury now POD #7 ex lap and primary repair of duodenal
perforation
AFVSS
SANTA removed with urology this AM
Plan: --advance to soft diet; small portions 4-6 x daily, keep HOB after/for meals
--anticipate need for full liquid/soft food/low residue/low fat diet for now to assist with gastric emptying post op
-- dulcolax suppository prn and bowel regiment
-- PO protonix BID x 1 month then daily
okay for d/c from general surgery perspective pending tolerance of dietary intake
Subjective Data
-
Date of Service: November 11, 2023
pt seen and examined
offers no complaints at this time
denies nausea
would like more than full liquid diet
+fl/BMs
Objective Data
-
Intake and Output
24 0724 07/04/25
06:59 06:59 06:59
Intake Total 1640 / 1640 1720 / 1720
Output Total 2245 / 2245 1090 / 1090
Balance -605 / -605 630 / 630
Intake:
Oral fluids 480 / 480 1200 / 1200
IV fluids (Total) 960 / 960 320 / 320
IV piggybacks 200 / 200 200 / 200
Output:
Drain Output (Total) 40 / 40
Right Lower Abdomen Blas- 40 / 40
Bass
Urine, Mane 1150 / 1150 800 / 800
Suprapubic output 1000 / 1000 250 / 250
Vital Signs
Temp Pulse Resp BP Pulse Ox
97.5 F 64 16 123/59 98
11/11/23 07:20 11/11/23 07:20 11/11/23 07:20 11/11/23 08:43 11/11/23 07:20
Lab Results
11/10/23 04:34
11/10/23 04:33
Calcium 8.2 mg/dl (8.4-10.2) L 11/10/23 04:33
Phosphorus 2.7 mg/dl (2.5-4.5) 11/05/23 03:59
Magnesium 1.6 mg/dl (1.6-2.3) 11/10/23 04:33
Total Bilirubin 0.8 mg/dl (0.2-1.3) 11/08/23 05:08
Direct Bilirubin 0.3 mg/dl (0.0-0.4) 10/27/23 05:42
AST 17 U/L (17-59) 11/08/23 05:08
ALT 19 U/L (0-50) 11/08/23 05:08
Alkaline Phosphatase 104 U/L (38-126) 11/08/23 05:08
Total Protein 5.4 g/dl (6.3-8.2) L 11/08/23 05:08
Albumin 2.3 g/dl (3.5-5.0) L 11/08/23 05:08
Physical Exam
-
NAD AAOx3
ABD: soft, ND, mild TTP
incision sites with nathaly, no erythema, no drainage
[2023-11-11] MEDS: DILAUDID 0.5 MG IV (09:51)
--- NOTE | 2023-11-11 10:31 | PTCARENOTE ---
pt verbalizing severe pain. prn pain med given. pt has upgraded diet and tolerated full amount of ensure this morning. see Worklist for proper charting
--- NOTE | 2023-11-11 11:04 | W.PN.ID1 ---
Date of Service
Date of Service: November 11, 2023
Today's Communication
- appreciate urology changing out the SP tube
- remains well off of antibiotics
- ID service will no longer actively follow this patient please recall for further questions
Assessment / Plan
Xanthogranulomatous Pyelonephritis
- recent h/o pyelonephritis due to MRSA and Proteus (at [place])
s/p IR drain placement 10/26
s/p RIGHT NEPHRECTOMY 11/01
s/p repair of small bowel injury 11/03
- appreciate urology changing out the SP tube
- remains well off of antibiotics
- ID service will no longer actively follow this patient please recall for further questions
Chief Complaint
-: Other (Xanthogranulomatous pyelonephritis (XGP))
Subjective / Review of Systems
remains afebrile
bp stable
scott removed and sp tube exchanged
Vital Signs / Physical Exam
Vital Signs
Vital Signs
Temp Pulse Resp BP Pulse Ox
97.5 F 64 16 123/59 98
11/11/23 07:20 11/11/23 07:20 11/11/23 07:20 11/11/23 08:43 11/11/23 07:20
Physical Exam
Constitutional: No Acute Distress
Cardiovascular: Regular Rate
Pulmonary: Symmetric and Non Labored
Gastrointestinal: Non Distended
Skin: Dry; Negative Rash or Jaundice
Neurological: Awake
Objective Data
Lab Data
Lab Results
11/10/23 04:34
11/10/23 04:33
PT 17.6 Sec (11.4-14.6) H 11/05/23 03:59
INR 1.44 11/05/23 03:59
APTT 45.2 Sec (23.4-35.0) H 11/05/23 03:59
Estimated Creat Clear 118 ml/min 11/10/23 04:33
Lactic Acid Cancelled 10/21/23 21:30
Total Bilirubin 0.8 mg/dl (0.2-1.3) 11/08/23 05:08
AST 17 U/L (17-59) 11/08/23 05:08
ALT 19 U/L (0-50) 11/08/23 05:08
Alkaline Phosphatase 104 U/L (38-126) 11/08/23 05:08
Most recent labs reviewed.
Micro Results:
10/26/23 09:23 Anaerobic Culture - Final
Kidney Fluid NO ANAEROBES ISOLATED
10/26/23 09:23 Body Fluid Culture - Final
Kidney Fluid Proteus Mirabilis-ESBL
Klebsiella pneumoniae
Escherichia coli
Enterococcus faecium - VRE
Sandra krusei
Gram Stain - Final
10/31/23 18:04 C. difficile GDH Antigen & Toxins - Final
Feces/Stool C. difficile antigen positive, toxin negative.
Clostridium difficile present, but toxin not detected.
Patient may be a carrier, colonized with nontoxinogenic
strain or the level of toxin in sample is below detection
limits. This information should be used in conjunction with
the patient's clinical history.
10/21/23 17:31 Blood Culture - Final
Blood/Venous Coagulase neg. staphylococcus
Additional testing on request
Gram Stain - Final
10/21/23 17:41 Urine Culture - Final
Urine Escherichia coli
Proteus Mirabilis-ESBL
10/21/23 17:31 Blood Culture - Final
Blood/Venous No Growth - Final Report
10/22/23 07:59 Urine Culture - Final
Urine Proteus Mirabilis-ESBL
[2023-11-11 11:35] VITALS: BP 121/66
--- NOTE | 2023-11-11 14:12 | CM ---
SANTA removed this AM, advance to soft diet, monitor soft diet tolerance. Therapy recommended SNF. Referrals previously forwarded. Discussed with daughter, Yamila, who wants to add additional preferences to list. [employer] list supplied on
11/10/23. Daughter to review and will call with additional preferences.
[2023-11-11 15:20] VITALS: BP 124/63
[2023-11-11] MEDS: LOVENOX 40 MG SC (17:59)
[2023-11-11] MEDS: ROXICODONE 5 MG PO (19:40)
[2023-11-11 23:32] VITALS: BP 118/62
[2023-11-12 06:00] VITALS: BMI 21.9
[2023-11-12 07:34] VITALS: BP 126/64
[2023-11-12] MEDS: NSS (PRESERVATIVE FREE) IV ×2 (08:57→20:43)
[2023-11-12] MEDS: LEXAPRO 20 MG PO (08:57)
[2023-11-12] MEDS: NORVASC 2.5 MG PO (08:57)
[2023-11-12] MEDS: LOW STRENGTH ASPIRIN 81 MG PO (08:57)
[2023-11-12] MEDS: PROTONIX 40 MG PO ×2 (08:57→20:43)
[2023-11-12] MEDS: COREG 3.125 MG PO ×2 (08:58→20:43)
--- NOTE | 2023-11-12 09:25 | W.PN.HOSP.TC ---
Today's Communication/Plan
-
dc planning
pt is becoming frustrated and refusing care/ PT at times
Assessment / Plan
Assessment / Plan
Physical exam:
General: ill looking ( no acute distress)
HEENT: Normocephalic and Atraumatic
Respiratory: Negative Wheezes. Limited.
Cardiac: Regular Rhythm and S1/S2
GI: soft,abdomen
Genito-urinary: No Costovertebral Tender and Mane,IR drain
Neuro: awake, confused, forgetful?
Psych: Calm
Xanthogranulomatous Pyelonephritis
recent h/o pyelonephritis due to MRSA and Proteus, infected R ureteral stone s/p stent/removal ([facility])
- s/p cysto, RGP, stent placement 10/23/23
- repeat CT 10/25 with 8.5 cm gas containing low-density subcapsular collection on the right concerning for renal abscess. Moderate persistent right-sided hydronephrosis despite presence of the stent
- s/p IR guide drain placement 10/26 into subcapsular collection
- s/p Right nephrectomy 11/01
- continue Meropenem/daptomycin/Fluconazole per ID; cultures growing E. Coli, ESBL/Proteus, Klebsiella, VRE and arlene Krusei.
# Vomiting 11/08 due to functional ileus, poor functional status, recurrent hospitalization, and deconditioning are also major factors.
No vomiting
Upper GI contrast study showed no radiographic evidence for contrast extravasation. No evidence for bowel obstruction.
Advancing diet slowly
# Acute duodenal perforation due to colonic distention and small bowel manipulation during surgery
- CT 11/03: showed Findings consistent with small bowel injury, likely a leak involving the third segment of the duodenum
- Underwent urgent bowel repair. 11/03 duodenal perforation
- Finished course of ABx. - No significant abdominal pain.
c/w diet , advance slowly
# Hypokalemia, replaced.
# TME associated with above process of UTI/Pyelonephritis
- improved. Seems back to baseline. No agitation, pleasant and cooperative.
#Post-cystoscopy hematuria
- resolved; monitor per Urology
#BPH s/p suprapubic catheter
- continue Finasteride once taking oral
Diarrhea
- C. Diff Ag+, toxin -
- hold bowel regimen; add probiotics
- ID aware, no treatment of C. Diff indicated currently
#History of Acute blood loss anemia with recent hx of upper GI bleed
Normocytic anemia (anemia chronic disease)
- stable Hb
# Pulmonary Atelectasis
- continue IS. Pt does not use it
Essential HTN
Slightly uncontrolled now
- oral medication were on hold:
Resume Coreg, Imdur.
Anxiety/Depression
- held BZD
- continue Lexapro
CAD S/p CABG/Stents
- continue Statin/Coreg/Imdur once taking po
- Resumed ASA .
GERD - PPI
Hx of DM neuropathy
- hold Gabapentin but resume Lexapro
Hx of CVA
More alert and pleasant.
Suspect underlying senile or vascular cognitive impairment
Left heel Stage 3 pressure injury POA
- continue topical care
DVT ppx: SCDs until cleared by Urology for resumption of thinners
Code: Full
Total time spent to see the patient, examine the patient, review data and lab results, and discuss the treatment plan with patient, application security consultant, nurse around 55 minutes
Anticipated Discharge: Today
Subjective/Interval History
-
Date of Service: November 12, 2023
Nurse: pt is refusing care
Objective Data
-
Vital Signs:
Vital Signs
Temp Pulse Resp BP Pulse Ox
97.5 F 58 16 126/64 99
11/12/23 07:34 11/12/23 08:58 11/12/23 07:34 11/12/23 08:58 11/12/23 07:34
I&O
11/11/23 11/12/23 11/13/23
06:59 06:59 06:59
Intake Total 1720 / 1720 600 / 600
Output Total 1090 / 1090 1300 / 1300
Balance 630 / 630 -700 / -700
--- NOTE | 2023-11-12 09:27 | W.PN.GS2 ---
Addendum entered and electronically signed by Jimmy Dow MD 11/12/23 10:43:
Patient seen and examined. Agree with assessment plan as documented below.
No major complaints. Denies nausea, vomiting, worsening abdominal pain. No fevers or chills.
Gen: NAD
Abd: soft, mild tenderness, ND, non-peritoneal, incisions c/d/i - no erythema, ecchymosis or drainage, nathaly intact
Patient is a 78 yo male with h/o CAD, TBI and chronic SPT who is POD #10 open right nephrectomy for recurrent emphysematous pyelonephritis with subsequent return to OR for repair of duodenal injury now POD #9 ex lap and primary repair of duodenal
perforation
AFVSS
Tolerating diet advancements
Plan:
--continue soft diet; small portions 4-6 x daily, keep HOB after/for meals
--anticipate need for full liquid/soft food/low residue/low fat diet for now to assist with gastric emptying post op
--dulcolax suppository prn and bowel regimen
--PO protonix BID x 1 month then daily
okay for d/c from general surgery perspective
Original Note:
Today's Communication / Plan
-
dispo planning
Assessment / Plan
-
Assessment: 78 yo male with h/o CAD, TBI and chronic SPT who is POD #10 open right nephrectomy for recurrent emphysematous pyelonephritis with subsequent return to OR for repair of duodenal injury now POD #9 ex lap and primary repair of duodenal
perforation
AFVSS
Tolerating diet advancements
Plan: --continue soft diet; small portions 4-6 x daily, keep HOB after/for meals
--anticipate need for full liquid/soft food/low residue/low fat diet for now to assist with gastric emptying post op
-- dulcolax suppository prn and bowel regimen
-- PO protonix BID x 1 month then daily
okay for d/c from general surgery perspective
Subjective Data
-
Date of Service: November 12, 2023
Patient seen and examined at bedside. Denies n/v. Passing flatus, no BM today. Denies pain.
Objective Data
-
Intake and Output
11/11/23 11/12/23 11/13/23
06:59 06:59 06:59
Intake Total 1720 / 1720 600 / 600
Output Total 1090 / 1090 1300 / 1300
Balance 630 / 630 -700 / -700
Intake:
Oral fluids 1200 / 1200 360 / 360
Amount of oral supplement(s) 240 / 240
consumed
IV fluids (Total) 320 / 320
IV piggybacks 200 / 200
Output:
Drain Output (Total) 40 / 40
Right Lower Abdomen Blas- 40 / 40
Bass
Urine, Mane 800 / 800
Suprapubic output 250 / 250 1300 / 1300
Vital Signs
Temp Pulse Resp BP Pulse Ox
97.5 F 58 16 126/64 99
11/12/23 07:34 11/12/23 08:58 11/12/23 07:34 11/12/23 08:58 11/12/23 07:34
Lab Results
11/10/23 04:34
11/10/23 04:33
Calcium 8.2 mg/dl (8.4-10.2) L 11/10/23 04:33
Phosphorus 2.7 mg/dl (2.5-4.5) 11/05/23 03:59
Magnesium 1.6 mg/dl (1.6-2.3) 11/10/23 04:33
Total Bilirubin 0.8 mg/dl (0.2-1.3) 11/08/23 05:08
Direct Bilirubin 0.3 mg/dl (0.0-0.4) 10/27/23 05:42
AST 17 U/L (17-59) 11/08/23 05:08
ALT 19 U/L (0-50) 11/08/23 05:08
Alkaline Phosphatase 104 U/L (38-126) 11/08/23 05:08
Total Protein 5.4 g/dl (6.3-8.2) L 11/08/23 05:08
Albumin 2.3 g/dl (3.5-5.0) L 11/08/23 05:08
Physical Exam
-
NAD AAOx3
ABD: soft, ND, mild TTP
incision sites with nathaly, no erythema, no drainage
--- NOTE | 2023-11-12 09:30 | PTCARENOTE ---
Patient agitated and uncooperative with care this morning, refusing to answer orientation questions; when asked to state own name and birthday, patient stated 'no.' Patient cooperative in taking AM medications, set up with breakfast tray by this RN.
MD made aware, no new orders at this time.
--- NOTE | 2023-11-12 11:48 | W.PN.URO.CBU ---
Today's Communication / Plan
-
stable for discharge
Assessment / Plan
-
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
Recurrent UTI and catheter obstruction
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
s/p suprapubic tube replacement
s/p R ureteral stent placement 10/22 with purulent drainage. Calcified debris and ureteral kinking noted on retrograde study
s/p IR drain placement 10/26
s/p RIGHT NEPHRECTOMY 11/01
s/p repair of small bowel injury 11/03
scott removed- sp tube changed to silastic cath in hopes that this will minimize encrustation and blockage
incisions d/i- plan for staple removal next week
continue bowel regimen
awaiting final path on kidney
Diagnosis
-
Date of Service: November 12, 2023
-
Recurrent R ureteral obstruction
XGP kidney
Urinary retention with chronic SPT
Post Op s/p cystoscopy, R ureteral stent placement 10/22
IR drain placement 10/26
s/p right nephrectomy 11/01
small bowel laceration- repair 11/03
Subjective
-
pt stable
no fevers
urine clear
no drainage from scott site
Objective
-
Vital Signs
Temp Pulse Resp BP Pulse Ox
97.5 F 58 16 126/64 99
11/12/23 07:34 11/12/23 08:58 11/12/23 07:34 11/12/23 08:58 11/12/23 10:08
Intake and Output
11/11/23 11/12/23 11/13/23
06:59 06:59 06:59
Intake Total 1720 / 1720 600 / 600
Output Total 1090 / 1090 1300 / 1300
Balance 630 / 630 -700 / -700
Intake:
Oral fluids 1200 / 1200 360 / 360
Amount of oral supplement(s) 240 / 240
consumed
IV fluids (Total) 320 / 320
IV piggybacks 200 / 200
Output:
Drain Output (Total) 40 / 40
Right Lower Abdomen Blas- 40 / 40
Bass
Urine, Mane 800 / 800
Suprapubic output 250 / 250 1300 / 1300
Laboratory Results
11/10/23 04:34
11/10/23 04:33
Physical Exam
-
General - no acute distress
Abdomen - soft, non-tender, sp tube in place
Incision - clean, dry- both flank and abd
[2023-11-12] MEDS: DILAUDID 0.5 MG IV (11:49)
--- NOTE | 2023-11-12 12:30 | PTOTSP ---
Reviewed chart and attempted to see pt twice today. On first attempt, pt was eating his breakfast. On second attempt, pt refused to participate in any activity. Pt stated he is going home. Will follow up next week if not discharged, but pt does not
seem interested in getting rehab, getttng stronger, or even getting OOB.
[2023-11-12 15:38] VITALS: BP 135/66
--- NOTE | 2023-11-12 15:42 | WOUNDNOTE ---
WO RN NOTE: Visited patient to follow up on wounds. Per chart review and discussion with staff, patient has been declining care/turning. Spoke to patient who declined wound care as it was performed earlier by RN. This speech writer spoke to JEISON Gaines who
recently completed wound care and described assessment. Heel and sacral wounds are described as stable. Patient has a properly inflated air overlay and heels are off-loaded on pillows. Plan is for SNF. Will follow as needed.
--- NOTE | 2023-11-12 15:56 | CM ---
Addendum entered by Hoa Dowling 11/12/23 16:13:
[facility] weekend; Deisy Colmenares said she will reassess bed status on Wednesday
Original Note:
Patient is stable for discharge per Attending
Plan: Discharge to SNF when bed is available
[facility] based on bed availability date of discharge. Sent [place] Text to Deisy Colmenares @ [facility]
RICHIE spoke w/ patient's daughter. She would also like ref[facility] sent [place] [facility], [facility] [place] [facility]. Referrals submitted via [facility]
[2023-11-12] MEDS: LOVENOX 40 MG SC (17:02)
[2023-11-12 20:40] VITALS: BP 122/63
[2023-11-13 01:10] VITALS: BP 124/64
[2023-11-13 06:00] VITALS: BMI 20.8
[2023-11-13 07:35] VITALS: BP 119/59
[2023-11-13] MEDS: NORVASC 2.5 MG PO (08:35)
[2023-11-13] MEDS: LEXAPRO 20 MG PO (08:35)
[2023-11-13] MEDS: PROTONIX 40 MG PO ×2 (08:35→19:52)
[2023-11-13] MEDS: LOW STRENGTH ASPIRIN 81 MG PO (08:35)
[2023-11-13] MEDS: COREG 3.125 MG PO ×2 (08:35→19:53)
[2023-11-13] MEDS: NSS (PRESERVATIVE FREE) IV ×2 (08:35→19:51)
[2023-11-13] MEDS: DILAUDID 0.5 MG IV (09:28)
--- NOTE | 2023-11-13 14:24 | W.PN.HOSP.TC ---
Today's Communication/Plan
-
dc
Assessment / Plan
Assessment / Plan
Physical exam:
General: ill looking ( no acute distress)
HEENT: Normocephalic and Atraumatic
Respiratory: Negative Wheezes. Limited.
Cardiac: Regular Rhythm and S1/S2
GI: soft,abdomen
Genito-urinary: No Costovertebral Tender and Mane,IR drain
Neuro: awake, confused, forgetful?
Psych: Calm
Xanthogranulomatous Pyelonephritis
recent h/o pyelonephritis due to MRSA and Proteus, infected R ureteral stone s/p stent/removal ([place])
- s/p cysto, RGP, stent placement 10/23/23
- repeat CT 10/25 with 8.5 cm gas containing low-density subcapsular collection on the right concerning for renal abscess. Moderate persistent right-sided hydronephrosis despite presence of the stent
- s/p IR guide drain placement 10/26 into subcapsular collection
- s/p Right nephrectomy 11/01
- continue Meropenem/daptomycin/Fluconazole per ID; cultures growing E. Coli, ESBL/Proteus, Klebsiella, VRE and arlene Krusei.
# Vomiting 11/08 due to functional ileus, poor functional status, recurrent hospitalization, and deconditioning are also major factors.
No vomiting
Upper GI contrast study showed no radiographic evidence for contrast extravasation. No evidence for bowel obstruction.
Advancing diet slowly
# Acute duodenal perforation due to colonic distention and small bowel manipulation during surgery
- CT 11/03: showed Findings consistent with small bowel injury, likely a leak involving the third segment of the duodenum
- Underwent urgent bowel repair. 11/03 duodenal perforation
- Finished course of ABx. - No significant abdominal pain.
c/w diet , advance slowly
# Hypokalemia, replaced.
# TME associated with above process of UTI/Pyelonephritis
- improved. Seems back to baseline. No agitation, pleasant and cooperative at times.
#Post-cystoscopy hematuria
- resolved.
#BPH s/p suprapubic catheter
Diarrhea
- C. Diff Ag+, toxin -
- hold bowel regimen; add probiotics
- ID aware, no treatment of C. Diff indicated currently
#History of Acute blood loss anemia with recent hx of upper GI bleed
Normocytic anemia (anemia chronic disease)
- stable Hb
# Pulmonary Atelectasis
- continue IS. Pt does not use it
Essential HTN
Better control. Resumed amlodipine, Coreg, Imdur lower dose due to borderline blood pressure.
Anxiety/Depression
- Resumed Xanax, nightly dose
- continue Lexapro
CAD S/p CABG/Stents
- continue Statin/Coreg/Imdur once taking po
- Resumed ASA .
GERD - PPI
Hx of DM neuropathy
- held Gabapentin but resume Lexapro
Hx of CVA
More alert and pleasant.
Suspect underlying senile or vascular cognitive impairment
Left heel Stage 3 pressure injury POA
- continue topical care
DVT ppx: SCDs until cleared by Urology for resumption of thinners
Code: Full
Total time spent to see the patient, examine the patient, review data and lab results, and discuss the treatment plan with patient, nurse around 45 minutes
Anticipated Discharge: Today
Subjective/Interval History
-
Date of Service: November 13, 2023
no complaints
Objective Data
-
Vital Signs:
Vital Signs
Temp Pulse Resp BP Pulse Ox
97.9 F 64 16 119/59 94
11/13/23 07:35 11/13/23 07:35 11/13/23 07:35 11/13/23 08:35 11/13/23 07:35
I&O
07/12/24 07/13/24 07/14/24
06:59 06:59 06:59
Intake Total 600 / 600 540 / 540
Output Total 1300 / 1300 1200 / 1200
Balance -700 / -700 -660 / -660
[2023-11-13 15:10] VITALS: BP 115/54
[2023-11-13 16:25] VITALS: BP 115/54
[2023-11-13] MEDS: LOVENOX 40 MG SC (17:57)
[2023-11-13] MEDS: ROXICODONE 5 MG PO (20:02)
[2023-11-13 23:34] VITALS: BP 114/56
[2023-11-14 05:34] VITALS: BMI 20.8
--- NOTE | 2023-11-14 06:20 | W.PN.URO.CBU ---
Today's Communication / Plan
-
no new input
Assessment / Plan
-
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
Recurrent UTI and catheter obstruction
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
s/p suprapubic tube replacement
s/p R ureteral stent placement 10/22 with purulent drainage. Calcified debris and ureteral kinking noted on retrograde study
s/p IR drain placement 10/26
s/p RIGHT NEPHRECTOMY 11/01
s/p repair of small bowel injury 11/03
Diagnosis
-
Date of Service: November 14, 2023
-
Patient Diagnosis:
Recurrent R ureteral obstruction
XGP kidney
Urinary retention with chronic SPT
Post Op s/p cystoscopy, R ureteral stent placement 10/22
IR drain placement 10/26
s/p right nephrectomy 11/01
small bowel laceration- repair 11/03
Objective
-
Vital Signs
Temp Pulse Resp BP Pulse Ox
98.2 F 76 16 114/56 99
11/13/23 23:34 11/13/23 23:34 11/13/23 23:34 11/13/23 23:34 11/13/23 23:34
Intake and Output
11/12/23 11/13/23 11/14/23
06:59 06:59 06:59
Intake Total 600 / 600 540 / 540 1440 / 1440
Output Total 1300 / 1300 1200 / 1200 750 / 750
Balance -700 / -700 -660 / -660 690 / 690
Intake:
Oral fluids 360 / 360 540 / 540 960 / 960
Amount of oral supplement(s) 240 / 240 480 / 480
consumed
Output:
Urine, Mane 250 / 250
Urine, Voided 0 / 0
Suprapubic output 1300 / 1300 950 / 950 750 / 750
Other:
Number of unmeasured liquid
stools
Rectum 1
Laboratory Results
11/10/23 04:34
11/10/23 04:33
Physical Exam
-
General - well developed, well nourished, no acute distress
Chest - clear bilaterally
Abdomen - soft, non-tender, positive bowel sounds, no CVAT, no incisional pain or distention
Genitalia - normal
Rectal - normal
Skin - warm & dry with no rash
Neuro - AOx3, no motor deficits
Extremities - no clubbing, no cyanosis, no edema
Incision - clean, dry
Dressing - clean, dry, intact
[2023-11-14 07:49] VITALS: BP 108/59
[2023-11-14] MEDS: LEXAPRO 20 MG PO (08:06)
[2023-11-14] MEDS: IMDUR (EXTENDED RELEASE) 30 MG PO (08:06)
[2023-11-14] MEDS: COREG 3.125 MG PO (08:06)
[2023-11-14] MEDS: LOW STRENGTH ASPIRIN 81 MG PO (08:06)
[2023-11-14] MEDS: NORVASC 2.5 MG PO (08:06)
[2023-11-14] MEDS: PROTONIX 40 MG PO ×2 (08:07→20:37)
[2023-11-14] MEDS: NSS (PRESERVATIVE FREE) IV ×2 (08:07→20:35)
[2023-11-14] MEDS: ROXICODONE 5 MG PO (09:48)
--- NOTE | 2023-11-14 10:00 | W.PN.HOSP.TC ---
Today's Communication/Plan
-
Await DC planning
Assessment / Plan
Assessment / Plan
Physical exam:
General: ill looking ( no acute distress)
HEENT: Normocephalic and Atraumatic
Respiratory: Negative Wheezes. Limited.
Cardiac: Regular Rhythm and S1/S2
GI: soft,abdomen
Genito-urinary: No Costovertebral Tender and Mane,IR drain
Neuro: awake, confused, forgetful?
Psych: Calm
Xanthogranulomatous Pyelonephritis
recent h/o pyelonephritis due to MRSA and Proteus, infected R ureteral stone s/p stent/removal ([place])
- s/p cysto, RGP, stent placement 10/23/23
- repeat CT 10/25 with 8.5 cm gas containing low-density subcapsular collection on the right concerning for renal abscess. Moderate persistent right-sided hydronephrosis despite presence of the stent
- s/p IR guide drain placement 10/26 into subcapsular collection
- s/p Right nephrectomy 11/01
- continue Meropenem/daptomycin/Fluconazole per ID; cultures growing E. Coli, ESBL/Proteus, Klebsiella, VRE and arlene Krusei.
# Vomiting 11/08 due to functional ileus, poor functional status, recurrent hospitalization, and deconditioning are also major factors.
No vomiting
Upper GI contrast study showed no radiographic evidence for contrast extravasation. No evidence for bowel obstruction.
Advancing diet slowly
# Acute duodenal perforation due to colonic distention and small bowel manipulation during surgery
- CT 11/03: showed Findings consistent with small bowel injury, likely a leak involving the third segment of the duodenum
- Underwent urgent bowel repair. 11/03 duodenal perforation
- Finished course of ABx. - No significant abdominal pain.
c/w diet , advance slowly
# Hypokalemia, replaced.
# TME associated with above process of UTI/Pyelonephritis
- improved. Seems back to baseline. No agitation, pleasant and cooperative at times.
#Post-cystoscopy hematuria
- resolved.
#BPH s/p suprapubic catheter
Diarrhea
- C. Diff Ag+, toxin -
- hold bowel regimen; add probiotics
- ID aware, no treatment of C. Diff indicated currently
#History of Acute blood loss anemia with recent hx of upper GI bleed
Normocytic anemia (anemia chronic disease)
- stable Hb
# Pulmonary Atelectasis
- continue IS. Pt does not use it
Essential HTN
Better control. Resumed amlodipine, Coreg, Imdur lower dose due to borderline blood pressure.
Anxiety/Depression
- Resumed Xanax, nightly dose
- continue Lexapro
CAD S/p CABG/Stents
- continue Statin/Coreg/Imdur once taking po
- Resumed ASA .
GERD - PPI
Hx of DM neuropathy
- held Gabapentin but resume Lexapro
Hx of CVA
More alert and pleasant.
Suspect underlying senile or vascular cognitive impairment
Left heel Stage 3 pressure injury POA
- continue topical care
DVT ppx: SCDs until cleared by Urology for resumption of thinners
Code: Full
Total time spent to see the patient, examine the patient, review data and lab results, and discuss the treatment plan with patient, nurse around 45 minutes
Anticipated Discharge: Today
Subjective/Interval History
-
Date of Service: November 14, 2023
Denies pain in abdomen, denies nausea
Objective Data
-
Vital Signs:
Vital Signs
Temp Pulse Resp BP Pulse Ox
97.3 F 66 16 108/59 99
11/14/23 07:49 11/14/23 08:06 11/14/23 07:49 11/14/23 08:06 11/14/23 07:49
I&O
11/13/23 11/14/2324
06:59 06:59 06:59
Intake Total 540 / 540 1440 / 1440
Output Total 1200 / 1200 750 / 750
Balance -660 / -660 690 / 690
[2023-11-14 15:20] VITALS: BP 105/56
[2023-11-14 17:54] VITALS: BP 105/56
[2023-11-14] MEDS: LOVENOX 40 MG SC (18:18)
[2023-11-14] MEDS: COREG PO ×2 (20:34→20:44)
[2023-11-14 23:22] VITALS: BP 101/59
[2023-11-15 05:41] VITALS: BMI 20.8
[2023-11-15 07:25] VITALS: BP 119/59
[2023-11-15] MEDS: LEXAPRO 20 MG PO (09:24)
[2023-11-15] MEDS: PROTONIX 40 MG PO ×2 (09:24→19:39)
[2023-11-15] MEDS: LOW STRENGTH ASPIRIN 81 MG PO (09:24)
[2023-11-15] MEDS: IMDUR (EXTENDED RELEASE) 30 MG PO (09:24)
[2023-11-15] MEDS: NORVASC 2.5 MG PO (09:25)
[2023-11-15] MEDS: COREG 3.125 MG PO ×2 (09:26→19:39)
[2023-11-15] MEDS: NSS (PRESERVATIVE FREE) IV ×2 (09:26→19:56)
--- NOTE | 2023-11-15 14:17 | W.PN.HOSP.TC ---
Today's Communication/Plan
-
medically stable for dispo to SNF pending bed/auth
Assessment / Plan
Assessment / Plan
Assessment:
Xanthogranulomatous Pyelonephritis
recent h/o pyelonephritis due to MRSA and Proteus, infected R ureteral stone s/p stent/removal ([place])
- s/p cysto, RGP, stent placement 10/23/23
- repeat CT 10/25 with 8.5 cm gas containing low-density subcapsular collection on the right concerning for renal abscess. Moderate persistent right-sided hydronephrosis despite presence of the stent
- s/p IR guide drain placement 10/26 into subcapsular collection
- s/p Right nephrectomy 11/01
- completed antimicrobial course of Meropenem/Daptomycin/Fluconazole per ID; cultures had grown E. Coli, ESBL/Proteus, Klebsiella, VRE and arlene Krusei.
Ileus with vomiting
- exacerbated by poor functional status, deconditioning
- resolved
- diet now being tolerated
Acute duodenal perforation due to colonic distention and small bowel manipulation during surgery
- CT 11/03: showed Findings consistent with small bowel injury, likely a leak involving the third segment of the duodenum
- Underwent urgent bowel repair. 11/03 duodenal perforation
- Finished course of ABx. - No significant abdominal pain.
- diet now being tolerated
Hypokalemia, replaced.
TME associated with above process of UTI/Pyelonephritis
- improved. Seems back to baseline. No agitation, pleasant and cooperative at times.
Post-cystoscopy hematuria
- resolved.
BPH s/p suprapubic catheter
Diarrhea
- C. Diff Ag+, toxin -
- hold bowel regimen; add probiotics
- ID aware, no treatment of C. Diff indicated currently
History of Acute blood loss anemia with recent hx of upper GI bleed
Normocytic anemia (anemia chronic disease)
- stable Hb
Pulmonary Atelectasis
- continue IS. Pt does not use it
Essential HTN
- better control. Resumed amlodipine, Coreg, Imdur lower dose due to borderline blood pressure.
Anxiety/Depression
- resumed Xanax, nightly dose
- continue Lexapro
CAD s/p CABG/Stents
- continue Statin/Coreg/Imdur once taking po
- resumed ASA
GERD - PPI
Hx of DM neuropathy
- held Gabapentin but resume Lexapro
Hx of CVA
- more alert and pleasant.
- suspect underlying senile or vascular cognitive impairment
Left heel Stage 3 pressure injury POA
- continue topical care
DVT ppx: SCDs until cleared by Urology for resumption of thinners
Code: Full
Anticipated Discharge: 24 - 48 hours
Subjective/Interval History
-
Date of Service: November 15, 2023
no new complaints at present
Objective Data
-
Vital Signs:
Vital Signs
Temp Pulse Resp BP Pulse Ox
97.9 F 68 12 119/59 93
11/15/23 07:25 11/15/23 09:26 11/15/23 07:25 11/15/23 09:26 11/15/23 07:25
I&O
11/14/23 11/15/23 11/16/23
06:59 06:59 06:59
Intake Total 1440 / 1440 1320 / 1320
Output Total 750 / 750 675 / 675
Balance 690 / 690 645 / 645
Physical Exam
-
General: No Apparent Distress
HEENT: Normocephalic and Atraumatic
Respiratory: Negative Wheezes
Cardiac: Regular Rhythm
GI: Soft
Genito-urinary: No Costovertebral Tender
Musculoskeletal: No Edema
Neuro: AO x 3
Hematologic / Lymphatic: No Lymphadenopathy
Psych: Calm
Data Reviewed
-
Total Time Spent with Patient (in minutes): 45
Labs: Labs Reviewed by me
[2023-11-15 15:15] VITALS: BP 113/63
--- NOTE | 2023-11-15 15:44 | WOUNDNOTE ---
WON RN NOTE: Followed up today regarding wounds. L medial and lateral heel with stable eschar no drainage. Posterior heel with yellow slough, scant serous drainage, no odor. R heel intact under foam, using offloading heel boots. Sacrum with pressure
ulcer appears unchanged, drainage green tinged with slight odor. Turned patient with assist from PCT, patient too weak to turn self. On air overlay with adequate offloading. Patient's appetite is poor, nurse Radha reports he drank his ensure today
but that is all. Recommend [facility] WTD to sacral and L posterior heel daily, will update wound care orders and confirm with hospitalist.
--- NOTE | 2023-11-15 17:08 | CM ---
Discharge Plan of Care: SNF for [place] is preference and has accepted patient. Will check in AM if bed available and when attending anticipates discharge.
[2023-11-15] MEDS: LOVENOX 40 MG SC (18:24)
[2023-11-15 23:05] VITALS: BP 113/51
[2023-11-16 07:45] VITALS: BP 101/56
--- NOTE | 2023-11-16 07:54 | W.PN.UPDATE ---
Update Note
Progress Note Update
pt stable
urine clear
nathaly removed
cleared for discharge- f/u with dr townsend in 4 weeks
[2023-11-16] MEDS: IMDUR (EXTENDED RELEASE) 30 MG PO (08:45)
[2023-11-16] MEDS: NORVASC 2.5 MG PO (08:45)
[2023-11-16] MEDS: COREG 3.125 MG PO (08:45)
[2023-11-16] MEDS: LEXAPRO 20 MG PO (08:45)
[2023-11-16] MEDS: PROTONIX 40 MG PO (08:45)
[2023-11-16] MEDS: LOW STRENGTH ASPIRIN 81 MG PO (08:45)
[2023-11-16] MEDS: DAKIN'S SOLUTION 0.125% 1/4 STRENGTH 473 ML TOPICAL (08:46)
[2023-11-16] MEDS: NSS (PRESERVATIVE FREE) IV (08:47)
--- NOTE | 2023-11-16 10:17 | CM ---
Reviewed the chart notes and spoke with the patient's daughter Yamila via telephone. IMM reviewed. CM continues to be available to patient/family and is monitoring medical plan for needs at discharge.
Plan: Discharge to [facility] when medically stable.
Call report to: [phone]
Fax report to: [phone]
Medical necessity and transport forms on chart.
--- NOTE | 2023-11-16 13:13 | W.DS.TRANS ---
DC Summary - [employer]
-
Discharge Instructions:
Discharge Diagnosis/Procedures Xanthogranulomatous Pyelonephritis s/p
Nephrectomy / and bowel repair 11/03
Diet Supplements,Chop all food
Additional Diets Soft diet with frequent, small meals. Protein
supplements for nutritional support
Activity No strenuous activity
Bathing Restrictions OK to Shower
Other Services OT,PT
Wound Care also needs wound care service
Instructions:
Stand-Alone Forms:
Changes to Home Medications: No
Discharge Medications:
DC Medications w/original date entered in [facility]
amlodipine 2.5 mg tablet 2.5 mg PO DAILY Blood Pressure 10/21/23
aspirin 81 mg chewable tablet 81 mg PO DAILY Blood Clot Prevention/Tx 10/21/23
atorvastatin 40 mg tablet 40 mg PO DAILY High Cholesterol 10/21/23
carvedilol 3.125 mg tablet 3.125 mg PO BID Heart Disease/Condition 10/21/23
coenzyme Q10 50 mg capsule (Co Q-10) 50 mg PO DAILY Supplement 10/21/23
cyclobenzaprine 5 mg tablet 5 mg PO BID PRN muscle spasms 10/21/23
ergocalciferol (vitamin D2) 1,250 mcg (50,000 unit) capsule 1,250 mcg PO WEEKLY Supplement 10/21/23
escitalopram oxalate 20 mg tablet 20 mg PO DAILY Depression 10/21/23
ferrous sulfate 325 mg (65 mg iron) tablet 325 mg PO DAILY Supplement 10/21/23
gabapentin 100 mg capsule 100 mg PO HS Neurological Condition 10/21/23
zinc oxide-cod liver oil 40 % topical paste (Desitin) 1 applic topical PRN PRN wound care 10/21/23
pantoprazole 40 mg tablet,delayed release 40 mg PO BID Gastrointestinal Issue #60 tabs 11/12/23
acetaminophen 325 mg tablet 650 mg (2 x 325 mg) PO Q4HPRN PRN mild pain #100 tabs 11/16/23
alprazolam 0.5 mg tablet 0.5 mg PO HS Mental Health/Anxiety #3 tabs 11/16/23
clopidogrel 75 mg tablet (Plavix) 75 mg PO DAILY #30 tabs 11/16/23
isosorbide mononitrate 30 mg tablet,extended release 24 hr 30 mg PO DAILY #30 tabs 11/16/23
miconazole nitrate 2 % topical ointment (Critic-Aid Clear AF (miconazole)) 1 applic topical BIDPRN PRN soilage/drainage #100 grams 11/16/23
oxycodone 5 mg tablet 5 mg PO Q4HPRN PRN moderate pain #10 tabs 11/16/23
sodium hypochlorite 0.125 % solution (Dakin's Solution) 1 applic topical DAILY #473 mL 11/16/23
Home Medication Changes
Pending Results: No
Total time spent discharging patient (in min): 42
--- NOTE | 2023-11-16 13:16 | W.PN.HOSP.TC ---
Today's Communication/Plan
-
dc to SNF
Assessment / Plan
Assessment / Plan
Assessment:
Xanthogranulomatous Pyelonephritis
recent h/o pyelonephritis due to MRSA and Proteus, infected R ureteral stone s/p stent/removal ([place])
- s/p cysto, RGP, stent placement 10/23/23
- repeat CT 10/25 with 8.5 cm gas containing low-density subcapsular collection on the right concerning for renal abscess. Moderate persistent right-sided hydronephrosis despite presence of the stent
- s/p IR guide drain placement 10/26 into subcapsular collection
- s/p Right nephrectomy 11/01
- completed antimicrobial course of Meropenem/Daptomycin/Fluconazole per ID; cultures had grown E. Coli, ESBL/Proteus, Klebsiella, VRE and arlene Krusei.
Ileus with vomiting
- exacerbated by poor functional status, deconditioning
- resolved
- diet now being tolerated
Acute duodenal perforation due to colonic distention and small bowel manipulation during surgery
- CT 11/03: showed Findings consistent with small bowel injury, likely a leak involving the third segment of the duodenum
- Underwent urgent bowel repair. 11/03 duodenal perforation
- Finished course of ABx. - No significant abdominal pain.
- diet now being tolerated
Hypokalemia, replaced.
TME associated with above process of UTI/Pyelonephritis
- improved. Seems back to baseline. No agitation, pleasant and cooperative at times.
Post-cystoscopy hematuria
- resolved.
BPH s/p suprapubic catheter
Diarrhea
- C. Diff Ag+, toxin -
- hold bowel regimen; add probiotics
- ID aware, no treatment of C. Diff indicated currently
History of Acute blood loss anemia with recent hx of upper GI bleed
Normocytic anemia (anemia chronic disease)
- stable Hb
Pulmonary Atelectasis
- continue IS. Pt does not use it
Essential HTN
- better control. Resumed amlodipine, Coreg, Imdur lower dose due to borderline blood pressure.
Anxiety/Depression
- resumed Xanax, nightly dose
- continue Lexapro
CAD s/p CABG/Stents
- continue Statin/Coreg/Imdur once taking po
- resumed ASA
GERD - PPI
Hx of DM neuropathy
- held Gabapentin but resume Lexapro
Hx of CVA
- more alert and pleasant.
- suspect underlying senile or vascular cognitive impairment
Left heel Stage 3 pressure injury POA
- continue topical care
DVT ppx: SCDs until cleared by Urology for resumption of thinners
Code: Full
More than 30 minutes spent in discharge including
Final examination of the patient
Summarizing hospital stay
Instructions for continuing care to all relevant caregivers
Preparation of discharge records, prescriptions, and referral forms
Total time spent (in minutes): 41
Anticipated Discharge: Today
Subjective/Interval History
-
Date of Service: November 16, 2023
no complaints
Objective Data
-
Vital Signs:
Vital Signs
Temp Pulse Resp BP Pulse Ox
97.9 F 62 16 101/56 95
11/16/23 07:45 11/16/23 08:45 11/16/23 07:45 11/16/23 08:45 11/16/23 07:45
I&O
11/15/23 11/16/23 11/17/23
06:59 06:59 06:59
Intake Total 1320 / 1320 1200 / 1200
Output Total 675 / 675 50 / 50
Balance 645 / 645 1150 / 1150
Physical Exam
-
General: No Apparent Distress
HEENT: Normocephalic and Atraumatic
Respiratory: Negative Wheezes or Rales
Cardiac: Regular Rhythm and S1/S2
GI: Soft and Nontender
Neuro: AO x 3
Psych: Calm
Data Reviewed
-
Total Time Spent with Patient (in minutes): 41
Labs: Labs Reviewed by me
[2023-11-16 15:10] VITALS: BP 120/63
== END 2023-11-16 15:30 | DRG 659 ==
LOC: 2 NORTH 20:28
PROVIDERS: General Practice; Internal Medicine; Internal Medicine Infectious Disease; Nurse Practitioner Family; Physician Assistant; Radiology Diagnostic Radiology; Radiology Vascular & Interventional Radiology; Registered Nurse; Urology; ADMITTING PHYSICIAN Hospitalist; ATTENDING PHYSICIAN Internal Medicine; CONSULT PHYSICIAN Internal Medicine Critical Care Medicine; CONSULT PHYSICIAN Specialist; CONSULT PHYSICIAN Student in an Organized Health Care Education/Training Program; EMERGENCY PHYSICIAN Emergency Medicine; OTHER PHYSICIAN Surgery
PROC: 0T2BX0Z Change Drainage Device in Bladder, External Approach (ICD-10-PCS; 2023-10-22)
PROC: 0T768DZ Dilation of Right Ureter with Intraluminal Device, Via Natural or Artificial Opening Endoscopic (ICD-10-PCS; 2023-10-23)
PROC: BT1D1ZZ Fluoroscopy of Right Kidney, Ureter and Bladder using Low Osmolar Contrast (ICD-10-PCS; 2023-10-23)
PROC: 0W9G30Z Drainage of Peritoneal Cavity with Drainage Device, Percutaneous Approach (ICD-10-PCS; 2023-10-27)
PROC: 30233N1 Transfusion of Nonautologous Red Blood Cells into Peripheral Vein, Percutaneous Approach (ICD-10-PCS; 2023-11-02)
PROC: 0TT00ZZ Resection of Right Kidney, Open Approach (ICD-10-PCS; 2023-11-02)
PROC: 0DNW0ZZ Release Peritoneum, Open Approach (ICD-10-PCS; 2023-11-02)
PROC: 30233K1 Transfusion of Nonautologous Frozen Plasma into Peripheral Vein, Percutaneous Approach (ICD-10-PCS; 2023-11-02)
PROC: 0DQ90ZZ Repair Duodenum, Open Approach (ICD-10-PCS; 2023-11-04)
PROC: 0D9670Z Drainage of Stomach with Drainage Device, Via Natural or Artificial Opening (ICD-10-PCS; 2023-11-04)
DX: T83.510A Infection and inflammatory reaction due to cystostomy catheter, initial encounter (principal); G92.8 Other toxic encephalopathy; L89.623 Pressure ulcer of left heel, stage 3; N15.1 Renal and perinephric abscess; K65.9 Peritonitis, unspecified; S37.011A Minor contusion of right kidney, initial encounter; N11.1 Chronic obstructive pyelonephritis; J98.11 Atelectasis; Z16.21 Resistance to vancomycin; S36.430A Laceration of duodenum, initial encounter; K91.72 Accidental puncture and laceration of a digestive system organ or structure during other procedure; E87.1 Hypo-osmolality and hyponatremia; D62 Acute posthemorrhagic anemia; K56.7 Ileus, unspecified; K52.1 Toxic gastroenteritis and colitis; N99.511 Cystostomy infection; R41.82 Altered mental status, unspecified; I25.10 Atherosclerotic heart disease of native coronary artery without angina pectoris; N40.0 Benign prostatic hyperplasia without lower urinary tract symptoms; K59.00 Constipation, unspecified; F41.9 Anxiety disorder, unspecified; I10 Essential (primary) hypertension; K21.9 Gastro-esophageal reflux disease without esophagitis; E11.40 Type 2 diabetes mellitus with diabetic neuropathy, unspecified; E87.6 Hypokalemia; N31.9 Neuromuscular dysfunction of bladder, unspecified; R94.4 Abnormal results of kidney function studies; X58.XXXA Exposure to other specified factors, initial encounter; B95.62 Methicillin resistant Staphylococcus aureus infection as the cause of diseases classified elsewhere; B96.20 Unspecified Escherichia coli [E. coli] as the cause of diseases classified elsewhere; B96.4 Proteus (mirabilis) (morganii) as the cause of diseases classified elsewhere; B95.2 Enterococcus as the cause of diseases classified elsewhere; B96.1 Klebsiella pneumoniae [K. pneumoniae] as the cause of diseases classified elsewhere; E11.649 Type 2 diabetes mellitus with hypoglycemia without coma; R31.9 Hematuria, unspecified; D63.8 Anemia in other chronic diseases classified elsewhere; R33.9 Retention of urine, unspecified; F32.A Depression, unspecified; K66.0 Peritoneal adhesions (postprocedural) (postinfection); T36.95XA Adverse effect of unspecified systemic antibiotic, initial encounter; R11.10 Vomiting, unspecified; D72.829 Elevated white blood cell count, unspecified; Y65.8 Other specified misadventures during surgical and medical care; Y92.234 Operating room of hospital as the place of occurrence of the external cause; Y93.89 Activity, other specified; Y73.2 Prosthetic and other implants, materials and accessory gastroenterology and urology devices associated with adverse incidents; Y92.009 Unspecified place in unspecified non-institutional (private) residence as the place of occurrence of the external cause; Y84.6 Urinary catheterization as the cause of abnormal reaction of the patient, or of later complication, without mention of misadventure at the time of the procedure; Z22.1 Carrier of other intestinal infectious diseases; Z95.5 Presence of coronary angioplasty implant and graft; Z79.82 Long term (current) use of aspirin; Z87.820 Personal history of traumatic brain injury; Z86.14 Personal history of Methicillin resistant Staphylococcus aureus infection; Z87.442 Personal history of urinary calculi; Z86.19 Personal history of other infectious and parasitic diseases; Z87.440 Personal history of urinary (tract) infections; Z95.1 Presence of aortocoronary bypass graft; Z75.1 Person awaiting admission to adequate facility elsewhere
CPT/HCPCS: 88307; 36600; 49406; 71045; 74018; 74176; 74177; 74240; 76000; 80048; 80053; 81003; 81015; 82248; 82550; 82805; 82962; 83605; 83735; 84100; 85014; 85018; 85025; 85027; 85610; 85730; 86850; 86900; 86901; 86920; 87015; 87040; 87070; 87075; 87077; 87086; 87106; 87147; 87186; 87205; 87324; 87449; 93005; 94002; 96361; 96374; 97110; 97163; 97167; 97530; 97535; 99152; 99285; A4300; A4648; C1776; C2617; J0878; J2185; J3480; P9016; P9059; Q9967

== ENCOUNTER 2023-12-11 17:43 | Emergency (ER) | payer MEDICARE, SELFPAY ==
[2023-12-11] VITALS (7 sets, daily range): BP systolic 99–143; BP diastolic 64–74; BMI 22.8
--- NOTE | 2023-12-11 20:35 | ED.GENMED ---
History of Present Illness
<Alicja Min NP - Last Filed: 12/12/23 22:42>
General
Chief Complaint: Catheter/Tube Problem
Source: ambulance crew and skilled nursing
Exam Limitations: none
Time Seen by Provider: 12/11/23 18:02
Nursing documentation reviewed up to this point in time: agreed with
History of Present Illness
History of Present Illness:
Patient to ED from skilled nursing for evaluation of suprpubic tube. According to report, visiting nurse was sent for monthy tube change. Initially she removed 50cc saline from balloon but was unable to remove catheter. Patient complaing of pain
around catheter. RN returned 30cc to balloon and then sent him to ED for eval . Catheter draining clear yellow urine.
Past History
<Alicja Min NP - Last Filed: 12/12/23 22:42>
Past History
ED Past Medical History: CAD, CVA, GERD, Hypercholesterolemia, NIDDM, Psychiatric (depression) and Other (TBI, encephalopathy)
Review of Systems
<Alicja Min NP - Last Filed: 12/12/23 22:42>
Review of Systems
Allergies reviewed?: Yes
All Other Systems: ROS reviewed and negative except as documented in HPI and ROS
Constitutional: Reports no symptoms
EENT: Reports no symptoms
Respiratory: Reports no symptoms
Cardiac: Reports no symptoms
ABD/GI: Reports no symptoms
: Reports other (Pain surrounding suprapubic catheter. Unable to remove COMMUTATOR TESTER)
Musculoskeletal: Reports no symptoms
Skin: Reports no symptoms
Neurological: Reports no symptoms
Psychiatric: Reports no symptoms
Phy Exam
<Alicja Min LABOR RELATIONS SUPERVISOR - Last Filed: 12/12/23 22:42>
General Physical Exam
General Presentation: well appearing and no apparent distress
General age: appears stated age
General Skin: warm and dry
General Habitus: normal
Cardiovascular Exam
Cardiovascular Exam: regular rate/rhythm
Pulmonary Exam
Pulmonary Exam: lungs clear and no respiratory distress
Gastrointestinal Exam
Gastrointestinal Exam: normal bowel sounds, non tender, soft, no organomegaly, non distended and other (Suprapubic catheter intact draining clear yellow urine.)
Musculoskeletal Exam
Musculoskeletal Exam: neuro vasc intact
Skin Exam
Skin Exam: normal color, warm/dry and no rash
Psychiatric Exam
Psychiatric Exam: normal mood/affect
Course
<Alicja Min NP - Last Filed: 12/12/23 22:42>
Orders/Labs/Results
Orders:
Orders
12/11/23 19:16
US Bladder [US Urinary Bladder Only] Urgent
Comment:
Reason For Exam: suprapubic catheter placement
12/11/23 23:08
Cefdinir [Omnicef] 300 mg PO NOW STA
12/11/23 23:25
Urine Culture Urgent
KIEL Source: Urine
Specimen Description:
Obtained by: Suprapubic
Date Specimen was Collected: 12/11/23
Time Specimen was Collected: 23:12
Vital Signs
Initial and Last Documented VS:
Initial Vital Signs
Temp Pulse Resp BP Pulse Ox
98.2 F 95 20 135/73 97
12/11/23 17:47 12/11/23 17:47 12/11/23 17:47 12/11/23 17:47 12/11/23 17:47
Last Documented Vital Signs
Temp Pulse Resp BP Pulse Ox
98.2 F 95 20 96/59 92
12/11/23 17:47 12/11/23 18:00 12/11/23 17:47 12/12/23 01:00 12/12/23 01:00
<Wm Amos MD - Last Filed: 12/13/23 00:51>
Orders/Labs/Results
Orders:
Orders
12/11/23 19:16
US Bladder [US Urinary Bladder Only] Urgent
Comment:
Reason For Exam: suprapubic catheter placement
12/11/23 23:08
Cefdinir [Omnicef] 300 mg PO NOW STA
12/11/23 23:25
Urine Culture Urgent
KIEL Source: Urine
Specimen Description:
Obtained by: Suprapubic
Date Specimen was Collected: 12/11/23
Time Specimen was Collected: 23:12
Vital Signs
Initial and Last Documented VS:
Initial Vital Signs
Temp Pulse Resp BP Pulse Ox
98.2 F 95 20 135/73 97
12/11/23 17:47 12/11/23 17:47 12/11/23 17:47 12/11/23 17:47 12/11/23 17:47
Last Documented Vital Signs
Temp Pulse Resp BP Pulse Ox
98.2 F 95 20 96/59 92
12/11/23 17:47 12/11/23 18:00 12/11/23 17:47 12/12/23 01:00 12/12/23 01:00
<Alicja Min NP - Last Filed: 12/12/23 22:42>
*Critical Care Note
Total Time (30-74mins, 75-104mins- exclusive of procedures): Not Applicable
<Wm Amos MD - Last Filed: 12/13/23 00:51>
Update Note
Update Note:
After discussion with on-call urology, , decision made to exchange existing suprapubic catheter. Existing catheter balloon deflated and removed uneventfully. New 22 [place] Mane catheter inserted without difficulty. Urine flowing freely
afterwards. Patient will be discharged in stable condition.
Prior to discharge, received phone call from patient's daughter. Daughter is concerned that patient has had 'increased confusion' over the past few days. Patient was started on amoxicillin by visiting family physician, based on urinalysis with
recommendation to follow-up with primary urologist, Dr. Whitten, when he returns from vacation on Wednesday. 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 Omnicef, based on his urine culture result from October 2023. Daughter expressed concern that patient will need IV antibiotics until new culture result
becomes available, with confusion. However, as patient has remained stable without any confusion noted by myself, with stable vital signs over 6 hours, explained to the daughter, there is no indication for admission to the hospital at this time,
with oral antibiotic available based on his previous culture result. Advised daughter to continue antibiotics, as prescribed, and speak with next week regarding his clinical symptoms, or consider returning to ED with any significant
change in his condition upon discharge.
Patient is afebrile, hemodynamically stable, and without any further lower abdominal pain, prior to discharge via ambulance.
Urine culture pending at discharge.
ED Attending Note
<Alicja Min NP - Last Filed: 12/12/23 22:42>
-
Portions of this chart may have been created with voice recognition software.� Occasional wrong word or��sound alike� substitutions may have occurred due to the inherent limitations of voice recognition software.
Discharge Plan
Departure
Patient Disposition: Assisted/SNF
Date of Disposition: 12/11/23
Time of Disposition: 22:28
Patient with high blood pressure during this ER visit?: Yes
Discharge Problem:
Complication, suprapubic catheter obstruction
Instructions: How to Care for Your Mane Catheter, Male
Prescriptions:
New
cefdinir 300 mg capsule
300 mg PO Q12H Qty: 13 0RF
No Action
atorvastatin 40 mg Tablet
40 mg PO DAILY
amlodipine 2.5 mg Tablet
2.5 mg PO DAILY
carvedilol 3.125 mg Tablet
3.125 mg PO BID
coenzyme Q10 [Co Q-10] 50 mg Capsule
50 mg PO DAILY
ferrous sulfate 325 mg (65 mg iron) Tablet
325 mg PO DAILY
aspirin 81 mg Tablet,Chewable
81 mg PO DAILY
gabapentin 100 mg Capsule
100 mg PO HS
ergocalciferol (vitamin D2) 1,250 mcg (50,000 unit) Capsule
1,250 mcg PO WEEKLY
escitalopram oxalate 20 mg Tablet
20 mg PO DAILY
cyclobenzaprine 5 mg Tablet
5 mg PO BID PRN (Reason: muscle spasms)
Desitin 40 % Paste
1 applic TOPICAL PRN PRN (Reason: wound care)
Patient Comments:
10/21/2023: apply topically
pantoprazole 40 mg Tablet,Delayed Release (Dr/Ec)
40 mg PO BID Qty: 60 0RF
Critic-Aid Clear AF(miconazol) 2 % Ointment
1 applic topical BIDPRN PRN (Reason: soilage/drainage) Qty: 100 0RF
Dakin's Solution 0.125 % Solution
1 applic topical DAILY Qty: 473 0RF
acetaminophen 325 mg Tablet
650 mg PO Q4HPRN PRN (Reason: mild pain) Qty: 100 0RF
isosorbide mononitrate 30 mg Tablet Extended Release 24 Hr
30 mg PO DAILY Qty: 30 0RF
oxycodone 5 mg Tablet
5 mg PO Q4HPRN PRN (Reason: moderate pain) Qty: 10 0RF
alprazolam 0.5 mg Tablet
0.5 mg PO HS Qty: 3 0RF
Patient Comments:
10/21/2023: last filled 08/31/23, 180 tabs for 90 days from [id number]
clopidogrel [Plavix] 75 mg tablet
75 mg PO DAILY Qty: 30 0RF
Referrals:
UNKNOWN - PT NOT,INTERVIEWE [Family Provider] -
Activity Restrictions/Additional Instructions:
As discussed, please follow up with your urologist for further evaluation and treatment. Your suprapubic catheter was successfully exchanged in ED. Your prescription has been sent electronically to [facility] pharmacy in [place]
Interventions
Interventions:
*Risk Screen - Suicide Last Done: 12/11/23 17:47
*General Assessment Last Done: 12/11/23 17:47
*Neglect/Abuse Screening Last Done: 12/11/23 17:47
ED- Fall Risk Assessment Last Done: 12/12/23 01:23
*ED COVID-19 Vaccine History Last Done: 12/11/23 17:47
*Nursing Disposition Last Done: 12/12/23 01:23
TN-Rwbirj-Ouqtdjoeyz Assessment Last Done: 12/11/23 17:58
ED-Male Genitourinary Assessment Last Done: 12/11/23 17:58
Discharge Date and Time
Discharge Date/Time: 12/12/23 01:26
Print Language: OCCITAN
[2023-12-12] VITALS: BP 100/59
[2023-12-12] MEDS: OMNICEF 300 MG PO (00:13)
[2023-12-12 01:00] VITALS: BP 96/59
== END 2023-12-12 01:26 ==
LOC: EMR 17:43
PROVIDERS: EMERGENCY PHYSICIAN Emergency Medicine
DX: T83.84XA Pain due to genitourinary prosthetic devices, implants and grafts, initial encounter (principal); Y84.6 Urinary catheterization as the cause of abnormal reaction of the patient, or of later complication, without mention of misadventure at the time of the procedure; Y92.129 Unspecified place in nursing home as the place of occurrence of the external cause; R41.0 Disorientation, unspecified; R03.0 Elevated blood-pressure reading, without diagnosis of hypertension; E11.9 Type 2 diabetes mellitus without complications; E78.00 Pure hypercholesterolemia, unspecified; F32.A Depression, unspecified; I25.10 Atherosclerotic heart disease of native coronary artery without angina pectoris; K21.9 Gastro-esophageal reflux disease without esophagitis; Z86.73 Personal history of transient ischemic attack (TIA), and cerebral infarction without residual deficits; Z79.82 Long term (current) use of aspirin
CPT/HCPCS: 99284; 51702; 76857; 87077; 87086; 87186